=== PATIENT | female | born 1955 | race Caucasian/White ===

== ENCOUNTER 2018-04-20 10:48 | Inpatient (IN) | payer OTHER ==
--- OUTSIDE RECORDS SUMMARY | 2018-04-20 10:51 | XMS REPORT | Clinical Summary ---
:1955 Author Organization [facility] Address [address] [address] Phone Care Team Providers Name Role Phone Unavailable Primary Care Provider Unavailable Allergies Active Allergy Reactions Severity Noted Date Comments Amoxicillin-Pot Clavulanate Other (See Comments) 11/28/2017 Cant remember Codeine Other (See Comments) 11/28/2017 hallucination Levofloxacin Nausea And Vomiting 11/28/2017 Morphine Other (See Comments) 11/28/2017 Other 11/28/2017 Adhesive tape Penicillins 11/29/2017 Current Medications Prescription Sig. Disp. Refills Start End Date Status Date DULoxetine Take 30 mg by Active (CYMBALTA) 30 MG mouth daily. capsule lactulose Take 20 g by mouth Active (CHRONULAC) 20 daily as needed . gram/30 mL solution pantoprazole Take 40 mg by Active (PROTONIX) 40 MG mouth daily. tablet traMADol Take 100 mg by Active (ULTRAM-ER) 100 MG mouth daily. 24 hr tablet baclofen (LIORESAL) Take 20 mg by Active 20 MG tablet mouth 3 (three) times daily. atorvastatin Take 10 mg by Active (LIPITOR) 10 MG mouth daily. tablet ferrous sulfate 325 Take 325 mg by Active (65 FE) MG tablet mouth daily with breakfast. zinc sulfate Take 220 mg by Active (ZINCATE) 220 (50) mouth daily. mg capsule vitamin E 600 UNIT Take 800 Units by Active capsule mouth every 12 (twelve) hours . aspirin 81 MG Take 81 mg by Active chewable tablet mouth daily. ascorbic acid, Take 500 mg by Active vitamin C, (VITAMIN mouth daily. C) 500 MG tablet levothyroxine Take 125 mcg by Active (SYNTHROID, mouth Every LEVOTHROID) 125 MCG morning on an tablet empty stomach. zolpidem (AMBIEN) Take 10 mg by Active 10 mg tablet mouth every night as needed for Insomnia. acetaminophen Take 500 mg by Active (TYLENOL) 500 MG mouth every 6 tablet (six) hours as needed for Pain. albuterol Take 2.5 mg by Active (PROVENTIL) 2.5 nebulization every mg/0.5 mL Nebu 6 (six) hours. nebulizer solution carBAMazepine Take 600 mg by Active (CARBATROL) 300 MG mouth every 12 12 hr capsule (twelve) hours. lidocaine 4 % Apply topically as Active dressing needed (spray). Lactobacillus Take 1 tablet by Active acidoph-LFriedabulgar mouth daily. (FLORANEX) 1 million cell Tab per tablet Missing or Take 290 mcg by Active Non-Formulary mouth daily Medication linactotide . gabapentin Take 300 mg by 12/09/19 Discontinued (NEURONTIN) 300 MG mouth every 12 18 capsule (twelve) hours . ipratropium Take 500 mcg by 12/09/19 Discontinued (ATROVENT) 0.02 % nebulization 4 18 nebulizer solution (four) times daily. vancomycin Inject 1,250 mg 12/09/19 Discontinued (VANCOCIN) 125 MG intravenously 18 capsule daily . bisacodyl (FLEET) Place 10 mg 12/09/19 Discontinued 10 mg/30 mL Enem rectally once. 18 enema enoxaparin Inject 40 mg 12/09/19 Discontinued (LOVENOX) 40 mg/0.4 subcutaneously 18 mL Syrg daily. insulin aspart Inject 12/09/19 Discontinued (NOVOLOG) 100 subcutaneously 3 18 unit/mL InPn (three) times daily with meals. hydrOXYzine Take 50 mg by 12/09/19 Discontinued (ATARAX) 50 MG mouth every 6 18 tablet (six) hours . ondansetron Inject 4 mg 12/09/19 Discontinued (ZOFRAN-ODT) 4 MG intravenously 18 disintegrating every 6 (six) tablet hours as needed for Nausea . acetylcysteine 20% Take 4 mLs by 12/09/19 Discontinued (MUCOMYST) 200 nebulization every 18 mg/mL (20 %) 6 (six) hours. nebulizer solution Missing or Inject 1 g 12/09/19 Discontinued Non-Formulary intravenously 18 Medication every 8 (eight) hours meropenon . meropenem (MERREM) Inject 1 g 0 12/18/19 1 g in sodium intravenously 8 18 chloride 0.9% (NS) every 8 (eight) 100 mL ADD EASE hours for 9 days. IVPB potassium chloride Take 1 tablet (20 14 tablet 0 12/23/19 SA (K-DUR,KLOR-CON) mEq total) by 8 18 20 MEQ tablet mouth daily for 14 days. furosemide (LASIX) Take 1 tablet (20 28 tablet 0 12/23/19 20 MG tablet mg total) by mouth 8 18 2 (two) times daily for 14 days. linezolid (ZYVOX) Take 1 tablet (600 18 tablet 0 12/18/19 600 mg tablet mg total) by mouth 8 18 2 (two) times daily for 9 days. Active Problems Problem Noted Date Acute pulmonary edema (HCC) 11/29/2017 Encounters Date Type Specialty Care Team Description 11/28/2017 - Hospital Encounter General Internal Hector, Will, Acute pulmonary edema 12/08/2017 Medicine DO ([facility]) (Primary Tanika Richardson Dx);Bilateral pleural MD Aleyda effusion;H/O multiple Jafar, Hemant sclerosis;COPD with MD Debi acute exacerbation ([facility]);Hypoxia;Suprapu bic catheter dysfunction, initial encounter ([facility]);Neurogenic bladder after 04/19/2017 Social History Tobacco Use Types Packs/Day Years Used Date Never Smoker Smokeless Tobacco: Never Used Tobacco Cessation: Counseling Given: No Alcohol Use Drinks/Week oz/Week Comments No Sex Assigned at Date Recorded Not on file Last Filed Vital Signs Vital Sign Reading Time Taken Blood Pressure 135/72 12/08/2017 7:43 PM CLIENT SUPPORT MANAGER Pulse 89 12/08/2017 7:43 PM CLIENT SUPPORT MANAGER Temperature 36 C (96.8 F) 12/08/2017 7:43 PM CLIENT SUPPORT MANAGER Respiratory Rate 18 12/08/2017 7:43 PM CLIENT SUPPORT MANAGER Oxygen Saturation 99% 12/08/2017 7:43 PM CLIENT SUPPORT MANAGER Inhaled Oxygen Concentration - - Weight 71.5 kg (157 lb 10.1 oz) 12/08/2017 5:56 AM CLIENT SUPPORT MANAGER Height 175.3 cm (5' 9") 11/29/2017 9:00 PM CLIENT SUPPORT MANAGER Body Mass Index 23.28 12/08/2017 5:56 AM CLIENT SUPPORT MANAGER Plan of Treatment Not on file Results RHYTHM STRIP - SCAN (12/09/2017 1:01 PM)Only the most recent of2 resultswithin the time period is included.EKG-SCANNED (12/09/2017 1:01 PM)POC-Glucose meter ( 12/08/2017 8:32 PM)Only the most recent of40 resultswithin the time period is included. Component Value Ref Range POC-Glucose Meter 190 (H)Comment: TESTED AT [facility] [address] 70 - 110 mg/dL [facility] [id number] Specimen Performing Laboratory Blood [facility] [address] [address] XR chest 1 view portable / bedside (12/08/2017 12:05 PM)Only the most recent of9 resultswithin the time period is included. Specimen Performing Laboratory [facility] Narrative FINAL REPORT Chest, 1 view. Comparison: 12/05/2017. Discussion: Left-sided subclavian chest port and right-sided PICC line in stable position. The trachea is midline. The lungs are symmetrically expanded without evidence of focal consolidation, pneumothorax, or significant pleural effusion. The cardiomediastinal silhouette is stable in appearance. No acute osseous abnormalities are identified. IMPRESSION: No acute cardiopulmonary process or significant detrimental interval change identified from the prior examination from 12/05/2017. Signed: Tariq Dunne MD Report Verified Date/Time:12/08/2017 14:54:31 Reading Location: [facility] Radiology Reading Room Procedure Note Interface, External Ris In - 12/08/2017 2:56 PM CLIENT SUPPORT MANAGER FINAL REPORT Chest, 1 view. Comparison: 12/05/2017. Discussion: Left-sided subclavian chest port and right-sided PICC line in stable position. The trachea is midline. The lungs are symmetrically expanded without evidence of focal consolidation, pneumothorax, or significant pleural effusion. The cardiomediastinal silhouette is stable in appearance. No acute osseous abnormalities are identified. IMPRESSION: No acute cardiopulmonary process or significant detrimental interval change identified from the prior examination from 12/05/2017. Signed: Tariq Dunne MD Report Verified Date/Time: 12/08/2017 14:54:31 Reading Location: [facility] Radiology Reading Room B-type Natriuretic Factor (BNP) (12/08/2017 6:45 AM)Only the most recent of4 resultswithin the time period is included. Component Value Ref Range BNP 234 (H) 0 - 100 pg/mL Specimen Performing Laboratory Blood [facility] [address] [place] [address] Manual Differential (12/08/2017 5:54 AM)Only the most recent of8 resultswithin the time period is included. Component Value Ref Range % Neutros (manual) 50 % % Lymphs (manual) 19 % % Monos (manual) 18 % % Eos (manual) 5 % % Bands (manual) 2 0 - 10 % % Atypical Lymphs 6 (H) 0 - 0 % # Neutros (manual) 4.85 1.80 - 8.00 K/L # Lymphs (manual) 1.84 1.48 - 4.50 K/L # Monos (manual) 1.75 (H) 0.00 - 1.30 K/L # Eos (manual) 0.49 0.00 - 0.50 K/L # Bands (manual) 0.2 0.0 - 0.8 K/L # Atypical Lymphs 0.58 (H) 0.00 - 0.00 K/L Total Counted 100 Bands plus Segmented Neutrophils 5.04 WBC Morphology Normal Large Platelet Present Giant Platelet Present Schistocytes 1+ few Anisocytosis 2+ moderate Hypochromia 1+ few Microcytes 1+ few Ovalocytes 1+ few Poikilocytes 1+ few Target Cells 1+ few Specimen Performing Laboratory Blood [facility] [address] [place] [address] CBC with platelet count + automated diff (12/08/2017 5:54 AM)Only the most recent of9 resultswithin the time period is included. Component Value Ref Range WBC 9.7 4.0 - 10.0 K/L RBC 4.38 4.00 - 5.00 M/L Hemoglobin 10.6 (L) 12.0 - 15.0 GM/DL Hematocrit 33.5 (L) 36.0 - 45.0 % MCV 76.6 (L) 82.0 - 99.0 fL MCH 24.1 (L) 27.0 - 33.0 pg MCHC 31.5 (L) 32.0 - 36.0 GM/DL RDW 34.0 (H) 10.3 - 14.2 % Platelets 224 150 - 430 K/CU MM MPV 12.0 (H) 6.5 - 10.5 fL Specimen Performing Laboratory Blood [facility] [address] [place] [address] CBC with platelet count + automated diff (12/08/2017 5:54 AM)Only the most recent of9 resultswithin the time period is included. Specimen Performing Laboratory Blood Narrative The following orders were created for panel order CBC with platelet count + automated diff. Procedure Abnormality Status --------- ------ CBC with platelet count ...[[id number]]AbnormalFinal result Manual Differential[[id number]]Abnormal Final result Please view results for these tests on the individual orders. Basic Metabolic Panel (12/08/2017 5:53 AM)Only the most recent of8 resultswithin the time period is included. Component Value Ref Range Sodium 139 135 - 148 meq/L Potassium 4.0 3.6 - 5.5 meq/L Chloride 99 98 - 106 meq/L CO2 31 (H) 20 - 29 meq/L BUN 30 (H) 10 - 26 mg/dL Creatinine 0.60 0.50 - 1.20 mg/dL Glucose 138 (H) 70 - 110 mg/dL Calcium 8.8 8.5 - 10.5 mg/dL EGFR 102Comment: ESTIMATED GFR IS NOT ACCURATE mL/min/1.73 sq m CREATININE CLEARANCE IN PREDICTING GLOMERULAR FILTRATION RATE. ESTIMATED GFR IS NOT APPLICABLE FOR DIALYSIS PATIENTS. Specimen Performing Laboratory Blood [facility] [address] [place] [address] Vancomycin level, trough (12/07/2017 9:02 AM)Only the most recent of3 resultswithin the time period is included. Component Value Ref Range Vancomycin Tr 17.3 10.0 - 20.0 ug/mL Specimen Performing Laboratory Blood [facility] [address] [place] [address] Peripheral Blood Smear - Path Review (12/06/2017 6:35 AM) Component Value Ref Range RBC Morphology Microcytosis Target Cells Hypochromasia Anisocytosis WBC Morphology Left Shift Atypical Lymphs Hypersegmented Neutrophils Platelet Morphology Large Platelets Pathologist Review Microcytic hypochromic anemia with anisocytosis and target cells. Few hypersegmented neutrophils. Findings are suggestive of iron deficiency anemia. Recommend correlation with iron levels. Pathologist Janet Cespedes M.D. (electronic signature) Specimen Performing Laboratory Blood [facility] [address] [place] [address] Vancomycin level, random (12/06/2017 6:35 AM)Only the most recent of2 resultswithin the time period is included. Component Value Ref Range Vancomycin Rm 18.1 ug/mL Specimen Performing Laboratory Blood [facility] [address] [place] [address] Narrative Reference Range: No Normals MR lumbar spine without & with IV contrast (12/04/2017 6:30 PM) Specimen Performing Laboratory [employer] Narrative FINAL REPORT EXAM: MRI lumbar spine with and without contrast. CLINICAL HISTORY: lumbago TECHNIQUE: Multiplanar multi sequential MRI of the lumbar spine was performed with and without intravenous contrast. COMPARISON: No prior study for comparison. FINDINGS: There is exaggeration of the lower lumbar lordosis. The bone marrow signal is normal. There is no significant abnormality to suggest an acute fracture. There is minimal grade 1 anterolisthesis at L2/L3, L3/L4 and L4/L5. There is a mild compression fracture deformity of the T12 and L4 vertebral body involving the superior endplate.There is mild loss of height of the L5 vertebral body. There is multilevel disc desiccation. There is mild disc space narrowing at L3/L4. There is multilevel facet arthropathy. The visualized spinal cord is normal in size, contour and signal. The conus medullaris terminates at L1. There is no abnormal enhancement within the spinal canal. At T12-L1, there is no significant spinal canal or neuroforaminal stenosis. At L1-L2, there is no significant spinal canal or neuroforaminal stenosis. At L2-L3, there is mild spinal canal stenosis due to ligamentous hypertrophy. There is no significant neuroforaminal stenosis. At L3-L4, there is mild spinal canal stenosis due to disc osteophyte complex and ligamentous hypertrophy. There is no significant neural foraminal stenosis. At L4-L5, there is mild spinal canal stenosis due to diffuse disc osteophyte complex and ligamentous hypertrophy. There is mild to moderate bilateral neuroforaminal stenosis. At L5-S1, there is no significant spinal canal stenosis. There is mild bilateral neural foraminal stenosis. There is a small T2 hyperintensity in the right kidney which may represent a cyst. There is soft tissue edema in the posterior subcutaneous tissues, with enhancement for which superimposed cellulitis cannot be excluded. There is no fluid collection. There is atrophy of the paraspinal musculature. IMPRESSION: Mild compression fracture deformity of T12 and L4. No acute fracture. Degenerative changes as described. No cord compression. Signed: Hans Rosa MD Report Verified Date/Time:12/04/2017 23:32:02 Reading Location: [facility] [id number] Transitional Reading Room Procedure Note Interface, External Ris In - 12/04/2017 11:34 PM CLIENT SUPPORT MANAGER FINAL REPORT EXAM: MRI lumbar spine with and without contrast. CLINICAL HISTORY: lumbago TECHNIQUE: Multiplanar multi sequential MRI of the lumbar spine was performed with and without intravenous contrast. COMPARISON: No prior study for comparison. FINDINGS: There is exaggeration of the lower lumbar lordosis. The bone marrow signal is normal. There is no significant abnormality to suggest an acute fracture. There is minimal grade 1 anterolisthesis at L2/L3, L3/L4 and L4/L5. There is a mild compression fracture deformity of the T12 and L4 vertebral body involving the superior endplate. There is mild loss of height of the L5 vertebral body. There is multilevel disc desiccation. There is mild disc space narrowing at L3/L4. There is multilevel facet arthropathy. The visualized spinal cord is normal in size, contour and signal. The conus medullaris terminates at L1. There is no abnormal enhancement within the spinal canal. At T12-L1, there is no significant spinal canal or neuroforaminal stenosis. At L1-L2, there is no significant spinal canal or neuroforaminal stenosis. At L2-L3, there is mild spinal canal stenosis due to ligamentous hypertrophy. There is no significant neuroforaminal stenosis. At L3-L4, there is mild spinal canal stenosis due to disc osteophyte complex and ligamentous hypertrophy. There is no significant neural foraminal stenosis. At L4-L5, there is mild spinal canal stenosis due to diffuse disc osteophyte complex and ligamentous hypertrophy. There is mild to moderate bilateral neuroforaminal stenosis. At L5-S1, there is no significant spinal canal stenosis. There is mild bilateral neural foraminal stenosis. There is a small T2 hyperintensity in the right kidney which may represent a cyst. There is soft tissue edema in the posterior subcutaneous tissues, with enhancement for which superimposed cellulitis cannot be excluded. There is no fluid collection. There is atrophy of the paraspinal musculature. IMPRESSION: Mild compression fracture deformity of T12 and L4. No acute fracture. Degenerative changes as described. No cord compression. Signed: Hans Rosa MD Report Verified Date/Time: 12/04/2017 23:32:02 Reading Location: [address] Transitional Reading Room thoracic spine without & with IV contrast (12/04/2017 6:30 PM) Specimen Performing Laboratory [facility] Narrative FINAL REPORT MRI of the thoracic spine pre and postcontrast Comparison:None Reason for exam: Bone destruction Discussion: Sagittal and axial multisequence MR imaging of the thoracic spine was provided pre and postcontrast There is no central canal or cord compromise at any thoracic level. The cord has normal size and signal intensity. No abnormal intrathecal enhancement. There is no focal or dominant marrow replacing lesion. Mild compression deformities are present T1, T7, and T10 all with chronic appearances. There is right greater than left pleural effusion. Paraspinal structures are otherwise unremarkable. Impressions: Chronic spine changes as discussed. No specific evidence of acute spine abnormality. No specific evidence of marrow replacing neoplasm. Signed: Gopi Noble MD Report Verified Date/Time:12/04/2017 18:04:28 Reading Location: [facility] [id number] Neuro Reading Room Procedure Note Interface, External Ris In - 12/04/2017 6:48 PM CLIENT SUPPORT MANAGER FINAL REPORT MRI of the thoracic spine pre and postcontrast Comparison: None Reason for exam: Bone destruction Discussion: Sagittal and axial multisequence MR imaging of the thoracic spine was provided pre and postcontrast There is no central canal or cord compromise at any thoracic level. The cord has normal size and signal intensity. No abnormal intrathecal enhancement. There is no focal or dominant marrow replacing lesion. Mild compression deformities are present T1, T7, and T10 all with chronic appearances. There is right greater than left pleural effusion. Paraspinal structures are otherwise unremarkable. Impressions: Chronic spine changes as discussed. No specific evidence of acute spine abnormality. No specific evidence of marrow replacing neoplasm. Signed: Gopi Noble MD Report Verified Date/Time: 12/04/2017 18:04:28 Reading Location: [facility] [id number] Neuro Reading Room cervical spine without & with IV contrast (12/04/2017 6:30 PM) Specimen Performing Laboratory [employer] Narrative FINAL REPORT EXAM: MRI cervical spine with and without contrast . CLINICAL HISTORY: Abnormal xray, cervical spine, DJD TECHNIQUE: Multiplanar multi sequential MRI of the cervical spine was performed with and without contrast.. COMPARISON: None available. FINDINGS: Cervical vertebral body heights and alignment are maintained.There is a mild compression fracture deformity of T1 which appears chronic. The bone marrow signal is normal. The craniocervical junction and visualized intracranial compartment are unremarkable. There is no abnormal enhancement. There is no abnormal spinal cord signal. There is no cord compression. There is multilevel disc desiccation. The intervertebral disc space heights are maintained. The individual disc levels demonstrate the following: C2-C3: No significant spinal canal or neuroforaminal stenosis. C3-C4: No significant spinal canal stenosis. Mild left neuroforaminal stenosis. C4-C5: Small broad-based disc ridge partially effacing the ventral subarachnoid space. No significant neuroforaminal stenosis. C5-C6: Small broad-based disc ridge partially effacing the ventral subarachnoid space. Mild bilateral neuroforaminal stenosis. C6-C7: No significant spinal canal or neuroforaminal stenosis. C7-T1: No significant spinal canal or neuroforaminal stenosis. The prevertebral and paraspinal soft tissues are within normal limits. IMPRESSION: Mild degenerative changes as described. No cord signal abnormality or compression. No abnormal enhancement. Mild compression fracture deformity of T1, which appears chronic. Signed: Hans Rosa MD Report Verified Date/Time:12/04/2017 23:48:58 Reading Location: [address] Transitional Reading Room Procedure Note Interface, External Ris In - 12/04/2017 11:51 PM CLIENT SUPPORT MANAGER FINAL REPORT EXAM: MRI cervical spine with and without contrast . CLINICAL HISTORY: Abnormal xray, cervical spine, DJD TECHNIQUE: Multiplanar multi sequential MRI of the cervical spine was performed with and without contrast.. COMPARISON: None available. FINDINGS: Cervical vertebral body heights and alignment are maintained. There is a mild compression fracture deformity of T1 which appears chronic. The bone marrow signal is normal. The craniocervical junction and visualized intracranial compartment are unremarkable. There is no abnormal enhancement. There is no abnormal spinal cord signal. There is no cord compression. There is multilevel disc desiccation. The intervertebral disc space heights are maintained. The individual disc levels demonstrate the following: C2-C3: No significant spinal canal or neuroforaminal stenosis. C3-C4: No significant spinal canal stenosis. Mild left neuroforaminal stenosis. C4-C5: Small broad-based disc ridge partially effacing the ventral subarachnoid space. No significant neuroforaminal stenosis. C5-C6: Small broad-based disc ridge partially effacing the ventral subarachnoid space. Mild bilateral neuroforaminal stenosis. C6-C7: No significant spinal canal or neuroforaminal stenosis. C7-T1: No significant spinal canal or neuroforaminal stenosis. The prevertebral and paraspinal soft tissues are within normal limits. IMPRESSION: Mild degenerative changes as described. No cord signal abnormality or compression. No abnormal enhancement. Mild compression fracture deformity of T1, which appears chronic. Signed: Hans Rosa MD Report Verified Date/Time: 12/04/2017 23:48:58 Reading Location: [address] Reading Room brain without & with IV contrast (12/04/2017 6:30 PM) Specimen Performing Laboratory [facility] Narrative FINAL REPORT Exam: MRI brain with and without contrast Comparison:No prior study for direct comparison. Reason for exam: Encephalopathy Technique: Multiplanar multisequence MRI of the brain was performed before and after the administration of gadolinium contrast. Findings: There are multiple ovoid T2 hyperintense lesions in the bilateral periventricular white matter without mass effect. Many of these are located along the callososeptal interface. Some lesions are T1 hypointense. Juxtacortical lesions are present. There is no abnormal enhancement. There is no intracranial mass, mass effect, extra-axial collection, hydrocephalus or herniation.There is no restricted diffusion to suggest an acute infarct. There is no abnormality on susceptibility sequences to suggest hemorrhage or hemosiderin deposition. The skull base flow-voids are seen in keeping with their patency. There is a right temporal mastoid effusion. The left thoracic cavity is clear. There is mild paranasal sinus mucosal thickening. The orbits are normal. The sella and parasellar regions are unremarkable. The craniocervical junction is normal. Impressions: Multiple white matter lesions favored to represent demyelinating lesions. No abnormal enhancement to suggest active demyelination. No acute infarct, hemorrhage or mass effect. Right temporal mastoid effusion. Signed: Hans Rosa MD Report Verified Date/Time:12/04/2017 22:01:42 Reading Location: [address] Reading Room Procedure Note Interface, External Ris In - 12/04/2017 10:03 PM CLIENT SUPPORT MANAGER FINAL REPORT Exam: MRI brain with and without contrast Comparison: No prior study for direct comparison. Reason for exam: Encephalopathy Technique: Multiplanar multisequence MRI of the brain was performed before and after the administration of gadolinium contrast. Findings: There are multiple ovoid T2 hyperintense lesions in the bilateral periventricular white matter without mass effect. Many of these are located along the callososeptal interface. Some lesions are T1 hypointense. Juxtacortical lesions are present. There is no abnormal enhancement. There is no intracranial mass, mass effect, extra-axial collection, hydrocephalus or herniation. There is no restricted diffusion to suggest an acute infarct. There is no abnormality on susceptibility sequences to suggest hemorrhage or hemosiderin deposition. The skull base flow-voids are seen in keeping with their patency. There is a right temporal mastoid effusion. The left thoracic cavity is clear. There is mild paranasal sinus mucosal thickening. The orbits are normal. The sella and parasellar regions are unremarkable. The craniocervical junction is normal. Impressions: Multiple white matter lesions favored to represent demyelinating lesions. No abnormal enhancement to suggest active demyelination. No acute infarct, hemorrhage or mass effect. Right temporal mastoid effusion. Signed: Hans Rosa MD Report Verified Date/Time: 12/04/2017 22:01:42 Reading Location: [facility] B1 C013T Transitional Reading Room Magnesium (12/04/2017 5:12 AM)Only the most recent of4 resultswithin the time period is included. Component Value Ref Range Magnesium 2.1 1.5 - 3.0 mg/dL Specimen Performing Laboratory Blood - Central Venous Line [facility] [address] [place] [address] Blood gas, arterial (12/03/2017 9:57 AM)Only the most recent of5 resultswithin the time period is included. Component Value Ref Range pH, Arterial 7.43 7.35 - 7.45 pCO2, Arterial 49 (H) 35 - 45 mmHg pO2, Arterial 112 (H) 80 - 90 mmHg O2 Sat, Arterial 98.1 (H) 96.0 - 97.0 % HCO3, Arterial 32 (H) 21 - 29 mmol/L Base Excess, Arterial 6.3 (H) -2.0 - 3.0 mmol/L Patient Temperature 37.0 C FIO2 32.0 % Specimen Performing Laboratory Blood, Arterial - Arm, Right [facility] [address] [place] [address] Respiratory Panel [facility] (12/01/2017 9:35 PM) Component Value Ref Range Human Metapneumovirus Not detected Not detected, Inconclusive Rhinovirus Not detected Not detected, Inconclusive Influenza A Not detected Not detected, Inconclusive Influenza A subtype H1 Not detected Not detected, Inconclusive Influenza A Subtype H3 Not detected Not detected, Inconclusive Influenza A Subtype H1-2009 Not detected Not detected, Inconclusive Influenza B Not detected Not detected, Inconclusive Respiratory Syncytial Virus Not detected Not detected, Inconclusive Parainfluenza Virus 1 Not detected Not detected, Inconclusive Parainfluenza Virus 2 Not detected Not detected, Inconclusive Parainfluenza virus 3 Not detected Not detected, Inconclusive Parainfluenza Virus 4 Not detected Not detected, Inconclusive Adenovirus Not detected Not detected, Inconclusive Coronavirus 229E Not detected Not detected, Inconclusive Coronavirus HKU1 Not detected Not detected, Inconclusive Coronavirus NL63 Not detected Not detected, Inconclusive Coronavirus OC43 Not detected Not detected, Inconclusive Bordetella Pertussis Not detected Not detected, Inconclusive Chlamydophila Pneumoniae Not detected Not detected, Inconclusive Mycoplasma Pneumoniae Not detected Not detected, Inconclusive Specimen Performing Laboratory Nasal - Nasal Mucosa [address] [address] Rapid Influenza A&B Screen (12/01/2017 9:35 PM) Component Value Ref Range Rapid Influenza A Antigen Negative Negative, Inconclusive Rapid influenza B Antigen Negative Negative, Inconclusive Specimen Performing Laboratory Nasal - Nasal Mucosa [facility] [address] [place] [address] Comprehensive metabolic panel (12/01/2017 12:00 PM) Component Value Ref Range Protein, Total 6.1 6.0 - 8.5 gm/dL Albumin 2.7 (L) 3.5 - 5.0 g/dL Alkaline Phosphatase 118 (H) 30 - 115 U/L Total Bilirubin 0.3 0.1 - 1.2 mg/dL Sodium 139 135 - 148 meq/L Potassium 3.5 (L) 3.6 - 5.5 meq/L Chloride 105 98 - 106 meq/L CO2 25 20 - 29 meq/L BUN 21 10 - 26 mg/dL Creatinine 0.70 0.50 - 1.20 mg/dL Glucose 387 (H) 70 - 110 mg/dL Calcium 8.2 (L) 8.5 - 10.5 mg/dL AST 16 5 - 40 U/L ALT 8 5 - 50 U/L EGFR 85Comment: ESTIMATED GFR IS NOT ACCURATE mL/min/1.73 sq m CREATININE CLEARANCE IN PREDICTING GLOMERULAR FILTRATION RATE. ESTIMATED GFR IS NOT APPLICABLE FOR DIALYSIS PATIENTS. Specimen Performing Laboratory Blood [facility] [address] [place] [address] pH, body fluid (11/30/2017 3:46 PM)Only the most recent of2 resultswithin the time period is included. Component Value Ref Range pH, Body Fluid 8.00 Specimen Performing Laboratory Body Fluid - Pleural, [address] [address] Glucose, body fluid (11/30/2017 3:46 PM)Only the most recent of2 resultswithin the time period is included. Component Value Ref Range Glucose, Body Fluid 256 (H) 70 - 110 mg/dL Specimen Performing Laboratory Body Fluid - Pleural, [address] [address] Narrative Absence of reference range indicates that normals have not been defined. Assay performance has not been validated for this type of specimen. Body fluid culture + gram stain (11/30/2017 3:46 PM)Only the most recent of2 resultswithin the time period is included. Component Value Ref Range Result No growth Gram Stain Result 1+ WBCs Gram Stain Result No organisms seen Specimen Performing Laboratory Body Fluid - Pleural, Right [facility] [address] [place] [address] Protein, body fluid (11/30/2017 3:46 PM)Only the most recent of2 resultswithin the time period is included. Component Value Ref Range Protein, Fluid 1.7 Light's criteria identifies effusions if one or more are present: Pleural to serum protein ratio of more than 0.5; Pleural to Serum LDH of more than 0.6; Pleural LDH of more than two third of upper serum reference limit g/dL Specimen Performing Laboratory Body Fluid - Pleural, [address] [address] Narrative Absence of reference range indicates that normals have not been defined. Assay performance has not been validated for this type of specimen. Lactate dehydrogenase (LDH), body fluid (11/30/2017 3:46 PM)Only the most recent of2 resultswithin the time period is included. Component Value Ref Range LDH, Fluid 123 Light's criteria identifies effusions if one or more are present: Pleural to serum protein ratio of more than 0.5; Pleural to serum LDH ratio of more than 0.6; Pleural LDH more than two third of upper serum reference limit U/L Specimen Performing Laboratory Body Fluid - Pleural, [address] [address] Narrative Absence of reference range indicates that normals have not been defined. Assay performance has not been validated for this type of specimen. Albumin, body fluid (11/30/2017 3:46 PM)Only the most recent of2 resultswithin the time period is included. Component Value Ref Range Albumin, Fluid 0.9 gm/dL Specimen Performing Laboratory Body Fluid - Pleural, [address] [address] Narrative Reference Range:No Normals Assay performance has not been validated for this type of specimen. Cytology (11/30/2017 3:15 PM) Component Value Ref Range Case Report Medical Cytology Report Case: [id number] Authorizing Provider:Sari Church MD Collected: 11/30/2017 1515 Ordering Location: [address] Med/SurgReceived: 12/01/2017 0758 Pathologist: Janet Cespedes MD Specimen:Pleural, Left DIAGNOSIS LEFT PLEURAL FLUID (CYTOSPINS): - REACTIVE MESOTHELIAL CELLS IN A BACKGROUND OF PREDOMINANTLY CHRONIC INFLAMMATION - NO MALIGNANT CELLS IDENTIFIED CPT Code(s) 40982 CLINICAL DATA Left pleural effusion, shortness of breath; history of multiple sclerosis SPECIMEN SOURCE LEFT PLEURAL FLUID GROSS DESCRIPTION Prepared 4 cytospins from 250 ml light brown fluid Collected: [id number] Received: [id number] MICROSCOPIC DESCRIPTION Performed. STATEMENT OF ADEQUACY Satisfactory Technical component was performed at [facility], Department of Pathology, [address] [place] [id number], Professional component was performed [facility], at Department of Pathology, [address] [place] [address], Specimen Performing Laboratory Body Fluid - Pleural, Left [facility] [address] [place] [address] US thoracentesis (11/30/2017 3:00 PM)Only the most recent of2 resultswithin the time period is included. Specimen Performing Laboratory [facility] Narrative FINAL REPORT Ultrasound Guided left Thoracentesis: Modality: Ultrasound Approach: Left Posterior Lateral Intercostal Sedation: None Findings: Informed consent was obtained. After an appropriate site for drainage was found, the skin was prepped and draped, and local anesthesia was given. A 16 G catheterwas inserted into the left pleural space under ultrasound guidance, and approximately 250 cc of pleural fluid was aspirated. The catheter was removed. No immediate complications were noted. A postprocedure chest radiograph revealed no evidence of pneumothorax. Impression: 1.Uncomplicated ultrasound-guided left thoracentesis. Signed: Gael Avilez MD Report Verified Date/Time:11/30/2017 16:47:10 Reading Location: [facility] Radiology Reading Room Procedure Note Interface, External Ris In - 11/30/2017 4:49 PM CLIENT SUPPORT MANAGER FINAL REPORT Ultrasound Guided left Thoracentesis: Modality: Ultrasound Approach: Left Posterior Lateral Intercostal Sedation: None Findings: Informed consent was obtained. After an appropriate site for drainage was found, the skin was prepped and draped, and local anesthesia was given. A 16 G catheter was inserted into the left pleural space under ultrasound guidance, and approximately 250 cc of pleural fluid was aspirated. The catheter was removed. No immediate complications were noted. A postprocedure chest radiograph revealed no evidence of pneumothorax. Impression: 1. Uncomplicated ultrasound-guided left thoracentesis. Signed: Gael Avilez MD Report Verified Date/Time: 11/30/2017 16:47:10 Reading Location: [facility] Radiology Reading Room CARDIOGRAM REPORT - SCAN (11/30/2017 1:54 PM)2D Echo W/Doppler(CW/PW/Color ) (11/30/2017 9:56 AM) Component Value Ref Range Ejection Fraction Specimen Performing Laboratory [facility] ECHO [facility] Narrative Transthoracic Echocardiography Report (TTE) Demographics Patient Name Bonnie CHAMBERLAIN of Study 11/30/2017 FREYA [id number] GenderFemale Visit Number [id number] [facility] [id number] Number 425 Number Date of Birth1955 Referring Physician Age62 year(s) Emergency Department Director Karen Easley [facility] Isabel Valdes Physician . Procedure Type of Study TTE procedure:2DECHO W DOPPLER(CW/PW/COLOR) (Routine) Indications:Dyspnea/SOB. Clinical History DM MSRa plural effusion Height: 69 inches Weight: 74.39 kg (164 lbs) BSA: 1.9 m^2 BMI: 24.22 kg/m^2 HR: 114 bpm BP: 151/80 mmHg Summary Normal left ventricular chamber size. Normal wall thickness. Normal overall left ventricular systolic function. No apparent segmental wall motion abnormalities. Estimated LVEF is 55-60%. No evidence of pericardial effusion. Signature Findings LeftNormal left ventricular chamber size. Normal wall thickness. Ventricle Normal overall left ventricular systolic function. No apparent segmental wall motion abnormalities. Estimated LVEF is 55-60%. Left Atrium Normal size left atrium. Right Normal right ventricle structure and function. Ventricle Right AtriumNormal right atrium. Aortic ValveNormal aortic valve structure and function. Mitral ValveNormal mitral valve structure and function. Trace MR noted Tricuspid Normal tricuspid valve structure and function. Trace TR Valve noted PulmonicNormal pulmonic valve structure and function. Valve Pericardium No evidence of pericardial effusion. Procedure Note Interface, External Ris In - 11/30/2017 1:18 PM CLIENT SUPPORT MANAGER Transthoracic Echocardiography Report (TTE) Demographics Patient Name CHRISTOPHER CHAMBERLAIN Date of Study 11/30/2017 FREYA Gender Female Visit Number [id number] Race Unknown Room Number 425 Number Date of 1955 Referring Physician Age 62 year(s) Emergency Department Director Karen Easley [facility] Interpreting Lindsay Valdes, Physician . Procedure Type of Study TTE procedure:2DECHO W DOPPLER(CW/PW/COLOR) (Routine) Indications:Dyspnea/SOB. Clinical History DM MSRa plural effusion Height: 69 inches Weight: 74.39 kg (164 lbs) BSA: 1.9 m^2 BMI: 24.22 kg/m^2 HR: 114 bpm BP: 151/80 mmHg Summary Normal left ventricular chamber size. Normal wall thickness. Normal overall left ventricular systolic function. No apparent segmental wall motion abnormalities. Estimated LVEF is 55-60%. No evidence of pericardial effusion. Signature Findings Left Normal left ventricular chamber size. Normal wall thickness. Ventricle Normal overall left ventricular systolic function. No apparent segmental wall motion abnormalities. Estimated LVEF is 55-60%. Left Atrium Normal size left atrium. Right Normal right ventricle structure and function. Ventricle Right Atrium Normal right atrium. Aortic Valve Normal aortic valve structure and function. Mitral Valve Normal mitral valve structure and function. Trace MR noted Tricuspid Normal tricuspid valve structure and function. Trace TR Valve noted Pulmonic Normal pulmonic valve structure and function. Valve Pericardium No evidence of pericardial effusion. TSH/Free T4 If Indicated (11/30/2017 5:34 AM) Component Value Ref Range TSH 2.23 0.35 - 5.50 uIU/mL Specimen Performing Laboratory Blood [facility] [address] [place] [address] Hemoglobin A1c (11/30/2017 5:34 AM) Component Value Ref Range Hemoglobin A1C 5.1 4.3 - 6.1 % Specimen Performing Laboratory [facility] [address] [place] [address] Lipid panel (11/30/2017 5:34 AM) Component Value Ref Range Triglycerides 85 mg/dL Cholesterol 158 mg/dL HDL 63 mg/dL LDL Calculated 78 mg/dL Specimen Performing Laboratory [facility] [address] [place] [address] Narrative Triglyceride Reference Range: Low Risk <150 [id number] High Risk 200-499 Very High Risk>=500 Cholesterol Reference Range: Low Risk <200 [id number] High Risk>240 HDL Cholesterol Reference Range: Low Risk >=60 High Risk <40 LDL Cholesterol Reference Range: Optimal<100 Near [id number] Very High >=190 Troponin I (11/29/2017 4:48 PM)Only the most recent of3 resultswithin the time period is included. Component Value Ref Range Troponin I <0.03 0.00 - 0.15 ng/mL Specimen Performing Laboratory [facility] [address] [place] [address] Narrative Troponin I (TnI) levels must be interpreted in the context of the presenting symptoms and the clinical findings. Elevated TnI levels indicate myocardial damage, but are not specific for ischemic heart disease. Elevated TnI levels are seen in patients with other cardiac conditions (including myocarditis and congestive heart failure), and slight TnI elevations occur in patients with other conditions, including sepsis, renal failure, acidosis, acute neurological disease, and persistent tachyarrhythmia. Creatine Kinase (CK), Total and MB (11/29/2017 4:48 PM)Only the most recent of3 resultswithin the time period is included. Component Value Ref Range Total CK 27 25 - 235 U/L CK-MB 1.5 0.0 - 4.9 ng/mL MB Relative Index 5.6 % Specimen Performing Laboratory [facility] [address] [place] [address] Narrative CK-MB Reference Range: <5 Normal 5-10 Borderline >10Abnormal PT/aPTT (11/29/2017 10:34 AM) Component Value Ref Range Protime 11.0 9.3 - 12.0 seconds INR 1.0 <=5.9 PTT 27.2 23.0 - 35.0 seconds Specimen Performing Laboratory [facility] [address] [place] [address] Narrative RECOMMENDED COUMADIN/WARFARIN INR THERAPY RANGES STANDARD DOSE: 2.0 - 3.0 Includes: PROPHYLAXIS for venous thrombosis, systemic embolization; TREATMENT for venous thrombosis and/or pulmonary embolus. HIGH RISK: Target INR is 2.5-3.5 for patients with mechanical heart valves. ED ECG Interpretation (11/29/2017 7:56 AM) Narrative Miguel Young DO 11/29/20177:56 AM ECG/EKG Interpretation Date/Time: 11/28/2017 10:02 PM Performed by: MIGUEL YOUNG Authorized by: MIGUEL YOUNG The ECG was not interpreted by ED physician. This ECG was not compared with previous ECG(s).The ECG is interpreted as sinus rhythm. Rate is normal rate. Heart rate is 99 BPM. Abnormal conduction noted: left bundle branch block. ST segments normal. T waves normal. Clinical Impression: non-specific ECGECG reviewed and does not meet STEMI criteria. CT chest PE test design (11/29/2017 12:27 AM) Specimen Performing Laboratory [employer] Narrative FINAL REPORT CLINICAL HISTORY: Chest pain, shortness of breath FINDINGS: Multiple axial images of the chest were performed after the uncomplicated administration of IV contrast, utilizing a pulmonary embolism protocol. Post-processing coronal reformats were created and interpreted. This exam was performed according to our departmental dose-optimization program, which includes automated exposure control, adjustment of the mA and/or kV according to patient size and/or use of the iterative reconstruction technique. Study quality:Adequate. Comparison:None. Pulmonary arteries: No pulmonary embolism. Lung parenchyma: Scattered bilateral nondependent groundglass opacities. Bilateral compressive atelectasis. Mild, diffuse interstitial thickening. Pleural effusion: Moderate to large right and moderate left pleural effusion. Focal convexities in the left pleural collection suggest partial loculation. This likely resulted in the lucency seen in the left hemithorax on chest x-ray. Pneumothorax: None. Tracheobronchial tree: No significant findings. Pulmonary vasculature: No significant findings. Cardiac contours and great vessels: Calcification of the mitral valve annulus Mediastinum: No significant findings. Lymph Nodes: Enlarged mediastinal lymph nodes. An example is a prevascular node with a short axis diameter measuring 1.4 cm. Skeleton: Diffuse osteopenia with a subtle heterogeneous appearance of the vertebral medullary bone. Other: Right PICC line and left subclavian chest port. Limited images of upper abdomen: No significant findings. IMPRESSION: No pulmonary embolism. Bilateral pulmonary opacities are nonspecific and may reflect some combination of atelectasis and edema. Pneumonitis is within the differential diagnosis and should be excluded clinically. Moderate to large right and moderate left pleural effusions. The left pleural effusion appears partially loculated. Prominent mediastinal lymph nodes could be reactive or reflect primary versus metastatic malignancy. Please correlate. Diffuse osteopenia. There is a subtle heterogeneous appearance of the medullary bone of the vertebral bodies, nonspecific. An infiltrative or metastatic process can be excluded with MRI or bone scan, if indicated. Signed: Prince Ruby MD Report Verified Date/Time:11/29/2017 00:49:46 Reading Location: [address] Reading Room Procedure Note Interface, External Ris In - 11/29/2017 12:52 AM CLIENT SUPPORT MANAGER FINAL REPORT CLINICAL HISTORY: Chest pain, shortness of breath FINDINGS: Multiple axial images of the chest were performed after the uncomplicated administration of IV contrast, utilizing a pulmonary embolism protocol. Post-processing coronal reformats were created and interpreted. This exam was performed according to our departmental dose-optimization program, which includes automated exposure control, adjustment of the mA and/or kV according to patient size and/or use of the iterative reconstruction technique. Study quality:Adequate. Comparison:None. Pulmonary arteries: No pulmonary embolism. Lung parenchyma: Scattered bilateral nondependent groundglass opacities. Bilateral compressive atelectasis. Mild, diffuse interstitial thickening. Pleural effusion: Moderate to large right and moderate left pleural effusion. Focal convexities in the left pleural collection suggest partial loculation. This likely resulted in the lucency seen in the left hemithorax on chest x-ray. Pneumothorax: None. Tracheobronchial tree: No significant findings. Pulmonary vasculature: No significant findings. Cardiac contours and great vessels: Calcification of the mitral valve annulus Mediastinum: No significant findings. Lymph Nodes: Enlarged mediastinal lymph nodes. An example is a prevascular node with a short axis diameter measuring 1.4 cm. Skeleton: Diffuse osteopenia with a subtle heterogeneous appearance of the vertebral medullary bone. Other: Right PICC line and left subclavian chest port. Limited images of upper abdomen: No significant findings. IMPRESSION: No pulmonary embolism. Bilateral pulmonary opacities are nonspecific and may reflect some combination of atelectasis and edema. Pneumonitis is within the differential diagnosis and should be excluded clinically. Moderate to large right and moderate left pleural effusions. The left pleural effusion appears partially loculated. Prominent mediastinal lymph nodes could be reactive or reflect primary versus metastatic malignancy. Please correlate. Diffuse osteopenia. There is a subtle heterogeneous appearance of the medullary bone of the vertebral bodies, nonspecific. An infiltrative or metastatic process can be excluded with MRI or bone scan, if indicated. Signed: Prince Ruby MD Report Verified Date/Time: 11/29/2017 00:49:46 Reading Location: [address] Reading Room Blood culture (11/28/2017 9:47 PM)Only the most recent of2 resultswithin the time period is included. Component Value Ref Range Result No growth in 5 days Specimen Performing Laboratory Blood - Line, Venous [facility] [address] [place] [address] pH, venous (11/28/2017 9:46 PM) Component Value Ref Range pH, Parth 7.36 7.32 - 7.42 Specimen Performing Laboratory Blood - Central Venous Line [facility] [address] [place] [address] Ketones, blood (11/28/2017 9:46 PM) Component Value Ref Range Ketones, Blood 0.3 <0.4 mmol/L Specimen Performing Laboratory Blood - Central Venous Line [facility] [address] [place] [address] after 04/19/2017 Advance Directives Patient has advance directives. For more information, please contact:[address] [phone]
--- OUTSIDE RECORDS SUMMARY | 2018-04-20 10:52 | XMS REPORT ---
:1955 [facility] [address] [place] [address] Care Team Providers Name Role Phone CAPRICE, WILL Unavailable Unavailable Problems This patient has no known problems. Allergies, Adverse Reactions, Alerts This patient has no known allergies or adverse reactions. Medications This patient has no known medications. Results Test Description Test Time Test Comments Text Results Atomic Results Result Comments POCT-GLUCOSE METER 2017-12-08 20:33:00 Test Item Value Reference Range Comments POC-GLUCOSE METER (BEAKER) (test 190 mg/dL 70-110 TESTED AT [address] ijrc=2366) [facility] [address] POCT-GLUCOSE [id number] 16:35:00 Test Item Value Reference Range Comments POC-GLUCOSE METER (BEAKER) 114 mg/dL 70-110 TESTED AT [address] (test rebh=4379) [facility] [address] RAD, CHEST, 1 VIEW, NON [id number] 14:54:00Reason for exam:->follow upFINAL REPORT Chest, 1 view. Comparison: 12/05/2017. Discussion: [...] prior examination from 12/05/2017. Signed: Tariq Dunne Verified Date/Time: 12/08/2017 14:54:31 Reading Location: [facility] Radiology Reading Room Electronically signedby: TARIQ DUNNE MD on 12/08/2017 02:54 PMPOCT-GLUCOSE [id number] 12:33:00 Test Item Value Reference Range Comments POC-GLUCOSE METER (BEAKER) 212 mg/dL 70-110 TESTED AT [facility] [address] (test qwzm=5681) [address] [facility] [address] CBC W/PLT COUNT & AUTO [id number] 08:28:00 Test Item Value Reference Range Comments WHITE BLOOD CELL COUNT (BEAKER) (test unzq=763) 9.7 K/ L 4.0-10.0 RED BLOOD CELL COUNT (BEAKER) (test brtd=673) 4.38 M/ L 4.00-5.00 HEMOGLOBIN (BEAKER) (test zbbe=381) 10.6 GM/DL 12.0-15.0 HEMATOCRIT (BEAKER) (test fclj=670) 33.5 % 36.0-45.0 MEAN CORPUSCULAR VOLUME (BEAKER) (test mrjd=228) 76.6 fL 82.0-99.0 MEAN CORPUSCULAR HEMOGLOBIN (BEAKER) (test 24.1 pg 27.0-33.0 tmjn=595) MEAN CORPUSCULAR HEMOGLOBIN CONC (BEAKER) (test 31.5 GM/DL 32.0-36.0 oxhk=378) RED CELL DISTRIBUTION WIDTH (BEAKER) (test 34.0 % 10.3-14.2 pzxp=861) PLATELET COUNT (BEAKER) (test ghac=631) 224 K/CU MM 150-430 MEAN PLATELET VOLUME (BEAKER) (test mztp=061) 12.0 fL 6.5-10.5 (MANUAL DIFFERENTIAL)2017-12-08 08:28:00 Test Item Value Reference Range Comments NEUTROPHILS - REL (DIFF) (BEAKER) (test 50 % pgqr=5774) LYMPHOCYTES - REL (DIFF) (BEAKER) (test 19 % resl=9852) MONOCYTES - REL (DIFF) (BEAKER) (test hlbm=9447) 18 % EOSINOPHILS - REL (DIFF) (BEAKER) (test 5 % trjt=4522) BANDS - REL (DIFF) (BEAKER) (test gslf=7355) 2 % 0-10 ATYPICAL LYMPHOCYTE - REL (DIFF) (BEAKER) (test 6 % 0-0 ngpf=716) NEUTROPHILS - ABS (DIFF) (BEAKER) (test 4.85 K/ L 1.80-8.00 mcgm=3402) LYMPHOCYTES - ABS (DIFF) (BEAKER) (test 1.84 K/ L 1.48-4.50 jwyx=4905) MONOCYTES - ABS (DIFF) (BEAKER) (test bgzl=5901) 1.75 K/ L 0.00-1.30 EOSINOPHILS - ABS (DIFF) (BEAKER) (test 0.49 K/ L 0.00-0.50 fdjx=0483) BANDS-ABS (DIFF) (BEAKER) (test mgot=0851) 0.2 K/ L 0.0-0.8 ATYPICAL LYMPHOCYTES - ABS (DIFF) (BEAKER) (test 0.58 K/ L 0.00-0.00 reko=330) TOTAL COUNTED (BEAKER) (test luyf=2064) 100 BANDS + SEGMENTED NEUTROPHILS (BEAKER) (test 5.04 olsp=9096) WBC MORPHOLOGY (BEAKER) (test pscl=756) Normal LARGE PLT(BEAKER) (test cufy=1478) Present GIANT PLATELETS (BEAKER) (test czjr=456) Present SCHISTOCYTES (BEAKER) (test ygfd=887) 1+ few ANISOCYTOSIS (BEAKER) (test bgjo=805) 2+ moderate HYPOCHROMIA (BEAKER) (test anpk=365) 1+ few MICROCYTES (BEAKER) (test voub=905) 1+ few OVALOCYTES (BEAKER) (test cnzw=130) 1+ few POIKILOCYTES (BEAKER) (test qnyk=813) 1+ few TARGET CELLS (BEAKER) (test lrej=036) 1+ few B-TYPE NATRIURETIC FACTOR (BNP)2017-12-08 07:14:00 Test Item Value Reference Range Comments B-TYPE NATRIURETIC PEPTIDE (BEAKER) (test 234 pg/mL 0-100 jruo=768) BASIC METABOLIC [id number] 07:09:00 Test Item Value Reference Range Comments SODIUM (BEAKER) (test 139 meq/L 135-148 tyhh=328) POTASSIUM (BEAKER) (test 4.0 meq/L 3.6-5.5 lmjj=973) CHLORIDE (BEAKER) (test 99 meq/L 98-106 nlhj=463) CO2 (BEAKER) (test 31 meq/L 20-29 qcdn=939) BLOOD UREA NITROGEN 30 mg/dL 10-26 (BEAKER) (test nyga=096) CREATININE (BEAKER) (test 0.60 mg/dL 0.50-1.20 vyex=728) GLUCOSE RANDOM (BEAKER) 138 mg/dL 70-110 (test tbjf=973) CALCIUM (BEAKER) (test 8.8 mg/dL 8.5-10.5 dfpe=670) EGFR (AKER) (test 102 mL/min/1.73 sq m ESTIMATED GFR IS NOT ytqs=4391) ACCURATE CREATININE CLEARANCE IN PREDICTING GLOMERULAR FILTRATION RATE. ESTIMATED GFR IS NOT APPLICABLE FOR DIALYSIS PATIENTS. POCT-GLUCOSE [id number] 21:24:00 Test Item Value Reference Range Comments POC-GLUCOSE METER ([facility]) 261 mg/dL 70-110 TESTED AT [address] (test amgn=1231) [facility] [address] POCT-GLUCOSE [id number] 17:41:00 Test Item Value Reference Range Comments POC-GLUCOSE METER ([facility]) 166 mg/dL 70-110 TESTED AT [address] (test yssw=8572) [facility] [address] POCT-GLUCOSE [id number] 12:01:00 Test Item Value Reference Range Comments POC-GLUCOSE METER ([facility]) 211 mg/dL 70-110 TESTED AT [address] (test pomq=0295) [facility] [address] VANCOMYCIN LEVEL, [id number] 09:35:00 Test Item Value Reference Range Comments VANCOMYCIN TROUGH ([facility]) (test xdfw=094) 17.3 ug/mL 10.0-20.0 CBC W/PLT COUNT & AUTO [id number] 06:57:00 Test Item Value Reference Range Comments WHITE BLOOD CELL COUNT (BEAKER) (test ngqh=906) 8.1 K/ L 4.0-10.0 RED BLOOD CELL COUNT (BEAKER) (test qooy=382) 4.04 M/ L 4.00-5.00 HEMOGLOBIN (BEAKER) (test fkph=202) 9.7 GM/DL 12.0-15.0 HEMATOCRIT (BEAKER) (test camt=965) 30.7 % 36.0-45.0 MEAN CORPUSCULAR VOLUME (BEAKER) (test rzvl=217) 76.0 fL 82.0-99.0 MEAN CORPUSCULAR HEMOGLOBIN (BEAKER) (test 24.1 pg 27.0-33.0 pjsi=664) MEAN CORPUSCULAR HEMOGLOBIN CONC (BEAKER) (test 31.7 GM/DL 32.0-36.0 kbop=147) RED CELL DISTRIBUTION WIDTH (BEAKER) (test 33.7 % 10.3-14.2 yola=549) PLATELET COUNT (BEAKER) (test ubyl=646) 229 K/CU MM 150-430 MEAN PLATELET VOLUME (BEAKER) (test orcx=107) 11.6 fL 6.5-10.5 (MANUAL DIFFERENTIAL)2017-12-07 06:57:00 Test Item Value Reference Range Comments NEUTROPHILS - REL (DIFF) (BEAKER) (test 71 % eaov=0346) LYMPHOCYTES - REL (DIFF) (BEAKER) (test 14 % qojc=9630) MONOCYTES - REL (DIFF) (BEAKER) (test vcio=3750) 10 % EOSINOPHILS - REL (DIFF) (BEAKER) (test 1 % aqdd=6632) BASOPHILS - REL (DIFF) (BEAKER) (test pdne=9049) 2 % ATYPICAL LYMPHOCYTE - REL (DIFF) (BEAKER) (test 2 % 0-0 aucv=722) NEUTROPHILS - ABS (DIFF) (BEAKER) (test 5.75 K/ L 1.80-8.00 wnpy=0651) LYMPHOCYTES - ABS (DIFF) (BEAKER) (test 1.13 K/ L 1.48-4.50 tgra=0551) MONOCYTES - ABS (DIFF) (BEAKER) (test ajtb=7824) 0.81 K/ L 0.00-1.30 EOSINOPHILS - ABS (DIFF) (BEAKER) (test 0.08 K/ L 0.00-0.50 gmpw=8144) BASOPHILS - ABS (DIFF) (BEAKER) (test mcab=0879) 0.16 K/ L 0.00-0.20 ATYPICAL LYMPHOCYTES - ABS (DIFF) (BEAKER) (test 0.16 K/ L 0.00-0.00 oqtf=696) TOTAL COUNTED (BEAKER) (test wknv=0423) 100 WBC MORPHOLOGY (BEAKER) (test jovg=131) Normal LARGE PLT(BEAKER) (test wfhs=6021) Present ANISOCYTOSIS (BEAKER) (test vzvw=168) 2+ moderate HYPOCHROMIA (BEAKER) (test atkj=109) 1+ few MICROCYTES (BEAKER) (test ppwu=954) 1+ few POIKILOCYTES (BEAKER) (test tvjm=316) 1+ few POLYCHROMATOPHILLIC RBCS(BEAKER) (test ppic=437) 1+ few TARGET CELLS (BEAKER) (test jvct=851) 1+ few B-TYPE NATRIURETIC FACTOR (BNP)2017-12-07 06:30:00 Test Item Value Reference Range Comments B-TYPE NATRIURETIC PEPTIDE (BEAKER) (test 614 pg/mL 0-100 qvvd=580) BASIC METABOLIC [id number] 06:29:00 Test Item Value Reference Range Comments SODIUM (BEAKER) (test 141 meq/L 135-148 puoz=173) POTASSIUM (BEAKER) (test 3.6 meq/L 3.6-5.5 bacc=851) CHLORIDE (BEAKER) (test 95 meq/L 98-106 romv=851) CO2 (BEAKER) (test 37 meq/L 20-29 isnq=543) BLOOD UREA NITROGEN 31 mg/dL 10-26 (BEAKER) (test vsdq=135) CREATININE (BEAKER) (test 0.60 mg/dL 0.50-1.20 uyxj=666) GLUCOSE RANDOM (BEAKER) 144 mg/dL 70-110 (test ucpz=234) CALCIUM (BEAKER) (test 8.6 mg/dL 8.5-10.5 hyga=344) EGFR (BEAKER) (test 102 mL/min/1.73 sq m ESTIMATED GFR IS NOT tnvh=9052) ACCURATE CREATININE CLEARANCE IN PREDICTING GLOMERULAR FILTRATION RATE. ESTIMATED GFR IS NOT APPLICABLE FOR DIALYSIS PATIENTS. POCT-GLUCOSE [id number] 06:23:00 Test Item Value Reference Range Comments POC-GLUCOSE METER (BEAKER) 156 mg/dL 70-110 TESTED AT [facility] [address] [place] [address] (test sqkp=0585) [address] [facility] [address] POCT-GLUCOSE [id number] 21:36:00 Test Item Value Reference Range Comments POC-GLUCOSE METER (BEAKER) 220 mg/dL 70-110 TESTED AT [address] (test wwzx=1278) [facility] [address] POCT-GLUCOSE [id number] 17:12:00 Test Item Value Reference Range Comments POC-GLUCOSE METER (BEAKER) 177 mg/dL 70-110 TESTED AT [address] (test ymhx=0717) [facility] [address] POCT-GLUCOSE [id number] 17:12:00 Test Item Value Reference Range Comments POC-GLUCOSE METER (BEAKER) 203 mg/dL 70-110 TESTED AT [address] (test psjg=3339) [facility] [address] POCT-GLUCOSE [id number] 12:29:00 Test Item Value Reference Range Comments POC-GLUCOSE METER (BEAKER) 151 mg/dL 70-110 TESTED AT [address] (test fwfa=3707) [facility] [address] CBC W/PLT COUNT & AUTO [id number] 08:57:00 Test Item Value Reference Range Comments WHITE BLOOD CELL COUNT (BEAKER) (test nyhc=280) 9.2 K/ L 4.0-10.0 RED BLOOD CELL COUNT (BEAKER) (test kkcj=978) 4.16 M/ L 4.00-5.00 HEMOGLOBIN (BEAKER) (test crai=706) 9.9 GM/DL 12.0-15.0 HEMATOCRIT (BEAKER) (test syth=318) 31.9 % 36.0-45.0 MEAN CORPUSCULAR VOLUME (BEAKER) (test sbts=584) 76.7 fL 82.0-99.0 MEAN CORPUSCULAR HEMOGLOBIN (BEAKER) (test 23.8 pg 27.0-33.0 uhyv=180) MEAN CORPUSCULAR HEMOGLOBIN CONC (BEAKER) (test 31.1 GM/DL 32.0-36.0 qcfi=915) RED CELL DISTRIBUTION WIDTH (BEAKER) (test 34.5 % 10.3-14.2 hscy=768) PLATELET COUNT (BEAKER) (test iyke=788) 256 K/CU MM 150-430 MEAN PLATELET VOLUME (BEAKER) (test rdqe=568) 10.5 fL 6.5-10.5 (MANUAL DIFFERENTIAL)2017-12-06 08:57:00 Test Item Value Reference Range Comments NEUTROPHILS - REL (DIFF) (BEAKER) (test 78 % dlyh=5226) LYMPHOCYTES - REL (DIFF) (BEAKER) (test 10 % ight=6133) MONOCYTES - REL (DIFF) (BEAKER) (test hyqx=4991) 5 % BANDS - REL (DIFF) (BEAKER) (test wyuh=1403) 2 % 0-10 ATYPICAL LYMPHOCYTE - REL (DIFF) (BEAKER) (test 5 % 0-0 asqf=512) NEUTROPHILS - ABS (DIFF) (BEAKER) (test 7.18 K/ L 1.80-8.00 xjru=4983) LYMPHOCYTES - ABS (DIFF) (BEAKER) (test 0.92 K/ L 1.48-4.50 bnir=7409) MONOCYTES - ABS (DIFF) (BEAKER) (test eqxh=8380) 0.46 K/ L 0.00-1.30 BANDS-ABS (DIFF) (BEAKER) (test fdzj=1449) 0.2 K/ L 0.0-0.8 ATYPICAL LYMPHOCYTES - ABS (DIFF) (BEAKER) (test 0.46 K/ L 0.00-0.00 llxz=025) TOTAL COUNTED (BEAKER) (test desz=1757) 100 BANDS + SEGMENTED NEUTROPHILS (BEAKER) (test 7.36 dgwn=7965) ATYPICAL LYMPHS(BEAKER) (test rfhi=6149) Present LARGE PLT(BEAKER) (test ejmy=9435) Present GIANT PLATELETS (BEAKER) (test jsfo=451) Present SCHISTOCYTES (BEAKER) (test tswv=102) 1+ few ANISOCYTOSIS (BEAKER) (test nbjf=068) 2+ moderate HYPOCHROMIA (BEAKER) (test tjeb=461) 1+ few OVALOCYTES (BEAKER) (test hwjq=146) 1+ few POIKILOCYTES (BEAKER) (test cutn=751) 1+ few POLYCHROMATOPHILLIC RBCS(BEAKER) (test rkyn=754) 1+ few TARGET CELLS (BEAKER) (test lfqi=111) 1+ few PERIPHERAL BLOOD SMEAR - PATH REVIEW LAB [id number] 08:39:00 Test Item Value Reference Range Comments RBC MORPHOLOGY (BEAKER) Microcytosis (test cfho=0534) RBC MORPHOLOGY (BEAKER) Target Cells (test ipbe=58473) RBC MORPHOLOGY (BEAKER) Hypochromasia (test dqbq=55161) RBC MORPHOLOGY (BEAKER) Anisocytosis (test hkgq=84996) WBC MORPHOLOGY (BEAKER) Left Shift (test wwym=9175) WBC MORPHOLOGY (BEAKER) Atypical Lymphs (test viqw=987016) WBC MORPHOLOGY (BEAKER) Hypersegmented Neutrophils (test nwia=131597) PLT MORPHOLOGY (BEAKER) Large Platelets (test hthg=7994) PERIPHERAL SMR REVIEW Microcytic hypochromic anemia (BEAKER) (test rgpj=4933) with anisocytosis and target cells. Few hypersegmented neutrophils. Findings are suggestive of iron deficiency anemia. Recommend correlation with iron levels. [id number] Janet Cespedes M.D. (electronic (BEAKER) (test vyai=5772) signature) VANCOMYCIN LEVEL, [id number] 07:05:00 Test Item Value Reference Range Comments VANCOMYCIN RANDOM (BEAKER) (test nijm=089) 18.1 ug/mL Reference Range: No NormalsBASIC METABOLIC [id number] 07:05:00 Test Item Value Reference Range Comments SODIUM (BEAKER) (test 139 meq/L 135-148 zirg=911) POTASSIUM (BEAKER) (test 4.2 meq/L 3.6-5.5 qhqc=007) CHLORIDE (BEAKER) (test 96 meq/L 98-106 pysp=991) CO2 (BEAKER) (test 34 meq/L 20-29 wonp=987) BLOOD UREA NITROGEN 37 mg/dL 10-26 (BEAKER) (test hfni=837) CREATININE (BEAKER) (test 0.70 mg/dL 0.50-1.20 rtka=021) GLUCOSE RANDOM (BEAKER) 177 mg/dL 70-110 (test ucrb=478) CALCIUM (BEAKER) (test 8.8 mg/dL 8.5-10.5 zsjn=423) EGFR (BEAKER) (test 85 mL/min/1.73 sq m ESTIMATED GFR IS NOT jzsr=7106) ACCURATE CREATININE CLEARANCE IN PREDICTING GLOMERULAR FILTRATION RATE. ESTIMATED GFR IS NOT APPLICABLE FOR DIALYSIS PATIENTS. POCT-GLUCOSE [id number] 06:40:00 Test Item Value Reference Range Comments POC-GLUCOSE METER (BEAKER) 196 mg/dL 70-110 TESTED AT [address] (test zqfu=7578) [facility] [address] POCT-GLUCOSE [id number] 00:57:00 Test Item Value Reference Range Comments POC-GLUCOSE METER (BEAKER) 252 mg/dL 70-110 TESTED AT [address] (test glbb=4528) [facility] [address] VANCOMYCIN LEVEL, [id number] 21:36:00 Test Item Value Reference Range Comments VANCOMYCIN TROUGH (BEAKER) (test mokh=360) 24.7 ug/mL 10.0-20.0 POCT-GLUCOSE [id number] 21:21:00 Test Item Value Reference Range Comments POC-GLUCOSE METER (BEAKER) 345 mg/dL 70-110 Notified RN MD/TESTED AT [facility] (test bnbw=5571) [address] [place] [address] POCT-GLUCOSE [id number] 16:29:00 Test Item Value Reference Range Comments POC-GLUCOSE METER (BEAKER) 416 mg/dL 70-110 Notified RN MD/TESTED AT [facility] (test ydek=3815) [address] [place] [address] POCT-GLUCOSE [id number] 11:19:00 Test Item Value Reference Range Comments POC-GLUCOSE METER (BEAKER) 430 mg/dL 70-110 Notified RN MD/TESTED AT [facility] (test vgyp=0980) [address] [place] [address] RAD, CHEST, 1 VIEW, NON [id number] 10:38:00Reason for exam:->History of Pleural effusionShould this be performed at the bedside?->YesFINAL REPORT Chest one view compared to December Discussion: Bilateral hazy airspace opacities are similar with small right-sided effusion. No pneumothorax. Lines in place unchanged. Signed: Gopi Noble Verified Date/Time: 12/05/2017 10:38:49 Reading Location: [address] Reading Room 10 :38 AMPOCT-GLUCOSE [id number] 08:06:00 Test Item Value Reference Range Comments POC-GLUCOSE METER (BEAKER) 396 mg/dL 70-110 TESTED AT [facility] [address] (test uuqv=6346) [address] [facility] [address] CBC W/PLT COUNT & AUTO [id number] 06:31:00 Test Item Value Reference Range Comments WHITE BLOOD CELL COUNT (BEAKER) (test fjys=727) 5.5 K/ L 4.0-10.0 RED BLOOD CELL COUNT (BEAKER) (test pbwn=598) 4.29 M/ L 4.00-5.00 HEMOGLOBIN (BEAKER) (test rcoi=589) 10.3 GM/DL 12.0-15.0 HEMATOCRIT (BEAKER) (test ngty=039) 32.4 % 36.0-45.0 MEAN CORPUSCULAR VOLUME (BEAKER) (test znjg=699) 75.4 fL 82.0-99.0 MEAN CORPUSCULAR HEMOGLOBIN (BEAKER) (test 23.9 pg 27.0-33.0 yftk=572) MEAN CORPUSCULAR HEMOGLOBIN CONC (BEAKER) (test 31.7 GM/DL 32.0-36.0 jmgq=184) RED CELL DISTRIBUTION WIDTH (BEAKER) (test 34.8 % 10.3-14.2 gapw=417) PLATELET COUNT (BEAKER) (test baqb=927) 317 K/CU MM 150-430 MEAN PLATELET VOLUME (BEAKER) (test kowc=429) 10.5 fL 6.5-10.5 NUCLEATED RED BLOOD CELLS (BEAKER) (test 2 /100 WBC 0-0 hegk=941) (MANUAL DIFFERENTIAL)2017-12-05 06:31:00 Test Item Value Reference Range Comments NEUTROPHILS - REL (DIFF) (BEAKER) (test urbg=6527) 65 % LYMPHOCYTES - REL (DIFF) (BEAKER) (test rtjj=9462) 25 % MONOCYTES - REL (DIFF) (BEAKER) (test rcfu=7737) 10 % NEUTROPHILS - ABS (DIFF) (BEAKER) (test qast=7144) 3.58 K/ L 1.80-8.00 LYMPHOCYTES - ABS (DIFF) (BEAKER) (test kclh=5689) 1.38 K/ L 1.48-4.50 MONOCYTES - ABS (DIFF) (BEAKER) (test mvra=0097) 0.55 K/ L 0.00-1.30 TOTAL COUNTED (BEAKER) (test zdln=7220) 100 WBC MORPHOLOGY (BEAKER) (test sohx=102) Normal RBC MORPHOLOGY (BEAKER) (test zokc=256) Normal LARGE PLT(BEAKER) (test izvx=5106) Present BASIC METABOLIC [id number] 05:33:00 Test Item Value Reference Range Comments SODIUM (BEAKER) (test 139 meq/L 135-148 akbo=546) POTASSIUM (BEAKER) (test 4.5 meq/L 3.6-5.5 nmea=705) CHLORIDE (BEAKER) (test 94 meq/L 98-106 mmoy=076) CO2 (BEAKER) (test 34 meq/L 20-29 tzgg=932) BLOOD UREA NITROGEN 31 mg/dL 10-26 (BEAKER) (test efsj=688) CREATININE (BEAKER) (test 0.70 mg/dL 0.50-1.20 uncy=651) GLUCOSE RANDOM (BEAKER) 301 mg/dL 70-110 (test ocvm=677) CALCIUM (BEAKER) (test 9.2 mg/dL 8.5-10.5 svtc=011) EGFR (BEAKER) (test 85 mL/min/1.73 sq m ESTIMATED GFR IS NOT wslc=0507) ACCURATE CREATININE CLEARANCE IN PREDICTING GLOMERULAR FILTRATION RATE. ESTIMATED GFR IS NOT APPLICABLE FOR DIALYSIS PATIENTS. POCT-GLUCOSE [id number] 00:04:00 Test Item Value Reference Range Comments POC-GLUCOSE METER (BEAKER) 274 mg/dL 70-110 TESTED AT [address] (test qnfq=8615) [address] [facility] [address] MR, SPINE, CERVICAL, [id number] 23:48:00FINAL REPORT EXAM: MRI cervical spine with and without contrast . CLINICAL HISTORY: Abnormal xray, cervical spine, DJD TECHNIQUE: Multiplanar multi sequential MRI of the cervicalspine was performed with and without contrast.. COMPARISON: None available. FINDINGS: Cervical vertebral body heights and alignment are maintained. There is a mild compression fracture deformity of S8hkxtc appears chronic. The bone marrow signal is normal. The craniocervical junction and visualized intracranial compartment are unremarkable. There is no abnormal enhancement. There is no abnormal spinal cord signal. There is no cord compression. There is multilevel disc desiccation. The intervertebral disc space heights are maintained. The individual disc levels demonstrate the following: C2-C3: No significant spinal canal or neuroforaminal stenosis. C3-C4 : No significant spinal canal stenosis. Mild left neuroforaminal stenosis. C4-C5 : Small broad-based disc ridge partially effacing the ventralsubarachnoid space. No significant neuroforaminal stenosis. C5-C6: Small broad-based disc ridge partially effacing the ventral subarachnoid space. Mild bilateral neuroforaminal stenosis. C6-C7: No significant spinal canal or neuroforaminal stenosis. C7-T1: No significant spinal canal or neuroforaminal stenosis. The prevertebral and paraspinal soft tissues are within normal limits. IMPRESSION: Mild degenerative changes as described. No cord signal abnormality or compression. No abnormal enhancement.Mild compression fracture deformity of T1, which appears chronic. Signed: Jolanta Rosa MDReport Verified Date/Time: 12/04/2017 23:48:58 Reading Location: [address] Transitional Reading Room MR, SPINE, LUMBAR, [id number] 23:32:00FINAL REPORT EXAM: MRI lumbar spine with and without contrast. CLINICAL HISTORY: lumbago TECHNIQUE : Multiplanar multi sequential MRI of the lumbar [...] The conus medullaris terminates at L1. There isno abnormal enhancement within the spinal canal. At T12-L1, there is no significant spinal canal or neuroforaminal stenosis. At L1- L2, there is no significant spinal canal or neuroforaminal stenosis. At L2-L3, there is mild spinal canal stenosis due to ligamentous hypertrophy. There is no significant neuroforaminal stenosis. At L3-L4, there is mild spinal canal stenosis due to disc osteophyte complexand ligamentous hypertrophy. There is no significant neural [...] deformity of T12 and L4. No acute fracture.Degenerative changes as described. No cord compression. Signed: Jolanta Rosa MDReport Verified Date/Time: 12/04/2017 23:32:02 Reading Location : [address] Transitional Reading Room MR, BRAIN, [id number] 22:01:00FINAL REPORT Exam: MRI brain with and without contrast Comparison: No prior study for direct comparison. Reason for exam: Encephalopathy Technique: Multiplanar multisequence MRIof the brain was performed before and after [...] normal. The sella and parasellar regions are unremarkable.The craniocervical junction is normal. Impressions: Multiple white matter lesions favored to represent demyelinating lesions. No abnormal enhancement to suggest active demyelination.No acute infarct, hemorrhage or mass effect.Right temporal mastoid effusion. Signed: Jolanta Rosa Verified Date/Time: 2017 22:01:42 Reading Location: [address] Transitional Reading Room POCT- GLUCOSE [id number] 20:51:00 Test Item Value Reference Range Comments POC-GLUCOSE METER (BEAKER) 221 mg/dL 70-110 TESTED AT [address] (test cqmp=5448) [place] [id number] MR, SPINE, THORACIC, [id number] 18:04:00FINAL REPORT MRI of the thoracic spine pre and postcontrast Comparison:None Reason for exam : Bone destruction Discussion: Sagittal and axial multisequence MR imaging of the thoracic spine was provided pre and postcontrast There is no central canal or cord compromise at any thoracic level. The cord has normal size and signal intensity. No abnormal intrathecal enhancement.There is no focal or dominant marrow replacing lesion. Mild compression deformities are present T1, T7, and T10 all with chronic appearances. There is right greater than left pleural effusion. Paraspinal structures are otherwise unremarkable. Impressions: Chronic spine changes as discussed. No specific evidence of acute spine abnormality. No specific evidence of marrow replacing neoplasm. Signed: Gopi Noble Verified Date/Time: 12/04/2017 18:04:28 Reading Location: [place] [id number] Neuro Reading Room POCT-GLUCOSE [id number] 12:00:00 Test Item Value Reference Range Comments POC-GLUCOSE METER (BEAKER) 196 mg/dL 70-110 TESTED AT [address] (test dtct=9158) [facility] [address] CBC W/PLT COUNT & AUTO [id number] 06:17:00 Test Item Value Reference Range Comments WHITE BLOOD CELL COUNT (BEAKER) (test 5.4 K/ L 4.0-10.0 zsyn=705) RED BLOOD CELL COUNT (BEAKER) (test 4.43 M/ L 4.00-5.00 ybum=156) HEMOGLOBIN (BEAKER) (test sjpu=065) 10.4 GM/DL 12.0-15.0 HEMATOCRIT (BEAKER) (test aphl=677) 33.4 % 36.0-45.0 MEAN CORPUSCULAR VOLUME (BEAKER) (test 75.5 fL 82.0-99.0 fvjr=696) MEAN CORPUSCULAR HEMOGLOBIN (BEAKER) 23.5 pg 27.0-33.0 (test jrat=387) MEAN CORPUSCULAR HEMOGLOBIN CONC 31.2 GM/DL 32.0-36.0 (BEAKER) (test htlp=268) RED CELL DISTRIBUTION WIDTH (BEAKER) 34.5 % 10.3-14.2 (test xsso=631) PLATELET COUNT (BEAKER) (test 411 K/CU MM 150-430 yuoh=101) MEAN PLATELET VOLUME (BEAKER) (test 9.8 fL 6.5-10.5 opvk=008) NEUTROPHILS RELATIVE PERCENT (BEAKER) % Manual diff needed (test wndd=932) LYMPHOCYTES RELATIVE PERCENT (BEAKER) % Manual diff needed (test ivov=747) MONOCYTES RELATIVE PERCENT (BEAKER) % Manual diff needed (test sbru=616) EOSINOPHILS RELATIVE PERCENT (BEAKER) % Manual diff needed (test hfuz=373) BASOPHILS RELATIVE PERCENT (BEAKER) % Manual diff needed (test bzzb=813) NEUTROPHILS ABSOLUTE COUNT (BEAKER) K/ L 1.80-8.00 (test irfn=115) LYMPHOCYTES ABSOLUTE COUNT (BEAKER) K/ L 1.48-4.50 (test fysj=104) MONOCYTES ABSOLUTE COUNT (BEAKER) K/ L 0.00-1.30 (test twze=208) EOSINOPHILS ABSOLUTE COUNT (BEAKER) K/ L 0.00-0.50 (test gmqe=798) BASOPHILS ABSOLUTE COUNT (BEAKER) K/ L 0.00-0.20 (test janl=483) (MANUAL DIFFERENTIAL)2017-12-04 06:17:00 Test Item Value Reference Range Comments NEUTROPHILS - REL (DIFF) (BEAKER) (test ckeu=7683) 81 % LYMPHOCYTES - REL (DIFF) (BEAKER) (test mjta=0112) 10 % MONOCYTES - REL (DIFF) (BEAKER) (test wsed=1478) 9 % NEUTROPHILS - ABS (DIFF) (BEAKER) (test hwno=6534) 4.37 K/ L 1.80-8.00 LYMPHOCYTES - ABS (DIFF) (BEAKER) (test rhyf=6871) 0.54 K/ L 1.48-4.50 MONOCYTES - ABS (DIFF) (BEAKER) (test bcfr=1972) 0.49 K/ L 0.00-1.30 TOTAL COUNTED (BEAKER) (test nfzq=2616) 100 WBC MORPHOLOGY (BEAKER) (test tajv=280) Normal LARGE PLT(BEAKER) (test sabi=8706) Present GIANT PLATELETS (BEAKER) (test eulz=390) Present ANISOCYTOSIS (BEAKER) (test inhf=257) 3+ many HYPOCHROMIA (BEAKER) (test wxpl=392) 3+ many MICROCYTES (BEAKER) (test pbxe=578) 1+ few VANCOMYCIN LEVEL, [id number] 05:45:00 Test Item Value Reference Range Comments VANCOMYCIN RANDOM (BEAKER) (test eshh=536) 16.0 ug/mL Reference Range: No NormalsBASIC METABOLIC [id number] 05:42:00 Test Item Value Reference Range Comments SODIUM (BEAKER) (test 139 meq/L 135-148 rjdu=505) POTASSIUM (BEAKER) (test 4.8 meq/L 3.6-5.5 euec=895) CHLORIDE (BEAKER) (test 96 meq/L 98-106 mkrl=954) CO2 (BEAKER) (test 32 meq/L 20-29 dngz=208) BLOOD UREA NITROGEN 27 mg/dL 10-26 (BEAKER) (test almf=394) CREATININE (BEAKER) (test 0.70 mg/dL 0.50-1.20 wjcx=184) GLUCOSE RANDOM (BEAKER) 237 mg/dL 70-110 (test mdeb=392) CALCIUM (BEAKER) (test 9.4 mg/dL 8.5-10.5 pswt=349) EGFR (BEAKER) (test 85 mL/min/1.73 sq m ESTIMATED GFR IS NOT fjhv=3236) ACCURATE CREATININE CLEARANCE IN PREDICTING GLOMERULAR FILTRATION RATE. ESTIMATED GFR IS NOT APPLICABLE FOR DIALYSIS PATIENTS. [id number] 05:36:00 Test Item Value Reference Range Comments MAGNESIUM (BEAKER) (test milr=376) 2.1 mg/dL 1.5-3.0 BLOOD [id number] 01:00:00 Test Item Value Reference Range Comments CULTURE (BEAKER) (test vqsx=4922) No growth in 5 days BLOOD [id number] 01:00:00 Test Item Value Reference Range Comments CULTURE (BEAKER) (test jkzk=7992) No growth in 5 days POCT-GLUCOSE [id number] 00:22:00 Test Item Value Reference Range Comments POC-GLUCOSE METER (BEAKER) 286 mg/dL 70-110 TESTED AT [address] (test jgyy=6899) [facility] [address] POCT-GLUCOSE [id number] 16:44:00 Test Item Value Reference Range Comments POC-GLUCOSE METER (BEAKER) 229 mg/dL 70-110 TESTED AT [address] (test vnki=8027) [facility] [address] POCT-GLUCOSE [id number] 12:00:00 Test Item Value Reference Range Comments POC-GLUCOSE METER (BEAKER) 322 mg/dL 70-110 TESTED AT [address] (test ofoh=1708) [facility] [address] BODY FLUID CULTURE + GRAM [id number] 10:33:00 Test Item Value Reference Range Comments CULTURE (BEAKER) (test dzav=3646) No growth GRAM STAIN RESULT (BEAKER) (test 1+ WBCs ljcv=8726) GRAM STAIN RESULT (BEAKER) (test No organisms seen ulii=60902) RAD, CHEST, 1 VIEW, NON [id number] 10:23:00Reason for exam:->f/u pulmonary edemaFINAL REPORT Follow up Chest radiograph Clinical History: Follow-up pulmonaryedemaComparison: December 02, 2017Views: 1 Chest x-ray:The cardiac and mediastinal silhouettes are unchanged. There is no evidence of a pneumothorax. There is no evidence of a pleural effusion. There is no evidence of overt cardiac failure. There is evidence of a patchy focal parenchymal left upper lobe and right perihilar opacity. The left subclavian port and right PICC line are satisfactorilypositioned and unchanged. Impression:Overall decreased interstitial findings as compared to theprior study. This may be secondary to decreased interstitial pulmonary edema. Signed: Sabina Michel Verified Date/Time: 12/03/2017 10:23:59 Reading Location: [facility] Radiology Reading Room CBC W/PLT COUNT & AUTO [id number] 10:15:00 Test Item Value Reference Range Comments WHITE BLOOD CELL COUNT (BEAKER) (test nhnr=651) 4.4 K/ L 4.0-10.0 RED BLOOD CELL COUNT (BEAKER) (test snap=137) 4.27 M/ L 4.00-5.00 HEMOGLOBIN (BEAKER) (test sdfv=654) 10.1 GM/DL 12.0-15.0 HEMATOCRIT (BEAKER) (test iikf=014) 32.1 % 36.0-45.0 MEAN CORPUSCULAR VOLUME (BEAKER) (test udrs=040) 75.3 fL 82.0-99.0 MEAN CORPUSCULAR HEMOGLOBIN (BEAKER) (test 23.6 pg 27.0-33.0 qyol=302) MEAN CORPUSCULAR HEMOGLOBIN CONC (BEAKER) (test 31.3 GM/DL 32.0-36.0 rnqb=306) RED CELL DISTRIBUTION WIDTH (BEAKER) (test 35.0 % 10.3-14.2 hqix=583) PLATELET COUNT (BEAKER) (test aqez=795) 404 K/CU MM 150-430 MEAN PLATELET VOLUME (BEAKER) (test lyba=565) 10.4 fL 6.5-10.5 (MANUAL DIFFERENTIAL)2017-12-03 10:15:00 Test Item Value Reference Range Comments NEUTROPHILS - REL (DIFF) (BEAKER) (test 78 % kacb=8930) LYMPHOCYTES - REL (DIFF) (BEAKER) (test 21 % czau=4472) MONOCYTES - REL (DIFF) (BEAKER) (test hqib=0186) 1 % NEUTROPHILS - ABS (DIFF) (BEAKER) (test 3.43 K/ L 1.80-8.00 bkwg=9447) LYMPHOCYTES - ABS (DIFF) (BEAKER) (test 0.92 K/ L 1.48-4.50 zzqg=9472) MONOCYTES - ABS (DIFF) (BEAKER) (test kbjf=1842) 0.04 K/ L 0.00-1.30 TOTAL COUNTED (BEAKER) (test svaf=8824) 100 WBC MORPHOLOGY (BEAKER) (test naco=822) Normal GIANT PLATELETS (BEAKER) (test jrpo=306) Present ANISOCYTOSIS (BEAKER) (test asqt=029) 2+ moderate HYPOCHROMIA (BEAKER) (test btjd=658) 2+ moderate BLOOD GAS, [id number] 10:03:00 Test Item Value Reference Range Comments PH ARTERIAL (BEAKER) (test gecq=071) 7.43 7.35-7.45 PCO2 ARTERIAL (BEAKER) (test gqgh=429) 49 mmHg 35-45 PO2 ARTERIAL (BEAKER) (test ywmt=845) 112 mmHg 80-90 O2 SATURATION ARTERIAL (BEAKER) (test ewhp=515) 98.1 % 96.0-97.0 HCO3 ARTERIAL (BEAKER) (test nwer=165) 32 mmol/L 21-29 BASE EXCESS ARTERIAL (BEAKER) (test jxqb=000) 6.3 mmol/L -2.0-3.0 PATIENT TEMPERATURE (BEAKER) (test qoda=2522) 37.0 C FIO2 (BEAKER) (test toeo=1022) 32.0 % VANCOMYCIN LEVEL, [id number] 08:51:00 Test Item Value Reference Range Comments VANCOMYCIN TROUGH (BEAKER) (test nhft=337) 37.1 ug/mL 10.0-20.0 Vancomycin trough on 12/03/17 at 08:30BASIC METABOLIC [id number] 08:35:00 Test Item Value Reference Range Comments SODIUM (BEAKER) (test 137 meq/L 135-148 ylny=271) POTASSIUM (BEAKER) (test 4.7 meq/L 3.6-5.5 nvbs=645) CHLORIDE (BEAKER) (test 98 meq/L 98-106 froy=377) CO2 (BEAKER) (test 30 meq/L 20-29 vfqb=768) BLOOD UREA NITROGEN 24 mg/dL 10-26 (BEAKER) (test ocmf=237) CREATININE (BEAKER) (test 0.70 mg/dL 0.50-1.20 ejeh=065) GLUCOSE RANDOM (BEAKER) 273 mg/dL 70-110 (test qvdd=871) CALCIUM (BEAKER) (test 8.8 mg/dL 8.5-10.5 npfr=087) EGFR (BEAKER) (test 85 mL/min/1.73 sq m ESTIMATED GFR IS NOT dasd=6324) ACCURATE CREATININE CLEARANCE IN PREDICTING GLOMERULAR FILTRATION RATE. ESTIMATED GFR IS NOT APPLICABLE FOR DIALYSIS PATIENTS. [id number] 08:29:00 Test Item Value Reference Range Comments MAGNESIUM (BEAKER) (test zwsv=561) 2.0 mg/dL 1.5-3.0 POCT-GLUCOSE [id number] 08:16:00 Test Item Value Reference Range Comments POC-GLUCOSE METER (BEAKER) 283 mg/dL 70-110 TESTED AT [address] (test nyqc=8995) [facility] [address] POCT-GLUCOSE [id number] 00:34:00 Test Item Value Reference Range Comments POC-GLUCOSE METER (BEAKER) 333 mg/dL 70-110 TESTED AT [facility] [address] [facility] (test xddo=3374) [facility] [address] POCT-GLUCOSE [id number] 21:32:00 Test Item Value Reference Range Comments POC-GLUCOSE METER (BEAKER) 316 mg/dL 70-110 Notified OMAIRA BELLA/TESTED AT [facility] (test knym=9769) [facility] [address] POCT-GLUCOSE [id number] 16:50:00 Test Item Value Reference Range Comments POC-GLUCOSE METER (BEAKER) 230 mg/dL 70-110 TESTED AT [facility] [address] [facility] (test qjmz=5337) [facility] [address] RESPIRATORY PANEL [id number] 15:22:00 Test Item Value Reference Range Comments HUMAN METAPNEUMOVIRUS (BEAKER) (test Not detected Not detected, Inconclusive nkdf=0831) RHINOVIRUS (BEAKER) (test rncb=4955) Not detected Not detected, Inconclusive INFLUENZA A (BEAKER) (test Not detected Not detected, Inconclusive mxwp=6617) INFLUENZA A SUBTYPE H1 (BEAKER) Not detected Not detected, Inconclusive (test yxjj=0131) INFLUENZA A SUBTYPE H3 (BEAKER) Not detected Not detected, Inconclusive (test emfp=7548) INFLUENZA A SUBTYPE H1-2009 (BEAKER) Not detected Not detected, Inconclusive (test qhoy=6369) INFLUENZA B (BEAKER) (test Not detected Not detected, Inconclusive mxjo=7429) RESPIRATORY SYNCYTIAL VIRUS (BEAKER) Not detected Not detected, Inconclusive (test fzwq=4395) PARAINFLUENZA VIRUS 1 (BEAKER) (test Not detected Not detected, Inconclusive gryf=2188) PARAINFLUENZA VIRUS 2 (BEAKER) (test Not detected Not detected, Inconclusive hiai=7593) PARAINFLUENZA VIRUS 3 (BEAKER) (test Not detected Not detected, Inconclusive vwws=9390) PARAINFLUENZA VIRUS 4 (BEAKER) (test Not detected Not detected, Inconclusive vlpj=7098) ADENOVIRUS (BEAKER) (test ouvb=3269) Not detected Not detected, Inconclusive CORONAVIRUS 229E (BEAKER) (test Not detected Not detected, Inconclusive dgri=1603) CORONAVIRUS HKU1 (BEAKER) (test Not detected Not detected, Inconclusive higl=0883) CORONAVIRUS NL63 (BEAKER) (test Not detected Not detected, Inconclusive erlj=5027) CORONAVIRUS OC43 (BEAKER) (test Not detected Not detected, Inconclusive dbqb=2292) BORDETELLA PERTUSSIS (BEAKER) (test Not detected Not detected, Inconclusive lpqc=6606) CHLAMYDOPHILA PNEUMONIAE (BEAKER) Not detected Not detected, Inconclusive (test xwtj=3391) MYCOPLASMA PNEUMONIAE (BEAKER) (test Not detected Not detected, Inconclusive ofjk=3275) POCT-GLUCOSE [id number] 12:04:00 Test Item Value Reference Range Comments POC-GLUCOSE METER (BEAKER) 247 mg/dL 70-110 TESTED AT [facility] [address] [place] [address] (test qewq=3888) [facility] [address] [id number] 10:56:00Medical Cytology Report Case: [id number] Authorizing Provider: Sari Church MD Collected: 11/30/2017 1515 Ordering Location: [address] Med/Surg Received: 12/01/2017 0752 Pathologist: Janet Cespedes MD Specimen: Pleural, Left LEFT PLEURAL FLUID (CYTOSPINS): - REACTIVE MESOTHELIAL CELLS IN A BACKGROUND OF PREDOMINANTLY CHRONIC INFLAMMATION- NO MALIGNANT CELLS IDENTIFIED 39880Lwgg pleural effusion, shortness of breath; history of multiple sclerosis LEFT PLEURAL FLUIDPrepared 4 cytospins from 250 ml light brown fluidCollected: [id number]: [id number]. [facility], Department of Pathology, [address] [place] [id number] , [facility], [address] [place] [address], [facility] FLUID CULTURE + GRAM [id number] 09:58:00 Test Item Value Reference Range Comments CULTURE (BEAKER) (test cbgp=6452) No growth GRAM STAIN RESULT (BEAKER) (test 1+ WBCs khok=4595) GRAM STAIN RESULT (BEAKER) (test No organisms seen agrk=93571) POCT-GLUCOSE [id number] 07:30:00 Test Item Value Reference Range Comments POC-GLUCOSE METER (BEAKER) 202 mg/dL 70-110 TESTED AT [facility] [address] [facility] (test mlwd=0466) [facility] [address] CBC W/PLT COUNT & AUTO [id number] 06:49:00 Test Item Value Reference Range Comments WHITE BLOOD CELL COUNT (BEAKER) (test 4.4 K/ L 4.0-10.0 vvws=920) RED BLOOD CELL COUNT (BEAKER) (test 4.11 M/ L 4.00-5.00 ucji=914) HEMOGLOBIN (BEAKER) (test suli=920) 9.6 GM/DL 12.0-15.0 HEMATOCRIT (BEAKER) (test ofmu=043) 30.8 % 36.0-45.0 MEAN CORPUSCULAR VOLUME (BEAKER) (test 74.9 fL 82.0-99.0 kwvg=459) MEAN CORPUSCULAR HEMOGLOBIN (BEAKER) 23.4 pg 27.0-33.0 (test vqhn=713) MEAN CORPUSCULAR HEMOGLOBIN CONC (BEAKER) 31.2 GM/DL 32.0-36.0 (test wems=053) RED CELL DISTRIBUTION WIDTH (BEAKER) 34.4 % 10.3-14.2 (test oxch=438) PLATELET COUNT (BEAKER) (test pgpo=614) 323 K/CU MM 150-430 MEAN PLATELET VOLUME (BEAKER) (test 9.5 fL 6.5-10.5 mexh=730) NEUTROPHILS RELATIVE PERCENT (BEAKER) % See manual diff (test mzvj=724) LYMPHOCYTES RELATIVE PERCENT (BEAKER) % See manual diff (test hifm=865) MONOCYTES RELATIVE PERCENT (BEAKER) (test % See manual diff sfyw=911) EOSINOPHILS RELATIVE PERCENT (BEAKER) % See manual diff (test dgol=580) BASOPHILS RELATIVE PERCENT (BEAKER) (test % See manual diff rrvv=093) NEUTROPHILS ABSOLUTE COUNT (BEAKER) (test K/ L 1.80-8.00 pdof=204) LYMPHOCYTES ABSOLUTE COUNT (BEAKER) (test K/ L 1.48-4.50 bjop=784) MONOCYTES ABSOLUTE COUNT (BEAKER) (test K/ L 0.00-1.30 ecbs=866) EOSINOPHILS ABSOLUTE COUNT (BEAKER) (test K/ L 0.00-0.50 zang=217) BASOPHILS ABSOLUTE COUNT (BEAKER) (test K/ L 0.00-0.20 gxtt=198) B-TYPE NATRIURETIC FACTOR (BNP)2017-12-02 06:02:00 Test Item Value Reference Range Comments B-TYPE NATRIURETIC PEPTIDE (BEAKER) (test 840 pg/mL 0-100 tgpu=777) BASIC METABOLIC [id number] 05:58:00 Test Item Value Reference Range Comments SODIUM (BEAKER) (test 140 meq/L 135-148 iyqt=550) POTASSIUM (BEAKER) (test 4.2 meq/L 3.6-5.5 iwxq=555) CHLORIDE (BEAKER) (test 102 meq/L 98-106 tqkb=353) CO2 (BEAKER) (test 28 meq/L 20-29 wewr=179) BLOOD UREA NITROGEN 21 mg/dL 10-26 (BEAKER) (test qqva=926) CREATININE (BEAKER) (test 0.60 mg/dL 0.50-1.20 nhiy=367) GLUCOSE RANDOM (BEAKER) 209 mg/dL 70-110 (test cxpj=492) CALCIUM (BEAKER) (test 8.4 mg/dL 8.5-10.5 xttk=756) EGFR (BEAKER) (test 102 mL/min/1.73 sq m ESTIMATED GFR IS NOT zbsq=7293) ACCURATE CREATININE CLEARANCE IN PREDICTING GLOMERULAR FILTRATION RATE. ESTIMATED GFR IS NOT APPLICABLE FOR DIALYSIS PATIENTS. [id number] 05:52:00 Test Item Value Reference Range Comments MAGNESIUM (BEAKER) (test lcml=346) 2.0 mg/dL 1.5-3.0 RAD, CHEST, 1 VIEW, NON [id number] 05:48:00Reason for exam:->respiratory failure, bipapFINAL REPORT Chest one view. Clinical history: respiratory failure, bipap Comparison: Chest radiograph 12/01/2017, 8: 28 AM Technique: A single frontal view of the chest was obtained. Findings/ Impression: Cardiomediastinal contours are unchanged. There is a right PICC line with tip in the distal SVC. There is a left subclavian Port-A-Cath with tip in the SVC. There are persistent bilateral alveolar airspace opacities asymmetric to the right, with small bilateral pleural effusions. There is no pneumothorax. Signed: Jolanta Rosaeport Verified Date/Time: 2017 05:48:39 Reading Location: [address] Transitional Reading Room BLOOD GAS, [id number] 04:24:00 Test Item Value Reference Range Comments PH ARTERIAL (BEAKER) (test kakw=743) 7.43 7.35-7.45 PCO2 ARTERIAL (BEAKER) (test cyug=983) 48 mmHg 35-45 PO2 ARTERIAL (BEAKER) (test lrct=990) 165 mmHg 80-90 O2 SATURATION ARTERIAL (BEAKER) (test lecx=235) 99.1 % 96.0-97.0 HCO3 ARTERIAL (BEAKER) (test exju=330) 31 mmol/L 21-29 BASE EXCESS ARTERIAL (BEAKER) (test howi=238) 5.6 mmol/L -2.0-3.0 PATIENT TEMPERATURE (BEAKER) (test uzso=0896) 37.0 C FIO2 (BEAKER) (test mtiu=4332) 40.0 % RAPID INFLUENZA A&B [id number] 22:10:00 Test Item Value Reference Range Comments RAPID INFLUENZA A AG (BEAKER) (test Negative Negative, Inconclusive sseu=6823) RAPID INFLUENZA B AG (BEAKER) (test Negative Negative, Inconclusive irai=5356) POCT-GLUCOSE [id number] 21:18:00 Test Item Value Reference Range Comments POC-GLUCOSE METER (BEAKER) 185 mg/dL 70-110 TESTED AT [address] (test dhdu=3872) [place] [id number] POCT-GLUCOSE [id number] 16:52:00 Test Item Value Reference Range Comments POC-GLUCOSE METER (BEAKER) 262 mg/dL 70-110 TESTED AT [address] (test cpxz=4842) [facility] [address] ALBUMIN, BODY [id number] 15:03:00 Test Item Value Reference Range Comments ALBUMIN FLUID (BEAKER) (test gvld=302) 0.9 gm/dL Reference Range: No Normals Assay performance has not been validated for this type of specimen.LACTATE DEHYDROGENASE (LDH), BODY [id number] 14:46:00 Test Item Value Reference Range Comments LACTATE DEHYDROGENASE FLUID (BEAKER) 123 U/L Light's criteria identifies (test fokd=763) effusions if one or more are pre Absence of reference range indicates that normals have not been defined.Assay performance has not been validated for this type of specimen.PROTEIN, BODY [id number] 14:46:00 Test Item Value Reference Range Comments PROTEIN FLUID (BEAKER) (test 1.7 g/dL Light's criteria identifies duuq=336) effusions if one or more are pre Absence of reference range indicates that normals have not been defined.Assay performance has not been validated for this type of specimen.GLUCOSE, BODY [id number] 14:46:00 Test Item Value Reference Range Comments GLUCOSE, BODY FLUID (BEAKER) (test whqu=2572) 256 mg/dL 70-110 Absence of reference range indicates that normals have not been defined.Assay performance has not been validated for this type of specimen.POCT-GLUCOSE [id number] 13:22:00 Test Item Value Reference Range Comments POC-GLUCOSE METER (BEAKER) 359 mg/dL 70-110 TESTED AT [facility] [address] [facility] (test hizu=5355) [address] [facility] [address] RAD, CHEST, 1 VIEW, NON [id number] 12:54:00Reason for exam:->SOBShould this be performed at the bedside?->YesFINAL REPORT Comparison: 11/30/2017 TECHNIQUE: Single view of the chest FINDINGS: There are bilateral interstitial and airspace opacities. Overall these have decreased from before. No large effusion at this time. No gross pneumothorax. Support lines and tubes are stable. Signed: Suma Avilez MDReport Verified Date/Time: 12:54:49 Reading Location: [facility] Radiology Reading Room CBC W/PLT COUNT & AUTO [id number] 12:39:00 Test Item Value Reference Range Comments WHITE BLOOD CELL COUNT (BEAKER) (test tqpo=384) 4.8 K/ L 4.0-10.0 RED BLOOD CELL COUNT (BEAKER) (test nypn=462) 4.16 M/ L 4.00-5.00 HEMOGLOBIN (BEAKER) (test yhqo=478) 9.7 GM/DL 12.0-15.0 HEMATOCRIT (BEAKER) (test mnfi=326) 30.7 % 36.0-45.0 MEAN CORPUSCULAR VOLUME (BEAKER) (test wltj=214) 73.9 fL 82.0-99.0 MEAN CORPUSCULAR HEMOGLOBIN (BEAKER) (test 23.3 pg 27.0-33.0 plyd=765) MEAN CORPUSCULAR HEMOGLOBIN CONC (BEAKER) (test 31.5 GM/DL 32.0-36.0 jppz=168) RED CELL DISTRIBUTION WIDTH (BEAKER) (test 34.4 % 10.3-14.2 hxlm=588) PLATELET COUNT (BEAKER) (test nlet=499) 380 K/CU MM 150-430 MEAN PLATELET VOLUME (BEAKER) (test omgv=451) 9.3 fL 6.5-10.5 (MANUAL DIFFERENTIAL)2017-12-01 12:39:00 Test Item Value Reference Range Comments NEUTROPHILS - REL (DIFF) (BEAKER) (test 84 % btoi=6470) LYMPHOCYTES - REL (DIFF) (BEAKER) (test 4 % bkee=8201) MONOCYTES - REL (DIFF) (BEAKER) (test tdqh=6800) 11 % BANDS - REL (DIFF) (BEAKER) (test ubyp=7922) 1 % 0-10 NEUTROPHILS - ABS (DIFF) (BEAKER) (test 4.03 K/ L 1.80-8.00 pxth=3272) LYMPHOCYTES - ABS (DIFF) (BEAKER) (test 0.19 K/ L 1.48-4.50 gdhp=0431) MONOCYTES - ABS (DIFF) (BEAKER) (test grzk=6636) 0.53 K/ L 0.00-1.30 BANDS-ABS (DIFF) (BEAKER) (test gpqc=6012) 0.0 K/ L 0.0-0.8 TOTAL COUNTED (BEAKER) (test krnv=4362) 100 BANDS + SEGMENTED NEUTROPHILS (BEAKER) (test 4.08 ixta=2690) WBC MORPHOLOGY (BEAKER) (test pfwi=128) Normal GIANT PLATELETS (BEAKER) (test iopw=269) Present ANISOCYTOSIS (BEAKER) (test dcxp=771) 3+ many HYPOCHROMIA (BEAKER) (test kjaz=903) 3+ many MICROCYTES (BEAKER) (test ckbw=345) 2+ moderate TARGET CELLS (BEAKER) (test oayg=094) 1+ few COMPREHENSIVE METABOLIC [id number] 12:26:00 Test Item Value Reference Range Comments TOTAL PROTEIN (BEAKER) 6.1 gm/dL 6.0-8.5 (test eaxr=345) ALBUMIN (BEAKER) (test 2.7 g/dL 3.5-5.0 hcuj=2353) ALKALINE PHOSPHATASE 118 U/L 30-115 (BEAKER) (test boyu=964) BILIRUBIN TOTAL (BEAKER) 0.3 mg/dL 0.1-1.2 (test wjfk=050) SODIUM (BEAKER) (test 139 meq/L 135-148 xznq=687) POTASSIUM (BEAKER) (test 3.5 meq/L 3.6-5.5 koov=368) CHLORIDE (BEAKER) (test 105 meq/L 98-106 odaq=164) CO2 (BEAKER) (test 25 meq/L 20-29 ofjj=173) BLOOD UREA NITROGEN 21 mg/dL 10-26 (BEAKER) (test ecjt=945) CREATININE (BEAKER) (test 0.70 mg/dL 0.50-1.20 hudn=733) GLUCOSE RANDOM (BEAKER) 387 mg/dL 70-110 (test ricp=056) CALCIUM (BEAKER) (test 8.2 mg/dL 8.5-10.5 efzv=594) AST (SGOT) (BEAKER) (test 16 U/L 5-40 ubls=837) ALT (SGPT) (BEAKER) (test 8 U/L 5-50 kpwd=968) EGFR (BEAKER) (test 85 mL/min/1.73 sq m ESTIMATED GFR IS NOT xwfz=4810) ACCURATE CREATININE CLEARANCE IN PREDICTING GLOMERULAR FILTRATION RATE. ESTIMATED GFR IS NOT APPLICABLE FOR DIALYSIS PATIENTS. [id number] 12:17:00 Test Item Value Reference Range Comments MAGNESIUM (BEAKER) (test idky=591) 1.8 mg/dL 1.5-3.0 BLOOD GAS, [id number] 10:40:00 Test Item Value Reference Range Comments PH ARTERIAL (BEAKER) (test qtme=193) 7.37 7.35-7.45 PCO2 ARTERIAL (BEAKER) (test ggsw=065) 44 mmHg 35-45 PO2 ARTERIAL (BEAKER) (test iwre=960) 223 mmHg 80-90 O2 SATURATION ARTERIAL (BEAKER) (test zkjq=711) 99.4 % 96.0-97.0 HCO3 ARTERIAL (BEAKER) (test xkye=195) 25 mmol/L 21-29 BASE EXCESS ARTERIAL (BEAKER) (test uhgk=814) -0.8 mmol/L -2.0-3.0 PATIENT TEMPERATURE (BEAKER) (test iezo=8056) 37.0 C FIO2 (BEAKER) (test mqcf=0256) 100.0 % POCT-GLUCOSE [id number] 06:33:00 Test Item Value Reference Range Comments POC-GLUCOSE METER (BEAKER) 287 mg/dL 70-110 TESTED AT [facility] [address] [place] [address] (test motq=1932) [facility] [address] POCT-GLUCOSE [id number] 21:41:00 Test Item Value Reference Range Comments POC-GLUCOSE METER (BEAKER) 349 mg/dL 70-110 Notified OMAIRA BELLA/TESTED AT [facility] (test xazj=8340) [address] [place] [address] POCT-GLUCOSE [id number] 18:39:00 Test Item Value Reference Range Comments POC-GLUCOSE METER (BEAKER) 234 mg/dL 70-110 TESTED AT [facility] [address] [place] [address] (test ecjp=2080) [facility] [address] PH, BODY [id number] 17:51:00 Test Item Value Reference Range Comments PH, BODY FLUID (BEAKER) (test wabd=9844) 8.00 POCT-GLUCOSE [id number] 17:31:00 Test Item Value Reference Range Comments POC-GLUCOSE METER (BEAKER) 266 mg/dL 70-110 TESTED AT [address] (test daev=9418) [facility] [address] POCT-GLUCOSE [id number] 17:31:00 Test Item Value Reference Range Comments POC-GLUCOSE METER (BEAKER) 194 mg/dL 70-110 TESTED AT [address] (test ncrq=4624) [facility] [address] U/S, [id number] 16:47:00Laterality?->LeftReason for exam:-> sobFINAL REPORT Ultrasound Guided left Thoracentesis: Modality: Ultrasound Approach: Left Posterior Lateral Intercostal Sedation: None Findings: Informed consent was obtained. After an appropriate site for drainage was found, the skin was prepped and draped, and local anesthesia was given. A 16 G catheter was inserted into the left pleural space under ultrasound guidance, andapproximately 250 cc of pleural fluid was aspirated. The catheter was removed. No immediate complications were noted. A postprocedure chest radiograph revealed no evidence of pneumothorax. Impression: 1. Uncomplicated ultrasound-guided left thoracentesis. Signed: Suma Avilez Verified Date/Time: 11/30/2017 16:47:10 Reading Location: [facility] Radiology Reading Room Electronically signed by: SUMA AVILEZ M.D. on 04:47 PMRAD, CHEST, 1 VIEW, NON [id number] 15:51:00Reason for exam:- >post thoracentesisShould this be performed at the bedside?->YesFINAL REPORT Comparison: 11/29/2017 TECHNIQUE: Single view of the chest FINDINGS: Status post recent left thoracentesis. Left pleural effusion has decreased. No pneumothorax postprocedure. No other significant change. Signed: Suma Avilez Verified Date/Time: 11/30/2017 15:51:09 Reading Location: [facility] Radiology Reading Room TSH/FREE T4 IF [id number] 06: 41:00 Test Item Value Reference Range Comments THYROID STIMULATING HORMONE (BEAKER) (test 2.23 uIU/mL 0.35-5.50 ojhp=234) HEMOGLOBIN [id number] 06:28:00 Test Item Value Reference Range Comments HEMOGLOBIN A1C (BEAKER) (test szty=723) 5.1 % 4.3-6.1 LIPID [id number] 06:22:00 Test Item Value Reference Range Comments TRIGLYCERIDES (BEAKER) (test nxim=605) 85 mg/dL CHOLESTEROL (BEAKER) (test qppr=104) 158 mg/dL HDL CHOLESTEROL (BEAKER) (test vkjq=789) 63 mg/dL LDL CHOLESTEROL CALCULATED (AKER) (test 78 mg/dL hkwa=863) Triglyceride Reference Range: Low Risk <150 Borderline 150- 199 High Risk 200-499 Very High Risk >=500Cholesterol Reference Range: Low Risk <200 Borderline 200-239 High Risk > 240HDL Cholesterol Reference Range: Low Risk >=60 High Risk <40LDL Cholesterol Reference Range: Optimal <100 Near Optimal 100-129 Borderline 130-159 High 160-189 Very High >=190POCT-GLUCOSE [id number] 22:11:00 Test Item Value Reference Range Comments POC-GLUCOSE METER (BEAKER) 182 mg/dL 70-110 TESTED AT [address] (test dodk=8903) [facility] [address] POCT-GLUCOSE [id number] 18:10:00 Test Item Value Reference Range Comments POC-GLUCOSE METER (BEAKER) 157 mg/dL 70-110 TESTED AT [facility] [address] [facility] (test ymbg=1490) [facility] [address] POCT-GLUCOSE [id number] 17:58:00 Test Item Value Reference Range Comments POC-GLUCOSE METER (BEAKER) 173 mg/dL 70-110 TESTED AT [facility] [address] [facility] (test xapc=7532) [facility] [address] TROPONIN [id number] 17:19:00 Test Item Value Reference Range Comments TROPONIN I (BEAKER) (test wcwk=625) < ng/mL 0.00-0.15 Troponin I (TnI) levels must be interpreted [...] failure, acidosis, acute neurological disease, and persistent tachyarrhythmia.CREATINE KINASE (CK), TOTAL AND [id number] 17:15:00 Test Item Value Reference Range Comments CREATINE KINASE TOTAL (BEAKER) (test fjru=792) 27 U/L 25-235 CREATINE KINASE-MB (BEAKER) (test wzvf=195) 1.5 ng/mL 0.0-4.9 CREATINE KINASE-MB INDEX (BEAKER) (test xxfc=115) 5.6 % CK-MB Reference Range:<5 Normal5-10 Borderline>10 AbnormalALBUMIN, BODY [id number] 16:41:00 Test Item Value Reference Range Comments ALBUMIN FLUID (BEAKER) (test kpyr=137) 0.8 gm/dL Reference Range: No Normals Assay performance has not been validated for this type of specimen.LACTATE DEHYDROGENASE (LDH), BODY [id number] 16:37:00 Test Item Value Reference Range Comments LACTATE DEHYDROGENASE FLUID (BEAKER) 93 U/L Light's criteria identifies (test ggsz=841) effusions if one or more are pre Absence of reference range indicates that normals have not been defined.Assay performance has not been validated for this type of specimen.PROTEIN, BODY [id number] 16:37:00 Test Item Value Reference Range Comments PROTEIN FLUID (BEAKER) (test 1.4 g/dL Light's criteria identifies weli=939) effusions if one or more are pre Absence of reference range indicates that normals have not been defined.Assay performance has not been validated for this type of specimen.GLUCOSE, BODY [id number] 16:37:00 Test Item Value Reference Range Comments GLUCOSE, BODY FLUID (BEAKER) (test unxd=6944) 203 mg/dL 70-110 Absence of reference range indicates that normals have not been defined.Assay performance has not been validated for this type of specimen.PH, BODY [id number] 14:49:00 Test Item Value Reference Range Comments PH, BODY FLUID (BEAKER) (test vfgj=8740) 7.72 U/S, [id number] 14:41:00Laterality?->RightReason for exam:-> Resp failureFINAL REPORT Thoracentesis: Performing M.D. : Sabina Michel M.D. Hydropulper Operator: nonePreprocedure diagnosis: pleural effusionPostprocedure Diagnosis: sameSpecimen removed: 500 cc of serous fluidEstimated Blood Loss: less than 10 ccComplications: No complicationsModality: sonographyConscious Sedation: noneAnesthesia: Two percent Lidocaine injected subcutaneously at the insertion site.Graft or Implants: noneApproach: Right posterior intercostal space Technique: After informed written consent was obtained, the patient was prepped and draped in the usual sterile manner. Access was obtained using sonographic guidance. The fluid pocket was identified and images were sent to PACS. The right posterior intercostal space was selectively catheterized. A small bore catheter was advanced into the pleural space. The patient tolerated the procedure well. A chest radiograph is pending to exclude a pneumothorax. Impression:Successful, uncomplicated ultrasound guided thoracentesis of aright pleural effusion. 500 cc of serous fluid was removed. A chest x-ray is pending. Signed: Sabina Michel MDReport Verified Date/Time: 11/29/2017 14:41:36 Reading Location: [facility] Radiology Reading Room Electronically signed by: SABINA MICHEL M.D. on 02:41 PMRAD, CHEST, 1 VIEW, NON [id number] 13:52:00Reason for exam:- >s/p thoraShould this be performed at the bedside?->YesFINAL REPORT Chest one view compared to November 29 Discussion: Pulmonary infiltrates are improved. Left-sided small residual effusion is noted with no pneumothorax after thoracentesis. Signed: Gopi Noble Verified Date/Time: 11/29/2017 13:52:23 Reading Location: [facility] C013W Consult Reading Room 01 :52 [id number]/[id number] 11:20:00 Test Item Value Reference Range Comments PROTIME (BEAKER) (test yvxx=833) 11.0 seconds 9.3-12.0 INR (BEAKER) (test zprc=502) 1.0 <=5.9 PARTIAL THROMBOPLASTIN TIME (BEAKER) (test 27.2 seconds 23.0-35.0 fprk=966) RECOMMENDED COUMADIN/WARFARIN INR THERAPY RANGESSTANDARD DOSE: 2.0 - 3.0 Includes: PROPHYLAXIS forvenous thrombosis, systemic embolization; TREATMENT for venous thrombosis and/or pulmonary embolus.HIGH RISK: Target INR is 2.5-3.5 for patients with mechanical heart valves.RAD, CHEST, 1 VIEW, NON [id number] 09:36:00Reason for exam:->SOBShould this be performed at the bedside?-> YesFINAL REPORT Chest one view compared to November 28 Discussion: Bilateral semiconfluent airspace opacities are worse since the previous study. Effusions seen well on recent CT are not well seen on plain film. No pneumothorax. Bilateral lines in place unchanged. Signed: Gopi Noble Verified Date/Time: 11/29/2017 09:36:30 [facility] [place] Rad[facility] Reading Room BLOOD GAS, [id number] 09:00:00 Test Item Value Reference Range Comments PH ARTERIAL (BEAKER) (test zdin=688) 7.40 7.35-7.45 PCO2 ARTERIAL (BEAKER) (test oguk=233) 42 mmHg 35-45 PO2 ARTERIAL (BEAKER) (test dlvp=122) 164 mmHg 80-90 O2 SATURATION ARTERIAL (BEAKER) (test gtdi=960) 99.1 % 96.0-97.0 HCO3 ARTERIAL (BEAKER) (test zlya=654) 25 mmol/L 21-29 BASE EXCESS ARTERIAL (BEAKER) (test dzkk=512) 0.1 mmol/L -2.0-3.0 PATIENT TEMPERATURE (BEAKER) (test gilo=5566) 36.0 C FIO2 (BEAKER) (test axjn=4323) 80.0 % TROPONIN [id number] 07:11:00 Test Item Value Reference Range Comments TROPONIN I (BEAKER) (test asdr=365) 0.03 ng/mL 0.00-0.15 Troponin I (TnI) levels must be interpreted [...] failure, acidosis, acute neurological disease, and persistent tachyarrhythmia.CREATINE KINASE (CK), TOTAL AND [id number] 07:09:00 Test Item Value Reference Range Comments CREATINE KINASE TOTAL (BEAKER) (test ggqh=666) 24 U/L 25-235 CREATINE KINASE-MB (BEAKER) (test ybzq=027) 1.7 ng/mL 0.0-4.9 CREATINE KINASE-MB INDEX (BEAKER) (test wtke=561) 7.1 % CK-MB Reference Range:<5 Normal5-10 Borderline>10 AbnormalCT, CHEST WITH IV CONTRAST- PE TEST [id number] 00:49:00Reason for exam:->sob and hypoxiaWhat is the patient's sedation requirement?->No SedationFINAL REPORT CLINICAL HISTORY: Chest pain, shortness of breath FINDINGS: Multiple axial images of the chest were performed after the uncomplicated administration of IV contrast,utilizing a pulmonary embolism protocol. Post-processing coronal reformats were created and interpreted. This exam was performed according to our departmental dose-optimization program , which includes automated exposure control, adjustment of [...] seen in the left hemithorax on chest x-ray.Pneumothorax: None. Tracheobronchial tree: No significant findings. Pulmonary [...] diagnosis and should be excluded clinically. Moderate tolarge right and moderate left pleural effusions. The left pleural effusion appears partially loculated. Prominent mediastinal lymph nodes could be reactive or reflect primary versus metastatic malignancy. Please correlate. Diffuse osteopenia. There is a subtle heterogeneous appearance of the medullarybone of the vertebral bodies, nonspecific. An infiltrative or metastatic process can be excluded with MRI or bone scan, if indicated. Signed: Prince Ruby MDReport Verified Date/Time: 00:49:46 Reading Location: [address] Reading Room TROPONIN [id number] 00:22:00 Test Item Value Reference Range Comments TROPONIN I (BEAKER) (test njvm=869) < ng/mL 0.00-0.15 Troponin I (TnI) levels must be interpreted [...] failure, acidosis, acute neurological disease, and persistent tachyarrhythmia.CREATINE KINASE (CK), TOTAL AND [id number] 23:35:00 Test Item Value Reference Range Comments CREATINE KINASE TOTAL (BEAKER) (test anyp=589) 25 U/L 25-235 CREATINE KINASE-MB (BEAKER) (test meul=192) 1.8 ng/mL 0.0-4.9 CREATINE KINASE-MB INDEX (BEAKER) (test gmhn=915) 7.2 % CK-MB Reference Range:<5 Normal5-10 Borderline>10 AbnormalBASIC METABOLIC [id number] 23:28:00 Test Item Value Reference Range Comments SODIUM (BEAKER) (test 139 meq/L 135-148 hplo=233) POTASSIUM (BEAKER) (test 3.9 meq/L 3.6-5.5 yanv=526) CHLORIDE (BEAKER) (test 105 meq/L 98-106 szid=796) CO2 (BEAKER) (test 24 meq/L 20-29 avrr=838) BLOOD UREA NITROGEN 9 mg/dL 10-26 (BEAKER) (test bgtn=444) CREATININE (BEAKER) (test 0.50 mg/dL 0.50-1.20 upmn=115) GLUCOSE RANDOM (BEAKER) 144 mg/dL 70-110 (test pgoa=991) CALCIUM (BEAKER) (test 8.0 mg/dL 8.5-10.5 xviw=038) EGFR (BEAKER) (test 125 mL/min/1.73 sq m ESTIMATED GFR IS NOT emoc=0264) ACCURATE CREATININE CLEARANCE IN PREDICTING GLOMERULAR FILTRATION RATE. ESTIMATED GFR IS NOT APPLICABLE FOR DIALYSIS PATIENTS. B-TYPE NATRIURETIC FACTOR (BNP)2017-11-28 23:17:00 Test Item Value Reference Range Comments B-TYPE NATRIURETIC PEPTIDE (BEAKER) (test 929 pg/mL 0-100 nfmk=346) BLOOD GAS, [id number] 23:16:00 Test Item Value Reference Range Comments PH ARTERIAL (BEAKER) (test gzjv=366) 7.40 7.35-7.45 PCO2 ARTERIAL (BEAKER) (test tyby=256) 46 mmHg 35-45 PO2 ARTERIAL (BEAKER) (test eekj=981) 80 mmHg 80-90 O2 SATURATION ARTERIAL (BEAKER) (test pprj=447) 95.7 % 96.0-97.0 HCO3 ARTERIAL (BEAKER) (test wgwx=890) 28 mmol/L 21-29 BASE EXCESS ARTERIAL (BEAKER) (test vaxm=551) 2.4 mmol/L -2.0-3.0 PATIENT TEMPERATURE (BEAKER) (test mrhb=5712) 37.0 C FIO2 (BEAKER) (test uymr=3838) 21.0 % CBC W/PLT COUNT & AUTO [id number] 22:59:00 Test Item Value Reference Range Comments WHITE BLOOD CELL COUNT (BEAKER) (test jtsi=781) 8.9 K/ L 4.0-10.0 RED BLOOD CELL COUNT (BEAKER) (test culc=087) 4.36 M/ L 4.00-5.00 HEMOGLOBIN (BEAKER) (test tgtp=791) 9.5 GM/DL 12.0-15.0 HEMATOCRIT (BEAKER) (test fkzp=603) 31.9 % 36.0-45.0 MEAN CORPUSCULAR VOLUME (BEAKER) (test mewa=237) 73.2 fL 82.0-99.0 MEAN CORPUSCULAR HEMOGLOBIN (BEAKER) (test 21.8 pg 27.0-33.0 chsm=226) MEAN CORPUSCULAR HEMOGLOBIN CONC (BEAKER) (test 29.8 GM/DL 32.0-36.0 bzoo=369) RED CELL DISTRIBUTION WIDTH (BEAKER) (test 30.3 % 10.3-14.2 rqpm=487) PLATELET COUNT (BEAKER) (test ooll=531) 188 K/CU MM 150-430 MEAN PLATELET VOLUME (BEAKER) (test gjdd=250) 10.4 fL 6.5-10.5 NEUTROPHILS RELATIVE PERCENT (BEAKER) (test 69 % znnj=593) LYMPHOCYTES RELATIVE PERCENT (BEAKER) (test 9 % djdv=660) MONOCYTES RELATIVE PERCENT (BEAKER) (test 18 % lavh=793) EOSINOPHILS RELATIVE PERCENT (BEAKER) (test 3 % grzr=090) BASOPHILS RELATIVE PERCENT (BEAKER) (test 1 % ghuq=447) NEUTROPHILS ABSOLUTE COUNT (BEAKER) (test 6.20 K/ L 1.80-8.00 cwvk=873) LYMPHOCYTES ABSOLUTE COUNT (BEAKER) (test 0.80 K/ L 1.48-4.50 snyw=728) MONOCYTES ABSOLUTE COUNT (BEAKER) (test 1.60 K/ L 0.00-1.30 nzfn=013) EOSINOPHILS ABSOLUTE COUNT (BEAKER) (test 0.20 K/ L 0.00-0.50 sewh=694) BASOPHILS ABSOLUTE COUNT (BEAKER) (test 0.10 K/ L 0.00-0.20 ijlf=676) (MANUAL DIFFERENTIAL)2017-11-28 22:59:00 Test Item Value Reference Range Comments NEUTROPHILS - REL (DIFF) (BEAKER) (test 76 % zjyp=0721) LYMPHOCYTES - REL (DIFF) (BEAKER) (test 11 % rwum=6237) MONOCYTES - REL (DIFF) (BEAKER) (test uwyg=2917) 11 % EOSINOPHILS - REL (DIFF) (BEAKER) (test 2 % dhht=7266) NEUTROPHILS - ABS (DIFF) (BEAKER) (test 6.76 K/ L 1.80-8.00 umvz=2190) LYMPHOCYTES - ABS (DIFF) (BEAKER) (test 0.98 K/ L 1.48-4.50 bawb=5678) MONOCYTES - ABS (DIFF) (BEAKER) (test grbg=2359) 0.98 K/ L 0.00-1.30 EOSINOPHILS - ABS (DIFF) (BEAKER) (test 0.18 K/ L 0.00-0.50 qixz=5692) TOTAL COUNTED (BEAKER) (test spry=9724) 100 WBC MORPHOLOGY (BEAKER) (test mkru=727) Normal LARGE PLT(BEAKER) (test npxw=5973) Present GIANT PLATELETS (BEAKER) (test lphq=609) Present ANISOCYTOSIS (BEAKER) (test tgpv=922) 3+ many HYPOCHROMIA (BEAKER) (test pwuj=499) 2+ moderate MICROCYTES (BEAKER) (test bsqp=186) 1+ few POLYCHROMATOPHILLIC RBCS(BEAKER) (test puvl=424) 1+ few KETONE, [id number] 22:22:00 Test Item Value Reference Range Comments KETONES, BLOOD (BEAKER) (test uvce=6720) 0.3 mmol/L <0.4 PH, [id number] 22:22:00 Test Item Value Reference Range Comments PH VENOUS (BEAKER) (test pisp=227) 7.36 7.32-7.42 RAD, CHEST, 1 VIEW, NON [id number] 22:20:00Reason for exam:->sobShould this be performed at the bedside?->YesFINAL REPORT History: Shortness of breath. Comparison: None. Findings: A single view of the chest is submitted. The examination is limited by rotation to the right. The cardiac silhouette is within normal limits for size. There are bilateral pleural effusions, small on the right and moderate on the left. Central pulmonary vascular congestion and perihilar interstitial and airspace opacities suggest pulmonary edema but superimposed pneumonitis should be excluded clinically. There is well-circumscribed oval-shaped lucency overlying the medial left mid lung, possibly artifactual. Better with 2 views of the upright chest is recommended. A right PICC line and left subclavian chest port are in place. There is no acute bony abnormality. Signed: Prince Ruby MDReport Verified Date/Time: 11/28/2017 22:20:20 Reading Location: [address] Reading Room Electronically signed by: PRINCE URBY M.D. on 10:20 PM
[2018-04-20] MEDS ORDERED: FENTANYL CITR 100 MCG/2 ML ONE (11:33)
[2018-04-20] MEDS ORDERED: ONDANSETRON 4 MG/2 ML VIAL ONE (11:34)
[2018-04-20] MEDS ORDERED: NA CHLORIDE 0.9% 1,000 ML ONE (11:34)
[2018-04-20 11:46] LABS: Protime INR 1.37
[2018-04-20 11:47] LABS: Absolute Lymphocytes (CBC) 1.3 K/uL (0.7-4.9); Absolute Monocytes 13.5 K/uL (0.1-1.3); Absolute Neutrophil 46.7 K/uL (1.8-8.0); Basophils % 0.2 % (0-1.3); Hematocrit 32.2 % (36.0-45.0); Lymphocytes % 2.1 % (15.3-44.8); MCH 21.3 pg (27.0-35.0); MCV 66.8 fL (80-100); MPV 9.4 fL (7.6-11.3); Monocytes % 21.9 % (3.3-12.3); RBC Red Blood Cell Count 4.82 M/uL (3.86-4.86)
--- NOTE | 2018-04-20 11:52 | RAD REPORT ---
EXAM DESCRIPTION: Arm[place] Single View04/20/2018 11:42 am CLINICAL HISTORY: Chest pain COMPARISON: November 2017 FINDINGS: The right hemidiaphragm remains elevated. The lungs appear clear of acute infiltrate. The heart is normal size A central venous catheter has its tip in the superior vena cava IMPRESSION: No acute abnormalities displayed
[2018-04-20 11:55] LABS: Albumin 2.4 g/dL (3.4-5.0); Bilirubin Direct 0.4 mg/dL (0-0.2); Bilirubin Total 0.6 mg/dL (0.2-1.0); Potassium 3.5 mmol/L (3.5-5.1); Protein, Total 7.5 g/dL (6.4-8.2)
[2018-04-20 12:01] LABS: Albumin 2.4 g/dL (3.4-5.0); Bilirubin Direct 0.4 mg/dL (0-0.2); Bilirubin Total 0.6 mg/dL (0.2-1.0); Protein, Total 7.6 g/dL (6.4-8.2)
[2018-04-20 12:45] LABS: Anisocytosis 2+; Blood Morphology Comment NOTED (NOT SEEN); Hypochromasia 1+; Platelet Estimate ADEQ; Poikilocytosis 2+
--- NOTE | 2018-04-20 12:47 | EKG ---
Test Date: 2018-04-20 Test Time: 12:12:18 Meter Installer: [place] MEASUREMENT RESULTS: Intervals: Rate: 107 DE: 178 QRSD: 138 QT: 370 QTc: 493 [place]: P: 68 DE: 178 QRS: 76 T: 44 INTERPRETIVE STATEMENTS: Sinus tachycardia Nonspecific intraventricular block Nonspecific T wave abnormality Abnormal ECG Compared to ECG 11/08/2017 12:26:50 T-wave abnormality now present Left bundle-branch block no longer present Electronically Signed On 04-20-18 12:47:15 CDT by Thiago David
[2018-04-20] MEDS ORDERED: Levofloxacin500mg IV 500 MG/100 ML BAG IV ONE (13:06)
[2018-04-20] MEDS ORDERED: VANCOMYCIN 1 GM/250 ML BAG ONE (13:06)
[2018-04-20] MEDS ORDERED: hydrOXYzine HCl 25 MG TAB ONE (13:29)
[2018-04-20] MEDS ORDERED: ACETAMINOPHEN 500 MG TAB ONE (13:45)
--- NOTE | 2018-04-20 14:28 | ER ---
Nurse's Notes [facility] Name: Christopher Chamberlain Age: 63 yrs Sex: Female : 1955 Arrival Date: 04/20/2018 Time: 10:51 Bed 2 Private MD: Ricki Segundo T Diagnosis: Acute vomiting;Leukocytosis;UTI;Decubitus ulcer with cellulitis Presentation: 04/20 10:52 Presenting complaint: EMS states: pt vomiting x2 days, green/yellow bile. Transition of sg care: patient was not received from another setting of care. Onset of symptoms was April 20, 2018. Risk Assessment: Do you want to hurt yourself or someone else? Patient reports no desire to harm self or others. Initial Sepsis Screen: Does the patient meet any 2 criteria? HR > 90 bpm. Does the patient have a suspected source of infection? Yes: Skin breakdown/wound. Care prior to arrival: None. 10:52 Method Of Arrival: EMS: [facility] sg 10:52 Acuity: FERNANDO 3 sg Triage Assessment: 11:00 General: Appears in no apparent distress. uncomfortable, malnourished, Behavior is sv calm, cooperative, appropriate for age. Pain: Denies pain. EENT: No signs and/or symptoms were reported regarding the EENT system. Neuro: Level of Consciousness is awake, alert, obeys commands, Oriented to person, place, time, situation, Weakness in bilateral leg(s). Cardiovascular: Patient's skin is warm and dry. Pulses are 2+ in right radial artery and left radial artery. Respiratory: Respiratory effort is even, unlabored, Respiratory pattern is regular, symmetrical. GI: Reports nausea, vomiting. : suprapubic catheter in place to gravity drainage Urine is cloudy, with sediment. Derm: Skin is thin, with poor turgor. Musculoskeletal: No signs and/or symptoms reported regarding the musculoskeletal system. 11:00 General: Pt has a large BM in her diaper.. sv Historical: - Allergies: 10:56 Adhesives; sv 10:56 Augmentin; sv 10:56 Codeine; sv 10:56 Morphine; sv 10:56 PENICILLINS; sv - Home Meds: 10:56 Acidophilus Oral [Active]; Ambien Oral [Active]; carmapazine 300 mg 2 tabs BID sv [Active]; Diflucan Oral [Active]; fluconazole 200 mg Oral tab 1 tab once daily [Active]; hydroxyzine HCl 50 mg Oral tab 4 tabs twice a day [Active]; levothyroxine 125 mcg tab 1 tab once daily [Active]; metformin 500 mg Oral tab 1 tab 2 times per day [Active]; Potassium Chloride Oral [Active]; pravastatin 40 mg Oral tab 1 tab once daily [Active]; Vitamin C Oral daily [Active]; vitamin E Oral once daily [Active]; Zinc Sulfate Oral [Active]; 14:33 baclofen 20 mg Oral tab 1 tab twice a day [Active]; ferrous gluconate 325 mg (37 mg sv iron) Oral tab daily [Active]; - PMHx: 10:56 Diabetes - NIDDM; Multiple Sclerosis; sv - Immunization history:: Adult Immunizations up to date. - Social history:: Smoking status: Patient/guardian denies using tobacco. - Family history:: not pertinent. - Ebola Screening: : No symptoms or risks identified at this time. - Hospitalizations: : No recent hospitalization is reported. Screenin:53 Abuse screen: Denies threats or abuse. Denies injuries from another. Nutritional sv screening: No deficits noted. Tuberculosis screening: No symptoms or risk factors identified. Fall Risk None identified. Assessment: 11:20 Derm: Decubitus located on sacrum and BLE is stage III is draining small amount sv malodorous, green serosanguinous. 11:30 Reassessment: xray at bedside at this time. sg 11:30 Reassessment: Patient appears in no apparent distress at this time. No changes from sv previously documented assessment. Patient and/or family updated on plan of care and expected duration. Pain level reassessed. Patient is alert, oriented x 3, equal unlabored respirations, skin warm/dry/pink. 13:30 Reassessment: Patient appears in no apparent distress at this time. No changes from sv previously documented assessment. Patient and/or family updated on plan of care and expected duration. Pain level reassessed. Patient is alert, oriented x 3, equal unlabored respirations, skin warm/dry/pink. 14:30 Reassessment: Patient appears in no apparent distress at this time. No changes from sv previously documented assessment. Patient and/or family updated on plan of care and expected duration. Pain level reassessed. Patient is alert, oriented x 3, equal unlabored respirations, skin warm/dry/pink. 15:30 Reassessment: Patient appears in no apparent distress at this time. No changes from sv previously documented assessment. Patient and/or family updated on plan of care and expected duration. Pain level reassessed. Patient is alert, oriented x 3, equal unlabored respirations, skin warm/dry/pink. Dr Gallo at the bedside and shown all her decubitus. 16:24 Reassessment: Patient appears in no apparent distress at this time. No changes from sv previously documented assessment. Patient and/or family updated on plan of care and expected duration. Pain level reassessed. Patient is alert, oriented x 3, equal unlabored respirations, skin warm/dry/pink. Vital Signs: 10:52 BP 113 / 85; Pulse 118; Resp 23; Temp 98.8(O); Pulse Ox 97% ; sv 12:06 BP 101 / 59; Pulse 108; Resp 22; Pulse Ox 99% on R/A; sv 12:45 BP 112 / 61; Pulse 107; Resp 15; Pulse Ox 98% on R/A; dh3 13:30 BP 100 / 52; Pulse 105; Resp 16; Pulse Ox 98% on R/A; dh3 14:30 BP 92 / 57; Pulse 104; Resp 15; Pulse Ox 98% on R/A; dh3 15:30 BP 92 / 65; Pulse 100; Resp 19; Pulse Ox 100% on R/A; dh3 16:24 BP 106 / 66; Pulse 95; Resp 16; Pulse Ox 100% ; sv ED Course: 10:51 Patient arrived in ED. sg 10:52 Teresa Gonzalez, OMAIRA is Primary Nurse. sv 10:52 Ricki Segundo MD is Private Physician. sg 10:53 Arm band placed on right wrist. sv 10:53 Patient has correct armband on for positive identification. Bed in low position. Side sv rails up X2. telemetry monitor on. Pulse ox on. NIBP on. 10:54 Triage completed. sg 11:05 Keron Miranda MD is Attending Physician. wa 11:20 Initial lab(s) drawn, by nv, sent to lab. First set of blood cultures drawn by nv. sv Inserted saline lock: 22 gauge in right forearm, using aseptic technique. Blood collected. Flushed right forearm with 5 ml normal saline. 11:30 Wound care: to decubitus located on buttocks was cleaned with with NS, dressed with wet sv to dry dressing.. 11:35 Second set of blood cultures drawn by me. sv 11:39 X-ray completed. Patient tolerated procedure poorly. sw 11:41 XRAY Chest (1 view) In Process Unspecified. EDMS 12:40 EKG done, by signal technician. reviewed by Keron iMranda MD. at1 14:26 Tremayne Gallo MD is Hospitalizing Provider. wa 14:37 CT completed. Patient tolerated procedure well. Patient moved to CT via stretcher. mw3 Patient moved back from CT. 14:40 CT Abd/Pelvis - Without Cont In Process Unspecified. EDMS 17:06 No provider procedures requiring assistance completed. Patient admitted, IV remains in sv place. intact. Administered Medications: 11:30 Drug: Zofran 4 mg Route: IVP; Site: right forearm; sv 11:45 Follow up: Response: No adverse reaction sv 11:30 Drug: NS 0.9% 1000 ml Route: IV; Rate: 1000 ml; Site: right forearm; sv 12:30 Follow up: Response: No adverse reaction; IV Status: Completed infusion; IV Intake: sv 1000ml 11:32 Drug: fentaNYL (PF) 50 mcg Route: IVP; Site: right forearm; sv 11:50 Follow up: Response: No adverse reaction; Pain is decreased sv 13:19 Drug: vancoMYCIN 1 grams Route: IVPB; Infused Over: 2 hrs; Site: left wrist; dm5 15:20 Follow up: Response: No adverse reaction; IV Status: Completed infusion; IV Intake: sv 250ml 13:31 Drug: Atarax 50 mg Route: PO; dm5 14:00 Follow up: Response: No adverse reaction sv 14:00 Drug: Tylenol 1000 mg Route: PO; sv 14:30 Follow up: Response: No adverse reaction sv 14:01 Drug: LevaQUIN 500 mg Volume: 100 ml; Route: IVPB; Infused Over: 60 mins; Site: right sv forearm; 15:00 Follow up: Response: No adverse reaction; IV Status: Completed infusion; IV Intake: sv 100ml 14:29 Drug: fentaNYL (PF) 50 mcg Route: IVP; Site: right forearm; sv 14:45 Follow up: Response: No adverse reaction sv Point of Care Testing: Blood Glucose: 11:29 Blood Glucose: 259 mg/dL; sv Ranges: Intake: 12:30 IV: 1000ml; Total: 1000ml. sv 15:00 IV: 100ml; Total: 1100ml. sv 15:20 IV: 250ml; Total: 1350ml. sv Output: 15:00 Urine: 100ml (Crane); Total: 100ml. sv Outcome: 14:27 Decision to Hospitalize by Provider. or 16:55 Admitted to Tele accompanied by tech, family with patient, via stretcher, room 427, sv with chart, Report called to Darshana CASTANO 16:55 Condition: stable 16:55 Instructed on the need for admit. 17:06 Patient left the ED. sv Signatures: Dispatcher [employer] Jessy Stephenson, RN RN dmTeresa Zhang RN Hugh Feldman RN RN Leidy arauz, loan assistant EKG Tat1 Codie Adan Deanna 3 Keron Miranda MD MD wa Willis, Michelle mw3 Corrections: (The following items were deleted from the chart) 14:33 10:56 Home Meds: baclofen 20 mg Oral tab 1 tab twice a day; sv sv 14:33 10:56 Home Meds: Lasix Oral 1 tab once daily; sv sv
--- NOTE | 2018-04-20 14:28 | EDPHYS ---
Physician Documentation [facility] Name: Christopher Chamberlain Age: 63 yrs Sex: Female : 1955 Arrival Date: 04/20/2018 Time: 10:51 Bed 2 Private MD: Ricki Segundo T ED Physician RuthKeron HPI: 04/20 14:06 This 63 yrs old Female presents to ER via EMS with complaints of wa Nausea/Vomiting. 14:06 The patient presents to the emergency department with nausea, vomiting. Onset: The wa symptoms/episode began/occurred 2 day(s) ago. Possible causes: unknown. The symptoms are aggravated by nothing. The symptoms are alleviated by nothing. Associated signs and symptoms: Pertinent positives: nausea, vomiting, Pertinent negatives: abdominal pain, diarrhea, fever. Severity of symptoms: At their worst the symptoms were moderate in the emergency department the symptoms are unchanged. The patient has experienced similar episodes in the past, a few times. The patient has not recently seen a physician, the patient's primary care provider is Dr. Dr. Segundo. Historical: - Allergies: 10:56 Adhesives; sv 10:56 Augmentin; sv 10:56 Codeine; sv 10:56 Morphine; sv 10:56 PENICILLINS; sv - Home Meds: 10:56 Acidophilus Oral [Active]; Ambien Oral [Active]; carmapazine 300 mg 2 tabs BID sv [Active]; Diflucan Oral [Active]; fluconazole 200 mg Oral tab 1 tab once daily [Active]; hydroxyzine HCl 50 mg Oral tab 4 tabs twice a day [Active]; levothyroxine 125 mcg tab 1 tab once daily [Active]; metformin 500 mg Oral tab 1 tab 2 times per day [Active]; Potassium Chloride Oral [Active]; pravastatin 40 mg Oral tab 1 tab once daily [Active]; Vitamin C Oral daily [Active]; vitamin E Oral once daily [Active]; Zinc Sulfate Oral [Active]; 14:33 baclofen 20 mg Oral tab 1 tab twice a day [Active]; ferrous gluconate 325 mg (37 mg sv iron) Oral tab daily [Active]; - PMHx: 10:56 Diabetes - NIDDM; Multiple Sclerosis; sv - Immunization history:: Adult Immunizations up to date. - Social history:: Smoking status: Patient/guardian denies using tobacco. - Family history:: not pertinent. - Ebola Screening: : No symptoms or risks identified at this time. - Hospitalizations: : No recent hospitalization is reported. ROS: 14:08 Constitutional: Negative for fever, chills, and weight loss, Eyes: Negative for injury, wa pain, redness, and discharge, ENT: Negative for injury, pain, and discharge, Neck: Negative for injury, pain, and swelling, Cardiovascular: Negative for chest pain, palpitations, and edema, Respiratory: Negative for shortness of breath, cough, wheezing, and pleuritic chest pain, Neuro: Negative for headache, weakness, numbness, tingling, and seizure. 14:08 Abdomen/GI: Positive for nausea, vomiting, Negative for abdominal pain. 14:08 Back: Positive for decubitus ulcers. 14:08 : Positive for suprapubic catheter. 14:08 Skin: Positive for sacral decubitus ulcers. 14:08 All other systems are negative. Exam: 14:10 Constitutional: This is a well developed, well nourished patient who is awake, alert, wa and in no acute distress. Head/Face: Normocephalic, atraumatic. Eyes: Pupils equal round and reactive to light, extra-ocular motions intact. Lids and lashes normal. Conjunctiva and sclera are non-icteric and not injected. Cornea within normal limits. Periorbital areas with no swelling, redness, or edema. ENT: Nares patent. No nasal discharge, no septal abnormalities noted. Tympanic membranes are normal and external auditory canals are clear. Oropharynx with no redness, swelling, or masses, exudates, or evidence of obstruction, uvula midline. Mucous membranes moist. Neck: Trachea midline, no thyromegaly or masses palpated, and no cervical lymphadenopathy. Supple, full range of motion without nuchal rigidity, or vertebral point tenderness. No Meningismus. Chest/axilla: Normal chest wall appearance and motion. Nontender with no deformity. No lesions are appreciated. Cardiovascular: Regular rate and rhythm with a normal S1 and S2. No gallops, murmurs, or rubs. Normal PMI, no JVD. No pulse deficits. Respiratory: Lungs have equal breath sounds bilaterally, clear to auscultation and percussion. No rales, rhonchi or wheezes noted. No increased work of breathing, no retractions or nasal flaring. Neuro: Awake and alert, GCS 15, oriented to person, place, time, and situation. Cranial nerves II-XII grossly intact. Motor strength 5/5 in all extremities. Sensory grossly intact. Cerebellar exam normal. Normal gait. Psych: Awake, alert, with orientation to person, place and time. Behavior, mood, and affect are within normal limits. 14:10 Abdomen/GI: Inspection: abdomen appears normal, Palpation: soft, in all quadrants, mild abdominal tenderness, in all quadrants. 14:10 Back: large, dry, stage 2 sacral decubitus ulcer noted. . 14:10 : Bladder: noted suprapubic catheter connected to hyde bag. Vital Signs: 10:52 BP 113 / 85; Pulse 118; Resp 23; Temp 98.8(O); Pulse Ox 97% ; sv 12:06 BP 101 / 59; Pulse 108; Resp 22; Pulse Ox 99% on R/A; sv 12:45 BP 112 / 61; Pulse 107; Resp 15; Pulse Ox 98% on R/A; dh3 13:30 BP 100 / 52; Pulse 105; Resp 16; Pulse Ox 98% on R/A; dh3 14:30 BP 92 / 57; Pulse 104; Resp 15; Pulse Ox 98% on R/A; dh3 15:30 BP 92 / 65; Pulse 100; Resp 19; Pulse Ox 100% on R/A; dh3 16:24 BP 106 / 66; Pulse 95; Resp 16; Pulse Ox 100% ; sv MDM: 11:05 Patient medically screened. va 14:12 Differential diagnosis: pt bedridden x 20 yrs. decub ulcers, indwelling bladder wa catheter. r/o sepsis. r/o obstruction. 14:17 Data reviewed: vital signs, nurses notes. Test interpretation: by ED physician or va midlevel provider: EKG: HR 107. non-specific interventricular delay. non-specific ST-T changes. 14:18 Test interpretation: by ED physician or midlevel provider: labs noted for va hyperglycemia. elevated CRP. elevated wbc at 61.6. anemia. elevated BNP. CXR: no acute process. Response to treatment: the patient's symptoms have markedly improved after treatment. Physician consultation: Tremayne Gallo MD was called at 14:20. Admission orders: after a detailed discussion of the patient's condition and case, the admit orders are written by me. ED course: noted elevated wbc at 61.6. will admit. will cover with abx. will check CT abd/pelvis. 15:46 Test interpretation: by ED physician or midlevel provider: CT ab/pelvis: diffuse edema wa in subcutaneous tissue. otherwise no obstruction. 04/20 11:19 Order name: Basic Metabolic Panel; Complete Time: 12:46 04/20 11:19 Order name: CBC with Diff 04/20 11:19 Order name: Hepatic Function; Complete Time: 12:46 04/20 11:19 Order name: Lipase; Complete Time: 12:46 04/20 11:19 Order name: Urine Microscopic Only 04/20 11:21 Order name: Magnesium; Complete Time: 12:46 04/20 11:21 Order name: NT PRO-BNP; Complete Time: 12:46 04/20 11:21 Order name: PT-INR; Complete Time: 12:46 04/20 11:21 Order name: Troponin (emerg Dept Use Only); Complete Time: 12:46 04/20 11:22 Order name: Blood Culture Adult (2) 04/20 11:22 Order name: C-Reactive Protein; Complete Time: 12:46 04/20 11:22 Order name: Lactate; Complete Time: 12:46 04/20 11:22 Order name: LFT's; Complete Time: 12:46 04/20 11:22 Order name: Glucose, Ancillary Testing; Complete Time: 12:46 [facility] 04/20 11:19 Order name: IV Saline Lock; Complete Time: 15:58 va 04/20 11:21 Order name: XRAY Chest (1 view); Complete Time: 12:46 04/20 11:21 Order name: EKG; Complete Time: 11:21 va 04/20 11:54 Order name: Manual Differential [facility] 04/20 14:15 Order name: CT Abd/Pelvis - Without Cont; Complete Time: 15:44 va 04/20 14:21 Order name: Urine Culture va 04/20 16:06 Order name: Urine Dipstick--Ancillary (enter results) 04/20 16:14 Order name: Urine Dipstick-Ancillary [facility] 04/20 11:19 Order name: Labs collected and sent; Complete Time: 15:58 04/20 11:19 Order name: Urine Dipstick-Ancillary (obtain specimen); Complete Time: 15:58 04/20 11:21 Order name: Cardiac monitoring; Complete Time: 12:04 04/20 11:21 Order name: EKG - Nurse/Tech; Complete Time: 15:58 04/20 11:21 Order name: IV Saline Lock; Complete Time: 12:04 04/20 11:21 Order name: Labs collected and sent; Complete Time: 12:04 04/20 11:21 Order name: O2 Per Protocol; Complete Time: 12:04 04/20 11:21 Order name: O2 Sat Monitoring; Complete Time: 12:04 04/20 11:22 Order name: Cardiac monitoring; Complete Time: 12:04 04/20 11:22 Order name: EKG - Nurse/Tech; Complete Time: 14:01 04/20 11:22 Order name: IV Saline Lock - Large Bore; Complete Time: 12:03 04/20 11:22 Order name: Labs collected and sent; Complete Time: 12:03 04/20 11:22 Order name: O2 Per Protocol; Complete Time: 12:03 04/20 11:22 Order name: O2 Sat Monitoring; Complete Time: 12:03 va Administered Medications: 11:30 Drug: Zofran 4 mg Route: IVP; Site: right forearm; sv 11:45 Follow up: Response: No adverse reaction sv 11:30 Drug: NS 0.9% 1000 ml Route: IV; Rate: 1000 ml; Site: right forearm; sv 12:30 Follow up: Response: No adverse reaction; IV Status: Completed infusion; IV Intake: sv 1000ml 11:32 Drug: fentaNYL (PF) 50 mcg Route: IVP; Site: right forearm; sv 11:50 Follow up: Response: No adverse reaction; Pain is decreased sv 13:19 Drug: vancoMYCIN 1 grams Route: IVPB; Infused Over: 2 hrs; Site: left wrist; dm5 15:20 Follow up: Response: No adverse reaction; IV Status: Completed infusion; IV Intake: sv 250ml 13:31 Drug: Atarax 50 mg Route: PO; dm5 14:00 Follow up: Response: No adverse reaction sv 14:00 Drug: Tylenol 1000 mg Route: PO; sv 14:30 Follow up: Response: No adverse reaction sv 14:01 Drug: LevaQUIN 500 mg Volume: 100 ml; Route: IVPB; Infused Over: 60 mins; Site: right sv forearm; 15:00 Follow up: Response: No adverse reaction; IV Status: Completed infusion; IV Intake: sv 100ml 14:29 Drug: fentaNYL (PF) 50 mcg Route: IVP; Site: right forearm; sv 14:45 Follow up: Response: No adverse reaction sv Point of Care Testing: Blood Glucose: 11:29 Blood Glucose: 259 mg/dL; sv Ranges: Critical Glucose Levels:Adult <50 mg/dl or >400 mg/dl <40 mg/dl or >180 mg/dl Disposition: 04/20/18 14:27 Hospitalization ordered by Tremayne Gallo for Inpatient Admission. Preliminary diagnosis are Acute vomiting, Leukocytosis, UTI, Decubitus ulcer with cellulitis. - Bed requested for Telemetry/MedSurg (Inpatient). - Status is Inpatient Admission. sv - Condition is Stable. - Problem is new. - Symptoms have improved. UTI on Admission? Yes Signatures: Dispatcher [employer] EDMS Jessy Lilly RN RN [facility] Teresa Gonzalez RN RN Darshana Kwok RN RN dw Appiah, William, MD MD wa Corrections: (The following items were deleted from the chart) 14:33 10:56 Home Meds: baclofen 20 mg Oral tab 1 tab twice a day; sv sv 14:33 10:56 Home Meds: Lasix Oral 1 tab once daily; sv 16:36 14:27 Hospitalization Ordered by Tremayne Gallo MD for Inpatient Admission. Preliminary diagnosis is Acute vomiting; Leukocytosis; UTI; Decubitus ulcer with cellulitis. Bed requested for Telemetry/MedSurg (Inpatient). Status is Inpatient Admission. Condition is Stable. Problem is new. Symptoms have improved. UTI on Admission? Yes. herber 17:06 16:36 04/20/2018 14:27 Hospitalization Ordered by Tremayne Gallo MD for Inpatient sv Admission. Preliminary diagnosis is Acute vomiting; Leukocytosis; UTI; Decubitus ulcer with cellulitis. Bed requested for Telemetry/MedSurg (Inpatient). Status is Inpatient Admission. Condition is Stable. Problem is new. Symptoms have improved. UTI on Admission? Yes. kathrine
[2018-04-20] MEDS ORDERED: ACETAMINOPHEN 500 MG TAB PO PRN (14:45)
[2018-04-20] MEDS ORDERED: NA CHLORIDE 0.9% 1,000 ML IV ONE ×2 (14:50→18:34)
--- NOTE | 2018-04-20 14:59 | RAD REPORT ---
EXAM DESCRIPTION: CT - Abdomen Pelvis Wo Contrast - 04/20/2018 2:40 pm CLINICAL HISTORY: Abdominal pain /vomiting for 2 days COMPARISON: 2012 TECHNIQUE: Computed axial tomography of the abdomen and pelvis was obtained. IV and oral contrast we re not requested. All CT scans are performed using dose optimization technique as appropriate and may include automated exposure control or mA/KV adjustment according to patient size. FINDINGS: The evaluation of solid organs, vessels and bowel is limited secondary to the lack of con trast administration. Diffuse edema is present throughout the subcutaneous tissues The liver, spleen, pancreas, and kidneys appear grossly normal. Hyperplasia of the adrenal glands is suspected. The appendix is normal. There is no evidence of diverticulitis. The rectum is mildly distended with s tool. A suprapubic catheter is in place. The uterus lies within right pelvis. Small fibroids are suspected. A gallstone is present without gallbladder wall thickening IMPRESSION: Cholelithiasis without evidence of cholecystitis Diffuse edema within the subcutaneous tissues The rectum is mildly distended with stool. A moderate amount of stool is present throughout the colon . Hyperplasia of the adrenal glands is suspected.
[2018-04-20 16:13] LABS: Urine Blood 1+ (NEG); Urine Glucose NEGATIVE (NEG); Urine Protein 2+ (NEG); Urine Specific Gravity >1.030 (1.005-1.030); Urine pH 5.5 (5.0-7.0)
[2018-04-20 16:15] LABS: Urine Bacteria LOADED /HPF (<20); Urine Culture Reflex Order NOT NEEDED
[2018-04-20] MEDS: INSULIN -REGULAR HUMAN 50 UNIT/0.5 ML ML SQ SCH ×2 (16:30→20:40)
[2018-04-20] MEDS ORDERED: LIDOCAINE VISCOUS 2% SOLN 15 ML UDC ONE (17:50)
[2018-04-20 18:52] VITALS: BMI 27.2
[2018-04-20] MEDS: NA CHLORIDE 0.9% 1,000 ML IV SCH ×3 (19:13→20:53)
[2018-04-20] MEDS: ENOXAPARIN 40 MG/0.4 ML SQ SCH (19:13)
[2018-04-20] MEDS: FENTANYL CITR 100 MCG/2 ML IV PRN (20:41)
[2018-04-20] MEDS ORDERED: VANCOMYCIN 1GM/D5W 200 ML IV SCH (21:00)
--- NOTE | 2018-04-21 01:16 | HP ---
Date of Admission: 04/20/2018 Chief complaint: Nausea & vomiting History Of Present Illness: The patient is a 63-year-old female with past medical history of multiple sclerosis who has been bed-bound for several years, comes in with nausea and vomiting of past 2 days along with some decreased p.o. intake. No significant abdominal pain, diarrhea, blood in the stool. No fevers or chills. No unusual foods. The patient's symptoms are constant, moderate, progressively worsening. Upon arrival to the ER, her vital signs showed blood pressure 113/85. She was tachycardic at 118, respirations 23. [place] [address] with left [place]. [place] [address]. The patient does have an indwelling suprapubic catheter. CT scan of the abdomen and pelvis was done which showed some cholelithiasis, diffuse edema in the subcutaneous tissues, rectum mildly distended, hyperplasia of adrenal glands. Chest x-ray did not show any acute changes. The patient was then referred for admission. When seen in the ER, the patient was awake, alert, oriented x3. The patient does have multiple sacral ulcers and wounds on her legs. She has been seeing Wound Care, saw Dr. Alfonso, in Wound Care about 2 weeks ago. The patient does have nurses and aides that come onto the house to dress her sacrum daily and to dress her legs every other day. Past Medical History: Multiple sclerosis, diabetes, hypothyroidism, hypercholesterolemia, major depressive disorder, anxiety disorder, chronic pain. Past Surgical History: Suprapubic catheter placement and surgery on her right foot with screws and pins. Allergies: TO AMOXICILLIN, MORPHINE, POTASSIUM CLAVULANATE FROM AUGMENTIN, LEVAQUIN, PENICILLIN, CODEINE, TAPE. Medications: List reviewed. Family History: MS runs in the family. Social History: The patient denies any tobacco use, alcohol use, or illicit drug use. Review of Systems: An 11-point system reviewed, negative except as per HPI. Physical Examination: Vital Signs: Blood pressure 113/85, respirations 23, heart rate 118, temperature 98.8, O2 97% on room air. General: Awake, alert, oriented x3. Some moderate distress due to pain. Ill- appearing female. HEENT: Normocephalic, atraumatic. PERRLA. EOMI. Dry mucous membranes. Oropharynx is clear. Poor dentition. Conjunctivae anicteric. Neck: Supple. Trachea midline. No JVD. CV: S1, S2. Sinus tachycardia. Peripheral pulses present. No murmurs. Respiratory: Clear to auscultation bilaterally. No wheezing. No stridor. No use of accessory muscles. Gastrointestinal: Abdomen is soft, nontender, and nondistended. Positive bowel sounds. Suprapubic catheter in place. Extremities: No clubbing or cyanosis. The patient does have some pedal edema. No calf tenderness. Neuro: Cranial nerves 2 through 12 intact grossly. The patient has gross weakness, essentially unable to move her lower extremities. Speech is normal. No facial asymmetry. Skin: The patient has multiple wounds including on her sacrum which is extensive, unstageable. The patient also has multiple small wounds on bilateral lower extremities. No heel wounds. Lext axilla wound Psych: Mood is depressed. Affect is flat. Insight and judgment are good. Laboratory Data: Sodium 134, potassium 3.5, chloride 99, CO2 of 21, BUN 22, creatinine 0.7, glucose 280, lactic acid 1.5, calcium 9.3, magnesium 2, total bilirubin 0.6, AST 19, ALT 18, alkaline phosphatase 249. Troponin less than 0.02. BNP 20707, CRP is 379, albumin 2.4, lipase 111. INR 1.37. WBC 61.6, H and H are 10.3 and 32.2, platelets 357, neutrophils 75%. CT scan of the abdomen shows cholelithiasis without evidence of cholecystitis. Diffuse edema within the subcutaneous tissue. Rectum is mildly distended with stool. Moderate amount of stool is present throughout the colon. Hyperplasia of the adrenal glands is suspected. Chest x-ray shows no acute abnormalities to explain. Assessment And Plan: A 63-year-old female with; 1. Sepsis. [place] [address] with left shift, tachycardia , and tachypnea. Source of infection is likely for skin wounds and sacral wounds and possibly urinary tract infection. The patient has a chronic indwelling suprapubic catheter. We will continue on broad-spectrum IV antibiotics. We will obtain blood cultures and urine cultures. We will bolus with IV fluids and continue with IV fluid resuscitation. 2. Intractable nausea and vomiting, symptomatic treatment, IV antiemetics and IV fluids. 3. Sacral ulcer, unstageable, large wound. We will obtain surgical consultation for possible debridement and continue with wound care, offloading. We will order air mattress. 4. Diabetes mellitus type 2, non-insulin requiring. The patient states that she is no longer diabetic. 5. Multiple sclerosis. The patient has been bedridden for several years. The patient does see Dr. Hurd with Neurology as an outpatient. 6. Gastrointestinal and deep venous thrombosis prophylaxis with PPI and Lovenox. 7. Severe protein-calorie malnutrition. Albumin is 2.4. We will have dietitian consultation and protein supplementation. Plan: Admit the patient to Med-Surg, place as inpatient. Code status: Full Overall prognosis is poor. /MIKE Voice ID: [id number] MTDD
[2018-04-21] MEDS: ZOLPIDEM TARTRATE 10 MG TABLET PO PRN (01:59)
[2018-04-21] MEDS: LEVOTHYROXINE SOD 0.125 MG TAB PO SCH (05:04)
[2018-04-21 06:12] LABS: Potassium 3.7 mmol/L (3.5-5.1)
[2018-04-21 06:51] LABS: Absolute Lymphocytes (CBC) 0.9 K/uL (0.7-4.9); Absolute Monocytes 9.2 K/uL (0.1-1.3); Absolute Neutrophil 21.7 K/uL (1.8-8.0); Basophils % 0.1 % (0-1.3); Eosinophils % 0.1 % (0-4.4); Hematocrit 31.4 % (36.0-45.0); Lymphocytes % 2.9 % (15.3-44.8); MCH 21.4 pg (27.0-35.0); MCV 67.4 fL (80-100); MPV 9.6 fL (7.6-11.3); Monocytes % 28.7 % (3.3-12.3); RBC Red Blood Cell Count 4.65 M/uL (3.86-4.86)
[2018-04-21] MEDS: INSULIN -REGULAR HUMAN 50 UNIT/0.5 ML ML SQ SCH ×4 (07:30→21:00)
[2018-04-21] MEDS: FERROUS SULFATE 325 MG TAB PO SCH (08:52)
[2018-04-21] MEDS: BACLOFEN 10 MG TAB PO SCH ×2 (08:52→22:38)
[2018-04-21] MEDS: VANCOMYCIN 1.25 GM in NA CHLORIDE 0.9% 250 ML IVPB SCH (08:53)
[2018-04-21] MEDS ORDERED: CARBAMAZEPINE 600 MG PO SCH (09:00)
[2018-04-21] MEDS ORDERED: HOME MED 1 EA UNK (Hydroxyzine Hcl [Atarax] 50 MG) PO SCH (09:00)
[2018-04-21] MEDS: LACTOBACILLUS/ACIDOPHILUS TAB PO SCH (10:22)
[2018-04-21] MEDS: HYDROXYZINE PAMOATE 50 MG PO SCH ×3 (11:55→22:39)
[2018-04-21] MEDS: FENTANYL CITR 100 MCG/2 ML IV PRN (14:27)
[2018-04-21] MEDS: Levofloxacin500mg IV 500 MG/100 ML BAG IV SCH (16:15)
[2018-04-21] MEDS: ENOXAPARIN 40 MG/0.4 ML SQ SCH (16:15)
[2018-04-21] MEDS: NA CHLORIDE 0.9% 1,000 ML IV SCH ×2 (16:19→22:38)
--- NOTE | 2018-04-21 18:24 | PN ---
Date of Progress Note: 04/21/2018 Subjective: The patient was seen and examined, chart reviewed and case discussed with RN. The patie nt has multiple wounds being seen by surgery and does report some pain asking for some pain medicatio ns. Spoke about LTAC placement, patient declined citing that she had bad experiences previously. Review of Systems: Negative except as above. Medications: List reviewed. Physical Examination: Vital Signs: Temperature 99, heart rate 112, blood pressure 115/53, respirations 19, O2 96% on room a ir. General: Awake, alert, oriented x3, in some mild distress. Elderly female, ill-appearing. CV: S1, S2. Sinus tachycardia. No murmurs. Respiratory: Clear to auscultation bilaterally. No wheezing. No stridor. No use of accessory musc les. Gastrointestinal: Abdomen is soft, nontender, nondistended. Positive bowel sounds. Extremities: No clubbing, cyanosis, or edema. Neuro: Generalized weakness. Skin: The patient has suprapubic catheter. Multiple wounds including the sacrum, bilateral lower ex tremities, and left axilla. Laboratory Data: Sodium 135, potassium 3.7, chloride 102, CO2 23, BUN 22, creatinine 0.7, glucose 12 6, calcium 8.2. WBC 31.9, H and H 9.9 and 31.4, platelets 216, neutrophils 68%. UA shows positive n itrites, trace leukocytes, 5-10 RBC, greater than 50 WBC, loaded bacteria. Blood cultures no growth to date. Urine culture shows 4+ gram-negative rods. Wound cultures pending. Peripheral blood smear shows leukocytosis with absolute neutrophilia, absolute monocytosis and few bands, favor reactive, m icrocytic hyperchromic anemia with mild anisopoikilocytosis. Assessment And Plan: A 63-year-old female with; 1.Sepsis. White count is significantly improved to 31,000. We will continue with broad-spectrum IV antibiotics and IV fluids. 2.Intractable nausea and vomiting, improved. 3.Urinary tract infection, acute cystitis with hematuria, urine culture growing gram-negative rods. We will await cultures and sensitivity and identification. 4.Unstageable sacral wound with sacral wound present on admission. 5.Axillary wound on the left. 6.Multiple wounds on the lower extremities bilaterally. Continue and IV antibiotics. Cultures have been obtained. Surgical consultation for wound care and possible debridement. 7.Diabetes mellitus type 2 [id number] with hyperglycemia. We will check hemoglobin A1c. Continue sliding scale insulin. 8.Multiple sclerosis with profound weakness. The patient is bed-bound. Sees Dr. Hurd as an outp atient. 9.Severe protein-calorie malnutrition. Albumin 2.4. 10.Gastrointestinal and deep venous thrombosis prophylaxis with PPI and Lovenox. Plan: We will continue IV antibiotics. Follow up on cultures #4 1 for overall poor prognosis. Disc ussed with the patient regarding LTAC placement, however, patient is not interested. She states that she had bad experience with development of pneumonia and subsequent ICU stay in [place]. I expla ined to her that she needs around the clock wound care with diabetic control, however, she is not int erested. She understands that her wounds may deteriorate and not have a chance to heal leading to se psis and even . The patient is not interested and voices understanding. /MIKE Voice ID: [id number] Report ID: [id number]
--- NOTE | 2018-04-21 18:48 | CON ---
History Of Present Illness: A 63-year-old lady, who unfortunately has multiple sclerosis for past 28 years now. She came in with nausea and vomiting for the past 2 days. Decreased p.o. intake. She w as tachycardic when she arrived with septic like picture with white count in the 61,000 area. She wa s admitted, placed on IV antibiotics. Cultures were performed. She said suprapubic tube was due to be changed with a little bit of pus around the site. She said the nurses at her home changes suprapu bic tube for her every 30 days, so that was due now. She also history of decubitus ulcers. CT scan was done showing no stones and some edema in the subcutaneous tissue. The rectum was mildly distende d and hyperplasia of the adrenal glands. [facility] Past Medical History: Multiple sclerosis, diabetes, hypertension, hypercholesterolemia, major depres sive disorder, anxiety disorder, chronic pain. Past Surgical History: Suprapubic catheter placement and surgery on the right foot with screws and p ins. Allergies: AMOXICILLIN, MORPHINE, POTASSIUM CLAVULANATE FROM AUGMENTIN, LEVAQUIN, PENICILLIN, CODEIN E, AND TAPE. Home Medications: List reviewed. Family History: Multiple sclerosis runs in the family. Social History: Denies tobacco, smoking, alcohol, or illicit drug use. Review of Systems: Eleven point review of systems essentially negative and as per HPI above. Physical Examination: Vital signs: Show temperature 97.8, pulse 115, respirations 18, BP 124/63, and sats 91%. HEENT: Atraumatic, normocephalic. General: She is awake, alert. Her is present in the room. HEENT: Atraumatic, normocephalic. Cardiovascular: S1, S2. RESPIRATORY: Clear. Gastrointestinal: Soft. Suprapubic catheter in suprapubic area with some pus around the entrance. Laboratory Data: laboratory studies showed her white count is down from 61,000 to 32,000 today, H an d H is about 10 and 31. Coag studies are normal. Chemistry, sodium 135, potassium 3.7, chloride 102 , carbon dioxide 23, BUN 22, creatinine 0.7. GFR 85%. Glucose 126. Urine shows positive nitrites, positive esterase, and urine culture is growing gram-negative rods. Assessment: Very high white count per septic like picture. The Patient now on antibiotics, Levaquin , and vancomycin. She has a history of sacral ulcers, which needs to be checked for the sclerosis. DVT prophylaxis has been in place. Procedure: She was prepped and draped. Her suprapubic was removed and replaced with a 16-Turkish Fol ey catheter and 20 cc placed in the balloon. She has a small bladder. It was irrigated to clear. D ry dressing will be placed around the catheter. The wound area was clean. All the pus was removed p rior to insertion, was hooked up to a bag. She will await for the final urine culture results to tit rate her antibiotics. In the meanwhile, she will have wound care also. ANTHONY/MIKE Voice ID: [id number] Report ID: [id number]
[2018-04-21] MEDS ORDERED: ZOLPIDEM TARTRATE PO SCH (21:00)
[2018-04-21] MEDS: ATORVASTATIN 10 MG TAB PO SCH (22:39)
[2018-04-21] MEDS: CARBAMAZEPINE 300 MG PO SCH (22:40)
[2018-04-21] MEDS: JUVEN PACKET PO SCH (22:41)
[2018-04-22] MEDS: VANCOMYCIN 1.25 GM in NA CHLORIDE 0.9% 250 ML IVPB SCH ×2 (03:16→21:24)
[2018-04-22 05:34] LABS: Absolute Lymphocytes (CBC) 1.1 K/uL (0.7-4.9); Absolute Monocytes 4.3 K/uL (0.1-1.3); Basophils % 0.1 % (0-1.3); Eosinophils % 0.5 % (0-4.4); Hematocrit 27.3 % (36.0-45.0); Lymphocytes % 6.6 % (15.3-44.8); MCH 21.6 pg (27.0-35.0); MCV 67.3 fL (80-100); MPV 9.8 fL (7.6-11.3); Monocytes % 26.1 % (3.3-12.3); RBC Red Blood Cell Count 4.07 M/uL (3.86-4.86)
[2018-04-22] MEDS: LEVOTHYROXINE SOD 0.125 MG TAB PO SCH (05:44)
[2018-04-22 06:31] LABS: BUN Blood Urea Nitrogen 22 mg/dL (7-18); Bicarbonate 20 mmol/L (21-32); Glucose Level 141 mg/dL (74-106); Potassium 3.4 mmol/L (3.5-5.1); Sodium Level 138 mmol/L (136-145)
[2018-04-22] MEDS: NA CHLORIDE 0.9% 1,000 ML IV SCH ×2 (07:00→16:40)
[2018-04-22] MEDS: INSULIN -REGULAR HUMAN 50 UNIT/0.5 ML ML SQ SCH ×4 (07:30→21:00)
[2018-04-22] MEDS: FENTANYL CITR 100 MCG/2 ML IV PRN ×2 (08:28→17:27)
[2018-04-22] MEDS: LACTOBACILLUS/ACIDOPHILUS TAB PO SCH (10:06)
[2018-04-22] MEDS: FERROUS SULFATE 325 MG TAB PO SCH (10:06)
[2018-04-22] MEDS: BACLOFEN 10 MG TAB PO SCH ×2 (10:06→21:25)
[2018-04-22] MEDS: JUVEN PACKET PO SCH ×2 (10:06→21:28)
[2018-04-22] MEDS: CARBAMAZEPINE 300 MG PO SCH ×2 (10:07→21:27)
[2018-04-22] MEDS: HYDROXYZINE PAMOATE 50 MG PO SCH ×4 (10:08→21:00)
--- NOTE | 2018-04-22 16:22 | PN ---
Subjective: The patient is doing relatively well today. Objective: Vital signs: Temperature 96.9, pulse 98, respiratory rate 18, BP 119/67, sats 96%. Her suprapubic was changed yesterday. Drained clear urine to the bag. She had a slight leakage arou nd the tube, but she has had less normal for her. Her bladder capacity is way less than 100 cc, mayb e 60 cc in the bladder that she had. She has 20 cc in the Crane balloon to hold it inside. Laboratory Data: Today, white count is down to 16,000 from high of 61,000 when she came in. She welsh s look much better. I recommend continue continue care. Her urine culture grew E coli and Enterococcus. In terms of sen sitivity, they both are sensitive to Bactrim. E coli is also sensitive to Levaquin, ciprofloxacin. The Enterococcus is also sensitive to penicillin, Levaquin, intermediate to ciprofloxacin. The antib iotic of choice that she is on right now is Levaquin and vancomycin. Continue therapy. ANTHONY/MIKE Voice ID: [id number] Report ID: [id number]
--- NOTE | 2018-04-22 16:23 | PN ---
Date of Progress Note: 04/22/2018 Subjective: The patient seen and examined, chart reviewed, and case discussed with RN. The patient denying LTAC placement. Had her suprapubic catheter replaced by Dr. Toth yesterday. Otherwise, not in any acute distress. Review of Systems: Negative except as above. Medications: List reviewed. Objective: Vital Signs: Temperature 96.9, heart rate 98, blood pressure 118/67, respirations 18, AN D O2 99% on room air. general: awake, alert, oriented x3 without any acute distress at this time, elderly female, ill-appe aring. CV: S1, S2. No murmurs. Regular rate and rhythm. Peripheral pulses present. Respiratory: Clear to auscultation bilaterally. No wheezing. Gastrointestinal: Abdomen is soft, nontender, nondistended. Positive bowel sounds. Extremities: No clubbing, cyanosis, or edema. Neurologic: Nonfocal. SKIN: The patient has multiple wounds including sacrum, left axilla, and bilateral lower extremities , currently packed. Laboratory Data: Sodium 138, potassium 3.4, chloride 107, CO2 20, BUN 22, creatinine 0.5, and glucos e 141. Hemoglobin A1c 6.8%. Calcium 8.1. WBC 16.5, H and H 8.8 and 27.3, platelets 223, and neutro phils 66%. Wound cultures pending. Urine culture growing E coli and Enterococcus faecalis. Sensiti vities noted. Wound cultures from the axilla is growing staph aureus and gram-negative rods. Wound culture from the sacrum also growing Staph and gram-negative rods. Assessment: A 63-year-old female with; 1.Sepsis, improving. White count is 16,000. We will continue broad-spectrum IV antibiotics. Jaja nue IV fluids. 2.Intractable nausea and vomiting, resolved. 3.Urinary tract infection, acute cystitis with hematuria, secondary to Escherichia coli, Enterococcu s faecalis. We will continue IV antibiotics. 4.Unstageable sacral wound infection, axillary wound on the left, and multiple wounds in lower extre mities infected. We will continue with IV antibiotics. Wound cultures are growing Staphylococcus an d gram-negative rods. Dr. Madden consulted for possible debridement. No plans for intervention at this time. We will continue with wound care. 5.Diabetes mellitus type 2, [id number] with hyperglycemia. Hemoglobin A1c 6.8%. We will continue with sliding scale insulin. 6.Multiple sclerosis with profound weakness. The patient is bed bound. [facility] 7.Severe protein-calorie malnutrition. Albumin 2.4. 8.Gastrointestinal and deep venous thrombosis prophylaxis with PPI and Lovenox. Plan: 1.Continue IV antibiotics and wound care. The patient refusing LTAC placement. Will likely go back home with home health care. 2.Suprapubic catheter replaced by Dr. Toth. Appreciate his input. ANDREA Voice ID: [id number] Report ID: [id number]
[2018-04-22] MEDS: Levofloxacin500mg IV 500 MG/100 ML BAG IV SCH (16:37)
[2018-04-22] MEDS: LIDOCAINE VISCOUS 2% SOLN 15 ML UDC TOP SCH (16:37)
[2018-04-22] MEDS: ENOXAPARIN 40 MG/0.4 ML SQ SCH (16:38)
[2018-04-22] MEDS: ATORVASTATIN 10 MG TAB PO SCH (21:25)
[2018-04-23] MEDS: NA CHLORIDE 0.9% 1,000 ML IV SCH ×2 (03:00→06:11)
[2018-04-23 05:56] LABS: BUN Blood Urea Nitrogen 17 mg/dL (7-18); Bicarbonate 21 mmol/L (21-32); Glucose Level 156 mg/dL (74-106); Potassium 3.1 mmol/L (3.5-5.1); Sodium Level 140 mmol/L (136-145)
[2018-04-23 06:02] LABS: Absolute Monocytes 3.1 K/uL (0.1-1.3); Absolute Neutrophil 9.2 K/uL (1.8-8.0); Basophils % 0.2 % (0-1.3); Eosinophils % 0.8 % (0-4.4); Hematocrit 24.2 % (36.0-45.0); Lymphocytes % 7.7 % (15.3-44.8); MCH 21.7 pg (27.0-35.0); MCV 66.8 fL (80-100); MPV 9.6 fL (7.6-11.3); RBC Red Blood Cell Count 3.62 M/uL (3.86-4.86)
[2018-04-23] MEDS: LEVOTHYROXINE SOD 0.125 MG TAB PO SCH (06:11)
[2018-04-23] MEDS: INSULIN -REGULAR HUMAN 50 UNIT/0.5 ML ML SQ SCH ×4 (07:30→21:00)
[2018-04-23] MEDS: HYDROXYZINE PAMOATE 50 MG PO SCH ×4 (09:30→21:19)
[2018-04-23] MEDS: FERROUS SULFATE 325 MG TAB PO SCH (09:44)
[2018-04-23] MEDS: LACTOBACILLUS/ACIDOPHILUS TAB PO SCH (09:44)
[2018-04-23] MEDS: BACLOFEN 10 MG TAB PO SCH ×2 (09:44→21:19)
[2018-04-23] MEDS: CARBAMAZEPINE 300 MG PO SCH ×2 (09:47→21:21)
[2018-04-23] MEDS: VANCOMYCIN 1.25 GM in NA CHLORIDE 0.9% 250 ML IVPB SCH ×2 (09:51→21:18)
--- NOTE | 2018-04-23 10:15 | P.PN ---
Subjective Date of Service: 04/23/18 Chief Complaint: Multiple wound infection Patient's condition stable no new changes Mr SA isolated Review of Systems Unremarkable General: Weakness Physical Examination - Vital Signs Temperature: 96.9 F Blood Pressure: 121/61 Pulse: 89 Respirations: 18 Pulse Ox (%): 97 - Physical Exam General: Alert, Oriented x3 Neck: Supple Respiratory: Clear to auscultation bilaterally Cardiovascular: No edema Assessment & Plan - Problems (Diagnosis) (1) Wound infection Current Visit: Yes Status: Acute Plan: Patient is 63 years of age with multiple sclerosis has multiple wound infection Mr SA any coli isolated Bactrim Dc levofloxacin continue with vancomycin white count has decreased significantly Dc IV fluids patient is eating and drinking not allergic to back mildly anemic refused L tach vital signs stable continue to monitor saturation satisfactory
[2018-04-23] MEDS: JUVEN PACKET PO SCH ×2 (10:59→21:21)
[2018-04-23] MEDS: SMZ./TMP. 800/160 MG TABLET PO SCH ×2 (11:05→21:19)
[2018-04-23] MEDS: LIDOCAINE VISCOUS 2% SOLN 15 ML UDC TOP SCH (14:00)
[2018-04-23] MEDS ORDERED: POTASSIUM 25 MEQ EFFERV TAB PO ONE (16:57)
[2018-04-23] MEDS: ENOXAPARIN 40 MG/0.4 ML SQ SCH (17:10)
[2018-04-23] MEDS: ATORVASTATIN 10 MG TAB PO SCH (21:19)
[2018-04-24] MEDS: LEVOTHYROXINE SOD 0.125 MG TAB PO SCH (05:09)
[2018-04-24 05:25] LABS: Hematocrit 24.9 % (36.0-45.0); MCH 21.7 pg (27.0-35.0); MCV 66.2 fL (80-100); MPV 9.9 fL (7.6-11.3); RBC Red Blood Cell Count 3.77 M/uL (3.86-4.86)
[2018-04-24 05:45] LABS: BUN Blood Urea Nitrogen 19 mg/dL (7-18); Bicarbonate 23 mmol/L (21-32); Glucose Level 164 mg/dL (74-106); Potassium 3.8 mmol/L (3.5-5.1); Sodium Level 140 mmol/L (136-145)
[2018-04-24] MEDS ORDERED: POTASSIUM CL SA 10 MEQ TAB PO ONE (06:07)
[2018-04-24] MEDS: INSULIN -REGULAR HUMAN 50 UNIT/0.5 ML ML SQ SCH ×4 (07:30→20:46)
[2018-04-24] MEDS: ONDANSETRON 4 MG/2 ML VIAL IV PRN ×3 (08:37→20:40)
[2018-04-24] MEDS: LACTOBACILLUS/ACIDOPHILUS TAB PO SCH (08:37)
[2018-04-24] MEDS: SMZ./TMP. 800/160 MG TABLET PO SCH ×2 (08:38→20:40)
[2018-04-24] MEDS: FERROUS SULFATE 325 MG TAB PO SCH (08:38)
[2018-04-24] MEDS: BACLOFEN 10 MG TAB PO SCH ×2 (08:38→20:41)
[2018-04-24] MEDS: VANCOMYCIN 1.25 GM in NA CHLORIDE 0.9% 250 ML IVPB SCH ×2 (08:38→09:00)
[2018-04-24] MEDS: HYDROXYZINE PAMOATE 50 MG PO SCH ×5 (08:39→20:43)
[2018-04-24] MEDS: CARBAMAZEPINE 300 MG PO SCH ×2 (08:39→20:42)
[2018-04-24] MEDS: LIDOCAINE VISCOUS 2% SOLN 15 ML UDC TOP SCH (09:00)
[2018-04-24] MEDS: JUVEN PACKET PO SCH ×2 (10:17→20:41)
--- NOTE | 2018-04-24 10:35 | P.PN ---
Subjective Date of Service: 04/24/18 Chief Complaint: Multiple wound infection Patient is doing much better today feeling a little nauseated Review of Systems Unremarkable Physical Examination - Vital Signs Temperature: 97.1 F Blood Pressure: 113/67 Pulse: 94 Respirations: 16 Pulse Ox (%): 99 - Physical Exam General: Alert, Oriented x3 Respiratory: Clear to auscultation bilaterally Cardiovascular: No edema, Normal pulses - Studies Microbiology Data (last 24 hrs): 04/20/18 11:35 Blood - Blood Anaerobic Blood Culture - Final Assessment & Plan - Problems (Diagnosis) (1) Wound infection Current Visit: Yes Status: Acute Plan: Patient has multiple wound infections clinically improving white count is significantly declined continue with Bactrim Dc vancomycin renal function is normal possible discharge tomorrow vital signs stable oxygenation satisfactory probably need about 2 weeks of Bactrim at home. All the organisms isolated sensitive to Bactrim
[2018-04-24] MEDS ORDERED: VANCOMYCIN 1.25 GM in NA CHLORIDE 0.9% 250 ML IVPB SCH (15:00)
[2018-04-24] MEDS: FENTANYL CITR 100 MCG/2 ML IV PRN (15:14)
[2018-04-24] MEDS: ENOXAPARIN 40 MG/0.4 ML SQ SCH (18:55)
[2018-04-24] MEDS: ZOLPIDEM TARTRATE 10 MG TABLET PO PRN (20:40)
[2018-04-24] MEDS: ATORVASTATIN 10 MG TAB PO SCH (20:41)
[2018-04-25] MEDS: LEVOTHYROXINE SOD 0.125 MG TAB PO SCH (05:29)
[2018-04-25 06:06] LABS: MCH 21.6 pg (27.0-35.0); MPV 9.6 fL (7.6-11.3); RBC Red Blood Cell Count 4.02 M/uL (3.86-4.86)
[2018-04-25 06:28] LABS: BUN Blood Urea Nitrogen 16 mg/dL (7-18); Bicarbonate 26 mmol/L (21-32); Glucose Level 132 mg/dL (74-106); Potassium 4.5 mmol/L (3.5-5.1); Sodium Level 141 mmol/L (136-145)
[2018-04-25] MEDS: CARBAMAZEPINE 300 MG PO SCH ×2 (09:37→21:45)
[2018-04-25] MEDS: HYDROXYZINE PAMOATE 50 MG PO SCH ×4 (09:38→21:45)
[2018-04-25] MEDS: BACLOFEN 10 MG TAB PO SCH ×2 (09:39→21:47)
[2018-04-25] MEDS: LIDOCAINE VISCOUS 2% SOLN 15 ML UDC TOP SCH (09:39)
[2018-04-25] MEDS: FERROUS SULFATE 325 MG TAB PO SCH (09:39)
[2018-04-25] MEDS: LACTOBACILLUS/ACIDOPHILUS TAB PO SCH (09:39)
[2018-04-25] MEDS: SMZ./TMP. 800/160 MG TABLET PO SCH ×2 (09:40→21:47)
[2018-04-25] MEDS: JUVEN PACKET PO SCH ×2 (10:28→21:47)
[2018-04-25] MEDS: INSULIN -REGULAR HUMAN 50 UNIT/0.5 ML ML SQ SCH ×4 (10:28→21:00)
[2018-04-25 10:39] LABS: Blood Morphology Comment NOTED (NOT SEEN); Hypochromasia 1+; Platelet Estimate ADEQ; Urine White Blood Cell Casts OK
--- NOTE | 2018-04-25 14:20 | PN ---
Date of Progress Note: 04/25/2018 Subjective: The patient seen and examined, chart reviewed, and case discussed with RN. The patient states her pain is significantly better. No acute events overnight. Review of Systems: Negative except as above. Medications: List reviewed. Objective: Vital Signs: Temperature 98.1, heart rate 94, blood pressure 108/63, respirations 20, O2 saturation 99% on room air. General: Awake, alert, oriented x3, not in any acute distress. CV: S1 and S2. No murmurs. Peripheral pulses present. Respiratory: Moving air well bilaterally. Gastrointestinal: Abdomen is soft, nontender, nondistende d. Positive bowel sounds. Extremities: No clubbing, cyanosis, edema. Neuro: The patient has severe weakness of lower extremities. Laboratory Data: Sodium 141, potassium 4.5, chloride 109, CO2 26, BUN 16, creatinine 0.4, glucose 13 2, calcium 8. WBC 15.3, H and H 8.7 and 27, platelets 237. Sacral wound growing MRSA and E coli. A xillary wound also growing MRSA and Acinetobacter baumannii. Urine culture growing E coli, Enterococ cus faecalis. Blood culture growing Pseudomonas aeruginosa. Assessment: 1.Wound infections, multiple sites. Blood cultures and wound cultures positive with multiple organi sms including methicillin resistant Staphylococcus aureus, Escherichia coli, Acinetobacter, Enterococ cus, and Pseudomonas. The patient refusing LTAC. Will need significant wound care at home. Home he alth to be set up. White count is still elevated. ID is on board. Antibiotics have been adjusted. 2.Sepsis, improving. 3.Intractable nausea and vomiting, resolved. 4.Urinary tract infection, acute cystitis with hematuria, secondary to Escherichia coli, Enterococcu s. 5.Bacteremia secondary to Pseudomonas. 6.Diabetes mellitus type 2, ylj-wvrltwp-zuhmwyflj with hyperglycemia. 7.Multiple sclerosis with weakness. 8.Severe protein-calorie malnutrition. Albumin 2.4. 9.Gastrointestinal and deep venous thrombosis prophylaxis, addressed. Plan: Discharge home with home health once WBC count improving. The patient's cultures sensitive to Bactrim. SA/MODL Voice ID: [id number] Report ID: [id number]
--- NOTE | 2018-04-25 15:12 | P.PN ---
Date of Service: 04/25/18 S: No specific complaints. Asking to be maintained on "strong antibiotics. O: Patients wounds are covered at the moment A: Patient has MS, it is very adamant on what she will and will not do regarding wound care. She absolutely refuses debridement. She is refusing an LTAC at this time. P: I had a very rosalee discussion with her in regards to her medical and surgical complications from her condition. She has a low serum protein. She has wounds that need to be surgically debrided. Her sacrum most likely needs a flap closure. She has not taken care for self adequately at this time at home despite having home health. She would be much better and a LTAC for wound care and possible plastic console regarding AE flap placement. We discussed these and numerous other issues. In the end she is going to go home soon, will research the concepts and ID is that we outlined and make a decision. However at the current time she has no further need for surgical services. Thank you for this console. I have explained to the patient that she is more than welcome to follow up with me as an outpatient to continue discussion of any the topics that we went over today. She has asked for my business card. All
[2018-04-25] MEDS: FENTANYL CITR 100 MCG/2 ML IV PRN (16:30)
[2018-04-25] MEDS: ENOXAPARIN 40 MG/0.4 ML SQ SCH (17:00)
[2018-04-25] MEDS: ATORVASTATIN 10 MG TAB PO SCH (21:47)
[2018-04-25] MEDS: ZOLPIDEM TARTRATE 10 MG TABLET PO PRN (22:03)
[2018-04-25] MEDS: ONDANSETRON 4 MG/2 ML VIAL IV PRN (23:19)
[2018-04-26] MEDS: LEVOTHYROXINE SOD 0.125 MG TAB PO SCH (06:35)
[2018-04-26] MEDS: INSULIN -REGULAR HUMAN 50 UNIT/0.5 ML ML SQ SCH ×4 (07:30→21:41)
[2018-04-26] MEDS: LIDOCAINE VISCOUS 2% SOLN 15 ML UDC TOP SCH (09:00)
[2018-04-26] MEDS: HYDROXYZINE PAMOATE 50 MG PO SCH ×4 (09:55→21:39)
[2018-04-26] MEDS: CARBAMAZEPINE 300 MG PO SCH ×2 (09:56→21:39)
[2018-04-26] MEDS: SMZ./TMP. 800/160 MG TABLET PO SCH ×2 (09:57→21:38)
[2018-04-26] MEDS: BACLOFEN 10 MG TAB PO SCH ×2 (09:57→21:38)
[2018-04-26] MEDS: FERROUS SULFATE 325 MG TAB PO SCH (09:57)
[2018-04-26] MEDS: LACTOBACILLUS/ACIDOPHILUS TAB PO SCH (09:58)
[2018-04-26] MEDS: JUVEN PACKET PO SCH ×2 (10:04→21:00)
[2018-04-26 10:51] LABS: Absolute Lymphocytes (CBC) 1.7 K/uL (0.7-4.9); Absolute Monocytes 3.3 K/uL (0.1-1.3); Absolute Neutrophil 6.8 K/uL (1.8-8.0); Basophils % 0.2 % (0-1.3); Eosinophils % 2.3 % (0-4.4); Hematocrit 27.5 % (36.0-45.0); Lymphocytes % 14.3 % (15.3-44.8); MCH 21.6 pg (27.0-35.0); MPV 9.3 fL (7.6-11.3); Monocytes % 27.5 % (3.3-12.3); RBC Red Blood Cell Count 4.11 M/uL (3.86-4.86)
[2018-04-26 11:05] LABS: Potassium 4.3 mmol/L (3.5-5.1)
[2018-04-26] MEDS: LIDOCAINE VISCOUS 2% SOLN 15 ML UDC TOP PRN (12:21)
--- NOTE | 2018-04-26 14:09 | PN ---
Date of Progress Note: 04/26/2018 Subjective: The patient is seen and examined. Chart reviewed and case discussed with RN and Infecti ous Disease. The patient is still not willing to go to LTAC. The patient understands that she may s uccumb to her wounds and may have sepsis, which may result in . Still not convinced. The patie nt claimed that she did not receive any dinner last night. However, after further investigation by umu cormier nurse, the patient was provided food including sandwiches, which she refused. She wanted Tuna and not turkey, therefore making her statement incorrect that she was offered food, however, she refu sed and not that she was not given any food at all. Review of Systems: Negative except as above. Medications: List reviewed. Physical Examination: Vital Signs: Temperature 96.9, heart rate 93, blood pressure 115/62, respirations 18, O2 saturation 96% on room air. General: Awake, alert, oriented x3, not in any acute distress. Elderly female. CV: S1, S2. No murmurs. Respiratory: Moving air well bilaterally. Gastrointestinal: Abdomen is soft, nontender, nondistended. Positive bowel sounds. Extremities: No clubbing, cyanosis, or edema. NEUROLOGIC: Bilateral lower extremity weakness. Skin: The patient has multiple wounds including left axilla, bilateral lower extremities, and sacral ulcer. Laboratory Data: WBC 12.2, H and H 8.9 and 27.5, platelets 338, neutrophils 55%. Sodium 139, potass ium 4.3, chloride 103, CO2 of 29. BUN 19, creatinine 0.7, glucose 239, calcium 8.5. Assessment And Plan: A 63-year-old female with; 1.Wound infections at multiple sites including axilla, sacrum, bilateral lower extremities. Multipl e organisms positive in wound cultures. The patient was switched over to p.o. antibiotics. The darius ent refusing LTAC. She will need significant wound care at home. Home health has been set up. Ayan linares recommendations from ID for antibiotic regimen. 2.Sepsis, improving. White count down to 12,000. 3.Urinary tract infection, acute cystitis with hematuria secondary to Escherichia coli, enterococcus . 4.Bacteremia secondary to Pseudomonas. 5.Diabetes mellitus type 2, non-insulin requiring, with hyperglycemia. 6.Multiple sclerosis with severe weakness. 7.Severe protein-calorie malnutrition. 8.Gastrointestinal and deep venous thrombosis prophylaxis addressed. Plan: The patient has again refused LTAC placement. We will likely discharge home with wound care r ecommendations per ID considering possible IV antibiotics versus p.o. antibiotics. ANDREA Voice ID: [id number] Report ID: [id number]
[2018-04-26] MEDS: ENOXAPARIN 40 MG/0.4 ML SQ SCH (16:46)
--- NOTE | 2018-04-26 18:27 | CON ---
History Of Present Illness: The patient is being seen for bacteremia, sacral wound, and urinary trac t infection. The patient was found to have bacteremia secondary to Pseudomonas aeruginosa sensitive to all antipseudomonal antibiotic. The patient also was found to have E coli and Enterococcus faecal is in the urine more than 100,000 colonies, sensitive to most antibiotics. Also was found to have MR SA infection and E. coli in her sacral wound, and MRSA and Acinetobacter in her axillary wound. The patient is feeling better at this point. Her antibiotic consist of Bactrim DS. Allergies: SHE HAS ALLERGIES TO MULTIPLE MEDICATIONS INCLUDING PENICILLIN, MORPHINE, AUGMENTIN, POTA SSIUM CLAVULANATE, GABAPENTIN, LEVAQUIN, ADHESIVE TAPES, AND CODEINE. Social History: Nonsmoker, nondrinker. Family History: Noncontributory. Medication: See MARS. Review of Systems: A 10-point review was performed. Physical Examination: General: This is a 63-year-old female, lying in bed, not in any acute cardiopulmonary distress. Vital Signs: Temperature 97, pulse 93, respiration 18, blood pressure 115/62. HEENT: Unremarkable. Neck: Supple. Lungs: Basal crackles heard. Heart: S1 and S2 regular. Abdomen: Soft, nontender. Bowel sounds positive. Extremity: Muscle wasting noted. Laboratory Data: Shows WBC 12,200, hemoglobin 8.9, platelets 338. Chemistry shows sodium 139, potas sium 4.3, chloride 103, bicarb 29, BUN 19, creatinine 0.7, glucose is 239. Microdata as per HPI. Ab dominal and pelvis CT shows diffuse edema is present throughout the subcutaneous tissue. Liver, sple en, pancreas, and kidneys are grossly normal, suprapubic catheter in place, cholelithiasis without ev idence of cholecystitis, diffuse edema with subcutaneous tissue. The rectum is mildly distended with stool, hyperplasia, adrenal gland does suspected. Assessment And Plan: A 63-year-old female with multiple medical problems including multiple sclerosi s with loss of function in her lower extremity and muscle wasting, long history of sacral and multipl e wounds to the back and axillary area and suprapubic catheter. The patient coming in with nausea an d vomiting, feeling better now. Has urinary tract infection with Escherichia coli and Enterococcus f aecalis bacteremia secondary to Pseudomonas aeruginosa, Methicillin-resistant Staphylococcus aureus a nd Extended-Spectrum Beta-Lactamase Escherichia coli in the sacral wound, possible colonization as pritesh frey has these longstanding wounds. Currently, the wounds being treated with local wound care. The patient is feeling better. Currently being treated with Bactrim for her UTI. We will also recommen d cefepime or aztreonam for her Pseudomonas as patient has allergies to penicillin. We will follow t he patient closely. Thank you Dr. Gallo for consult. MINAL/MIKE Voice ID: [id number] Report ID: [id number]
[2018-04-26] MEDS: ATORVASTATIN 10 MG TAB PO SCH (21:40)
[2018-04-27] MEDS: LEVOTHYROXINE SOD 0.125 MG TAB PO SCH (06:24)
[2018-04-27 06:57] LABS: Absolute Lymphocytes (CBC) 2.5 K/uL (0.7-4.9); Absolute Monocytes 2.9 K/uL (0.1-1.3); Absolute Neutrophil 6.7 K/uL (1.8-8.0); Basophils % 0.6 % (0-1.3); Hematocrit 29.1 % (36.0-45.0); Lymphocytes % 20.4 % (15.3-44.8); MCH 21.4 pg (27.0-35.0); MCV 66.5 fL (80-100); MPV 9.5 fL (7.6-11.3); Monocytes % 23.4 % (3.3-12.3); RBC Red Blood Cell Count 4.37 M/uL (3.86-4.86)
[2018-04-27 07:05] LABS: ALT/SGPT 15 U/L (12-78); AST/SGOT 14 U/L (15-37); Albumin 2.1 g/dL (3.4-5.0); Alkaline Phosphatase 225 U/L (45-117); BUN Blood Urea Nitrogen 22 mg/dL (7-18); Bicarbonate 29 mmol/L (21-32); Bilirubin Total 0.2 mg/dL (0.2-1.0); Glucose Level 131 mg/dL (74-106); Potassium 4.6 mmol/L (3.5-5.1); Protein, Total 6.4 g/dL (6.4-8.2); Sodium Level 138 mmol/L (136-145)
[2018-04-27] MEDS: INSULIN -REGULAR HUMAN 50 UNIT/0.5 ML ML SQ SCH ×4 (07:30→20:52)
[2018-04-27] MEDS: JUVEN PACKET PO SCH ×2 (09:00→20:51)
[2018-04-27 09:34] LABS: Blood Morphology Comment NOTED (NOT SEEN); Hypochromasia 2+; Platelet Estimate ADEQ; Poikilocytosis 1+
[2018-04-27] MEDS: BACLOFEN 10 MG TAB PO SCH ×2 (10:11→20:51)
[2018-04-27] MEDS: FERROUS SULFATE 325 MG TAB PO SCH (10:11)
[2018-04-27] MEDS: LIDOCAINE VISCOUS 2% SOLN 15 ML UDC TOP PRN (10:11)
[2018-04-27] MEDS: LACTOBACILLUS/ACIDOPHILUS TAB PO SCH (10:11)
[2018-04-27] MEDS: SMZ./TMP. 800/160 MG TABLET PO SCH ×2 (10:11→20:51)
[2018-04-27] MEDS: LIDOCAINE VISCOUS 2% SOLN 15 ML UDC TOP SCH (10:12)
[2018-04-27] MEDS: HYDROXYZINE PAMOATE 50 MG PO SCH ×4 (10:13→20:49)
[2018-04-27] MEDS: CARBAMAZEPINE 300 MG PO SCH ×2 (10:13→20:48)
[2018-04-27] MEDS ORDERED: FENTANYL CITR 100 MCG/2 ML IV PRN (11:52)
[2018-04-27] MEDS: CEFEPIME 2 GM in NA CHLORIDE 0.9% 100 ML IV SCH ×2 (12:15→21:05)
--- NOTE | 2018-04-27 12:37 | P.PN ---
Subjective Date of Service: 04/27/18 Chief Complaint: Multiple wound infection doing fair, no new complaints Physical Examination - Vital Signs Temperature: 97.1 F Blood Pressure: 101/56 Pulse: 86 Respirations: 18 Pulse Ox (%): 98 - Physical Exam General: Alert, In no apparent distress HEENT: Atraumatic, PERRLA, EOMI Neck: Supple, JVD not distended Respiratory: Clear to auscultation bilaterally, Normal air movement Cardiovascular: Regular rate/rhythm, Normal S1 S2 Gastrointestinal: Normal bowel sounds, No tenderness Musculoskeletal: No tenderness Integumentary: Other (healing wound) Neurological: Normal speech, Abnormal tone, Abnormal sensation Lymphatics: No axilla or inguinal lymphadenopathy - Studies Medications List Reviewed: Yes Assessment And Plan - Current Problems (Diagnosis) (1) UTI (urinary tract infection) Onset Date: 04/21/18 Current Visit: Yes Status: Acute Qualifiers: Urinary tract infection type: acute cystitis Hematuria presence: without hematuria Qualified Code(s): N30.00 - Acute cystitis without hematuria (2) Decubitus ulcer Onset Date: 04/21/18 Current Visit: Yes Status: Acute Qualifiers: Pressure injury location: contiguous region involving buttock and hip Pressure injury stage: stage 3 Laterality: unspecified laterality Qualified Code(s): L89.43 - Pressure ulcer of contiguous site of back, buttock and hip, stage 3 (3) Wound infection Current Visit: Yes Status: Chronic (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
--- NOTE | 2018-04-27 15:12 | PN ---
Subjective: The patient lying in bed. No new acute events. Chart reviewed. Feeling better. Objective: Vital Signs: Temperature 98, pulse 80, respiration 18, blood pressure 101/56. Lungs: Clear to auscultation. Heart: S1, S2. Regular. Abdomen: Soft, nontender. Bowel sounds positive. Extremities: Muscle wasting. No new wounds noted. Laboratory Data: Shows WBC 12,000, hemoglobin 9.3, platelets 385. Chemistry shows sodium 138, potas sium 4.6, chloride 103, bicarb 29, BUN 22, creatinine 0.6, glucose 131 Urinary tract infection and sepsis secondary to Escherichia coli and Enterococcus faecalis. Currentl y being treated with cefepime and Bactrim. Colonization of sacral and axillary wound with methicilli n-resistant staphylococcus aureus and Escherichia coli and Citrobacter. Blood culture positive for P seudomonas. Assessment And Plan: Bacteremia, urinary tract infection, sacral, and axillary wound. Continue cefe pime total of 2 weeks. Continue Bactrim for 7 days. We will follow the patient closely. Thank you Dr. Zelaya for consult. NF/MODL Voice ID: [id number] Report ID: [id number]
[2018-04-27] MEDS: ENOXAPARIN 40 MG/0.4 ML SQ SCH (18:16)
[2018-04-27] MEDS: ATORVASTATIN 10 MG TAB PO SCH (20:51)
[2018-04-28] MEDS: LEVOTHYROXINE SOD 0.125 MG TAB PO SCH (06:07)
[2018-04-28] MEDS: INSULIN -REGULAR HUMAN 50 UNIT/0.5 ML ML SQ SCH ×4 (08:16→21:39)
[2018-04-28] MEDS: FERROUS SULFATE 325 MG TAB PO SCH (08:17)
[2018-04-28] MEDS: BACLOFEN 10 MG TAB PO SCH ×2 (08:17→21:38)
[2018-04-28] MEDS: LACTOBACILLUS/ACIDOPHILUS TAB PO SCH (08:17)
[2018-04-28] MEDS: SMZ./TMP. 800/160 MG TABLET PO SCH ×2 (08:17→21:38)
[2018-04-28] MEDS: HYDROXYZINE PAMOATE 50 MG PO SCH ×4 (08:18→21:00)
[2018-04-28] MEDS: CARBAMAZEPINE 300 MG PO SCH ×2 (08:18→21:00)
[2018-04-28] MEDS: LIDOCAINE VISCOUS 2% SOLN 15 ML UDC TOP SCH (08:19)
[2018-04-28] MEDS: CEFEPIME 2 GM in NA CHLORIDE 0.9% 100 ML IV SCH ×2 (08:20→21:37)
[2018-04-28] MEDS: JUVEN PACKET PO SCH ×2 (08:22→21:00)
--- NOTE | 2018-04-28 08:54 | RAD REPORT ---
EXAM DESCRIPTION: RAD - Chest Single View - 04/28/2018 12:04 am CLINICAL HISTORY: PICC Placement COMPARISON: Chest Single View dated 04/20/2018; Chest Single View dated 11/08/2017; Chest Single View d ated 01/29/2016; CHEST SINGLE VIEW dated 02/16/2015 FINDINGS: Portable chest was obtained following placement of a right upper extremity PICC line. The catheter tip projects over the SVC..
--- NOTE | 2018-04-28 15:12 | P.DS ---
Admission Date: 04/20/18 Discharge Date: 04/28/18 Disposition: ROUTINE DISCHARGE Discharge Condition: GOOD Reason for Admission: Multiple wound infection Consultations: ID General Surgery Urology Pulmonology - Problems (1) UTI (urinary tract infection) Onset Date: 04/21/18 Current Visit: Yes Status: Acute Qualifiers: Urinary tract infection type: acute cystitis Hematuria presence: without hematuria Qualified Code(s): N30.00 - Acute cystitis without hematuria (2) Diabetes mellitus Onset Date: 02/18/15 Current Visit: Yes Status: Chronic (3) Multiple sclerosis Onset Date: 02/18/15 Current Visit: Yes Status: Chronic (4) 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 Onset Date: 11/09/17 Current Visit: Yes Status: Chronic (5) Wound infection Current Visit: Yes Status: Chronic (6) Stage III pressure ulcer of left buttock Onset Date: 11/09/17 Current Visit: No Status: Acute (7) Stage III pressure ulcer of right buttock Onset Date: 11/09/17 Current Visit: No Status: Acute (8) Stage III pressure ulcer of sacral region Current Visit: No Status: Acute (9) Depression Current Visit: No Status: Chronic Qualifiers: Depression Type: unspecified Qualified Code(s): F32.9 - Major depressive disorder, single episode, unspecified (10) GERD (gastroesophageal reflux disease) Current Visit: No Status: Chronic Qualifiers: Esophagitis presence: esophagitis presence not specified Qualified Code(s) : K21.9 - Gastro-esophageal reflux disease without esophagitis (11) Hyperlipidemia Current Visit: No Status: Chronic Qualifiers: Hyperlipidemia type: unspecified Qualified Code(s): E78.5 - Hyperlipidemia , unspecified (12) Hypothyroidism Current Visit: No Status: Chronic Qualifiers: Hypothyroidism type: unspecified Qualified Code(s): E03.9 - Hypothyroidism , unspecified (13) Urostomy management and care Onset Date: 11/09/17 Current Visit: No Status: Chronic Brief History of Present Illness: The patient is a 63-year-old female with past medical history of multiple sclerosis who has been bed-bound for several years, comes in with nausea and vomiting of past 2 days along with some decreased p.o. intake. No significant abdominal pain, diarrhea, blood in the stool. No fevers or chills. No unusual foods. The patient's symptoms are constant, moderate, progressively worsening. Upon arrival to the ER, her vital signs showed blood pressure 113/85. She was tachycardic at 118, respirations 23. [place] [address] with [place] [address]. The patient does have an indwelling suprapubic catheter. CT scan of the abdomen and pelvis was done which showed some cholelithiasis, diffuse edema in the subcutaneous tissues, rectum mildly distended, hyperplasia of adrenal glands. Chest x-ray did not show any acute changes. The patient was then referred for admission. When seen in the ER, the patient was awake, alert, oriented x3. The patient does have multiple sacral ulcers and wounds on her legs. She has been seeing Wound Care, saw Dr. Alfonso, in Wound Care about 2 weeks ago. The patient does have nurses and aides that come onto the house to dress her sacrum daily and to dress her legs every other day. Hospital Course: Were all during the hospital stay patient remained stable Patient initially was admitted to the hospital for sepsis most likely secondary to urinary tract infection and multiple wound infections at multiple sites which included a plus a cream bilateral lower extremity. Patient was found to have urinary tract infection with E. coli and enterococcus. Patient's wound infection was also culture which she she was found to have multiple organism positive and her wound cultures. Initially patient was started on IV vancomycin and Zosyn when she came in to the hospital. Infectious disease was consulted who recommended the patient be switched to cefepime 1 g q.12 hr for 14 days and Bactrim DS b.i.d. for 7 days. While here in the hospital patient was also found to have blood cultures positive for Pseudomonas. Moved all of the bacteria mentioned above were sensitive to Bactrim and cefepime. Patient had a PICC line placement here in the hospital. Patient had home health arranged for her IV antibiotics to go home with. Patient was then discharged home under stable condition once her acute symptoms resolved. Patient was offered to go to a long-term acute care facility that she will be requiring 2 antibiotics along with wound care however patient declined stated that she would like to go home and will be taking care of her wounds at home with her home health agency. Patient is 7 urinary tract infection due to super pre the catheter along with multiple wound infections which airs most likely secondary to her stage III ulcers due to being bed-bound. Patient's family was educated extensively on the disease process and hygiene was discussed. Patient demonstrated understanding at this time/ All other chronic conditions remained stable while here in the hospital. No further complications were noted. Vital Signs/Physical Exam: Temp Pulse Resp BP Pulse Ox 97.2 F 91 H 18 100/53 L 99 04/28/18 11:57 04/28/18 11:57 04/28/18 11:57 04/28/18 11:57 04/28/18 11:57 General: Alert, In no apparent distress, Oriented x3 HEENT: Atraumatic, PERRLA, EOMI Neck: Supple, JVD not distended Respiratory: Clear to auscultation bilaterally, Normal air movement Cardiovascular: Regular rate/rhythm, Normal S1 S2 Gastrointestinal: Normal bowel sounds, No tenderness Musculoskeletal: No tenderness Integumentary: No rashes Neurological: Normal speech, Normal tone, Normal affect Lymphatics: No axilla or inguinal lymphadenopathy Laboratory Data at Discharge: WBC 12.4 K/uL (4.3-10.9) H 04/27/18 06:35 Hgb 9.3 g/dL (12.0-15.0) L 04/27/18 06:35 Hct 29.1 % (36.0-45.0) L 04/27/18 06:35 Plt Count 385 K/uL (152-406) 04/27/18 06:35 PT 16.2 SECONDS (9.5-12.5) H 04/20/18 11:20 INR 1.37 04/20/18 11:20 Sodium 138 mmol/L (136-145) 04/27/18 06:35 Potassium 4.6 mmol/L (3.5-5.1) 04/27/18 06:35 BUN 22 mg/dL (7-18) H 04/27/18 06:35 Creatinine 0.60 mg/dL (0.55-1.3) 04/27/18 06:35 Glucose 131 mg/dL (74-106) H 04/27/18 06:35 Magnesium 2.0 mg/dL (1.8-2.4) 04/20/18 11:20 Total Bilirubin 0.2 mg/dL (0.2-1.0) 04/27/18 06:35 AST 14 U/L (15-37) L 04/27/18 06:35 ALT 15 U/L (12-78) 04/27/18 06:35 Alkaline Phosphatase 225 U/L (45-117) H 04/27/18 06:35 Lipase 111 U/L (73-393) 04/20/18 11:20 Home Medications: Levothyroxine [Synthroid*] 125 mcg PO [id number] 02/15/13 Metformin HCl 500 mg PO BID 02/15/13 Pravastatin [Pravachol*] 40 mg PO BEDTIME 02/15/13 Ascorbic Acid [Vitamin C*] 1,000 mg PO BID 01/28/16 Zinc Amino Acid Chelate [Zinc] 50 mg PO DAILY 01/28/16 Baclofen 20 mg PO BID 03/04/17 Carbamazepine [Carbamazepine ER] 600 mg PO BID 03/04/17 Cranberry Fruit Extract/Vit C [Azo Cranberry Softgel] 4,200 mg PO BID 03/04/17 Zolpidem Tartrate [Zolpidem Tartrate ER] 1 tab PO BEDTIME 03/04/17 hydrOXYzine HCl [Atarax] 100 mg PO QID 03/04/17 L.acidoph,Saliva/B.bif/S.therm [Acidophilus 175 mg Capsule] 175 mg PO DAILY 02/18 Vitamin E 1,000 units PO BID 11/08/17 Doxepin HCl [Sinequan*] 10 mg PO BEDTIME 04/20/18 Ferrous Sulfate [Ferrous Sulfate*] 325 mg PO DAILY 04/20/18 Ranitidine [Zantac*] 150 mg PO DAILY 04/20/18 Cefepime [Maxipime 1 gm/100 ml Ivpb] 1 gm IV Q12HR #25 bag 04/28/18 Smz./Tmp. [Bactrim Ds 800 MG/160 MG*] 1 tab PO BID #3 tab 04/28/18 New Medications: Cefepime [Maxipime 1 gm/100 ml Ivpb] 1 gm IV Q12HR #25 bag Smz./Tmp. [Bactrim Ds 800 MG/160 MG*] 1 tab PO BID #3 tab Patient Discharge Instructions: Please f.u with PCP and ID in 1 week post discharge. New medication. Cefepime 1g q12h for total of 13 days now. Bactrim 1tab BID for total of 2 days now Diet: Regular Activity: Ad christiana Followup: Riaz Roper MD [ACTIVE - CAN ADMIT] - 1 Week
[2018-04-28] MEDS: ENOXAPARIN 40 MG/0.4 ML SQ SCH (16:46)
[2018-04-28 20:29] VITALS: O2SAT 98
[2018-04-28] MEDS: ATORVASTATIN 10 MG TAB PO SCH (21:38)
[2018-04-28] MEDS ORDERED: TRAZODONE 50 MG TABLET PO ONE (22:16)
[2018-04-29] MEDS: INSULIN -REGULAR HUMAN 50 UNIT/0.5 ML ML SQ SCH (07:30)
[2018-04-29] MEDS: CARBAMAZEPINE 300 MG PO SCH (09:00)
[2018-04-29] MEDS: JUVEN PACKET PO SCH (09:00)
[2018-04-29 09:34] VITALS: BP 94/45; TEMP 97.9
[2018-04-29] MEDS: CEFEPIME 2 GM in NA CHLORIDE 0.9% 100 ML IV SCH (10:09)
[2018-04-29] MEDS: LACTOBACILLUS/ACIDOPHILUS TAB PO SCH (10:12)
[2018-04-29] MEDS: SMZ./TMP. 800/160 MG TABLET PO SCH (10:12)
[2018-04-29] MEDS: FERROUS SULFATE 325 MG TAB PO SCH (10:12)
[2018-04-29] MEDS: BACLOFEN 10 MG TAB PO SCH (10:13)
--- NOTE | 2018-04-29 12:05 | P.PN ---
Subjective Date of Service: 04/29/18 Chief Complaint: Multiple wound infection Subjective: No new changes, No C/O voiced After patient signed her discharge paperwork yesterday home health agency denied coverage for the patient this patient was held here in the hospital. This morning patient was accepted by [facility] who will be doing her wound care Wednesday 1 days patient has prior with wound care nurse coming to the house. And then patient was discharged home under stable condition and agreeable with the plan. Patient will be continuing to take cefepime 1 g at home. Bactrim only 1 more dose needed this evening. Review of Systems General: As per HPI Physical Examination - Vital Signs Temperature: 97.9 F Blood Pressure: 94/45 Pulse: 87 Respirations: 18 Pulse Ox (%): 99 - Physical Exam General: Alert, In no apparent distress, Oriented x3 HEENT: Atraumatic Neck: Supple Respiratory: Clear to auscultation bilaterally, Normal air movement Cardiovascular: Regular rate/rhythm, Normal S1 S2 Gastrointestinal: Normal bowel sounds, No tenderness Musculoskeletal: Other (Paraplegia) Integumentary: Skin breakdown, Skin lesion, Other (Multiple pressure ulcers and wound noted throughout the back and the buttock area.) Neurological: Normal speech, Normal tone, Normal affect Lymphatics: No axilla or inguinal lymphadenopathy - Studies Medications List Reviewed: Yes Assessment & Plan - Problems (Diagnosis) (1) UTI (urinary tract infection) Onset Date: 04/21/18 Status: Acute Qualifiers: Urinary tract infection type: acute cystitis Hematuria presence: without hematuria Qualified Code(s): N30.00 - Acute cystitis without hematuria (2) Diabetes mellitus Onset Date: 02/18/15 Status: Chronic (3) Multiple sclerosis Onset Date: 02/18/15 Status: Chronic (4) 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 Onset Date: 11/09/17 Status: Chronic (5) Wound infection Status: Chronic (6) Stage III pressure ulcer of left buttock Onset Date: 11/09/17 Status: Acute (7) Stage III pressure ulcer of right buttock Onset Date: 11/09/17 Status: Acute (8) Stage III pressure ulcer of sacral region Status: Acute (9) Depression Status: Chronic Qualifiers: Depression Type: unspecified Qualified Code(s): F32.9 - Major depressive disorder, single episode, unspecified (10) GERD (gastroesophageal reflux disease) Status: Chronic Qualifiers: Esophagitis presence: esophagitis presence not specified Qualified Code(s) : K21.9 - Gastro-esophageal reflux disease without esophagitis (11) Hyperlipidemia Status: Chronic Qualifiers: Hyperlipidemia type: unspecified Qualified Code(s): E78.5 - Hyperlipidemia , unspecified (12) Hypothyroidism Status: Chronic Qualifiers: Hypothyroidism type: unspecified Qualified Code(s): E03.9 - Hypothyroidism , unspecified (13) Urostomy management and care Onset Date: 11/09/17 Status: Chronic Discharge Plan: Home Plan to discharge in: 24 Hours - Code Status/Comfort Care Code Status Assessed: Yes Critical Care: No
[2018-04-29] MEDS ORDERED: hydrOXYzine HCl 25 MG TAB PO SCH (13:00)
== END 2018-04-29 11:30 | disposition home health service (06) | DRG 698 ==
LOC: ER 10:48 → ERHOLD 14:29 → 4TH 16:58
PROVIDERS: ADMIT Family Medicine; ATTEND Family Medicine
PROC: 0T2BX0Z Change Drainage Device in Bladder, External Approach (ICD-10-PCS; 2018-04-21)
PROC: 02HV33Z Insertion of Infusion Device into Superior Vena Cava, Percutaneous Approach (ICD-10-PCS; principal; 2018-04-27)
DX: T83.510A Infection and inflammatory reaction due to cystostomy catheter, initial encounter (principal); L89.154 Pressure ulcer of sacral region, stage 4; L89.323 Pressure ulcer of left buttock, stage 3; L89.313 Pressure ulcer of right buttock, stage 3; A41.9 Sepsis, unspecified organism; E43 Unspecified severe protein-calorie malnutrition; R78.81 Bacteremia; N30.01 Acute cystitis with hematuria; F32.9 Major depressive disorder, single episode, unspecified; K21.9 Gastro-esophageal reflux disease without esophagitis; E78.5 Hyperlipidemia, unspecified; E03.9 Hypothyroidism, unspecified; G35 Multiple sclerosis; B96.20 Unspecified Escherichia coli [E. coli] as the cause of diseases classified elsewhere; B95.2 Enterococcus as the cause of diseases classified elsewhere; E11.65 Type 2 diabetes mellitus with hyperglycemia; B96.5 Pseudomonas (aeruginosa) (mallei) (pseudomallei) as the cause of diseases classified elsewhere; Z74.01 Bed confinement status; Z22.322 Carrier or suspected carrier of Methicillin resistant Staphylococcus aureus; Z22.39 Carrier of other specified bacterial diseases; Z88.0 Allergy status to penicillin; Z88.1 Allergy status to other antibiotic agents; Z88.5 Allergy status to narcotic agent; Z91.048 Other nonmedicinal substance allergy status; Z79.84 Long term (current) use of oral hypoglycemic drugs
CPT/HCPCS: 36415; 71045; 74176; 80048; 80053; 80076; 80202; 81003; 81015; 82962; 83036; 83605; 83690; 83735; 83880; 84132; 84484; 85025; 85027; 85610; 86140; 87040; 87070; 87075; 87077; 87086; 87088; 87185; 87186; 87205; 93005; 94760; 97163; 99285; J0692; J1650; J2405; J3010; J3370; J7030

== ENCOUNTER 2018-05-25 12:20 | Inpatient (IN) | payer OTHER ==
--- OUTSIDE RECORDS SUMMARY | 2018-05-25 12:24 | XMS REPORT | Clinical Summary ---
:1955 Author Organization [facility] Address [address] [place] [address] Phone Care Team Providers Name Role Phone [...] Will, Acute pulmonary edema 12/08/2017 Medicine DO ([facility]) (Primary Tanika Richardson Dx);Bilateral pleural MD Aleyda effusion;H/O multiple Jafar, Hemant sclerosis;COPD with MD Debi acute exacerbation ([facility]);Hypoxia;Suprapu bic catheter dysfunction, initial encounter ([facility]);Neurogenic bladder after 05/24/2017 Social History Tobacco Use Types Packs/Day Years Used Date Never Smoker Smokeless Tobacco: Never Used Tobacco Cessation: Counseling Given: No Alcohol Use Drinks/Week oz/Week Comments No Sex Assigned at Date Recorded Not on file Last Filed Vital Signs Vital Sign Reading Time Taken Blood Pressure 135/72 12/08/2017 7:43 PM CERTIFIED DRUG COUNSELOR Pulse 89 12/08/2017 7:43 PM CERTIFIED DRUG COUNSELOR Temperature 36 C (96.8 F) 12/08/2017 7:43 PM CERTIFIED DRUG COUNSELOR Respiratory Rate 18 12/08/2017 7:43 PM CERTIFIED DRUG COUNSELOR Oxygen Saturation 99% 12/08/2017 7:43 PM CERTIFIED DRUG COUNSELOR Inhaled Oxygen Concentration - - Weight 71.5 kg (157 lb 10.1 oz) 12/08/2017 5:56 AM CERTIFIED DRUG COUNSELOR Height 175.3 cm (5' 9") 11/29/2017 9:00 PM CERTIFIED DRUG COUNSELOR Body Mass Index 23.28 12/08/2017 5:56 AM CERTIFIED DRUG COUNSELOR Plan of Treatment Not on file Results RHYTHM STRIP - SCAN (12/09/2017 1:01 PM)Only the most recent of2 resultswithin the time period is included.EKG-SCANNED (12/09/2017 1:01 PM)POC-Glucose meter ( 12/08/2017 8:32 PM)Only the most recent of40 resultswithin the time period is included. Component Value Ref Range POC-Glucose Meter 190 (H)Comment: TESTED AT [facility] [address] 70 - 110 mg/dL [facility] [address] Specimen Performing Laboratory Blood [facility] [address] [address] XR chest 1 view portable / bedside [...] MD Report Verified Date/Time:12/08/2017 14:54:31 Reading Location: [facility] Radiology Reading Room Procedure Note Interface, External Ris In - 12/08/2017 2:56 PM CERTIFIED DRUG COUNSELOR FINAL REPORT Chest, 1 view. Comparison: 12/05/2017. [...] Report Verified Date/Time: 12/08/2017 14:54:31 Reading Location: [facility] Radiology Reading Room B-type Natriuretic Factor (BNP) (12/08/2017 6:45 AM)Only the most recent of4 resultswithin the time period is included. Component Value Ref Range BNP 234 (H) 0 - 100 pg/mL Specimen Performing Laboratory Blood [facility] [address] [place] [address] Manual Differential (12/08/2017 5:54 AM)Only the most [...] Cells 1+ few Specimen Performing Laboratory Blood [facility] [address] [place] [address] CBC with platelet count + automated diff [...] - 10.5 fL Specimen Performing Laboratory Blood [facility] [address] [place] [address] CBC with platelet count + automated diff (12/08/2017 5:54 AM)Only the most recent of9 resultswithin the time period is included. Specimen Performing Laboratory Blood Narrative The following orders were created for panel order CBC with platelet count + automated diff. Procedure Abnormality Status --------- ------ CBC with platelet count ...[[id number]]AbnormalFinal result Manual Differential[[id number]]Abnormal Final result Please view results for these [...] FOR DIALYSIS PATIENTS. Specimen Performing Laboratory Blood [facility] [address] [place] [address] Vancomycin level, trough (12/07/2017 9:02 AM)Only the most recent of3 resultswithin the time period is included. Component Value Ref Range Vancomycin Tr 17.3 10.0 - 20.0 ug/mL Specimen Performing Laboratory Blood [facility] [address] [place] [address] Peripheral Blood Smear - Path Review (12/06/2017 [...] M.D. (electronic signature) Specimen Performing Laboratory Blood [facility] [address] [place] [address] Vancomycin level, random (12/06/2017 6:35 AM)Only the most recent of2 resultswithin the time period is included. Component Value Ref Range Vancomycin Rm 18.1 ug/mL Specimen Performing Laboratory Blood [facility] [address] [place] [address] Narrative Reference Range: No Normals MR lumbar spine without & with IV contrast (12/04/2017 6:30 PM) Specimen Performing Laboratory [email or web address] Narrative FINAL REPORT EXAM: MRI lumbar spine [...] MD Report Verified Date/Time:12/04/2017 23:32:02 Reading Location: [facility] C013T Transitional Reading Room Procedure Note Interface, External Ris In - 12/04/2017 11:34 PM CERTIFIED DRUG COUNSELOR FINAL REPORT EXAM: MRI lumbar spine with [...] Report Verified Date/Time: 12/04/2017 23:32:02 Reading Location: [address] Transitional Reading Room thoracic spine without [...] MD Report Verified Date/Time:12/04/2017 18:04:28 Reading Location: [facility] C013V Neuro Reading Room Procedure Note Interface, External Ris In - 12/04/2017 6:48 PM CERTIFIED DRUG COUNSELOR FINAL REPORT MRI of the thoracic spine [...] Report Verified Date/Time: 12/04/2017 18:04:28 Reading Location: [facility] C013V Neuro Reading Room cervical spine without & with IV contrast (12/04/2017 6:30 PM) Specimen Performing Laboratory [email or web address] Narrative FINAL REPORT EXAM: MRI cervical spine [...] MD Report Verified Date/Time:12/04/2017 23:48:58 Reading Location: [address] Transitional Reading Room Procedure Note Interface, External Ris In - 12/04/2017 11:51 PM CERTIFIED DRUG COUNSELOR FINAL REPORT EXAM: MRI cervical spine with [...] Report Verified Date/Time: 12/04/2017 23:48:58 Reading Location: [address] Reading Room brain without & with IV contrast (12/04/2017 6:30 PM) Specimen Performing Laboratory [facility] Narrative FINAL REPORT Exam: MRI brain with [...] MD Report Verified Date/Time:12/04/2017 22:01:42 Reading Location: [address] Reading Room Procedure Note Interface, External Ris In - 12/04/2017 10:03 PM CERTIFIED DRUG COUNSELOR FINAL REPORT Exam: MRI brain with and [...] Report Verified Date/Time: 12/04/2017 22:01:42 Reading Location: [facility] B1 C013T Transitional Reading Room Magnesium (12/04/2017 5:12 AM)Only the most recent of4 resultswithin the time period is included. Component Value Ref Range Magnesium 2.1 1.5 - 3.0 mg/dL Specimen Performing Laboratory Blood - Central Venous Line [facility] [address] [place] [address] Blood gas, arterial (12/03/2017 9:57 AM)Only the [...] Performing Laboratory Blood, Arterial - Arm, Right [facility] [address] [place] [address] Respiratory Panel [facility] (12/01/2017 9:35 [...] Specimen Performing Laboratory Nasal - Nasal Mucosa [address] [address] Rapid Influenza A&B Screen (12/01/2017 9:35 PM) Component Value Ref Range Rapid Influenza A Antigen Negative Negative, Inconclusive Rapid influenza B Antigen Negative Negative, Inconclusive Specimen Performing Laboratory Nasal - Nasal Mucosa [facility] [address] [place] [address] Comprehensive metabolic panel (12/01/2017 12:00 PM) Component [...] FOR DIALYSIS PATIENTS. Specimen Performing Laboratory Blood [facility] [address] [place] [address] pH, body fluid (11/30/2017 3:46 PM)Only the most recent of2 resultswithin the time period is included. Component Value Ref Range pH, Body Fluid 8.00 Specimen Performing Laboratory Body Fluid - Pleural, [address] [address] Glucose, body fluid (11/30/2017 3:46 PM)Only the most recent of2 resultswithin the time period is included. Component Value Ref Range Glucose, Body Fluid 256 (H) 70 - 110 mg/dL Specimen Performing Laboratory Body Fluid - Pleural, [address] [address] Narrative Absence of reference range indicates that [...] Performing Laboratory Body Fluid - Pleural, Right [facility] [address] [place] [address] Protein, body fluid (11/30/2017 3:46 PM)Only the [...] Specimen Performing Laboratory Body Fluid - Pleural, [address] [address] Narrative Absence of reference range indicates that [...] Specimen Performing Laboratory Body Fluid - Pleural, [address] [address] Narrative Absence of reference range indicates that normals have not been defined. Assay performance has not been validated for this type of specimen. Albumin, body fluid (11/30/2017 3:46 PM)Only the most recent of2 resultswithin the time period is included. Component Value Ref Range Albumin, Fluid 0.9 gm/dL Specimen Performing Laboratory Body Fluid - Pleural, [address] [address] Narrative Reference Range:No Normals Assay performance has not been validated for this type of specimen. Cytology (11/30/2017 3:15 PM) Component Value Ref Range Case Report Medical Cytology Report Case: [id number] Authorizing Provider:Sari Church MD Collected: 11/30/2017 1515 Ordering Location: [address] Med/SurgReceived: 12/01/2017 0758 Pathologist: Janet Cespedes MD Specimen:Pleural, Left DIAGNOSIS LEFT PLEURAL FLUID (CYTOSPINS): - REACTIVE MESOTHELIAL CELLS IN A BACKGROUND OF PREDOMINANTLY CHRONIC INFLAMMATION - NO MALIGNANT CELLS IDENTIFIED CPT Code(s) 64635 CLINICAL DATA Left pleural effusion, shortness of breath; history of multiple sclerosis SPECIMEN SOURCE LEFT PLEURAL FLUID GROSS DESCRIPTION Prepared 4 cytospins from 250 ml light brown fluid Collected: [id number] Received: [id number] MICROSCOPIC DESCRIPTION Performed. STATEMENT OF ADEQUACY Satisfactory Technical component was performed at [facility], Department of Pathology, [address] [place] [address], Professional component was performed [facility], at Department of Pathology, [address] [place] [address], Specimen Performing Laboratory Body Fluid - Pleural, Left [facility] [address] [place] [address] US thoracentesis (11/30/2017 3:00 PM)Only the most [...] MD Report Verified Date/Time:11/30/2017 16:47:10 Reading Location: [facility] Radiology Reading Room Procedure Note Interface, External Ris In - 11/30/2017 4:49 PM CERTIFIED DRUG COUNSELOR FINAL REPORT Ultrasound Guided left Thoracentesis: Modality: [...] Report Verified Date/Time: 11/30/2017 16:47:10 Reading Location: [facility] Radiology Reading Room CARDIOGRAM REPORT - SCAN (11/30/2017 1:54 PM)2D Echo W/Doppler(CW/PW/Color ) (11/30/2017 9:56 AM) Component Value Ref Range Ejection Fraction Specimen Performing Laboratory [facility] ECHO [facility] Narrative Transthoracic Echocardiography Report (TTE) Demographics Patient Name Bonnie CHAMBERLAIN of Study 11/30/2017 FREYA [id number] GenderFemale Visit Number [id number] [facility] [id number] Number 425 Number Date of Birth1955 Referring Physician Age62 year(s) Hospice Team Lead Karen Easley [facility] Isabel Valdes Physician . Procedure Type [...] External Ris In - 11/30/2017 1:18 PM CERTIFIED DRUG COUNSELOR Transthoracic Echocardiography Report (TTE) Demographics Patient Name CHRISTOPHER CHAMBERLAIN Date of Study 11/30/2017 FREYA Gender Female Visit Number [id number] Race Unknown Room Number 425 Number Date of 1955 Referring Physician Age 62 year(s) Hospice Team Lead Karen Easley [facility] Interpreting Lindsay Valdes, Physician . Procedure [...] - 5.50 uIU/mL Specimen Performing Laboratory Blood [facility] [address] [place] [address] Hemoglobin A1c (11/30/2017 5:34 AM) Component Value Ref Range Hemoglobin A1C 5.1 4.3 - 6.1 % Specimen Performing Laboratory [facility] [address] [place] [address] Lipid panel (11/30/2017 5:34 AM) Component Value Ref Range Triglycerides 85 mg/dL Cholesterol 158 mg/dL HDL 63 mg/dL LDL Calculated 78 mg/dL Specimen Performing Laboratory [facility] [address] [place] [address] Narrative Triglyceride Reference Range: Low Risk <150 [id number] High Risk 200-499 Very High Risk>=500 Cholesterol Reference Range: Low Risk <200 Pskouqbdon170-480 High Risk>240 HDL Cholesterol Reference Range: Low Risk >=60 High Risk <40 LDL Cholesterol Reference Range: Optimal<100 Near Lwwbgba201-849 Ctybezfzmd139-109 Vpdr419-566 Very High >=190 Troponin I (11/29/2017 4:48 PM)Only the most recent of3 resultswithin the time period is included. Component Value Ref Range Troponin I <0.03 0.00 - 0.15 ng/mL Specimen Performing Laboratory [facility] [address] [place] [address] Narrative Troponin I (TnI) levels must be [...] Relative Index 5.6 % Specimen Performing Laboratory [facility] [address] [place] [address] Narrative CK-MB Reference Range: <5 Normal 5-10 Borderline >10Abnormal PT/aPTT (11/29/2017 10:34 AM) Component Value Ref Range Protime 11.0 9.3 - 12.0 seconds INR 1.0 <=5.9 PTT 27.2 23.0 - 35.0 seconds Specimen Performing Laboratory [facility] [address] [place] [address] Narrative RECOMMENDED COUMADIN/WARFARIN INR THERAPY RANGES STANDARD [...] design (11/29/2017 12:27 AM) Specimen Performing Laboratory [email or web address] Narrative FINAL REPORT CLINICAL HISTORY: Chest pain, [...] MD Report Verified Date/Time:11/29/2017 00:49:46 Reading Location: [address] Reading Room Procedure Note Interface, External Ris In - 11/29/2017 12:52 AM CERTIFIED DRUG COUNSELOR FINAL REPORT CLINICAL HISTORY: Chest pain, shortness [...] Report Verified Date/Time: 11/29/2017 00:49:46 Reading Location: [address] Reading Room Blood culture (11/28/2017 9:47 PM)Only the most recent of2 resultswithin the time period is included. Component Value Ref Range Result No growth in 5 days Specimen Performing Laboratory Blood - Line, Venous [facility] [address] [place] [address] pH, venous (11/28/2017 9:46 PM) Component Value Ref Range pH, Parth 7.36 7.32 - 7.42 Specimen Performing Laboratory Blood - Central Venous Line [facility] [address] [place] [address] Ketones, blood (11/28/2017 9:46 PM) Component Value Ref Range Ketones, Blood 0.3 <0.4 mmol/L Specimen Performing Laboratory Blood - Central Venous Line [facility] [address] [place] [address] after 05/24/2017 Advance Directives Patient has advance directives. For more information, please contact:[address] [phone]
--- OUTSIDE RECORDS SUMMARY | 2018-05-25 12:25 | XMS REPORT ---
:1955 Author Organization [facility] Address [address] [place] [address] Care Team Providers Name Role Phone CAPRICE, [...] (BEAKER) (test 190 mg/dL 70-110 TESTED AT [address] rsxm=8989) [facility] [address] POCT-GLUCOSE [id number] 16:35:00 Test Item Value Reference Range Comments POC-GLUCOSE METER (BEAKER) 114 mg/dL 70-110 TESTED AT [address] (test mysa=0667) [facility] [address] RAD, CHEST, 1 VIEW, NON [id number] 14:54:00Reason for exam:->follow upFINAL REPORT Chest, 1 [...] Dunne Verified Date/Time: 12/08/2017 14:54:31 Reading Location: [facility] Radiology Reading Room Electronically signedby: TARIQ DUNNE MD on 12/08/2017 02:54 PMPOCT-GLUCOSE [id number] 12:33:00 Test Item Value Reference Range Comments POC-GLUCOSE METER (BEAKER) 212 mg/dL 70-110 TESTED AT [facility] [address] (test rpuk=3901) [address] [address] CBC W/PLT COUNT & AUTO [id number] 08:28:00 Test Item Value Reference Range Comments WHITE BLOOD CELL COUNT (BEAKER) (test cxbb=817) 9.7 K/ L 4.0-10.0 RED BLOOD CELL COUNT (BEAKER) (test pdmq=359) 4.38 M/ L 4.00-5.00 HEMOGLOBIN (BEAKER) (test gagn=415) 10.6 GM/DL 12.0-15.0 HEMATOCRIT (BEAKER) (test jruo=633) 33.5 % 36.0-45.0 MEAN CORPUSCULAR VOLUME (BEAKER) (test jolw=120) 76.6 fL 82.0-99.0 MEAN CORPUSCULAR HEMOGLOBIN (BEAKER) (test 24.1 pg 27.0-33.0 aean=530) MEAN CORPUSCULAR HEMOGLOBIN CONC (BEAKER) (test 31.5 GM/DL 32.0-36.0 lidv=971) RED CELL DISTRIBUTION WIDTH (BEAKER) (test 34.0 % 10.3-14.2 ytxc=474) PLATELET COUNT (BEAKER) (test sorc=189) 224 K/CU MM 150-430 MEAN PLATELET VOLUME (BEAKER) (test ooyp=634) 12.0 fL 6.5-10.5 (MANUAL DIFFERENTIAL)2017-12-08 08:28:00 Test Item Value Reference Range Comments NEUTROPHILS - REL (DIFF) (BEAKER) (test 50 % fprp=3172) LYMPHOCYTES - REL (DIFF) (BEAKER) (test 19 % vcin=4785) MONOCYTES - REL (DIFF) (BEAKER) (test nunb=3700) 18 % EOSINOPHILS - REL (DIFF) (BEAKER) (test 5 % qqxf=0637) BANDS - REL (DIFF) (BEAKER) (test uebc=0466) 2 % 0-10 ATYPICAL LYMPHOCYTE - REL (DIFF) (BEAKER) (test 6 % 0-0 mbmr=112) NEUTROPHILS - ABS (DIFF) (BEAKER) (test 4.85 K/ L 1.80-8.00 qgka=2061) LYMPHOCYTES - ABS (DIFF) (BEAKER) (test 1.84 K/ L 1.48-4.50 khlx=8962) MONOCYTES - ABS (DIFF) (BEAKER) (test kkdb=0110) 1.75 K/ L 0.00-1.30 EOSINOPHILS - ABS (DIFF) (BEAKER) (test 0.49 K/ L 0.00-0.50 ivqo=5333) BANDS-ABS (DIFF) (BEAKER) (test siwu=0378) 0.2 K/ L 0.0-0.8 ATYPICAL LYMPHOCYTES - ABS (DIFF) (BEAKER) (test 0.58 K/ L 0.00-0.00 jybb=613) TOTAL COUNTED (BEAKER) (test mpde=6276) 100 BANDS + SEGMENTED NEUTROPHILS (BEAKER) (test 5.04 kuch=1610) WBC MORPHOLOGY (BEAKER) (test mzpz=193) Normal LARGE PLT(BEAKER) (test itei=9700) Present GIANT PLATELETS (BEAKER) (test nobt=789) Present SCHISTOCYTES (BEAKER) (test oizl=954) 1+ few ANISOCYTOSIS (BEAKER) (test fbuv=260) 2+ moderate HYPOCHROMIA (BEAKER) (test ulem=227) 1+ few MICROCYTES (BEAKER) (test avbi=847) 1+ few OVALOCYTES (BEAKER) (test magv=345) 1+ few POIKILOCYTES (BEAKER) (test umhj=434) 1+ few TARGET CELLS (BEAKER) (test sqph=219) 1+ few B-TYPE NATRIURETIC FACTOR (BNP)2017-12-08 07:14:00 Test Item Value Reference Range Comments B-TYPE NATRIURETIC PEPTIDE (BEAKER) (test 234 pg/mL 0-100 jukm=532) BASIC METABOLIC [id number] 07:09:00 Test Item Value Reference Range Comments SODIUM (BEAKER) (test 139 meq/L 135-148 umjk=446) POTASSIUM (BEAKER) (test 4.0 meq/L 3.6-5.5 uzxk=114) CHLORIDE (BEAKER) (test 99 meq/L 98-106 vhjr=428) CO2 (BEAKER) (test 31 meq/L 20-29 ecid=004) BLOOD UREA NITROGEN 30 mg/dL 10-26 (BEAKER) (test pebu=022) CREATININE (BEAKER) (test 0.60 mg/dL 0.50-1.20 lqxc=055) GLUCOSE RANDOM (BEAKER) 138 mg/dL 70-110 (test aycn=026) CALCIUM (BEAKER) (test 8.8 mg/dL 8.5-10.5 mkbg=032) EGFR (AKER) (test 102 mL/min/1.73 sq m ESTIMATED GFR IS NOT uhal=4558) ACCURATE CREATININE CLEARANCE IN PREDICTING GLOMERULAR FILTRATION RATE. ESTIMATED GFR IS NOT APPLICABLE FOR DIALYSIS PATIENTS. POCT-GLUCOSE [id number] 21:24:00 Test Item Value Reference Range Comments POC-GLUCOSE METER ([facility]) 261 mg/dL 70-110 TESTED AT [address] (test pfxm=1054) [facility] [address] POCT-GLUCOSE [id number] 17:41:00 Test Item Value Reference Range Comments POC-GLUCOSE METER ([facility]) 166 mg/dL 70-110 TESTED AT [address] (test vwlv=1873) [facility] [address] POCT-GLUCOSE [id number] 12:01:00 Test Item Value Reference Range Comments POC-GLUCOSE METER ([facility]) 211 mg/dL 70-110 TESTED AT [address] (test uvwl=2372) [facility] [address] VANCOMYCIN LEVEL, [id number] 09:35:00 Test Item Value Reference Range Comments VANCOMYCIN TROUGH ([facility]) (test zjka=515) 17.3 ug/mL 10.0-20.0 CBC W/PLT COUNT & AUTO [id number] 06:57:00 Test Item Value Reference Range Comments WHITE BLOOD CELL COUNT (BEAKER) (test dczp=454) 8.1 K/ L 4.0-10.0 RED BLOOD CELL COUNT (BEAKER) (test pwrw=713) 4.04 M/ L 4.00-5.00 HEMOGLOBIN (BEAKER) (test yoic=257) 9.7 GM/DL 12.0-15.0 HEMATOCRIT (BEAKER) (test xuwa=601) 30.7 % 36.0-45.0 MEAN CORPUSCULAR VOLUME (BEAKER) (test vhcl=718) 76.0 fL 82.0-99.0 MEAN CORPUSCULAR HEMOGLOBIN (BEAKER) (test 24.1 pg 27.0-33.0 nwsm=981) MEAN CORPUSCULAR HEMOGLOBIN CONC (BEAKER) (test 31.7 GM/DL 32.0-36.0 uhbj=523) RED CELL DISTRIBUTION WIDTH (BEAKER) (test 33.7 % 10.3-14.2 npao=797) PLATELET COUNT (BEAKER) (test wuiq=041) 229 K/CU MM 150-430 MEAN PLATELET VOLUME (BEAKER) (test vilz=735) 11.6 fL 6.5-10.5 (MANUAL DIFFERENTIAL)2017-12-07 06:57:00 Test Item Value Reference Range Comments NEUTROPHILS - REL (DIFF) (BEAKER) (test 71 % bpnj=0596) LYMPHOCYTES - REL (DIFF) (BEAKER) (test 14 % ymlh=4046) MONOCYTES - REL (DIFF) (BEAKER) (test dmrn=5688) 10 % EOSINOPHILS - REL (DIFF) (BEAKER) (test 1 % uerg=8941) BASOPHILS - REL (DIFF) (BEAKER) (test meui=9924) 2 % ATYPICAL LYMPHOCYTE - REL (DIFF) (BEAKER) (test 2 % 0-0 afka=043) NEUTROPHILS - ABS (DIFF) (BEAKER) (test 5.75 K/ L 1.80-8.00 ynna=6288) LYMPHOCYTES - ABS (DIFF) (BEAKER) (test 1.13 K/ L 1.48-4.50 jjvd=8489) MONOCYTES - ABS (DIFF) (BEAKER) (test lfbm=1616) 0.81 K/ L 0.00-1.30 EOSINOPHILS - ABS (DIFF) (BEAKER) (test 0.08 K/ L 0.00-0.50 pxqp=7295) BASOPHILS - ABS (DIFF) (BEAKER) (test osho=0157) 0.16 K/ L 0.00-0.20 ATYPICAL LYMPHOCYTES - ABS (DIFF) (BEAKER) (test 0.16 K/ L 0.00-0.00 wmxd=389) TOTAL COUNTED (BEAKER) (test gypz=8517) 100 WBC MORPHOLOGY (BEAKER) (test xidq=229) Normal LARGE PLT(BEAKER) (test zzfr=4461) Present ANISOCYTOSIS (BEAKER) (test eowv=587) 2+ moderate HYPOCHROMIA (BEAKER) (test oajh=499) 1+ few MICROCYTES (BEAKER) (test lwof=119) 1+ few POIKILOCYTES (BEAKER) (test lwom=231) 1+ few POLYCHROMATOPHILLIC RBCS(BEAKER) (test dpsb=721) 1+ few TARGET CELLS (BEAKER) (test slyb=150) 1+ few B-TYPE NATRIURETIC FACTOR (BNP)2017-12-07 06:30:00 Test Item Value Reference Range Comments B-TYPE NATRIURETIC PEPTIDE (BEAKER) (test 614 pg/mL 0-100 ywsj=013) BASIC METABOLIC [id number] 06:29:00 Test Item Value Reference Range Comments SODIUM (BEAKER) (test 141 meq/L 135-148 woly=740) POTASSIUM (BEAKER) (test 3.6 meq/L 3.6-5.5 povy=891) CHLORIDE (BEAKER) (test 95 meq/L 98-106 jyod=209) CO2 (BEAKER) (test 37 meq/L 20-29 lcdi=510) BLOOD UREA NITROGEN 31 mg/dL 10-26 (BEAKER) (test yfra=330) CREATININE (BEAKER) (test 0.60 mg/dL 0.50-1.20 mytd=725) GLUCOSE RANDOM (BEAKER) 144 mg/dL 70-110 (test wjla=567) CALCIUM (BEAKER) (test 8.6 mg/dL 8.5-10.5 ujjg=076) EGFR (BEAKER) (test 102 mL/min/1.73 sq m ESTIMATED GFR IS NOT fodk=4256) ACCURATE CREATININE CLEARANCE IN PREDICTING GLOMERULAR FILTRATION RATE. ESTIMATED GFR IS NOT APPLICABLE FOR DIALYSIS PATIENTS. POCT-GLUCOSE [id number] 06:23:00 Test Item Value Reference Range Comments POC-GLUCOSE METER (BEAKER) 156 mg/dL 70-110 TESTED AT [facility] [address] [place] [address] (test gplb=6575) [facility] [address] POCT-GLUCOSE [id number] 21:36:00 Test Item Value Reference Range Comments POC-GLUCOSE METER (BEAKER) 220 mg/dL 70-110 TESTED AT [address] (test mjrw=8426) [facility] [address] POCT-GLUCOSE [id number] 17:12:00 Test Item Value Reference Range Comments POC-GLUCOSE METER (BEAKER) 177 mg/dL 70-110 TESTED AT [address] (test wifp=0879) [facility] [address] POCT-GLUCOSE [id number] 17:12:00 Test Item Value Reference Range Comments POC-GLUCOSE METER (BEAKER) 203 mg/dL 70-110 TESTED AT [address] (test vsao=3193) [facility] [address] POCT-GLUCOSE [id number] 12:29:00 Test Item Value Reference Range Comments POC-GLUCOSE METER (BEAKER) 151 mg/dL 70-110 TESTED AT [address] (test kewf=9244) [facility] [address] CBC W/PLT COUNT & AUTO [id number] 08:57:00 Test Item Value Reference Range Comments WHITE BLOOD CELL COUNT (BEAKER) (test euqk=207) 9.2 K/ L 4.0-10.0 RED BLOOD CELL COUNT (BEAKER) (test dgop=878) 4.16 M/ L 4.00-5.00 HEMOGLOBIN (BEAKER) (test xqsj=562) 9.9 GM/DL 12.0-15.0 HEMATOCRIT (BEAKER) (test eaic=731) 31.9 % 36.0-45.0 MEAN CORPUSCULAR VOLUME (BEAKER) (test fztt=074) 76.7 fL 82.0-99.0 MEAN CORPUSCULAR HEMOGLOBIN (BEAKER) (test 23.8 pg 27.0-33.0 czso=100) MEAN CORPUSCULAR HEMOGLOBIN CONC (BEAKER) (test 31.1 GM/DL 32.0-36.0 wstf=420) RED CELL DISTRIBUTION WIDTH (BEAKER) (test 34.5 % 10.3-14.2 owcm=038) PLATELET COUNT (BEAKER) (test fnpv=985) 256 K/CU MM 150-430 MEAN PLATELET VOLUME (BEAKER) (test ckdm=384) 10.5 fL 6.5-10.5 (MANUAL DIFFERENTIAL)2017-12-06 08:57:00 Test Item Value Reference Range Comments NEUTROPHILS - REL (DIFF) (BEAKER) (test 78 % wqin=5960) LYMPHOCYTES - REL (DIFF) (BEAKER) (test 10 % mvaj=5693) MONOCYTES - REL (DIFF) (BEAKER) (test bkyc=8282) 5 % BANDS - REL (DIFF) (BEAKER) (test pcxy=1995) 2 % 0-10 ATYPICAL LYMPHOCYTE - REL (DIFF) (BEAKER) (test 5 % 0-0 waam=662) NEUTROPHILS - ABS (DIFF) (BEAKER) (test 7.18 K/ L 1.80-8.00 etyg=5696) LYMPHOCYTES - ABS (DIFF) (BEAKER) (test 0.92 K/ L 1.48-4.50 abqv=4160) MONOCYTES - ABS (DIFF) (BEAKER) (test exdi=7242) 0.46 K/ L 0.00-1.30 BANDS-ABS (DIFF) (BEAKER) (test ugah=9564) 0.2 K/ L 0.0-0.8 ATYPICAL LYMPHOCYTES - ABS (DIFF) (BEAKER) (test 0.46 K/ L 0.00-0.00 qqrq=481) TOTAL COUNTED (BEAKER) (test nvmt=4775) 100 BANDS + SEGMENTED NEUTROPHILS (BEAKER) (test 7.36 etyy=6295) ATYPICAL LYMPHS(BEAKER) (test skhr=8478) Present LARGE PLT(BEAKER) (test ejks=5634) Present GIANT PLATELETS (BEAKER) (test qbqn=812) Present SCHISTOCYTES (BEAKER) (test qhay=287) 1+ few ANISOCYTOSIS (BEAKER) (test staz=720) 2+ moderate HYPOCHROMIA (BEAKER) (test dxbd=974) 1+ few OVALOCYTES (BEAKER) (test dixk=223) 1+ few POIKILOCYTES (BEAKER) (test dryc=861) 1+ few POLYCHROMATOPHILLIC RBCS(BEAKER) (test tluq=074) 1+ few TARGET CELLS (BEAKER) (test nxkc=176) 1+ few PERIPHERAL BLOOD SMEAR - PATH REVIEW LAB [id number] 08:39:00 Test Item Value Reference Range Comments RBC MORPHOLOGY (BEAKER) Microcytosis (test uazy=3066) RBC MORPHOLOGY (BEAKER) Target Cells (test xscl=08178) RBC MORPHOLOGY (BEAKER) Hypochromasia (test dtui=13945) RBC MORPHOLOGY (BEAKER) Anisocytosis (test qark=13792) WBC MORPHOLOGY (BEAKER) Left Shift (test dxmz=0998) WBC MORPHOLOGY (BEAKER) Atypical Lymphs (test dcrv=147348) WBC MORPHOLOGY (BEAKER) Hypersegmented Neutrophils (test yuwq=557022) PLT MORPHOLOGY (BEAKER) Large Platelets (test ikls=8284) PERIPHERAL SMR REVIEW Microcytic hypochromic anemia (BEAKER) (test cqtz=7925) with anisocytosis and target cells. Few hypersegmented neutrophils. Findings are suggestive of iron deficiency anemia. Recommend correlation with iron levels. [id number] Janet Cespedes M.D. (electronic (BEAKER) (test yekn=5926) signature) VANCOMYCIN LEVEL, [id number] 07:05:00 Test Item Value Reference Range Comments VANCOMYCIN RANDOM (BEAKER) (test vmwm=171) 18.1 ug/mL Reference Range: No NormalsBASIC METABOLIC [id number] 07:05:00 Test Item Value Reference Range Comments SODIUM (BEAKER) (test 139 meq/L 135-148 mija=819) POTASSIUM (BEAKER) (test 4.2 meq/L 3.6-5.5 ilae=848) CHLORIDE (BEAKER) (test 96 meq/L 98-106 ulkc=897) CO2 (BEAKER) (test 34 meq/L 20-29 yike=589) BLOOD UREA NITROGEN 37 mg/dL 10-26 (BEAKER) (test dlde=479) CREATININE (BEAKER) (test 0.70 mg/dL 0.50-1.20 ejwb=693) GLUCOSE RANDOM (BEAKER) 177 mg/dL 70-110 (test cwxa=836) CALCIUM (BEAKER) (test 8.8 mg/dL 8.5-10.5 gawv=592) EGFR (BEAKER) (test 85 mL/min/1.73 sq m ESTIMATED GFR IS NOT pvgz=2254) ACCURATE CREATININE CLEARANCE IN PREDICTING GLOMERULAR FILTRATION RATE. ESTIMATED GFR IS NOT APPLICABLE FOR DIALYSIS PATIENTS. POCT-GLUCOSE [id number] 06:40:00 Test Item Value Reference Range Comments POC-GLUCOSE METER (BEAKER) 196 mg/dL 70-110 TESTED AT [address] (test xhqc=6171) [facility] [address] POCT-GLUCOSE [id number] 00:57:00 Test Item Value Reference Range Comments POC-GLUCOSE METER (BEAKER) 252 mg/dL 70-110 TESTED AT [address] (test gbsa=9691) [facility] [address] VANCOMYCIN LEVEL, [id number] 21:36:00 Test Item Value Reference Range Comments VANCOMYCIN TROUGH (BEAKER) (test josw=955) 24.7 ug/mL 10.0-20.0 POCT-GLUCOSE [id number] 21:21:00 Test Item Value Reference Range Comments POC-GLUCOSE METER (BEAKER) 345 mg/dL 70-110 Notified RN MD/TESTED AT [facility] (test znqr=3044) [address] [place] [address] POCT-GLUCOSE [id number] 16:29:00 Test Item Value Reference Range Comments POC-GLUCOSE METER (BEAKER) 416 mg/dL 70-110 Notified RN MD/TESTED AT [facility] (test ptzq=3228) [address] [place] [address] POCT-GLUCOSE [id number] 11:19:00 Test Item Value Reference Range Comments POC-GLUCOSE METER (BEAKER) 430 mg/dL 70-110 Notified RN MD/TESTED AT [facility] (test ilxd=6185) [address] [place] [address] RAD, CHEST, 1 VIEW, NON [id number] 10:38:00Reason for exam:->History of Pleural effusionShould this be performed at the bedside?->YesFINAL REPORT Chest one view compared to December Discussion: Bilateral hazy airspace opacities are similar with small right-sided effusion. No pneumothorax. Lines in place unchanged. Signed: Gopi Noble Verified Date/Time: 12/05/2017 10:38:49 Reading Location: [address] Reading Room 10 :38 AMPOCT-GLUCOSE [id number] 08:06:00 Test Item Value Reference Range Comments POC-GLUCOSE METER (BEAKER) 396 mg/dL 70-110 TESTED AT [facility] [address] (test tdoe=2443) [facility] [address] CBC W/PLT COUNT & AUTO [id number] 06:31:00 Test Item Value Reference Range Comments WHITE BLOOD CELL COUNT (BEAKER) (test htge=830) 5.5 K/ L 4.0-10.0 RED BLOOD CELL COUNT (BEAKER) (test guwa=819) 4.29 M/ L 4.00-5.00 HEMOGLOBIN (BEAKER) (test ejqz=426) 10.3 GM/DL 12.0-15.0 HEMATOCRIT (BEAKER) (test elxy=511) 32.4 % 36.0-45.0 MEAN CORPUSCULAR VOLUME (BEAKER) (test hpqo=090) 75.4 fL 82.0-99.0 MEAN CORPUSCULAR HEMOGLOBIN (BEAKER) (test 23.9 pg 27.0-33.0 jjvl=796) MEAN CORPUSCULAR HEMOGLOBIN CONC (BEAKER) (test 31.7 GM/DL 32.0-36.0 jtik=875) RED CELL DISTRIBUTION WIDTH (BEAKER) (test 34.8 % 10.3-14.2 qwbq=243) PLATELET COUNT (BEAKER) (test uwvq=090) 317 K/CU MM 150-430 MEAN PLATELET VOLUME (BEAKER) (test mtph=143) 10.5 fL 6.5-10.5 NUCLEATED RED BLOOD CELLS (BEAKER) (test 2 /100 WBC 0-0 cljd=766) (MANUAL DIFFERENTIAL)2017-12-05 06:31:00 Test Item Value Reference Range Comments NEUTROPHILS - REL (DIFF) (BEAKER) (test xuid=5162) 65 % LYMPHOCYTES - REL (DIFF) (BEAKER) (test hgfs=9161) 25 % MONOCYTES - REL (DIFF) (BEAKER) (test yhpi=5053) 10 % NEUTROPHILS - ABS (DIFF) (BEAKER) (test svji=6690) 3.58 K/ L 1.80-8.00 LYMPHOCYTES - ABS (DIFF) (BEAKER) (test ccle=7531) 1.38 K/ L 1.48-4.50 MONOCYTES - ABS (DIFF) (BEAKER) (test uehg=7639) 0.55 K/ L 0.00-1.30 TOTAL COUNTED (BEAKER) (test thda=1436) 100 WBC MORPHOLOGY (BEAKER) (test cdra=592) Normal RBC MORPHOLOGY (BEAKER) (test ozwe=830) Normal LARGE PLT(BEAKER) (test yxdx=0492) Present BASIC METABOLIC [id number] 05:33:00 Test Item Value Reference Range Comments SODIUM (BEAKER) (test 139 meq/L 135-148 ugor=526) POTASSIUM (BEAKER) (test 4.5 meq/L 3.6-5.5 gppo=640) CHLORIDE (BEAKER) (test 94 meq/L 98-106 smhr=082) CO2 (BEAKER) (test 34 meq/L 20-29 djzr=136) BLOOD UREA NITROGEN 31 mg/dL 10-26 (BEAKER) (test boms=627) CREATININE (BEAKER) (test 0.70 mg/dL 0.50-1.20 mtqm=212) GLUCOSE RANDOM (BEAKER) 301 mg/dL 70-110 (test xmhv=982) CALCIUM (BEAKER) (test 9.2 mg/dL 8.5-10.5 nvih=483) EGFR (BEAKER) (test 85 mL/min/1.73 sq m ESTIMATED GFR IS NOT uwga=2574) ACCURATE CREATININE CLEARANCE IN PREDICTING GLOMERULAR FILTRATION RATE. ESTIMATED GFR IS NOT APPLICABLE FOR DIALYSIS PATIENTS. POCT-GLUCOSE [id number] 00:04:00 Test Item Value Reference Range Comments POC-GLUCOSE METER (BEAKER) 274 mg/dL 70-110 TESTED AT [address] (test gjjf=2171) [facility] [address] MR, SPINE, CERVICAL, [id number] 23:48:00FINAL REPORT EXAM: MRI cervical spine with and without contrast . CLINICAL HISTORY: Abnormal xray, cervical spine, DJD TECHNIQUE: Multiplanar multi sequential MRI of the cervicalspine was performed with and without contrast.. COMPARISON: None available. FINDINGS: Cervical vertebral body heights and alignment are maintained. There is a mild compression fracture deformity of W1serad appears chronic. The bone marrow signal is [...] MDReport Verified Date/Time: 12/04/2017 23:48:58 Reading Location: [address] Transitional Reading Room MR, SPINE, LUMBAR, [id number] 23:32:00FINAL REPORT EXAM: MRI lumbar spine with [...] Verified Date/Time: 12/04/2017 23:32:02 Reading Location : [address] Transitional Reading Room MR, BRAIN, [id number] 22:01:00FINAL REPORT Exam: MRI brain with and [...] Rosa Verified Date/Time: 2017 22:01:42 Reading Location: [address] Transitional Reading Room POCT- GLUCOSE [id number] 20:51:00 Test Item Value Reference Range Comments POC-GLUCOSE METER (BEAKER) 221 mg/dL 70-110 TESTED AT [address] (test roav=0819) [place] [id number] MR, SPINE, THORACIC, [id number] 18:04:00FINAL REPORT MRI of the thoracic spine [...] Noble Verified Date/Time: 12/04/2017 18:04:28 Reading Location: [place] [id number] Neuro Reading Room POCT-GLUCOSE [id number] 12:00:00 Test Item Value Reference Range Comments POC-GLUCOSE METER (BEAKER) 196 mg/dL 70-110 TESTED AT [address] (test qywx=9809) [facility] [address] CBC W/PLT COUNT & AUTO [id number] 06:17:00 Test Item Value Reference Range Comments WHITE BLOOD CELL COUNT (BEAKER) (test 5.4 K/ L 4.0-10.0 hogr=323) RED BLOOD CELL COUNT (BEAKER) (test 4.43 M/ L 4.00-5.00 efpw=250) HEMOGLOBIN (BEAKER) (test eumd=365) 10.4 GM/DL 12.0-15.0 HEMATOCRIT (BEAKER) (test kfpy=947) 33.4 % 36.0-45.0 MEAN CORPUSCULAR VOLUME (BEAKER) (test 75.5 fL 82.0-99.0 jkyc=538) MEAN CORPUSCULAR HEMOGLOBIN (BEAKER) 23.5 pg 27.0-33.0 (test wroa=203) MEAN CORPUSCULAR HEMOGLOBIN CONC 31.2 GM/DL 32.0-36.0 (BEAKER) (test dsvt=802) RED CELL DISTRIBUTION WIDTH (BEAKER) 34.5 % 10.3-14.2 (test dynk=360) PLATELET COUNT (BEAKER) (test 411 K/CU MM 150-430 aiga=517) MEAN PLATELET VOLUME (BEAKER) (test 9.8 fL 6.5-10.5 wkgu=769) NEUTROPHILS RELATIVE PERCENT (BEAKER) % Manual diff needed (test iigi=832) LYMPHOCYTES RELATIVE PERCENT (BEAKER) % Manual diff needed (test died=235) MONOCYTES RELATIVE PERCENT (BEAKER) % Manual diff needed (test hoqq=766) EOSINOPHILS RELATIVE PERCENT (BEAKER) % Manual diff needed (test fatz=631) BASOPHILS RELATIVE PERCENT (BEAKER) % Manual diff needed (test yhst=105) NEUTROPHILS ABSOLUTE COUNT (BEAKER) K/ L 1.80-8.00 (test kdcg=175) LYMPHOCYTES ABSOLUTE COUNT (BEAKER) K/ L 1.48-4.50 (test agbc=560) MONOCYTES ABSOLUTE COUNT (BEAKER) K/ L 0.00-1.30 (test kopq=272) EOSINOPHILS ABSOLUTE COUNT (BEAKER) K/ L 0.00-0.50 (test mlpy=341) BASOPHILS ABSOLUTE COUNT (BEAKER) K/ L 0.00-0.20 (test egri=154) (MANUAL DIFFERENTIAL)2017-12-04 06:17:00 Test Item Value Reference Range Comments NEUTROPHILS - REL (DIFF) (BEAKER) (test zobb=5061) 81 % LYMPHOCYTES - REL (DIFF) (BEAKER) (test wvyq=7602) 10 % MONOCYTES - REL (DIFF) (BEAKER) (test nolz=4528) 9 % NEUTROPHILS - ABS (DIFF) (BEAKER) (test qcmu=7334) 4.37 K/ L 1.80-8.00 LYMPHOCYTES - ABS (DIFF) (BEAKER) (test nsuo=5512) 0.54 K/ L 1.48-4.50 MONOCYTES - ABS (DIFF) (BEAKER) (test nuws=6066) 0.49 K/ L 0.00-1.30 TOTAL COUNTED (BEAKER) (test pnpq=5914) 100 WBC MORPHOLOGY (BEAKER) (test wics=328) Normal LARGE PLT(BEAKER) (test qnaq=1432) Present GIANT PLATELETS (BEAKER) (test xzkc=988) Present ANISOCYTOSIS (BEAKER) (test qbpt=543) 3+ many HYPOCHROMIA (BEAKER) (test nzmb=073) 3+ many MICROCYTES (BEAKER) (test qidf=123) 1+ few VANCOMYCIN LEVEL, [id number] 05:45:00 Test Item Value Reference Range Comments VANCOMYCIN RANDOM (BEAKER) (test aily=755) 16.0 ug/mL Reference Range: No NormalsBASIC METABOLIC [id number] 05:42:00 Test Item Value Reference Range Comments SODIUM (BEAKER) (test 139 meq/L 135-148 rpcf=737) POTASSIUM (BEAKER) (test 4.8 meq/L 3.6-5.5 ggfh=526) CHLORIDE (BEAKER) (test 96 meq/L 98-106 koop=837) CO2 (BEAKER) (test 32 meq/L 20-29 rthm=416) BLOOD UREA NITROGEN 27 mg/dL 10-26 (BEAKER) (test ttwt=826) CREATININE (BEAKER) (test 0.70 mg/dL 0.50-1.20 mrtg=387) GLUCOSE RANDOM (BEAKER) 237 mg/dL 70-110 (test zxtu=349) CALCIUM (BEAKER) (test 9.4 mg/dL 8.5-10.5 pcva=063) EGFR (BEAKER) (test 85 mL/min/1.73 sq m ESTIMATED GFR IS NOT fakl=3401) ACCURATE CREATININE CLEARANCE IN PREDICTING GLOMERULAR FILTRATION RATE. ESTIMATED GFR IS NOT APPLICABLE FOR DIALYSIS PATIENTS. [id number] 05:36:00 Test Item Value Reference Range Comments MAGNESIUM (BEAKER) (test dymq=327) 2.1 mg/dL 1.5-3.0 BLOOD [id number] 01:00:00 Test Item Value Reference Range Comments CULTURE (BEAKER) (test ewkv=8365) No growth in 5 days BLOOD [id number] 01:00:00 Test Item Value Reference Range Comments CULTURE (BEAKER) (test xgam=8915) No growth in 5 days POCT-GLUCOSE [id number] 00:22:00 Test Item Value Reference Range Comments POC-GLUCOSE METER (BEAKER) 286 mg/dL 70-110 TESTED AT [address] (test wkuj=5065) [facility] [address] POCT-GLUCOSE [id number] 16:44:00 Test Item Value Reference Range Comments POC-GLUCOSE METER (BEAKER) 229 mg/dL 70-110 TESTED AT [address] (test oywn=2430) [facility] [address] POCT-GLUCOSE [id number] 12:00:00 Test Item Value Reference Range Comments POC-GLUCOSE METER (BEAKER) 322 mg/dL 70-110 TESTED AT [address] (test nozm=3855) [facility] [address] BODY FLUID CULTURE + GRAM [id number] 10:33:00 Test Item Value Reference Range Comments CULTURE (BEAKER) (test wxqx=5035) No growth GRAM STAIN RESULT (BEAKER) (test 1+ WBCs kuvm=9719) GRAM STAIN RESULT (BEAKER) (test No organisms seen ysjh=68209) RAD, CHEST, 1 VIEW, NON [id number] 10:23:00Reason for exam:->f/u pulmonary edemaFINAL REPORT Follow [...] Michel Verified Date/Time: 12/03/2017 10:23:59 Reading Location: [facility] Radiology Reading Room CBC W/PLT COUNT & AUTO [id number] 10:15:00 Test Item Value Reference Range Comments WHITE BLOOD CELL COUNT (BEAKER) (test bidf=592) 4.4 K/ L 4.0-10.0 RED BLOOD CELL COUNT (BEAKER) (test ispy=162) 4.27 M/ L 4.00-5.00 HEMOGLOBIN (BEAKER) (test vgzb=193) 10.1 GM/DL 12.0-15.0 HEMATOCRIT (BEAKER) (test ecom=442) 32.1 % 36.0-45.0 MEAN CORPUSCULAR VOLUME (BEAKER) (test dkyr=688) 75.3 fL 82.0-99.0 MEAN CORPUSCULAR HEMOGLOBIN (BEAKER) (test 23.6 pg 27.0-33.0 fwos=920) MEAN CORPUSCULAR HEMOGLOBIN CONC (BEAKER) (test 31.3 GM/DL 32.0-36.0 jdeq=140) RED CELL DISTRIBUTION WIDTH (BEAKER) (test 35.0 % 10.3-14.2 hkbp=430) PLATELET COUNT (BEAKER) (test ynim=547) 404 K/CU MM 150-430 MEAN PLATELET VOLUME (BEAKER) (test tdqr=178) 10.4 fL 6.5-10.5 (MANUAL DIFFERENTIAL)2017-12-03 10:15:00 Test Item Value Reference Range Comments NEUTROPHILS - REL (DIFF) (BEAKER) (test 78 % bfyq=8481) LYMPHOCYTES - REL (DIFF) (BEAKER) (test 21 % hjyo=5370) MONOCYTES - REL (DIFF) (BEAKER) (test yojh=2802) 1 % NEUTROPHILS - ABS (DIFF) (BEAKER) (test 3.43 K/ L 1.80-8.00 dlbq=3765) LYMPHOCYTES - ABS (DIFF) (BEAKER) (test 0.92 K/ L 1.48-4.50 bogc=9828) MONOCYTES - ABS (DIFF) (BEAKER) (test bdge=4149) 0.04 K/ L 0.00-1.30 TOTAL COUNTED (BEAKER) (test shqr=9190) 100 WBC MORPHOLOGY (BEAKER) (test ghxm=996) Normal GIANT PLATELETS (BEAKER) (test fkxl=318) Present ANISOCYTOSIS (BEAKER) (test oxqm=622) 2+ moderate HYPOCHROMIA (BEAKER) (test phkv=030) 2+ moderate BLOOD GAS, [id number] 10:03:00 Test Item Value Reference Range Comments PH ARTERIAL (BEAKER) (test vzle=350) 7.43 7.35-7.45 PCO2 ARTERIAL (BEAKER) (test lwua=596) 49 mmHg 35-45 PO2 ARTERIAL (BEAKER) (test ngok=008) 112 mmHg 80-90 O2 SATURATION ARTERIAL (BEAKER) (test malr=971) 98.1 % 96.0-97.0 HCO3 ARTERIAL (BEAKER) (test hpiv=865) 32 mmol/L 21-29 BASE EXCESS ARTERIAL (BEAKER) (test myon=080) 6.3 mmol/L -2.0-3.0 PATIENT TEMPERATURE (BEAKER) (test clai=4039) 37.0 C FIO2 (BEAKER) (test mdcn=9612) 32.0 % VANCOMYCIN LEVEL, [id number] 08:51:00 Test Item Value Reference Range Comments VANCOMYCIN TROUGH (BEAKER) (test pxja=885) 37.1 ug/mL 10.0-20.0 Vancomycin trough on 12/03/17 at 08:30BASIC METABOLIC [id number] 08:35:00 Test Item Value Reference Range Comments SODIUM (BEAKER) (test 137 meq/L 135-148 dihj=321) POTASSIUM (BEAKER) (test 4.7 meq/L 3.6-5.5 kzko=586) CHLORIDE (BEAKER) (test 98 meq/L 98-106 kzlh=689) CO2 (BEAKER) (test 30 meq/L 20-29 dymb=485) BLOOD UREA NITROGEN 24 mg/dL 10-26 (BEAKER) (test ovdp=367) CREATININE (BEAKER) (test 0.70 mg/dL 0.50-1.20 vjtv=228) GLUCOSE RANDOM (BEAKER) 273 mg/dL 70-110 (test vvdl=392) CALCIUM (BEAKER) (test 8.8 mg/dL 8.5-10.5 wdhq=094) EGFR (BEAKER) (test 85 mL/min/1.73 sq m ESTIMATED GFR IS NOT sphu=6052) ACCURATE CREATININE CLEARANCE IN PREDICTING GLOMERULAR FILTRATION RATE. ESTIMATED GFR IS NOT APPLICABLE FOR DIALYSIS PATIENTS. [id number] 08:29:00 Test Item Value Reference Range Comments MAGNESIUM (BEAKER) (test poim=423) 2.0 mg/dL 1.5-3.0 POCT-GLUCOSE [id number] 08:16:00 Test Item Value Reference Range Comments POC-GLUCOSE METER (BEAKER) 283 mg/dL 70-110 TESTED AT [address] (test lavw=9143) [facility] [address] POCT-GLUCOSE [id number] 00:34:00 Test Item Value Reference Range Comments POC-GLUCOSE METER (BEAKER) 333 mg/dL 70-110 TESTED AT [facility] [address] [facility] (test tyiq=2396) [facility] [address] POCT-GLUCOSE [id number] 21:32:00 Test Item Value Reference Range Comments POC-GLUCOSE METER (BEAKER) 316 mg/dL 70-110 Notified OMAIRA BELLA/TESTED AT [facility] (test upqd=7523) [facility] [address] POCT-GLUCOSE [id number] 16:50:00 Test Item Value Reference Range Comments POC-GLUCOSE METER (BEAKER) 230 mg/dL 70-110 TESTED AT [facility] [address] [facility] (test wtmb=2459) [facility] [address] RESPIRATORY PANEL [id number] 15:22:00 Test Item Value Reference Range Comments HUMAN METAPNEUMOVIRUS (BEAKER) (test Not detected Not detected, Inconclusive ynxq=2796) RHINOVIRUS (BEAKER) (test oaor=5738) Not detected Not detected, Inconclusive INFLUENZA A (BEAKER) (test Not detected Not detected, Inconclusive zajv=8130) INFLUENZA A SUBTYPE H1 (BEAKER) Not detected Not detected, Inconclusive (test zxol=0096) INFLUENZA A SUBTYPE H3 (BEAKER) Not detected Not detected, Inconclusive (test gswc=5399) INFLUENZA A SUBTYPE H1-2009 (BEAKER) Not detected Not detected, Inconclusive (test osgg=9782) INFLUENZA B (BEAKER) (test Not detected Not detected, Inconclusive hmas=4803) RESPIRATORY SYNCYTIAL VIRUS (BEAKER) Not detected Not detected, Inconclusive (test gszu=0870) PARAINFLUENZA VIRUS 1 (BEAKER) (test Not detected Not detected, Inconclusive djdy=7719) PARAINFLUENZA VIRUS 2 (BEAKER) (test Not detected Not detected, Inconclusive tudr=0386) PARAINFLUENZA VIRUS 3 (BEAKER) (test Not detected Not detected, Inconclusive yjez=6689) PARAINFLUENZA VIRUS 4 (BEAKER) (test Not detected Not detected, Inconclusive zbpy=1115) ADENOVIRUS (BEAKER) (test sbdt=4159) Not detected Not detected, Inconclusive CORONAVIRUS 229E (BEAKER) (test Not detected Not detected, Inconclusive odxu=5463) CORONAVIRUS HKU1 (BEAKER) (test Not detected Not detected, Inconclusive cykg=4799) CORONAVIRUS NL63 (BEAKER) (test Not detected Not detected, Inconclusive didf=2641) CORONAVIRUS OC43 (BEAKER) (test Not detected Not detected, Inconclusive viek=7425) BORDETELLA PERTUSSIS (BEAKER) (test Not detected Not detected, Inconclusive jxss=5863) CHLAMYDOPHILA PNEUMONIAE (BEAKER) Not detected Not detected, Inconclusive (test wpaq=9433) MYCOPLASMA PNEUMONIAE (BEAKER) (test Not detected Not detected, Inconclusive bqpc=4243) POCT-GLUCOSE [id number] 12:04:00 Test Item Value Reference Range Comments POC-GLUCOSE METER (BEAKER) 247 mg/dL 70-110 TESTED AT [facility] [address] [place] [address] (test yyek=6355) [facility] [address] [id number] 10:56:00Medical Cytology Report Case: [id number] Authorizing Provider: Sari Church MD Collected: 11/30/2017 1515 Ordering Location: [address] Med/Surg Received: 12/01/2017 0755 Pathologist: Janet Cespedes MD Specimen: Pleural, Left LEFT PLEURAL FLUID (CYTOSPINS): - REACTIVE MESOTHELIAL CELLS IN A BACKGROUND OF PREDOMINANTLY CHRONIC INFLAMMATION- NO MALIGNANT CELLS IDENTIFIED [id number] pleural effusion, shortness of breath; history of multiple sclerosis LEFT PLEURAL FLUIDPrepared 4 cytospins from 250 ml light brown fluidCollected: [id number]: [id number]. [facility], Department of Pathology, [address] [place] [address] , [facility], [address] [place] [address], WIDV FLUID CULTURE + GRAM [id number] 09:58:00 Test Item Value Reference Range Comments CULTURE (BEAKER) (test wigi=3451) No growth GRAM STAIN RESULT (BEAKER) (test 1+ WBCs kivp=9871) GRAM STAIN RESULT (BEAKER) (test No organisms seen kjdc=23367) POCT-GLUCOSE [id number] 07:30:00 Test Item Value Reference Range Comments POC-GLUCOSE METER (BEAKER) 202 mg/dL 70-110 TESTED AT [facility] [address] [facility] (test aurq=8560) [facility] [address] CBC W/PLT COUNT & AUTO [id number] 06:49:00 Test Item Value Reference Range Comments WHITE BLOOD CELL COUNT (BEAKER) (test 4.4 K/ L 4.0-10.0 szbv=288) RED BLOOD CELL COUNT (BEAKER) (test 4.11 M/ L 4.00-5.00 behp=656) HEMOGLOBIN (BEAKER) (test cxzq=590) 9.6 GM/DL 12.0-15.0 HEMATOCRIT (BEAKER) (test mdtt=110) 30.8 % 36.0-45.0 MEAN CORPUSCULAR VOLUME (BEAKER) (test 74.9 fL 82.0-99.0 sbup=899) MEAN CORPUSCULAR HEMOGLOBIN (BEAKER) 23.4 pg 27.0-33.0 (test ugje=848) MEAN CORPUSCULAR HEMOGLOBIN CONC (BEAKER) 31.2 GM/DL 32.0-36.0 (test ubqy=234) RED CELL DISTRIBUTION WIDTH (BEAKER) 34.4 % 10.3-14.2 (test kyaa=655) PLATELET COUNT (BEAKER) (test ygtx=760) 323 K/CU MM 150-430 MEAN PLATELET VOLUME (BEAKER) (test 9.5 fL 6.5-10.5 polg=185) NEUTROPHILS RELATIVE PERCENT (BEAKER) % See manual diff (test axvb=131) LYMPHOCYTES RELATIVE PERCENT (BEAKER) % See manual diff (test zfro=661) MONOCYTES RELATIVE PERCENT (BEAKER) (test % See manual diff nnir=295) EOSINOPHILS RELATIVE PERCENT (BEAKER) % See manual diff (test qsts=694) BASOPHILS RELATIVE PERCENT (BEAKER) (test % See manual diff jinj=527) NEUTROPHILS ABSOLUTE COUNT (BEAKER) (test K/ L 1.80-8.00 owpc=886) LYMPHOCYTES ABSOLUTE COUNT (BEAKER) (test K/ L 1.48-4.50 gvyn=798) MONOCYTES ABSOLUTE COUNT (BEAKER) (test K/ L 0.00-1.30 rlqu=179) EOSINOPHILS ABSOLUTE COUNT (BEAKER) (test K/ L 0.00-0.50 vzff=276) BASOPHILS ABSOLUTE COUNT (BEAKER) (test K/ L 0.00-0.20 wvhy=690) B-TYPE NATRIURETIC FACTOR (BNP)2017-12-02 06:02:00 Test Item Value Reference Range Comments B-TYPE NATRIURETIC PEPTIDE (BEAKER) (test 840 pg/mL 0-100 cwew=277) BASIC METABOLIC [id number] 05:58:00 Test Item Value Reference Range Comments SODIUM (BEAKER) (test 140 meq/L 135-148 izlv=847) POTASSIUM (BEAKER) (test 4.2 meq/L 3.6-5.5 bkaw=867) CHLORIDE (BEAKER) (test 102 meq/L 98-106 qvzy=226) CO2 (BEAKER) (test 28 meq/L 20-29 jxjd=870) BLOOD UREA NITROGEN 21 mg/dL 10-26 (BEAKER) (test mtjt=845) CREATININE (BEAKER) (test 0.60 mg/dL 0.50-1.20 nfzv=362) GLUCOSE RANDOM (BEAKER) 209 mg/dL 70-110 (test dekg=197) CALCIUM (BEAKER) (test 8.4 mg/dL 8.5-10.5 rvxf=155) EGFR (BEAKER) (test 102 mL/min/1.73 sq m ESTIMATED GFR IS NOT vqch=4550) ACCURATE CREATININE CLEARANCE IN PREDICTING GLOMERULAR FILTRATION RATE. ESTIMATED GFR IS NOT APPLICABLE FOR DIALYSIS PATIENTS. [id number] 05:52:00 Test Item Value Reference Range Comments MAGNESIUM (BEAKER) (test umnm=834) 2.0 mg/dL 1.5-3.0 RAD, CHEST, 1 VIEW, NON [id number] 05:48:00Reason for exam:->respiratory failure, bipapFINAL REPORT Chest [...] Rosaeport Verified Date/Time: 2017 05:48:39 Reading Location: [address] Transitional Reading Room BLOOD GAS, [id number] 04:24:00 Test Item Value Reference Range Comments PH ARTERIAL (BEAKER) (test jpqe=665) 7.43 7.35-7.45 PCO2 ARTERIAL (BEAKER) (test mgwm=491) 48 mmHg 35-45 PO2 ARTERIAL (BEAKER) (test phmn=697) 165 mmHg 80-90 O2 SATURATION ARTERIAL (BEAKER) (test lilq=163) 99.1 % 96.0-97.0 HCO3 ARTERIAL (BEAKER) (test hyxf=075) 31 mmol/L 21-29 BASE EXCESS ARTERIAL (BEAKER) (test iatk=200) 5.6 mmol/L -2.0-3.0 PATIENT TEMPERATURE (BEAKER) (test army=4001) 37.0 C FIO2 (BEAKER) (test qgvi=1432) 40.0 % RAPID INFLUENZA A&B [id number] 22:10:00 Test Item Value Reference Range Comments RAPID INFLUENZA A AG (BEAKER) (test Negative Negative, Inconclusive mrpr=1999) RAPID INFLUENZA B AG (BEAKER) (test Negative Negative, Inconclusive wrpq=3737) POCT-GLUCOSE [id number] 21:18:00 Test Item Value Reference Range Comments POC-GLUCOSE METER (BEAKER) 185 mg/dL 70-110 TESTED AT [address] (test nclu=3286) [place] [id number] POCT-GLUCOSE [id number] 16:52:00 Test Item Value Reference Range Comments POC-GLUCOSE METER (BEAKER) 262 mg/dL 70-110 TESTED AT [address] (test lbel=5646) [facility] [address] ALBUMIN, BODY [id number] 15:03:00 Test Item Value Reference Range Comments ALBUMIN FLUID (BEAKER) (test zvra=169) 0.9 gm/dL Reference Range: No Normals Assay performance has not been validated for this type of specimen.LACTATE DEHYDROGENASE (LDH), BODY [id number] 14:46:00 Test Item Value Reference Range Comments LACTATE DEHYDROGENASE FLUID (BEAKER) 123 U/L Light's criteria identifies (test zfzl=654) effusions if one or more are pre Absence of reference range indicates that normals have not been defined.Assay performance has not been validated for this type of specimen.PROTEIN, BODY [id number] 14:46:00 Test Item Value Reference Range Comments PROTEIN FLUID (BEAKER) (test 1.7 g/dL Light's criteria identifies mnbs=709) effusions if one or more are pre Absence of reference range indicates that normals have not been defined.Assay performance has not been validated for this type of specimen.GLUCOSE, BODY [id number] 14:46:00 Test Item Value Reference Range Comments GLUCOSE, BODY FLUID (BEAKER) (test xzmz=1430) 256 mg/dL 70-110 Absence of reference range indicates that normals have not been defined.Assay performance has not been validated for this type of specimen.POCT-GLUCOSE [id number] 13:22:00 Test Item Value Reference Range Comments POC-GLUCOSE METER (BEAKER) 359 mg/dL 70-110 TESTED AT [facility] [address] [facility] (test lrut=9078) [facility] [address] RAD, CHEST, 1 VIEW, NON [id number] 12:54:00Reason for exam:->SOBShould this be performed at the bedside?->YesFINAL REPORT Comparison: 11/30/2017 TECHNIQUE: Single view of the chest FINDINGS: There are bilateral interstitial and airspace opacities. Overall these have decreased from before. No large effusion at this time. No gross pneumothorax. Support lines and tubes are stable. Signed: Suma Avilez MDReport Verified Date/Time: 12:54:49 Reading Location: [facility] Radiology Reading Room CBC W/PLT COUNT & AUTO [id number] 12:39:00 Test Item Value Reference Range Comments WHITE BLOOD CELL COUNT (BEAKER) (test pyab=689) 4.8 K/ L 4.0-10.0 RED BLOOD CELL COUNT (BEAKER) (test htui=060) 4.16 M/ L 4.00-5.00 HEMOGLOBIN (BEAKER) (test gsin=176) 9.7 GM/DL 12.0-15.0 HEMATOCRIT (BEAKER) (test etpy=799) 30.7 % 36.0-45.0 MEAN CORPUSCULAR VOLUME (BEAKER) (test ejtx=747) 73.9 fL 82.0-99.0 MEAN CORPUSCULAR HEMOGLOBIN (BEAKER) (test 23.3 pg 27.0-33.0 zyhl=210) MEAN CORPUSCULAR HEMOGLOBIN CONC (BEAKER) (test 31.5 GM/DL 32.0-36.0 oihf=586) RED CELL DISTRIBUTION WIDTH (BEAKER) (test 34.4 % 10.3-14.2 zlyb=549) PLATELET COUNT (BEAKER) (test mynk=051) 380 K/CU MM 150-430 MEAN PLATELET VOLUME (BEAKER) (test wcvg=097) 9.3 fL 6.5-10.5 (MANUAL DIFFERENTIAL)2017-12-01 12:39:00 Test Item Value Reference Range Comments NEUTROPHILS - REL (DIFF) (BEAKER) (test 84 % klyu=2920) LYMPHOCYTES - REL (DIFF) (BEAKER) (test 4 % avnr=1390) MONOCYTES - REL (DIFF) (BEAKER) (test ruwc=0538) 11 % BANDS - REL (DIFF) (BEAKER) (test pukp=1644) 1 % 0-10 NEUTROPHILS - ABS (DIFF) (BEAKER) (test 4.03 K/ L 1.80-8.00 rvcm=1807) LYMPHOCYTES - ABS (DIFF) (BEAKER) (test 0.19 K/ L 1.48-4.50 eatu=2424) MONOCYTES - ABS (DIFF) (BEAKER) (test znde=9918) 0.53 K/ L 0.00-1.30 BANDS-ABS (DIFF) (BEAKER) (test khvm=2564) 0.0 K/ L 0.0-0.8 TOTAL COUNTED (BEAKER) (test rhsg=5553) 100 BANDS + SEGMENTED NEUTROPHILS (BEAKER) (test 4.08 sboc=9906) WBC MORPHOLOGY (BEAKER) (test repo=454) Normal GIANT PLATELETS (BEAKER) (test dzfo=003) Present ANISOCYTOSIS (BEAKER) (test gdtw=455) 3+ many HYPOCHROMIA (BEAKER) (test kwfe=580) 3+ many MICROCYTES (BEAKER) (test uarg=289) 2+ moderate TARGET CELLS (BEAKER) (test uryy=657) 1+ few COMPREHENSIVE METABOLIC [id number] 12:26:00 Test Item Value Reference Range Comments TOTAL PROTEIN (BEAKER) 6.1 gm/dL 6.0-8.5 (test uhwa=104) ALBUMIN (BEAKER) (test 2.7 g/dL 3.5-5.0 gyzr=8288) ALKALINE PHOSPHATASE 118 U/L 30-115 (BEAKER) (test uhcd=334) BILIRUBIN TOTAL (BEAKER) 0.3 mg/dL 0.1-1.2 (test xdro=217) SODIUM (BEAKER) (test 139 meq/L 135-148 fmir=267) POTASSIUM (BEAKER) (test 3.5 meq/L 3.6-5.5 ibsa=936) CHLORIDE (BEAKER) (test 105 meq/L 98-106 lhcm=948) CO2 (BEAKER) (test 25 meq/L 20-29 iuuy=841) BLOOD UREA NITROGEN 21 mg/dL 10-26 (BEAKER) (test bzrp=651) CREATININE (BEAKER) (test 0.70 mg/dL 0.50-1.20 ysbp=656) GLUCOSE RANDOM (BEAKER) 387 mg/dL 70-110 (test vwqs=487) CALCIUM (BEAKER) (test 8.2 mg/dL 8.5-10.5 nroq=304) AST (SGOT) (BEAKER) (test 16 U/L 5-40 qgdp=792) ALT (SGPT) (BEAKER) (test 8 U/L 5-50 xldd=965) EGFR (BEAKER) (test 85 mL/min/1.73 sq m ESTIMATED GFR IS NOT qlps=7472) ACCURATE CREATININE CLEARANCE IN PREDICTING GLOMERULAR FILTRATION RATE. ESTIMATED GFR IS NOT APPLICABLE FOR DIALYSIS PATIENTS. [id number] 12:17:00 Test Item Value Reference Range Comments MAGNESIUM (BEAKER) (test cwcb=733) 1.8 mg/dL 1.5-3.0 BLOOD GAS, [id number] 10:40:00 Test Item Value Reference Range Comments PH ARTERIAL (BEAKER) (test wbwz=725) 7.37 7.35-7.45 PCO2 ARTERIAL (BEAKER) (test ngww=665) 44 mmHg 35-45 PO2 ARTERIAL (BEAKER) (test vptc=982) 223 mmHg 80-90 O2 SATURATION ARTERIAL (BEAKER) (test gdqx=421) 99.4 % 96.0-97.0 HCO3 ARTERIAL (BEAKER) (test rdvn=524) 25 mmol/L 21-29 BASE EXCESS ARTERIAL (BEAKER) (test blgv=279) -0.8 mmol/L -2.0-3.0 PATIENT TEMPERATURE (BEAKER) (test cpnm=1315) 37.0 C FIO2 (BEAKER) (test iptu=7243) 100.0 % POCT-GLUCOSE [id number] 06:33:00 Test Item Value Reference Range Comments POC-GLUCOSE METER (BEAKER) 287 mg/dL 70-110 TESTED AT [facility] [address] [place] [address] (test pgqe=9748) [facility] [address] POCT-GLUCOSE [id number] 21:41:00 Test Item Value Reference Range Comments POC-GLUCOSE METER (BEAKER) 349 mg/dL 70-110 Notified OMAIRA BELLA/TESTED AT [facility] (test zytw=5597) [address] [place] [address] POCT-GLUCOSE [id number] 18:39:00 Test Item Value Reference Range Comments POC-GLUCOSE METER (BEAKER) 234 mg/dL 70-110 TESTED AT [facility] [address] [place] [address] (test xkvl=5644) [facility] [address] PH, BODY [id number] 17:51:00 Test Item Value Reference Range Comments PH, BODY FLUID (BEAKER) (test bnlz=6529) 8.00 POCT-GLUCOSE [id number] 17:31:00 Test Item Value Reference Range Comments POC-GLUCOSE METER (BEAKER) 266 mg/dL 70-110 TESTED AT [address] (test tise=2928) [facility] [address] POCT-GLUCOSE [id number] 17:31:00 Test Item Value Reference Range Comments POC-GLUCOSE METER (BEAKER) 194 mg/dL 70-110 TESTED AT [address] (test jflp=9976) [facility] [address] U/S, [id number] 16:47:00Laterality?->LeftReason for exam:-> sobFINAL REPORT Ultrasound Guided [...] Avilez Verified Date/Time: 11/30/2017 16:47:10 Reading Location: [facility] Radiology Reading Room Electronically signed by: SUMA AVILEZ M.D. on 04:47 PMRAD, CHEST, 1 VIEW, NON [id number] 15:51:00Reason for exam:- >post thoracentesisShould this be performed at the bedside?->YesFINAL REPORT Comparison: 11/29/2017 TECHNIQUE: Single view of the chest FINDINGS: Status post recent left thoracentesis. Left pleural effusion has decreased. No pneumothorax postprocedure. No other significant change. Signed: Suma Avilez Verified Date/Time: 11/30/2017 15:51:09 Reading Location: [facility] Radiology Reading Room TSH/FREE T4 IF [id number] 06: 41:00 Test Item Value Reference Range Comments THYROID STIMULATING HORMONE (BEAKER) (test 2.23 uIU/mL 0.35-5.50 qpdj=536) HEMOGLOBIN [id number] 06:28:00 Test Item Value Reference Range Comments HEMOGLOBIN A1C (BEAKER) (test gvmq=154) 5.1 % 4.3-6.1 LIPID [id number] 06:22:00 Test Item Value Reference Range Comments TRIGLYCERIDES (BEAKER) (test mkao=415) 85 mg/dL CHOLESTEROL (BEAKER) (test uaqn=158) 158 mg/dL HDL CHOLESTEROL (BEAKER) (test quyy=411) 63 mg/dL LDL CHOLESTEROL CALCULATED (AKER) (test 78 mg/dL uqvw=466) Triglyceride Reference Range: Low Risk <150 Borderline 150- 199 High Risk 200-499 Very High Risk >=500Cholesterol Reference Range: Low Risk <200 Borderline 200-239 High Risk > 240HDL Cholesterol Reference Range: Low Risk >=60 High Risk <40LDL Cholesterol Reference Range: Optimal <100 Near Optimal 100-129 Borderline 130-159 High 160-189 Very High >=190POCT-GLUCOSE [id number] 22:11:00 Test Item Value Reference Range Comments POC-GLUCOSE METER (BEAKER) 182 mg/dL 70-110 TESTED AT [address] (test jdyp=1370) [facility] [address] POCT-GLUCOSE [id number] 18:10:00 Test Item Value Reference Range Comments POC-GLUCOSE METER (BEAKER) 157 mg/dL 70-110 TESTED AT [facility] [address] [facility] (test jxlf=6264) [facility] [address] POCT-GLUCOSE [id number] 17:58:00 Test Item Value Reference Range Comments POC-GLUCOSE METER (BEAKER) 173 mg/dL 70-110 TESTED AT [facility] [address] [facility] (test akri=9931) [facility] [address] TROPONIN [id number] 17:19:00 Test Item Value Reference Range Comments TROPONIN I (BEAKER) (test vkli=890) < ng/mL 0.00-0.15 Troponin I (TnI) levels [...] and persistent tachyarrhythmia.CREATINE KINASE (CK), TOTAL AND [id number] 17:15:00 Test Item Value Reference Range Comments CREATINE KINASE TOTAL (BEAKER) (test cqnu=891) 27 U/L 25-235 CREATINE KINASE-MB (BEAKER) (test btfe=481) 1.5 ng/mL 0.0-4.9 CREATINE KINASE-MB INDEX (BEAKER) (test mltr=708) 5.6 % CK-MB Reference Range:<5 Normal5-10 Borderline>10 AbnormalALBUMIN, BODY [id number] 16:41:00 Test Item Value Reference Range Comments ALBUMIN FLUID (BEAKER) (test nivc=893) 0.8 gm/dL Reference Range: No Normals Assay performance has not been validated for this type of specimen.LACTATE DEHYDROGENASE (LDH), BODY [id number] 16:37:00 Test Item Value Reference Range Comments LACTATE DEHYDROGENASE FLUID (BEAKER) 93 U/L Light's criteria identifies (test ucva=084) effusions if one or more are pre Absence of reference range indicates that normals have not been defined.Assay performance has not been validated for this type of specimen.PROTEIN, BODY [id number] 16:37:00 Test Item Value Reference Range Comments PROTEIN FLUID (BEAKER) (test 1.4 g/dL Light's criteria identifies viou=486) effusions if one or more are pre Absence of reference range indicates that normals have not been defined.Assay performance has not been validated for this type of specimen.GLUCOSE, BODY [id number] 16:37:00 Test Item Value Reference Range Comments GLUCOSE, BODY FLUID (BEAKER) (test odtq=8471) 203 mg/dL 70-110 Absence of reference range indicates that normals have not been defined.Assay performance has not been validated for this type of specimen.PH, BODY [id number] 14:49:00 Test Item Value Reference Range Comments PH, BODY FLUID (BEAKER) (test edkp=2187) 7.72 U/S, [id number] 14:41:00Laterality?->RightReason for exam:-> Resp failureFINAL REPORT Thoracentesis: Performing M.D. : Sabina Michel M.D. Concession Stand Attendant: nonePreprocedure diagnosis: pleural effusionPostprocedure Diagnosis: sameSpecimen removed: [...] MDReport Verified Date/Time: 11/29/2017 14:41:36 Reading Location: [facility] Radiology Reading Room Electronically signed by: SABINA MICHEL M.D. on 02:41 PMRAD, CHEST, 1 VIEW, NON [id number] 13:52:00Reason for exam:- >s/p thoraShould this be performed at the bedside?->YesFINAL REPORT Chest one view compared to November 29 Discussion: Pulmonary infiltrates are improved. Left-sided small residual effusion is noted with no pneumothorax after thoracentesis. Signed: Gopi Noble Verified Date/Time: 11/29/2017 13:52:23 Reading Location: [facility] [id number] Consult Reading Room 01 :52 [id number] 11:20:00 Test Item Value Reference Range Comments PROTIME (BEAKER) (test bjye=706) 11.0 seconds 9.3-12.0 INR (BEAKER) (test lvwp=909) 1.0 <=5.9 PARTIAL THROMBOPLASTIN TIME (BEAKER) (test 27.2 seconds 23.0-35.0 oozh=129) RECOMMENDED COUMADIN/WARFARIN INR THERAPY RANGESSTANDARD DOSE: 2.0 - 3.0 Includes: PROPHYLAXIS forvenous thrombosis, systemic embolization; TREATMENT for venous thrombosis and/or pulmonary embolus.HIGH RISK: Target INR is 2.5-3.5 for patients with mechanical heart valves.RAD, CHEST, 1 VIEW, NON [id number] 09:36:00Reason for exam:->SOBShould this be performed at the bedside?-> YesFINAL REPORT Chest one view compared to November 28 Discussion: Bilateral semiconfluent airspace opacities are worse since the previous study. Effusions seen well on recent CT are not well seen on plain film. No pneumothorax. Bilateral lines in place unchanged. Signed: Gopi Noble Verified Date/Time: 11/29/2017 09:36:30 [facility] BLOOD GAS, [id number] 09:00:00 Test Item Value Reference Range Comments PH ARTERIAL (BEAKER) (test ltcg=631) 7.40 7.35-7.45 PCO2 ARTERIAL (BEAKER) (test vnee=730) 42 mmHg 35-45 PO2 ARTERIAL (BEAKER) (test tfiv=026) 164 mmHg 80-90 O2 SATURATION ARTERIAL (BEAKER) (test vmex=420) 99.1 % 96.0-97.0 HCO3 ARTERIAL (BEAKER) (test zuiu=800) 25 mmol/L 21-29 BASE EXCESS ARTERIAL (BEAKER) (test nbqc=747) 0.1 mmol/L -2.0-3.0 PATIENT TEMPERATURE (BEAKER) (test cwpk=9625) 36.0 C FIO2 (BEAKER) (test kekj=5185) 80.0 % TROPONIN [id number] 07:11:00 Test Item Value Reference Range Comments TROPONIN I (BEAKER) (test oeoy=376) 0.03 ng/mL 0.00-0.15 Troponin I (TnI) levels [...] and persistent tachyarrhythmia.CREATINE KINASE (CK), TOTAL AND [id number] 07:09:00 Test Item Value Reference Range Comments CREATINE KINASE TOTAL (BEAKER) (test wlvo=262) 24 U/L 25-235 CREATINE KINASE-MB (BEAKER) (test ocpn=948) 1.7 ng/mL 0.0-4.9 CREATINE KINASE-MB INDEX (BEAKER) (test ivcx=826) 7.1 % CK-MB Reference Range:<5 Normal5-10 Borderline>10 AbnormalCT, CHEST WITH IV CONTRAST- PE TEST [id number] 00:49:00Reason for exam:->sob and hypoxiaWhat is the [...] Ruby MDReport Verified Date/Time: 00:49:46 Reading Location: [address] Reading Room TROPONIN [id number] 00:22:00 Test Item Value Reference Range Comments TROPONIN I (BEAKER) (test eujr=173) < ng/mL 0.00-0.15 Troponin I (TnI) levels [...] and persistent tachyarrhythmia.CREATINE KINASE (CK), TOTAL AND [id number] 23:35:00 Test Item Value Reference Range Comments CREATINE KINASE TOTAL (BEAKER) (test vsgy=544) 25 U/L 25-235 CREATINE KINASE-MB (BEAKER) (test syau=196) 1.8 ng/mL 0.0-4.9 CREATINE KINASE-MB INDEX (BEAKER) (test vsjk=198) 7.2 % CK-MB Reference Range:<5 Normal5-10 Borderline>10 AbnormalBASIC METABOLIC [id number] 23:28:00 Test Item Value Reference Range Comments SODIUM (BEAKER) (test 139 meq/L 135-148 tktd=841) POTASSIUM (BEAKER) (test 3.9 meq/L 3.6-5.5 xzsi=909) CHLORIDE (BEAKER) (test 105 meq/L 98-106 shnj=195) CO2 (BEAKER) (test 24 meq/L 20-29 plpr=133) BLOOD UREA NITROGEN 9 mg/dL 10-26 (BEAKER) (test xcmr=685) CREATININE (BEAKER) (test 0.50 mg/dL 0.50-1.20 btqd=088) GLUCOSE RANDOM (BEAKER) 144 mg/dL 70-110 (test wvcm=415) CALCIUM (BEAKER) (test 8.0 mg/dL 8.5-10.5 anov=093) EGFR (BEAKER) (test 125 mL/min/1.73 sq m ESTIMATED GFR IS NOT dhmz=7427) ACCURATE CREATININE CLEARANCE IN PREDICTING GLOMERULAR FILTRATION RATE. ESTIMATED GFR IS NOT APPLICABLE FOR DIALYSIS PATIENTS. B-TYPE NATRIURETIC FACTOR (BNP)2017-11-28 23:17:00 Test Item Value Reference Range Comments B-TYPE NATRIURETIC PEPTIDE (BEAKER) (test 929 pg/mL 0-100 eqmz=205) BLOOD GAS, [id number] 23:16:00 Test Item Value Reference Range Comments PH ARTERIAL (BEAKER) (test trub=036) 7.40 7.35-7.45 PCO2 ARTERIAL (BEAKER) (test ofom=042) 46 mmHg 35-45 PO2 ARTERIAL (BEAKER) (test tcle=129) 80 mmHg 80-90 O2 SATURATION ARTERIAL (BEAKER) (test wppb=625) 95.7 % 96.0-97.0 HCO3 ARTERIAL (BEAKER) (test eiyo=349) 28 mmol/L 21-29 BASE EXCESS ARTERIAL (BEAKER) (test nwzw=796) 2.4 mmol/L -2.0-3.0 PATIENT TEMPERATURE (BEAKER) (test drep=5176) 37.0 C FIO2 (BEAKER) (test fsyr=2941) 21.0 % CBC W/PLT COUNT & AUTO [id number] 22:59:00 Test Item Value Reference Range Comments WHITE BLOOD CELL COUNT (BEAKER) (test wqit=729) 8.9 K/ L 4.0-10.0 RED BLOOD CELL COUNT (BEAKER) (test mums=147) 4.36 M/ L 4.00-5.00 HEMOGLOBIN (BEAKER) (test acpt=262) 9.5 GM/DL 12.0-15.0 HEMATOCRIT (BEAKER) (test wvzo=965) 31.9 % 36.0-45.0 MEAN CORPUSCULAR VOLUME (BEAKER) (test nudc=778) 73.2 fL 82.0-99.0 MEAN CORPUSCULAR HEMOGLOBIN (BEAKER) (test 21.8 pg 27.0-33.0 yijm=362) MEAN CORPUSCULAR HEMOGLOBIN CONC (BEAKER) (test 29.8 GM/DL 32.0-36.0 rhpi=117) RED CELL DISTRIBUTION WIDTH (BEAKER) (test 30.3 % 10.3-14.2 uhjk=616) PLATELET COUNT (BEAKER) (test rylv=801) 188 K/CU MM 150-430 MEAN PLATELET VOLUME (BEAKER) (test bmjx=397) 10.4 fL 6.5-10.5 NEUTROPHILS RELATIVE PERCENT (BEAKER) (test 69 % gsxe=821) LYMPHOCYTES RELATIVE PERCENT (BEAKER) (test 9 % hbmr=407) MONOCYTES RELATIVE PERCENT (BEAKER) (test 18 % aeih=604) EOSINOPHILS RELATIVE PERCENT (BEAKER) (test 3 % qbtl=535) BASOPHILS RELATIVE PERCENT (BEAKER) (test 1 % ycap=097) NEUTROPHILS ABSOLUTE COUNT (BEAKER) (test 6.20 K/ L 1.80-8.00 oldn=937) LYMPHOCYTES ABSOLUTE COUNT (BEAKER) (test 0.80 K/ L 1.48-4.50 stlk=880) MONOCYTES ABSOLUTE COUNT (BEAKER) (test 1.60 K/ L 0.00-1.30 ntin=636) EOSINOPHILS ABSOLUTE COUNT (BEAKER) (test 0.20 K/ L 0.00-0.50 oaar=017) BASOPHILS ABSOLUTE COUNT (BEAKER) (test 0.10 K/ L 0.00-0.20 ffcw=106) (MANUAL DIFFERENTIAL)2017-11-28 22:59:00 Test Item Value Reference Range Comments NEUTROPHILS - REL (DIFF) (BEAKER) (test 76 % lnkg=1310) LYMPHOCYTES - REL (DIFF) (BEAKER) (test 11 % bavx=1139) MONOCYTES - REL (DIFF) (BEAKER) (test icwv=9927) 11 % EOSINOPHILS - REL (DIFF) (BEAKER) (test 2 % qgpv=1400) NEUTROPHILS - ABS (DIFF) (BEAKER) (test 6.76 K/ L 1.80-8.00 nnpa=4454) LYMPHOCYTES - ABS (DIFF) (BEAKER) (test 0.98 K/ L 1.48-4.50 wzya=5859) MONOCYTES - ABS (DIFF) (BEAKER) (test umtx=5854) 0.98 K/ L 0.00-1.30 EOSINOPHILS - ABS (DIFF) (BEAKER) (test 0.18 K/ L 0.00-0.50 usqq=3857) TOTAL COUNTED (BEAKER) (test aaqy=6829) 100 WBC MORPHOLOGY (BEAKER) (test srms=020) Normal LARGE PLT(BEAKER) (test rdcg=4603) Present GIANT PLATELETS (BEAKER) (test omdv=554) Present ANISOCYTOSIS (BEAKER) (test cvcs=613) 3+ many HYPOCHROMIA (BEAKER) (test vopm=303) 2+ moderate MICROCYTES (BEAKER) (test vtpw=677) 1+ few POLYCHROMATOPHILLIC RBCS(BEAKER) (test iwnj=187) 1+ few KETONE, [id number] 22:22:00 Test Item Value Reference Range Comments KETONES, BLOOD (BEAKER) (test jhls=1201) 0.3 mmol/L <0.4 PH, [id number] 22:22:00 Test Item Value Reference Range Comments PH VENOUS (BEAKER) (test gmui=532) 7.36 7.32-7.42 RAD, CHEST, 1 VIEW, NON [id number] 22:20:00Reason for exam:->sobShould this be performed at [...] MDReport Verified Date/Time: 11/28/2017 22:20:20 Reading Location: [address] Reading Room Electronically signed by: PRINCE RUBY M.D. on 10:20 PM
--- OUTSIDE RECORDS SUMMARY | 2018-05-25 12:41 | XMS REPORT | Clinical Summary ---
:1955 Author Organization [facility] Address [address] [place] [address] Phone Care Team Providers Name Role Phone [...] Will, Acute pulmonary edema 12/08/2017 Medicine DO ([facility]) (Primary Tanika Richardson Dx);Bilateral pleural MD Aleyda effusion;H/O multiple Jafar, Hemant sclerosis;COPD with MD Debi acute exacerbation ([facility]);Hypoxia;Suprapu bic catheter dysfunction, initial encounter ([facility]);Neurogenic bladder after 05/24/2017 Social History Tobacco Use Types Packs/Day Years Used Date Never Smoker Smokeless Tobacco: Never Used Tobacco Cessation: Counseling Given: No Alcohol Use Drinks/Week oz/Week Comments No Sex Assigned at Date Recorded Not on file Last Filed Vital Signs Vital Sign Reading Time Taken Blood Pressure 135/72 12/08/2017 7:43 PM MATERIALS ANALYST Pulse 89 12/08/2017 7:43 PM MATERIALS ANALYST Temperature 36 C (96.8 F) 12/08/2017 7:43 PM MATERIALS ANALYST Respiratory Rate 18 12/08/2017 7:43 PM MATERIALS ANALYST Oxygen Saturation 99% 12/08/2017 7:43 PM MATERIALS ANALYST Inhaled Oxygen Concentration - - Weight 71.5 kg (157 lb 10.1 oz) 12/08/2017 5:56 AM MATERIALS ANALYST Height 175.3 cm (5' 9") 11/29/2017 9:00 PM MATERIALS ANALYST Body Mass Index 23.28 12/08/2017 5:56 AM MATERIALS ANALYST Plan of Treatment Not on file Results RHYTHM STRIP - SCAN (12/09/2017 1:01 PM)Only the most recent of2 resultswithin the time period is included.EKG-SCANNED (12/09/2017 1:01 PM)POC-Glucose meter ( 12/08/2017 8:32 PM)Only the most recent of40 resultswithin the time period is included. Component Value Ref Range POC-Glucose Meter 190 (H)Comment: TESTED AT [facility] [address] 70 - 110 mg/dL [facility] [address] Specimen Performing Laboratory Blood [facility] [address] [address] XR chest 1 view portable / bedside [...] MD Report Verified Date/Time:12/08/2017 14:54:31 Reading Location: [facility] Radiology Reading Room Procedure Note Interface, External Ris In - 12/08/2017 2:56 PM MATERIALS ANALYST FINAL REPORT Chest, 1 view. Comparison: 12/05/2017. [...] Report Verified Date/Time: 12/08/2017 14:54:31 Reading Location: [facility] Radiology Reading Room B-type Natriuretic Factor (BNP) (12/08/2017 6:45 AM)Only the most recent of4 resultswithin the time period is included. Component Value Ref Range BNP 234 (H) 0 - 100 pg/mL Specimen Performing Laboratory Blood [facility] [address] [place] [address] Manual Differential (12/08/2017 5:54 AM)Only the most [...] Cells 1+ few Specimen Performing Laboratory Blood [facility] [address] [place] [address] CBC with platelet count + automated diff [...] - 10.5 fL Specimen Performing Laboratory Blood [facility] [address] [place] [address] CBC with platelet count + automated diff (12/08/2017 5:54 AM)Only the most recent of9 resultswithin the time period is included. Specimen Performing Laboratory Blood Narrative The following orders were created for panel order CBC with platelet count + automated diff. Procedure Abnormality Status --------- ------ CBC with platelet count ...[[id number]]AbnormalFinal result Manual Differential[[id number]]Abnormal Final result Please view results for these [...] FOR DIALYSIS PATIENTS. Specimen Performing Laboratory Blood [facility] [address] [place] [address] Vancomycin level, trough (12/07/2017 9:02 AM)Only the most recent of3 resultswithin the time period is included. Component Value Ref Range Vancomycin Tr 17.3 10.0 - 20.0 ug/mL Specimen Performing Laboratory Blood [facility] [address] [place] [address] Peripheral Blood Smear - Path Review (12/06/2017 [...] M.D. (electronic signature) Specimen Performing Laboratory Blood [facility] [address] [place] [address] Vancomycin level, random (12/06/2017 6:35 AM)Only the most recent of2 resultswithin the time period is included. Component Value Ref Range Vancomycin Rm 18.1 ug/mL Specimen Performing Laboratory Blood [facility] [address] [place] [address] Narrative Reference Range: No Normals MR lumbar spine without & with IV contrast (12/04/2017 6:30 PM) Specimen Performing Laboratory [employer] Narrative FINAL REPORT EXAM: MRI lumbar spine [...] MD Report Verified Date/Time:12/04/2017 23:32:02 Reading Location: [facility] C013T Transitional Reading Room Procedure Note Interface, External Ris In - 12/04/2017 11:34 PM MATERIALS ANALYST FINAL REPORT EXAM: MRI lumbar spine with [...] Report Verified Date/Time: 12/04/2017 23:32:02 Reading Location: [address] Transitional Reading Room thoracic spine without [...] MD Report Verified Date/Time:12/04/2017 18:04:28 Reading Location: [facility] C013V Neuro Reading Room Procedure Note Interface, External Ris In - 12/04/2017 6:48 PM MATERIALS ANALYST FINAL REPORT MRI of the thoracic spine [...] Report Verified Date/Time: 12/04/2017 18:04:28 Reading Location: [facility] C013V Neuro Reading Room cervical spine without & with IV contrast (12/04/2017 6:30 PM) Specimen Performing Laboratory [employer] Narrative FINAL REPORT EXAM: MRI cervical spine [...] MD Report Verified Date/Time:12/04/2017 23:48:58 Reading Location: [address] Transitional Reading Room Procedure Note Interface, External Ris In - 12/04/2017 11:51 PM MATERIALS ANALYST FINAL REPORT EXAM: MRI cervical spine with [...] Report Verified Date/Time: 12/04/2017 23:48:58 Reading Location: [address] Reading Room brain without & with IV contrast (12/04/2017 6:30 PM) Specimen Performing Laboratory [facility] Narrative FINAL REPORT Exam: MRI brain [...] MD Report Verified Date/Time:12/04/2017 22:01:42 Reading Location: [address] Reading Room Procedure Note Interface, External Ris In - 12/04/2017 10:03 PM MATERIALS ANALYST FINAL REPORT Exam: MRI brain with and [...] Report Verified Date/Time: 12/04/2017 22:01:42 Reading Location: [facility] B1 C013T Transitional Reading Room Magnesium (12/04/2017 5:12 AM)Only the most recent of4 resultswithin the time period is included. Component Value Ref Range Magnesium 2.1 1.5 - 3.0 mg/dL Specimen Performing Laboratory Blood - Central Venous Line [facility] [address] [place] [address] Blood gas, arterial (12/03/2017 9:57 AM)Only the [...] Performing Laboratory Blood, Arterial - Arm, Right [facility] [address] [place] [address] Respiratory Panel [facility] (12/01/2017 9:35 PM) Component Value Ref Range [...] Specimen Performing Laboratory Nasal - Nasal Mucosa [address] [address] Rapid Influenza A&B Screen (12/01/2017 9:35 PM) Component Value Ref Range Rapid Influenza A Antigen Negative Negative, Inconclusive Rapid influenza B Antigen Negative Negative, Inconclusive Specimen Performing Laboratory Nasal - Nasal Mucosa [facility] [address] [place] [address] Comprehensive metabolic panel (12/01/2017 12:00 PM) Component [...] FOR DIALYSIS PATIENTS. Specimen Performing Laboratory Blood [facility] [address] [place] [address] pH, body fluid (11/30/2017 3:46 PM)Only the most recent of2 resultswithin the time period is included. Component Value Ref Range pH, Body Fluid 8.00 Specimen Performing Laboratory Body Fluid - Pleural, [address] [address] Glucose, body fluid (11/30/2017 3:46 PM)Only the most recent of2 resultswithin the time period is included. Component Value Ref Range Glucose, Body Fluid 256 (H) 70 - 110 mg/dL Specimen Performing Laboratory Body Fluid - Pleural, [address] [address] Narrative Absence of reference range indicates that [...] Performing Laboratory Body Fluid - Pleural, Right [facility] [address] [place] [address] Protein, body fluid (11/30/2017 3:46 PM)Only the [...] Specimen Performing Laboratory Body Fluid - Pleural, [address] [address] Narrative Absence of reference range indicates that [...] Specimen Performing Laboratory Body Fluid - Pleural, [address] [address] Narrative Absence of reference range indicates that normals have not been defined. Assay performance has not been validated for this type of specimen. Albumin, body fluid (11/30/2017 3:46 PM)Only the most recent of2 resultswithin the time period is included. Component Value Ref Range Albumin, Fluid 0.9 gm/dL Specimen Performing Laboratory Body Fluid - Pleural, [address] [address] Narrative Reference Range:No Normals Assay performance has not been validated for this type of specimen. Cytology (11/30/2017 3:15 PM) Component Value Ref Range Case Report Medical Cytology Report Case: [id number] Authorizing Provider:Sari Church MD Collected: 11/30/2017 1515 Ordering Location: [address] Med/SurgReceived: 12/01/2017 0758 Pathologist: Janet Cespedes MD Specimen:Pleural, Left DIAGNOSIS LEFT PLEURAL FLUID (CYTOSPINS): - REACTIVE MESOTHELIAL CELLS IN A BACKGROUND OF PREDOMINANTLY CHRONIC INFLAMMATION - NO MALIGNANT CELLS IDENTIFIED CPT Code(s) 58532 CLINICAL DATA Left pleural effusion, shortness of breath; history of multiple sclerosis SPECIMEN SOURCE LEFT PLEURAL FLUID GROSS DESCRIPTION Prepared 4 cytospins from 250 ml light brown fluid Collected: [id number] Received: [id number] MICROSCOPIC DESCRIPTION Performed. STATEMENT OF ADEQUACY Satisfactory Technical component was performed at [facility], Department of Pathology, [address] [place] [address], Professional component was performed [facility], at Department of Pathology, [address] [place] [address], Specimen Performing Laboratory Body Fluid - Pleural, Left [facility] [address] [place] [address] US thoracentesis (11/30/2017 3:00 PM)Only the most [...] MD Report Verified Date/Time:11/30/2017 16:47:10 Reading Location: [facility] Radiology Reading Room Procedure Note Interface, External Ris In - 11/30/2017 4:49 PM MATERIALS ANALYST FINAL REPORT Ultrasound Guided left Thoracentesis: Modality: [...] Report Verified Date/Time: 11/30/2017 16:47:10 Reading Location: [facility] Radiology Reading Room CARDIOGRAM REPORT - SCAN (11/30/2017 1:54 PM)2D Echo W/Doppler(CW/PW/Color ) (11/30/2017 9:56 AM) Component Value Ref Range Ejection Fraction Specimen Performing Laboratory [facility] Narrative Transthoracic Echocardiography Report (TTE) Demographics Patient Name Bonnie CHAMBERLAIN of Study 11/30/2017 FREYA [id number] GenderFemale Visit Number [id number] [facility] [id number] Number 425 Number Date of Birth1955 Referring Physician Age62 year(s) [employer]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 Procedure [...] - 5.50 uIU/mL Specimen Performing Laboratory Blood [facility] [address] [place] [address] Hemoglobin A1c (11/30/2017 5:34 AM) Component Value Ref Range Hemoglobin A1C 5.1 4.3 - 6.1 % Specimen Performing Laboratory [facility] [address] [place] [address] Lipid panel (11/30/2017 5:34 AM) Component Value Ref Range Triglycerides 85 mg/dL Cholesterol 158 mg/dL HDL 63 mg/dL LDL Calculated 78 mg/dL Specimen Performing Laboratory [facility] [address] [place] [address] Narrative Triglyceride Reference Range: Low Risk <150 Uefusbshzo460-175 High Risk 200-499 Very High Risk>=500 Cholesterol Reference Range: Low Risk <200 Nyojnyqtdz854-123 High Risk>240 HDL Cholesterol Reference Range: Low Risk >=60 High Risk <40 LDL Cholesterol Reference Range: Optimal<100 Near Eveemso711-486 Fidkzjlmkr297-453 Uotz094-196 Very High >=190 Troponin I (11/29/2017 4:48 PM)Only the most recent of3 resultswithin the time period is included. Component Value Ref Range Troponin I <0.03 0.00 - 0.15 ng/mL Specimen Performing Laboratory [facility] [address] [place] [address] Narrative Troponin I (TnI) levels must be [...] Relative Index 5.6 % Specimen Performing Laboratory [facility] [address] [place] [address] Narrative CK-MB Reference Range: <5 Normal 5-10 Borderline >10Abnormal PT/aPTT (11/29/2017 10:34 AM) Component Value Ref Range Protime 11.0 9.3 - 12.0 seconds INR 1.0 <=5.9 PTT 27.2 23.0 - 35.0 seconds Specimen Performing Laboratory [facility] [address] [place] [address] Narrative RECOMMENDED COUMADIN/WARFARIN INR THERAPY RANGES STANDARD [...] design (11/29/2017 12:27 AM) Specimen Performing Laboratory [employer] Narrative FINAL REPORT CLINICAL HISTORY: Chest pain, [...] MD Report Verified Date/Time:11/29/2017 00:49:46 Reading Location: [address] Reading Room Procedure Note Interface, External Ris In - 11/29/2017 12:52 AM MATERIALS ANALYST FINAL REPORT CLINICAL HISTORY: Chest pain, shortness [...] Report Verified Date/Time: 11/29/2017 00:49:46 Reading Location: [address] Reading Room Blood culture (11/28/2017 9:47 PM)Only the most recent of2 resultswithin the time period is included. Component Value Ref Range Result No growth in 5 days Specimen Performing Laboratory Blood - Line, Venous [facility] [address] [place] [address] pH, venous (11/28/2017 9:46 PM) Component Value Ref Range pH, Parth 7.36 7.32 - 7.42 Specimen Performing Laboratory Blood - Central Venous Line [facility] [address] [place] [address] Ketones, blood (11/28/2017 9:46 PM) Component Value Ref Range Ketones, Blood 0.3 <0.4 mmol/L Specimen Performing Laboratory Blood - Central Venous Line [facility] [address] [place] [address] after 05/24/2017 Advance Directives Patient has advance directives. For more information, please contact:[address] [phone]
--- OUTSIDE RECORDS SUMMARY | 2018-05-25 12:42 | XMS REPORT ---
:1955 [facility] Address [address] [place] [address] Dr. Gold [address] [place] [id number] Care Team Providers Name Role Phone CAPRICE, [...] (BEAKER) (test 190 mg/dL 70-110 TESTED AT [address] jmck=6474) [facility] [address] POCT-GLUCOSE [id number] 16:35:00 Test Item Value Reference Range Comments POC-GLUCOSE METER (BEAKER) 114 mg/dL 70-110 TESTED AT [address] (test myds=8349) [facility] [address] RAD, CHEST, 1 VIEW, NON [id number] 14:54:00Reason for exam:->follow upFINAL REPORT Chest, 1 [...] Dunne Verified Date/Time: 12/08/2017 14:54:31 Reading Location: [facility] Radiology Reading Room Electronically signedby: TARIQ DUNNE MD on 12/08/2017 02:54 PMPOCT-GLUCOSE [id number] 12:33:00 Test Item Value Reference Range Comments POC-GLUCOSE METER (BEAKER) 212 mg/dL 70-110 TESTED AT [facility] [address] (test szkg=9235) [address] [facility] [address] CBC W/PLT COUNT & AUTO [id number] 08:28:00 Test Item Value Reference Range Comments WHITE BLOOD CELL COUNT (BEAKER) (test tcph=175) 9.7 K/ L 4.0-10.0 RED BLOOD CELL COUNT (BEAKER) (test rzhw=171) 4.38 M/ L 4.00-5.00 HEMOGLOBIN (BEAKER) (test tbwj=782) 10.6 GM/DL 12.0-15.0 HEMATOCRIT (BEAKER) (test bkqj=900) 33.5 % 36.0-45.0 MEAN CORPUSCULAR VOLUME (BEAKER) (test bkay=536) 76.6 fL 82.0-99.0 MEAN CORPUSCULAR HEMOGLOBIN (BEAKER) (test 24.1 pg 27.0-33.0 brjx=519) MEAN CORPUSCULAR HEMOGLOBIN CONC (BEAKER) (test 31.5 GM/DL 32.0-36.0 tykg=137) RED CELL DISTRIBUTION WIDTH (BEAKER) (test 34.0 % 10.3-14.2 nfkp=411) PLATELET COUNT (BEAKER) (test awes=383) 224 K/CU MM 150-430 MEAN PLATELET VOLUME (BEAKER) (test ivuc=730) 12.0 fL 6.5-10.5 (MANUAL DIFFERENTIAL)2017-12-08 08:28:00 Test Item Value Reference Range Comments NEUTROPHILS - REL (DIFF) (BEAKER) (test 50 % crpy=1270) LYMPHOCYTES - REL (DIFF) (BEAKER) (test 19 % ughd=6879) MONOCYTES - REL (DIFF) (BEAKER) (test lvzw=2672) 18 % EOSINOPHILS - REL (DIFF) (BEAKER) (test 5 % ubob=2216) BANDS - REL (DIFF) (BEAKER) (test bjry=3068) 2 % 0-10 ATYPICAL LYMPHOCYTE - REL (DIFF) (BEAKER) (test 6 % 0-0 xpyy=659) NEUTROPHILS - ABS (DIFF) (BEAKER) (test 4.85 K/ L 1.80-8.00 iwba=8036) LYMPHOCYTES - ABS (DIFF) (BEAKER) (test 1.84 K/ L 1.48-4.50 vwpu=9449) MONOCYTES - ABS (DIFF) (BEAKER) (test opre=4789) 1.75 K/ L 0.00-1.30 EOSINOPHILS - ABS (DIFF) (BEAKER) (test 0.49 K/ L 0.00-0.50 qnbw=5396) BANDS-ABS (DIFF) (BEAKER) (test gzgt=2780) 0.2 K/ L 0.0-0.8 ATYPICAL LYMPHOCYTES - ABS (DIFF) (BEAKER) (test 0.58 K/ L 0.00-0.00 pdog=796) TOTAL COUNTED (BEAKER) (test yvxk=9465) 100 BANDS + SEGMENTED NEUTROPHILS (BEAKER) (test 5.04 mzqf=5529) WBC MORPHOLOGY (BEAKER) (test vinb=346) Normal LARGE PLT(BEAKER) (test qyks=1762) Present GIANT PLATELETS (BEAKER) (test jhdq=796) Present SCHISTOCYTES (BEAKER) (test tlrv=343) 1+ few ANISOCYTOSIS (BEAKER) (test djwu=089) 2+ moderate HYPOCHROMIA (BEAKER) (test fybr=305) 1+ few MICROCYTES (BEAKER) (test ovzn=107) 1+ few OVALOCYTES (BEAKER) (test swaf=696) 1+ few POIKILOCYTES (BEAKER) (test qbor=487) 1+ few TARGET CELLS (BEAKER) (test yqyd=269) 1+ few B-TYPE NATRIURETIC FACTOR (BNP)2017-12-08 07:14:00 Test Item Value Reference Range Comments B-TYPE NATRIURETIC PEPTIDE (BEAKER) (test 234 pg/mL 0-100 zwid=789) BASIC METABOLIC [id number] 07:09:00 Test Item Value Reference Range Comments SODIUM (BEAKER) (test 139 meq/L 135-148 dsxv=774) POTASSIUM (BEAKER) (test 4.0 meq/L 3.6-5.5 uzcl=833) CHLORIDE (BEAKER) (test 99 meq/L 98-106 yeje=380) CO2 (BEAKER) (test 31 meq/L 20-29 msim=067) BLOOD UREA NITROGEN 30 mg/dL 10-26 (BEAKER) (test wtpi=012) CREATININE (BEAKER) (test 0.60 mg/dL 0.50-1.20 gdiq=643) GLUCOSE RANDOM (BEAKER) 138 mg/dL 70-110 (test gcct=017) CALCIUM (BEAKER) (test 8.8 mg/dL 8.5-10.5 psli=674) EGFR (BEAKER) (test 102 mL/min/1.73 sq m ESTIMATED GFR IS NOT vpko=4250) ACCURATE CREATININE CLEARANCE IN PREDICTING GLOMERULAR FILTRATION RATE. ESTIMATED GFR IS NOT APPLICABLE FOR DIALYSIS PATIENTS. POCT-GLUCOSE [id number] 21:24:00 Test Item Value Reference Range Comments POC-GLUCOSE METER ([facility]) 261 mg/dL 70-110 TESTED AT [address] (test svyb=6779) [facility] [address] POCT-GLUCOSE [id number] 17:41:00 Test Item Value Reference Range Comments POC-GLUCOSE METER ([facility]) 166 mg/dL 70-110 TESTED AT [address] (test aruo=2231) [facility] [address] POCT-GLUCOSE [id number] 12:01:00 Test Item Value Reference Range Comments POC-GLUCOSE METER ([facility]) 211 mg/dL 70-110 TESTED AT [address] (test ewhk=3680) [facility] [address] VANCOMYCIN LEVEL, [id number] 09:35:00 Test Item Value Reference Range Comments VANCOMYCIN TROUGH (AKER) (test llkh=842) 17.3 ug/mL 10.0-20.0 CBC W/PLT COUNT & AUTO [id number] 06:57:00 Test Item Value Reference Range Comments WHITE BLOOD CELL COUNT (BEAKER) (test aglk=752) 8.1 K/ L 4.0-10.0 RED BLOOD CELL COUNT (BEAKER) (test yfuu=760) 4.04 M/ L 4.00-5.00 HEMOGLOBIN (BEAKER) (test mtsn=514) 9.7 GM/DL 12.0-15.0 HEMATOCRIT (BEAKER) (test ipzt=478) 30.7 % 36.0-45.0 MEAN CORPUSCULAR VOLUME (BEAKER) (test clef=817) 76.0 fL 82.0-99.0 MEAN CORPUSCULAR HEMOGLOBIN (BEAKER) (test 24.1 pg 27.0-33.0 njtt=876) MEAN CORPUSCULAR HEMOGLOBIN CONC (BEAKER) (test 31.7 GM/DL 32.0-36.0 denk=091) RED CELL DISTRIBUTION WIDTH (BEAKER) (test 33.7 % 10.3-14.2 hlgs=705) PLATELET COUNT (BEAKER) (test vfzp=488) 229 K/CU MM 150-430 MEAN PLATELET VOLUME (BEAKER) (test lunm=626) 11.6 fL 6.5-10.5 (MANUAL DIFFERENTIAL)2017-12-07 06:57:00 Test Item Value Reference Range Comments NEUTROPHILS - REL (DIFF) (BEAKER) (test 71 % kkxf=3800) LYMPHOCYTES - REL (DIFF) (BEAKER) (test 14 % avfq=2610) MONOCYTES - REL (DIFF) (BEAKER) (test nvhm=4948) 10 % EOSINOPHILS - REL (DIFF) (BEAKER) (test 1 % pjpg=3563) BASOPHILS - REL (DIFF) (BEAKER) (test lwbb=9064) 2 % ATYPICAL LYMPHOCYTE - REL (DIFF) (BEAKER) (test 2 % 0-0 bonl=946) NEUTROPHILS - ABS (DIFF) (BEAKER) (test 5.75 K/ L 1.80-8.00 npjs=9431) LYMPHOCYTES - ABS (DIFF) (BEAKER) (test 1.13 K/ L 1.48-4.50 udzh=7981) MONOCYTES - ABS (DIFF) (BEAKER) (test cmpp=6901) 0.81 K/ L 0.00-1.30 EOSINOPHILS - ABS (DIFF) (BEAKER) (test 0.08 K/ L 0.00-0.50 ewxy=1039) BASOPHILS - ABS (DIFF) (BEAKER) (test yzea=2151) 0.16 K/ L 0.00-0.20 ATYPICAL LYMPHOCYTES - ABS (DIFF) (BEAKER) (test 0.16 K/ L 0.00-0.00 cpxa=222) TOTAL COUNTED (BEAKER) (test pojy=2914) 100 WBC MORPHOLOGY (BEAKER) (test rggd=559) Normal LARGE PLT(BEAKER) (test fgxd=3774) Present ANISOCYTOSIS (BEAKER) (test lryk=319) 2+ moderate HYPOCHROMIA (BEAKER) (test umcu=653) 1+ few MICROCYTES (BEAKER) (test tusk=214) 1+ few POIKILOCYTES (BEAKER) (test eexh=819) 1+ few POLYCHROMATOPHILLIC RBCS(BEAKER) (test szpr=141) 1+ few TARGET CELLS (BEAKER) (test cadt=545) 1+ few B-TYPE NATRIURETIC FACTOR (BNP)2017-12-07 06:30:00 Test Item Value Reference Range Comments B-TYPE NATRIURETIC PEPTIDE (BEAKER) (test 614 pg/mL 0-100 yfal=244) BASIC METABOLIC [id number] 06:29:00 Test Item Value Reference Range Comments SODIUM (BEAKER) (test 141 meq/L 135-148 hevm=853) POTASSIUM (BEAKER) (test 3.6 meq/L 3.6-5.5 hqcc=921) CHLORIDE (BEAKER) (test 95 meq/L 98-106 miag=286) CO2 (BEAKER) (test 37 meq/L 20-29 trzx=200) BLOOD UREA NITROGEN 31 mg/dL 10-26 (BEAKER) (test ylqx=092) CREATININE (BEAKER) (test 0.60 mg/dL 0.50-1.20 qnqm=847) GLUCOSE RANDOM (BEAKER) 144 mg/dL 70-110 (test xiru=482) CALCIUM (BEAKER) (test 8.6 mg/dL 8.5-10.5 tfnj=893) EGFR (BEAKER) (test 102 mL/min/1.73 sq m ESTIMATED GFR IS NOT dtbv=3219) ACCURATE CREATININE CLEARANCE IN PREDICTING GLOMERULAR FILTRATION RATE. ESTIMATED GFR IS NOT APPLICABLE FOR DIALYSIS PATIENTS. POCT-GLUCOSE [id number] 06:23:00 Test Item Value Reference Range Comments POC-GLUCOSE METER (BEAKER) 156 mg/dL 70-110 TESTED AT [facility] [address] [place] [address] (test okyp=0750) [facility] [address] POCT-GLUCOSE [id number] 21:36:00 Test Item Value Reference Range Comments POC-GLUCOSE METER (BEAKER) 220 mg/dL 70-110 TESTED AT [facility] [address] [place] [address] (test bnho=5047) [facility] [address] POCT-GLUCOSE [id number] 17:12:00 Test Item Value Reference Range Comments POC-GLUCOSE METER (BEAKER) 177 mg/dL 70-110 TESTED AT [address] (test yrhg=6463) [facility] [address] POCT-GLUCOSE [id number] 17:12:00 Test Item Value Reference Range Comments POC-GLUCOSE METER (BEAKER) 203 mg/dL 70-110 TESTED AT [address] (test okfu=4260) [facility] [address] POCT-GLUCOSE [id number] 12:29:00 Test Item Value Reference Range Comments POC-GLUCOSE METER (BEAKER) 151 mg/dL 70-110 TESTED AT [address] (test cmwf=9057) [facility] [address] CBC W/PLT COUNT & AUTO [id number] 08:57:00 Test Item Value Reference Range Comments WHITE BLOOD CELL COUNT (BEAKER) (test awwv=439) 9.2 K/ L 4.0-10.0 RED BLOOD CELL COUNT (BEAKER) (test xqca=673) 4.16 M/ L 4.00-5.00 HEMOGLOBIN (BEAKER) (test oygy=501) 9.9 GM/DL 12.0-15.0 HEMATOCRIT (BEAKER) (test pkaz=777) 31.9 % 36.0-45.0 MEAN CORPUSCULAR VOLUME (BEAKER) (test gcga=978) 76.7 fL 82.0-99.0 MEAN CORPUSCULAR HEMOGLOBIN (BEAKER) (test 23.8 pg 27.0-33.0 ydly=242) MEAN CORPUSCULAR HEMOGLOBIN CONC (BEAKER) (test 31.1 GM/DL 32.0-36.0 qqyk=026) RED CELL DISTRIBUTION WIDTH (BEAKER) (test 34.5 % 10.3-14.2 yiow=167) PLATELET COUNT (BEAKER) (test txyk=573) 256 K/CU MM 150-430 MEAN PLATELET VOLUME (BEAKER) (test rfhs=949) 10.5 fL 6.5-10.5 (MANUAL DIFFERENTIAL)2017-12-06 08:57:00 Test Item Value Reference Range Comments NEUTROPHILS - REL (DIFF) (BEAKER) (test 78 % layf=1283) LYMPHOCYTES - REL (DIFF) (BEAKER) (test 10 % ajri=8619) MONOCYTES - REL (DIFF) (BEAKER) (test vlls=3163) 5 % BANDS - REL (DIFF) (BEAKER) (test rjqs=5407) 2 % 0-10 ATYPICAL LYMPHOCYTE - REL (DIFF) (BEAKER) (test 5 % 0-0 eqri=872) NEUTROPHILS - ABS (DIFF) (BEAKER) (test 7.18 K/ L 1.80-8.00 qjit=5653) LYMPHOCYTES - ABS (DIFF) (BEAKER) (test 0.92 K/ L 1.48-4.50 vdff=5063) MONOCYTES - ABS (DIFF) (BEAKER) (test ottr=8943) 0.46 K/ L 0.00-1.30 BANDS-ABS (DIFF) (BEAKER) (test nhbt=4039) 0.2 K/ L 0.0-0.8 ATYPICAL LYMPHOCYTES - ABS (DIFF) (BEAKER) (test 0.46 K/ L 0.00-0.00 vpya=006) TOTAL COUNTED (BEAKER) (test dypm=0226) 100 BANDS + SEGMENTED NEUTROPHILS (BEAKER) (test 7.36 uzps=2578) ATYPICAL LYMPHS(BEAKER) (test absi=8851) Present LARGE PLT(BEAKER) (test bwcx=2351) Present GIANT PLATELETS (BEAKER) (test lghr=659) Present SCHISTOCYTES (BEAKER) (test wmto=056) 1+ few ANISOCYTOSIS (BEAKER) (test tehp=141) 2+ moderate HYPOCHROMIA (BEAKER) (test lqpq=767) 1+ few OVALOCYTES (BEAKER) (test bxor=211) 1+ few POIKILOCYTES (BEAKER) (test gfov=418) 1+ few POLYCHROMATOPHILLIC RBCS(BEAKER) (test yhsv=639) 1+ few TARGET CELLS (BEAKER) (test dofw=497) 1+ few PERIPHERAL BLOOD SMEAR - PATH REVIEW LAB [id number] 08:39:00 Test Item Value Reference Range Comments RBC MORPHOLOGY (BEAKER) Microcytosis (test pfso=5035) RBC MORPHOLOGY (BEAKER) Target Cells (test wjhv=51760) RBC MORPHOLOGY (BEAKER) Hypochromasia (test uemt=17343) RBC MORPHOLOGY (BEAKER) Anisocytosis (test uccd=13933) WBC MORPHOLOGY (BEAKER) Left Shift (test sfyn=7366) WBC MORPHOLOGY (BEAKER) Atypical Lymphs (test jxdo=287543) WBC MORPHOLOGY (BEAKER) Hypersegmented Neutrophils (test were=918267) PLT MORPHOLOGY (BEAKER) Large Platelets (test zozq=5277) PERIPHERAL SMR REVIEW Microcytic hypochromic anemia (BEAKER) (test ubry=9894) with anisocytosis and target cells. Few hypersegmented neutrophils. Findings are suggestive of iron deficiency anemia. Recommend correlation with iron levels. [id number] Janet Cespedes M.D. (electronic (BEAKER) (test jqfv=3638) signature) VANCOMYCIN LEVEL, [id number] 07:05:00 Test Item Value Reference Range Comments VANCOMYCIN RANDOM (BEAKER) (test mdps=855) 18.1 ug/mL Reference Range: No NormalsBASIC METABOLIC [id number] 07:05:00 Test Item Value Reference Range Comments SODIUM (BEAKER) (test 139 meq/L 135-148 vabm=713) POTASSIUM (BEAKER) (test 4.2 meq/L 3.6-5.5 qbkl=344) CHLORIDE (BEAKER) (test 96 meq/L 98-106 jiga=002) CO2 (BEAKER) (test 34 meq/L 20-29 hjzg=462) BLOOD UREA NITROGEN 37 mg/dL 10-26 (BEAKER) (test dakh=563) CREATININE (BEAKER) (test 0.70 mg/dL 0.50-1.20 jtir=627) GLUCOSE RANDOM (BEAKER) 177 mg/dL 70-110 (test eagt=294) CALCIUM (BEAKER) (test 8.8 mg/dL 8.5-10.5 sxdz=331) EGFR (BEAKER) (test 85 mL/min/1.73 sq m ESTIMATED GFR IS NOT mfvx=1580) ACCURATE CREATININE CLEARANCE IN PREDICTING GLOMERULAR FILTRATION RATE. ESTIMATED GFR IS NOT APPLICABLE FOR DIALYSIS PATIENTS. POCT-GLUCOSE [id number] 06:40:00 Test Item Value Reference Range Comments POC-GLUCOSE METER (BEAKER) 196 mg/dL 70-110 TESTED AT [address] (test lkep=4187) [facility] [address] POCT-GLUCOSE [id number] 00:57:00 Test Item Value Reference Range Comments POC-GLUCOSE METER (BEAKER) 252 mg/dL 70-110 TESTED AT [address] (test aopl=6522) [facility] [address] VANCOMYCIN LEVEL, [id number] 21:36:00 Test Item Value Reference Range Comments VANCOMYCIN TROUGH (BEAKER) (test cxuy=758) 24.7 ug/mL 10.0-20.0 POCT-GLUCOSE [id number] 21:21:00 Test Item Value Reference Range Comments POC-GLUCOSE METER (BEAKER) 345 mg/dL 70-110 Notified RN MD/TESTED AT [facility] (test ztik=4515) [address] [place] [address] POCT-GLUCOSE [id number] 16:29:00 Test Item Value Reference Range Comments POC-GLUCOSE METER (BEAKER) 416 mg/dL 70-110 Notified RN MD/TESTED AT [facility] (test echw=4325) [address] [place] [address] POCT-GLUCOSE [id number] 11:19:00 Test Item Value Reference Range Comments POC-GLUCOSE METER (BEAKER) 430 mg/dL 70-110 Notified RN MD/TESTED AT [facility] (test maym=4310) [address] [place] [address] RAD, CHEST, 1 VIEW, NON [id number] 10:38:00Reason for exam:->History of Pleural effusionShould this be performed at the bedside?->YesFINAL REPORT Chest one view compared to December Discussion: Bilateral hazy airspace opacities are similar with small right-sided effusion. No pneumothorax. Lines in place unchanged. Signed: Gopi Noble Verified Date/Time: 12/05/2017 10:38:49 Reading Location: [address] Reading Room 10 :38 AMPOCT-GLUCOSE [id number] 08:06:00 Test Item Value Reference Range Comments POC-GLUCOSE METER (BEAKER) 396 mg/dL 70-110 TESTED AT [facility] [address] (test bnbw=0157) [address] [facility] [address] CBC W/PLT COUNT & AUTO [id number] 06:31:00 Test Item Value Reference Range Comments WHITE BLOOD CELL COUNT (BEAKER) (test zrql=696) 5.5 K/ L 4.0-10.0 RED BLOOD CELL COUNT (BEAKER) (test zcix=424) 4.29 M/ L 4.00-5.00 HEMOGLOBIN (BEAKER) (test ctsu=640) 10.3 GM/DL 12.0-15.0 HEMATOCRIT (BEAKER) (test prvd=725) 32.4 % 36.0-45.0 MEAN CORPUSCULAR VOLUME (BEAKER) (test nzrj=165) 75.4 fL 82.0-99.0 MEAN CORPUSCULAR HEMOGLOBIN (BEAKER) (test 23.9 pg 27.0-33.0 pfhk=556) MEAN CORPUSCULAR HEMOGLOBIN CONC (BEAKER) (test 31.7 GM/DL 32.0-36.0 prmo=424) RED CELL DISTRIBUTION WIDTH (BEAKER) (test 34.8 % 10.3-14.2 ghqs=020) PLATELET COUNT (BEAKER) (test grhi=601) 317 K/CU MM 150-430 MEAN PLATELET VOLUME (BEAKER) (test lhxg=205) 10.5 fL 6.5-10.5 NUCLEATED RED BLOOD CELLS (BEAKER) (test 2 /100 WBC 0-0 zxpg=018) (MANUAL DIFFERENTIAL)2017-12-05 06:31:00 Test Item Value Reference Range Comments NEUTROPHILS - REL (DIFF) (BEAKER) (test bhkg=8504) 65 % LYMPHOCYTES - REL (DIFF) (BEAKER) (test msbq=2287) 25 % MONOCYTES - REL (DIFF) (BEAKER) (test oaxv=5262) 10 % NEUTROPHILS - ABS (DIFF) (BEAKER) (test gpkk=5835) 3.58 K/ L 1.80-8.00 LYMPHOCYTES - ABS (DIFF) (BEAKER) (test yshn=5153) 1.38 K/ L 1.48-4.50 MONOCYTES - ABS (DIFF) (BEAKER) (test idho=7159) 0.55 K/ L 0.00-1.30 TOTAL COUNTED (BEAKER) (test qeyk=7512) 100 WBC MORPHOLOGY (BEAKER) (test icrc=716) Normal RBC MORPHOLOGY (BEAKER) (test dcon=571) Normal LARGE PLT(BEAKER) (test xesv=4709) Present BASIC METABOLIC [id number] 05:33:00 Test Item Value Reference Range Comments SODIUM (BEAKER) (test 139 meq/L 135-148 upjs=594) POTASSIUM (BEAKER) (test 4.5 meq/L 3.6-5.5 fmpl=492) CHLORIDE (BEAKER) (test 94 meq/L 98-106 zcva=928) CO2 (BEAKER) (test 34 meq/L 20-29 pcic=754) BLOOD UREA NITROGEN 31 mg/dL 10-26 (BEAKER) (test czem=375) CREATININE (BEAKER) (test 0.70 mg/dL 0.50-1.20 swyy=202) GLUCOSE RANDOM (BEAKER) 301 mg/dL 70-110 (test vrvp=491) CALCIUM (BEAKER) (test 9.2 mg/dL 8.5-10.5 icwm=710) EGFR (BEAKER) (test 85 mL/min/1.73 sq m ESTIMATED GFR IS NOT nclo=9205) ACCURATE CREATININE CLEARANCE IN PREDICTING GLOMERULAR FILTRATION RATE. ESTIMATED GFR IS NOT APPLICABLE FOR DIALYSIS PATIENTS. POCT-GLUCOSE [id number] 00:04:00 Test Item Value Reference Range Comments POC-GLUCOSE METER (BEAKER) 274 mg/dL 70-110 TESTED AT [address] (test vrba=2312) [address] [facility] [address] MR, SPINE, CERVICAL, [id number] 23:48:00FINAL REPORT EXAM: MRI cervical spine with and without contrast . CLINICAL HISTORY: Abnormal xray, cervical spine, DJD TECHNIQUE: Multiplanar multi sequential MRI of the cervicalspine was performed with and without contrast.. COMPARISON: None available. FINDINGS: Cervical vertebral body heights and alignment are maintained. There is a mild compression fracture deformity of X9mntex appears chronic. The bone marrow signal is [...] MDReport Verified Date/Time: 12/04/2017 23:48:58 Reading Location: [address] Reading Room MR, SPINE, LUMBAR, [id number] 23:32:00FINAL REPORT EXAM: MRI lumbar spine with [...] Verified Date/Time: 12/04/2017 23:32:02 Reading Location : [address] Reading Room MR, BRAIN, [id number] 22:01:00FINAL REPORT Exam: MRI brain with and [...] Rosa Verified Date/Time: 2017 22:01:42 Reading Location: [address] Transitional Reading Room POCT- GLUCOSE [id number] 20:51:00 Test Item Value Reference Range Comments POC-GLUCOSE METER (BEAKER) 221 mg/dL 70-110 TESTED AT [address] (test pckx=5005) [place] [id number] MR, SPINE, THORACIC, [id number] 18:04:00FINAL REPORT MRI of the thoracic spine [...] Noble Verified Date/Time: 12/04/2017 18:04:28 Reading Location: [place] [id number] Neuro Reading Room POCT-GLUCOSE [id number] 12:00:00 Test Item Value Reference Range Comments POC-GLUCOSE METER (BEAKER) 196 mg/dL 70-110 TESTED AT [address] (test vffr=0864) [facility] [address] CBC W/PLT COUNT & AUTO [id number] 06:17:00 Test Item Value Reference Range Comments WHITE BLOOD CELL COUNT (BEAKER) (test 5.4 K/ L 4.0-10.0 etwt=032) RED BLOOD CELL COUNT (BEAKER) (test 4.43 M/ L 4.00-5.00 hzty=827) HEMOGLOBIN (BEAKER) (test engf=478) 10.4 GM/DL 12.0-15.0 HEMATOCRIT (BEAKER) (test flmw=465) 33.4 % 36.0-45.0 MEAN CORPUSCULAR VOLUME (BEAKER) (test 75.5 fL 82.0-99.0 wphf=523) MEAN CORPUSCULAR HEMOGLOBIN (BEAKER) 23.5 pg 27.0-33.0 (test eill=092) MEAN CORPUSCULAR HEMOGLOBIN CONC 31.2 GM/DL 32.0-36.0 (BEAKER) (test akxu=069) RED CELL DISTRIBUTION WIDTH (BEAKER) 34.5 % 10.3-14.2 (test vepm=718) PLATELET COUNT (BEAKER) (test 411 K/CU MM 150-430 gkrp=035) MEAN PLATELET VOLUME (BEAKER) (test 9.8 fL 6.5-10.5 drac=315) NEUTROPHILS RELATIVE PERCENT (BEAKER) % Manual diff needed (test ybvl=729) LYMPHOCYTES RELATIVE PERCENT (BEAKER) % Manual diff needed (test sxlc=222) MONOCYTES RELATIVE PERCENT (BEAKER) % Manual diff needed (test ciok=973) EOSINOPHILS RELATIVE PERCENT (BEAKER) % Manual diff needed (test dbqx=462) BASOPHILS RELATIVE PERCENT (BEAKER) % Manual diff needed (test msik=228) NEUTROPHILS ABSOLUTE COUNT (BEAKER) K/ L 1.80-8.00 (test xnjv=601) LYMPHOCYTES ABSOLUTE COUNT (BEAKER) K/ L 1.48-4.50 (test lirb=940) MONOCYTES ABSOLUTE COUNT (BEAKER) K/ L 0.00-1.30 (test nquq=474) EOSINOPHILS ABSOLUTE COUNT (BEAKER) K/ L 0.00-0.50 (test uiyf=755) BASOPHILS ABSOLUTE COUNT (BEAKER) K/ L 0.00-0.20 (test myse=014) (MANUAL DIFFERENTIAL)2017-12-04 06:17:00 Test Item Value Reference Range Comments NEUTROPHILS - REL (DIFF) (BEAKER) (test zwkj=8018) 81 % LYMPHOCYTES - REL (DIFF) (BEAKER) (test gkpo=4406) 10 % MONOCYTES - REL (DIFF) (BEAKER) (test qvja=8933) 9 % NEUTROPHILS - ABS (DIFF) (BEAKER) (test sqqa=6961) 4.37 K/ L 1.80-8.00 LYMPHOCYTES - ABS (DIFF) (BEAKER) (test tnal=0646) 0.54 K/ L 1.48-4.50 MONOCYTES - ABS (DIFF) (BEAKER) (test trsz=6294) 0.49 K/ L 0.00-1.30 TOTAL COUNTED (BEAKER) (test hibb=9330) 100 WBC MORPHOLOGY (BEAKER) (test xgpp=458) Normal LARGE PLT(BEAKER) (test ynhs=4481) Present GIANT PLATELETS (BEAKER) (test gijt=874) Present ANISOCYTOSIS (BEAKER) (test kgsv=832) 3+ many HYPOCHROMIA (BEAKER) (test ycmg=469) 3+ many MICROCYTES (BEAKER) (test pnnb=328) 1+ few VANCOMYCIN LEVEL, [id number] 05:45:00 Test Item Value Reference Range Comments VANCOMYCIN RANDOM (BEAKER) (test koap=693) 16.0 ug/mL Reference Range: No NormalsBASIC METABOLIC [id number] 05:42:00 Test Item Value Reference Range Comments SODIUM (BEAKER) (test 139 meq/L 135-148 bhyz=387) POTASSIUM (BEAKER) (test 4.8 meq/L 3.6-5.5 hawe=786) CHLORIDE (BEAKER) (test 96 meq/L 98-106 dfik=137) CO2 (BEAKER) (test 32 meq/L 20-29 pzir=010) BLOOD UREA NITROGEN 27 mg/dL 10-26 (BEAKER) (test aciu=424) CREATININE (BEAKER) (test 0.70 mg/dL 0.50-1.20 lvqt=910) GLUCOSE RANDOM (BEAKER) 237 mg/dL 70-110 (test vxxj=102) CALCIUM (BEAKER) (test 9.4 mg/dL 8.5-10.5 vegg=221) EGFR (BEAKER) (test 85 mL/min/1.73 sq m ESTIMATED GFR IS NOT fsqp=1932) ACCURATE CREATININE CLEARANCE IN PREDICTING GLOMERULAR FILTRATION RATE. ESTIMATED GFR IS NOT APPLICABLE FOR DIALYSIS PATIENTS. [id number] 05:36:00 Test Item Value Reference Range Comments MAGNESIUM (BEAKER) (test lxqz=171) 2.1 mg/dL 1.5-3.0 BLOOD [id number] 01:00:00 Test Item Value Reference Range Comments CULTURE (BEAKER) (test etaz=7201) No growth in 5 days BLOOD [id number] 01:00:00 Test Item Value Reference Range Comments CULTURE (BEAKER) (test asxt=7857) No growth in 5 days POCT-GLUCOSE [id number] 00:22:00 Test Item Value Reference Range Comments POC-GLUCOSE METER (BEAKER) 286 mg/dL 70-110 TESTED AT [address] (test ithx=1998) [facility] [address] POCT-GLUCOSE [id number] 16:44:00 Test Item Value Reference Range Comments POC-GLUCOSE METER (BEAKER) 229 mg/dL 70-110 TESTED AT [address] (test ztga=4472) [facility] [address] POCT-GLUCOSE [id number] 12:00:00 Test Item Value Reference Range Comments POC-GLUCOSE METER (BEAKER) 322 mg/dL 70-110 TESTED AT [address] (test itqj=6722) [facility] [address] BODY FLUID CULTURE + GRAM [id number] 10:33:00 Test Item Value Reference Range Comments CULTURE (BEAKER) (test yyjv=2623) No growth GRAM STAIN RESULT (BEAKER) (test 1+ WBCs cbuo=5029) GRAM STAIN RESULT (BEAKER) (test No organisms seen fasv=42982) RAD, CHEST, 1 VIEW, NON [id number] 10:23:00Reason for exam:->f/u pulmonary edemaFINAL REPORT Follow [...] Michel Verified Date/Time: 12/03/2017 10:23:59 Reading Location: [facility] Radiology Reading Room CBC W/PLT COUNT & AUTO [id number] 10:15:00 Test Item Value Reference Range Comments WHITE BLOOD CELL COUNT (BEAKER) (test vrig=346) 4.4 K/ L 4.0-10.0 RED BLOOD CELL COUNT (BEAKER) (test ggkk=386) 4.27 M/ L 4.00-5.00 HEMOGLOBIN (BEAKER) (test kmxp=470) 10.1 GM/DL 12.0-15.0 HEMATOCRIT (BEAKER) (test xpxy=378) 32.1 % 36.0-45.0 MEAN CORPUSCULAR VOLUME (BEAKER) (test zbwl=149) 75.3 fL 82.0-99.0 MEAN CORPUSCULAR HEMOGLOBIN (BEAKER) (test 23.6 pg 27.0-33.0 jggd=291) MEAN CORPUSCULAR HEMOGLOBIN CONC (BEAKER) (test 31.3 GM/DL 32.0-36.0 wzap=127) RED CELL DISTRIBUTION WIDTH (BEAKER) (test 35.0 % 10.3-14.2 vxbq=659) PLATELET COUNT (BEAKER) (test nexu=374) 404 K/CU MM 150-430 MEAN PLATELET VOLUME (BEAKER) (test vact=119) 10.4 fL 6.5-10.5 (MANUAL DIFFERENTIAL)2017-12-03 10:15:00 Test Item Value Reference Range Comments NEUTROPHILS - REL (DIFF) (BEAKER) (test 78 % xkkd=3115) LYMPHOCYTES - REL (DIFF) (BEAKER) (test 21 % nmas=6441) MONOCYTES - REL (DIFF) (BEAKER) (test eivh=7755) 1 % NEUTROPHILS - ABS (DIFF) (BEAKER) (test 3.43 K/ L 1.80-8.00 zahe=5938) LYMPHOCYTES - ABS (DIFF) (BEAKER) (test 0.92 K/ L 1.48-4.50 ucsa=3163) MONOCYTES - ABS (DIFF) (BEAKER) (test plds=1914) 0.04 K/ L 0.00-1.30 TOTAL COUNTED (BEAKER) (test hddt=5487) 100 WBC MORPHOLOGY (BEAKER) (test ktgy=398) Normal GIANT PLATELETS (BEAKER) (test ldux=493) Present ANISOCYTOSIS (BEAKER) (test egzy=085) 2+ moderate HYPOCHROMIA (BEAKER) (test zcqc=071) 2+ moderate BLOOD GAS, [id number] 10:03:00 Test Item Value Reference Range Comments PH ARTERIAL (BEAKER) (test wxgf=296) 7.43 7.35-7.45 PCO2 ARTERIAL (BEAKER) (test sama=238) 49 mmHg 35-45 PO2 ARTERIAL (BEAKER) (test evxd=220) 112 mmHg 80-90 O2 SATURATION ARTERIAL (BEAKER) (test yjnz=860) 98.1 % 96.0-97.0 HCO3 ARTERIAL (BEAKER) (test ydok=188) 32 mmol/L 21-29 BASE EXCESS ARTERIAL (BEAKER) (test dnlb=829) 6.3 mmol/L -2.0-3.0 PATIENT TEMPERATURE (BEAKER) (test tjmj=8441) 37.0 C FIO2 (BEAKER) (test uzvk=6395) 32.0 % VANCOMYCIN LEVEL, [id number] 08:51:00 Test Item Value Reference Range Comments VANCOMYCIN TROUGH (BEAKER) (test nlkg=643) 37.1 ug/mL 10.0-20.0 Vancomycin trough on 12/03/17 at 08:30BASIC METABOLIC [id number] 08:35:00 Test Item Value Reference Range Comments SODIUM (BEAKER) (test 137 meq/L 135-148 cpay=312) POTASSIUM (BEAKER) (test 4.7 meq/L 3.6-5.5 eirs=410) CHLORIDE (BEAKER) (test 98 meq/L 98-106 wfdj=324) CO2 (BEAKER) (test 30 meq/L 20-29 ywvj=619) BLOOD UREA NITROGEN 24 mg/dL 10-26 (BEAKER) (test cxna=744) CREATININE (BEAKER) (test 0.70 mg/dL 0.50-1.20 orzj=723) GLUCOSE RANDOM (BEAKER) 273 mg/dL 70-110 (test spwk=993) CALCIUM (BEAKER) (test 8.8 mg/dL 8.5-10.5 llwo=142) EGFR (BEAKER) (test 85 mL/min/1.73 sq m ESTIMATED GFR IS NOT agjz=3920) ACCURATE CREATININE CLEARANCE IN PREDICTING GLOMERULAR FILTRATION RATE. ESTIMATED GFR IS NOT APPLICABLE FOR DIALYSIS PATIENTS. [id number] 08:29:00 Test Item Value Reference Range Comments MAGNESIUM (BEAKER) (test wpee=814) 2.0 mg/dL 1.5-3.0 POCT-GLUCOSE [id number] 08:16:00 Test Item Value Reference Range Comments POC-GLUCOSE METER (BEAKER) 283 mg/dL 70-110 TESTED AT [address] (test iysb=9544) [facility] [address] POCT-GLUCOSE [id number] 00:34:00 Test Item Value Reference Range Comments POC-GLUCOSE METER (BEAKER) 333 mg/dL 70-110 TESTED AT [address] (test wfbh=3635) [facility] [address] POCT-GLUCOSE [id number] 21:32:00 Test Item Value Reference Range Comments POC-GLUCOSE METER (BEAKER) 316 mg/dL 70-110 Notified OMAIRA BELLA/TESTED AT [facility] (test wrbb=1237) [address] [place] [address] POCT-GLUCOSE [id number] 16:50:00 Test Item Value Reference Range Comments POC-GLUCOSE METER (BEAKER) 230 mg/dL 70-110 TESTED AT [address] (test jtsz=0230) [facility] [address] RESPIRATORY PANEL [id number] 15:22:00 Test Item Value Reference Range Comments HUMAN METAPNEUMOVIRUS (BEAKER) (test Not detected Not detected, Inconclusive impj=5197) RHINOVIRUS (BEAKER) (test ljzp=1770) Not detected Not detected, Inconclusive INFLUENZA A (BEAKER) (test Not detected Not detected, Inconclusive iodd=0011) INFLUENZA A SUBTYPE H1 (BEAKER) Not detected Not detected, Inconclusive (test zfdm=2592) INFLUENZA A SUBTYPE H3 (BEAKER) Not detected Not detected, Inconclusive (test ilib=6966) INFLUENZA A SUBTYPE H1-2009 (BEAKER) Not detected Not detected, Inconclusive (test fqyp=1800) INFLUENZA B (BEAKER) (test Not detected Not detected, Inconclusive lhxa=3738) RESPIRATORY SYNCYTIAL VIRUS (BEAKER) Not detected Not detected, Inconclusive (test fdcq=0538) PARAINFLUENZA VIRUS 1 (BEAKER) (test Not detected Not detected, Inconclusive bzwo=6315) PARAINFLUENZA VIRUS 2 (BEAKER) (test Not detected Not detected, Inconclusive vvkq=1857) PARAINFLUENZA VIRUS 3 (BEAKER) (test Not detected Not detected, Inconclusive uywk=3862) PARAINFLUENZA VIRUS 4 (BEAKER) (test Not detected Not detected, Inconclusive exhu=6936) ADENOVIRUS (BEAKER) (test rwal=6402) Not detected Not detected, Inconclusive CORONAVIRUS 229E (BEAKER) (test Not detected Not detected, Inconclusive ngqh=7293) CORONAVIRUS HKU1 (BEAKER) (test Not detected Not detected, Inconclusive evvu=6125) CORONAVIRUS NL63 (BEAKER) (test Not detected Not detected, Inconclusive gwid=1029) CORONAVIRUS OC43 (BEAKER) (test Not detected Not detected, Inconclusive iatd=6123) BORDETELLA PERTUSSIS (BEAKER) (test Not detected Not detected, Inconclusive vtcn=2290) CHLAMYDOPHILA PNEUMONIAE (BEAKER) Not detected Not detected, Inconclusive (test ljvu=4406) MYCOPLASMA PNEUMONIAE (BEAKER) (test Not detected Not detected, Inconclusive gxay=5682) POCT-GLUCOSE [id number] 12:04:00 Test Item Value Reference Range Comments POC-GLUCOSE METER (BEAKER) 247 mg/dL 70-110 TESTED AT [facility] [address] [place] [address] (test aogq=6052) [facility] [address] [id number] 10:56:00Medical Cytology Report Case: [id number] Authorizing Provider: Sari Church MD Collected: 11/30/2017 1515 Ordering Location: [address] Med/Surg Received: 12/01/2017 7710 Pathologist: Janet Cespedes MD Specimen: Pleural, Left LEFT PLEURAL FLUID (CYTOSPINS): - REACTIVE MESOTHELIAL CELLS IN A BACKGROUND OF PREDOMINANTLY CHRONIC INFLAMMATION- NO MALIGNANT CELLS IDENTIFIED [id number] pleural effusion, shortness of breath; history of multiple sclerosis LEFT PLEURAL FLUIDPrepared 4 cytospins from 250 ml light brown fluidCollected: [id number]: [id number]. [facility], Department of Pathology, [address] [place] [address] , [facility], [facility], [address] [place] [address], UFKE FLUID CULTURE + GRAM [id number] 09:58:00 Test Item Value Reference Range Comments CULTURE (BEAKER) (test occl=8880) No growth GRAM STAIN RESULT (BEAKER) (test 1+ WBCs ltlo=4508) GRAM STAIN RESULT (BEAKER) (test No organisms seen uoyx=53987) POCT-GLUCOSE [id number] 07:30:00 Test Item Value Reference Range Comments POC-GLUCOSE METER (BEAKER) 202 mg/dL 70-110 TESTED AT [facility] [address] [facility] (test ttbk=2196) [facility] [address] CBC W/PLT COUNT & AUTO [id number] 06:49:00 Test Item Value Reference Range Comments WHITE BLOOD CELL COUNT (BEAKER) (test 4.4 K/ L 4.0-10.0 tpaa=633) RED BLOOD CELL COUNT (BEAKER) (test 4.11 M/ L 4.00-5.00 yjmj=749) HEMOGLOBIN (BEAKER) (test etny=275) 9.6 GM/DL 12.0-15.0 HEMATOCRIT (BEAKER) (test usxs=728) 30.8 % 36.0-45.0 MEAN CORPUSCULAR VOLUME (BEAKER) (test 74.9 fL 82.0-99.0 ktzm=349) MEAN CORPUSCULAR HEMOGLOBIN (BEAKER) 23.4 pg 27.0-33.0 (test zuwz=387) MEAN CORPUSCULAR HEMOGLOBIN CONC (BEAKER) 31.2 GM/DL 32.0-36.0 (test vgvf=728) RED CELL DISTRIBUTION WIDTH (BEAKER) 34.4 % 10.3-14.2 (test nufe=620) PLATELET COUNT (BEAKER) (test zfow=394) 323 K/CU MM 150-430 MEAN PLATELET VOLUME (BEAKER) (test 9.5 fL 6.5-10.5 whmi=252) NEUTROPHILS RELATIVE PERCENT (BEAKER) % See manual diff (test uptu=062) LYMPHOCYTES RELATIVE PERCENT (BEAKER) % See manual diff (test dvfa=734) MONOCYTES RELATIVE PERCENT (BEAKER) (test % See manual diff rqlk=585) EOSINOPHILS RELATIVE PERCENT (BEAKER) % See manual diff (test qttc=507) BASOPHILS RELATIVE PERCENT (BEAKER) (test % See manual diff rasj=141) NEUTROPHILS ABSOLUTE COUNT (BEAKER) (test K/ L 1.80-8.00 jwea=171) LYMPHOCYTES ABSOLUTE COUNT (BEAKER) (test K/ L 1.48-4.50 mpli=441) MONOCYTES ABSOLUTE COUNT (BEAKER) (test K/ L 0.00-1.30 jgfx=629) EOSINOPHILS ABSOLUTE COUNT (BEAKER) (test K/ L 0.00-0.50 pvjs=194) BASOPHILS ABSOLUTE COUNT (BEAKER) (test K/ L 0.00-0.20 hehe=463) B-TYPE NATRIURETIC FACTOR (BNP)2017-12-02 06:02:00 Test Item Value Reference Range Comments B-TYPE NATRIURETIC PEPTIDE (BEAKER) (test 840 pg/mL 0-100 oljn=265) BASIC METABOLIC [id number] 05:58:00 Test Item Value Reference Range Comments SODIUM (BEAKER) (test 140 meq/L 135-148 sqwe=446) POTASSIUM (BEAKER) (test 4.2 meq/L 3.6-5.5 aszl=722) CHLORIDE (BEAKER) (test 102 meq/L 98-106 mluk=872) CO2 (BEAKER) (test 28 meq/L 20-29 igma=326) BLOOD UREA NITROGEN 21 mg/dL 10-26 (BEAKER) (test vgos=402) CREATININE (BEAKER) (test 0.60 mg/dL 0.50-1.20 wgee=509) GLUCOSE RANDOM (BEAKER) 209 mg/dL 70-110 (test wwky=967) CALCIUM (BEAKER) (test 8.4 mg/dL 8.5-10.5 ygad=677) EGFR (BEAKER) (test 102 mL/min/1.73 sq m ESTIMATED GFR IS NOT qnfe=2712) ACCURATE CREATININE CLEARANCE IN PREDICTING GLOMERULAR FILTRATION RATE. ESTIMATED GFR IS NOT APPLICABLE FOR DIALYSIS PATIENTS. [id number] 05:52:00 Test Item Value Reference Range Comments MAGNESIUM (BEAKER) (test hjwe=576) 2.0 mg/dL 1.5-3.0 RAD, CHEST, 1 VIEW, NON [id number] 05:48:00Reason for exam:->respiratory failure, bipapFINAL REPORT Chest [...] [place] Verified Date/Time: 2017 05:48:39 Reading Location: [address] Transitional Reading Room BLOOD GAS, [id number] 04:24:00 Test Item Value Reference Range Comments PH ARTERIAL (BEAKER) (test nfel=308) 7.43 7.35-7.45 PCO2 ARTERIAL (BEAKER) (test iajh=305) 48 mmHg 35-45 PO2 ARTERIAL (BEAKER) (test vdqw=021) 165 mmHg 80-90 O2 SATURATION ARTERIAL (BEAKER) (test jaek=934) 99.1 % 96.0-97.0 HCO3 ARTERIAL (BEAKER) (test kryr=587) 31 mmol/L 21-29 BASE EXCESS ARTERIAL (BEAKER) (test odvc=884) 5.6 mmol/L -2.0-3.0 PATIENT TEMPERATURE (BEAKER) (test ruvj=3215) 37.0 C FIO2 (BEAKER) (test honi=2900) 40.0 % RAPID INFLUENZA A&B [id number] 22:10:00 Test Item Value Reference Range Comments RAPID INFLUENZA A AG (BEAKER) (test Negative Negative, Inconclusive wudl=7194) RAPID INFLUENZA B AG (BEAKER) (test Negative Negative, Inconclusive eapn=3611) POCT-GLUCOSE [id number] 21:18:00 Test Item Value Reference Range Comments POC-GLUCOSE METER (BEAKER) 185 mg/dL 70-110 TESTED AT [address] (test klgy=0767) [facility] [address] POCT-GLUCOSE [id number] 16:52:00 Test Item Value Reference Range Comments POC-GLUCOSE METER (BEAKER) 262 mg/dL 70-110 TESTED AT [address] (test bnmm=3282) [facility] [address] ALBUMIN, BODY [id number] 15:03:00 Test Item Value Reference Range Comments ALBUMIN FLUID (BEAKER) (test mcba=000) 0.9 gm/dL Reference Range: No Normals Assay performance has not been validated for this type of specimen.LACTATE DEHYDROGENASE (LDH), BODY [id number] 14:46:00 Test Item Value Reference Range Comments LACTATE DEHYDROGENASE FLUID (BEAKER) 123 U/L Light's criteria identifies (test ofhg=504) effusions if one or more are pre Absence of reference range indicates that normals have not been defined.Assay performance has not been validated for this type of specimen.PROTEIN, BODY [id number] 14:46:00 Test Item Value Reference Range Comments PROTEIN FLUID (BEAKER) (test 1.7 g/dL Light's criteria identifies sulr=824) effusions if one or more are pre Absence of reference range indicates that normals have not been defined.Assay performance has not been validated for this type of specimen.GLUCOSE, BODY [id number] 14:46:00 Test Item Value Reference Range Comments GLUCOSE, BODY FLUID (BEAKER) (test odhz=5627) 256 mg/dL 70-110 Absence of reference range indicates that normals have not been defined.Assay performance has not been validated for this type of specimen.POCT-GLUCOSE [id number] 13:22:00 Test Item Value Reference Range Comments POC-GLUCOSE METER (BEAKER) 359 mg/dL 70-110 TESTED AT [facility] [address] [place] [address] (test bhvd=5038) [address] [facility] [address] RAD, CHEST, 1 VIEW, NON [id number] 12:54:00Reason for exam:->SOBShould this be performed at the bedside?->YesFINAL REPORT Comparison: 11/30/2017 TECHNIQUE: Single view of the chest FINDINGS: There are bilateral interstitial and airspace opacities. Overall these have decreased from before. No large effusion at this time. No gross pneumothorax. Support lines and tubes are stable. Signed: Suma Avilez MDReport Verified Date/Time: 12:54:49 Reading Location: [facility] Radiology Reading Room CBC W/PLT COUNT & AUTO [id number] 12:39:00 Test Item Value Reference Range Comments WHITE BLOOD CELL COUNT (BEAKER) (test dxzh=527) 4.8 K/ L 4.0-10.0 RED BLOOD CELL COUNT (BEAKER) (test ohix=108) 4.16 M/ L 4.00-5.00 HEMOGLOBIN (BEAKER) (test hcqw=688) 9.7 GM/DL 12.0-15.0 HEMATOCRIT (BEAKER) (test qkii=805) 30.7 % 36.0-45.0 MEAN CORPUSCULAR VOLUME (BEAKER) (test kerq=568) 73.9 fL 82.0-99.0 MEAN CORPUSCULAR HEMOGLOBIN (BEAKER) (test 23.3 pg 27.0-33.0 uhab=584) MEAN CORPUSCULAR HEMOGLOBIN CONC (BEAKER) (test 31.5 GM/DL 32.0-36.0 coaw=191) RED CELL DISTRIBUTION WIDTH (BEAKER) (test 34.4 % 10.3-14.2 fvft=294) PLATELET COUNT (BEAKER) (test quti=857) 380 K/CU MM 150-430 MEAN PLATELET VOLUME (BEAKER) (test wvjf=267) 9.3 fL 6.5-10.5 (MANUAL DIFFERENTIAL)2017-12-01 12:39:00 Test Item Value Reference Range Comments NEUTROPHILS - REL (DIFF) (BEAKER) (test 84 % fthf=8095) LYMPHOCYTES - REL (DIFF) (BEAKER) (test 4 % eyfp=4858) MONOCYTES - REL (DIFF) (BEAKER) (test vkos=9698) 11 % BANDS - REL (DIFF) (BEAKER) (test cvub=2099) 1 % 0-10 NEUTROPHILS - ABS (DIFF) (BEAKER) (test 4.03 K/ L 1.80-8.00 mueb=8016) LYMPHOCYTES - ABS (DIFF) (BEAKER) (test 0.19 K/ L 1.48-4.50 nnmm=1587) MONOCYTES - ABS (DIFF) (BEAKER) (test ywxs=8226) 0.53 K/ L 0.00-1.30 BANDS-ABS (DIFF) (BEAKER) (test newn=0128) 0.0 K/ L 0.0-0.8 TOTAL COUNTED (BEAKER) (test tuwg=6519) 100 BANDS + SEGMENTED NEUTROPHILS (BEAKER) (test 4.08 vrtp=6181) WBC MORPHOLOGY (BEAKER) (test qyzh=284) Normal GIANT PLATELETS (BEAKER) (test uqiu=904) Present ANISOCYTOSIS (BEAKER) (test ubsw=231) 3+ many HYPOCHROMIA (BEAKER) (test sphm=551) 3+ many MICROCYTES (BEAKER) (test xcvc=444) 2+ moderate TARGET CELLS (BEAKER) (test kljg=829) 1+ few COMPREHENSIVE METABOLIC [id number] 12:26:00 Test Item Value Reference Range Comments TOTAL PROTEIN (BEAKER) 6.1 gm/dL 6.0-8.5 (test wtbm=291) ALBUMIN (BEAKER) (test 2.7 g/dL 3.5-5.0 bhoj=7512) ALKALINE PHOSPHATASE 118 U/L 30-115 (BEAKER) (test muae=037) BILIRUBIN TOTAL (BEAKER) 0.3 mg/dL 0.1-1.2 (test aeus=494) SODIUM (BEAKER) (test 139 meq/L 135-148 yiaz=466) POTASSIUM (BEAKER) (test 3.5 meq/L 3.6-5.5 fzzq=240) CHLORIDE (BEAKER) (test 105 meq/L 98-106 oork=267) CO2 (BEAKER) (test 25 meq/L 20-29 uaug=696) BLOOD UREA NITROGEN 21 mg/dL 10-26 (BEAKER) (test kmoe=479) CREATININE (BEAKER) (test 0.70 mg/dL 0.50-1.20 jskl=792) GLUCOSE RANDOM (BEAKER) 387 mg/dL 70-110 (test pyvz=145) CALCIUM (BEAKER) (test 8.2 mg/dL 8.5-10.5 wnng=202) AST (SGOT) (BEAKER) (test 16 U/L 5-40 xkyt=466) ALT (SGPT) (BEAKER) (test 8 U/L 5-50 dpnc=071) EGFR (BEAKER) (test 85 mL/min/1.73 sq m ESTIMATED GFR IS NOT eyrx=7356) ACCURATE CREATININE CLEARANCE IN PREDICTING GLOMERULAR FILTRATION RATE. ESTIMATED GFR IS NOT APPLICABLE FOR DIALYSIS PATIENTS. [id number] 12:17:00 Test Item Value Reference Range Comments MAGNESIUM (BEAKER) (test whnv=495) 1.8 mg/dL 1.5-3.0 BLOOD GAS, [id number] 10:40:00 Test Item Value Reference Range Comments PH ARTERIAL (BEAKER) (test ytyf=148) 7.37 7.35-7.45 PCO2 ARTERIAL (BEAKER) (test ayjz=653) 44 mmHg 35-45 PO2 ARTERIAL (BEAKER) (test osfs=300) 223 mmHg 80-90 O2 SATURATION ARTERIAL (BEAKER) (test rmus=903) 99.4 % 96.0-97.0 HCO3 ARTERIAL (BEAKER) (test yrir=373) 25 mmol/L 21-29 BASE EXCESS ARTERIAL (BEAKER) (test tmzx=332) -0.8 mmol/L -2.0-3.0 PATIENT TEMPERATURE (BEAKER) (test qyor=5978) 37.0 C FIO2 (BEAKER) (test ompg=2273) 100.0 % POCT-GLUCOSE [id number] 06:33:00 Test Item Value Reference Range Comments POC-GLUCOSE METER (BEAKER) 287 mg/dL 70-110 TESTED AT [facility] [address] [place] [address] (test uirt=2182) [facility] [address] POCT-GLUCOSE [id number] 21:41:00 Test Item Value Reference Range Comments POC-GLUCOSE METER (BEAKER) 349 mg/dL 70-110 Notified OMAIRA BELLA/TESTED AT [facility] (test ymwh=3837) [address] [place] [address] POCT-GLUCOSE [id number] 18:39:00 Test Item Value Reference Range Comments POC-GLUCOSE METER (BEAKER) 234 mg/dL 70-110 TESTED AT [facility] [address] [place] [address] (test aflm=0832) [facility] [address] PH, BODY [id number] 17:51:00 Test Item Value Reference Range Comments PH, BODY FLUID (BEAKER) (test zjez=1528) 8.00 POCT-GLUCOSE [id number] 17:31:00 Test Item Value Reference Range Comments POC-GLUCOSE METER (BEAKER) 266 mg/dL 70-110 TESTED AT [address] (test lrds=5689) [facility] [address] POCT-GLUCOSE [id number] 17:31:00 Test Item Value Reference Range Comments POC-GLUCOSE METER (BEAKER) 194 mg/dL 70-110 TESTED AT [address] (test riij=3579) [facility] [address] U/S, [id number] 16:47:00Laterality?->LeftReason for exam:-> sobFINAL REPORT Ultrasound Guided [...] Avilez Verified Date/Time: 11/30/2017 16:47:10 Reading Location: [facility] Radiology Reading Room Electronically signed by: SUMA AVILEZ M.D. on 04:47 PMRAD, CHEST, 1 VIEW, NON [id number] 15:51:00Reason for exam:- >post thoracentesisShould this be performed at the bedside?->YesFINAL REPORT Comparison: 11/29/2017 TECHNIQUE: Single view of the chest FINDINGS: Status post recent left thoracentesis. Left pleural effusion has decreased. No pneumothorax postprocedure. No other significant change. Signed: Suma Avilez MDReport Verified Date/Time: 11/30/2017 15:51:09 Reading Location: [facility] Radiology Reading Room TSH/FREE T4 IF [id number] 06: 41:00 Test Item Value Reference Range Comments THYROID STIMULATING HORMONE (BEAKER) (test 2.23 uIU/mL 0.35-5.50 dfek=000) HEMOGLOBIN [id number] 06:28:00 Test Item Value Reference Range Comments HEMOGLOBIN A1C (BEAKER) (test pztq=482) 5.1 % 4.3-6.1 LIPID [id number] 06:22:00 Test Item Value Reference Range Comments TRIGLYCERIDES (BEAKER) (test xjog=150) 85 mg/dL CHOLESTEROL (BEAKER) (test wsjc=832) 158 mg/dL HDL CHOLESTEROL (BEAKER) (test svzo=162) 63 mg/dL LDL CHOLESTEROL CALCULATED (BEAKER) (test 78 mg/dL nwbp=037) Triglyceride Reference Range: Low Risk <150 Borderline 150- 199 High Risk 200-499 Very High Risk >=500Cholesterol Reference Range: Low Risk <200 Borderline 200-239 High Risk > 240HDL Cholesterol Reference Range: Low Risk >=60 High Risk <40LDL Cholesterol Reference Range: Optimal <100 Near Optimal 100-129 Borderline 130-159 High 160-189 Very High >=190POCT-GLUCOSE [id number] 22:11:00 Test Item Value Reference Range Comments POC-GLUCOSE METER (BEAKER) 182 mg/dL 70-110 TESTED AT [address] (test bpww=5555) [facility] [address] POCT-GLUCOSE [id number] 18:10:00 Test Item Value Reference Range Comments POC-GLUCOSE METER (BEAKER) 157 mg/dL 70-110 TESTED AT [facility] [address] [facility] (test ktwr=9932) [facility] [address] POCT-GLUCOSE [id number] 17:58:00 Test Item Value Reference Range Comments POC-GLUCOSE METER (BEAKER) 173 mg/dL 70-110 TESTED AT [facility] [address] [facility] (test nsbf=2184) [facility] [address] TROPONIN [id number] 17:19:00 Test Item Value Reference Range Comments TROPONIN I (BEAKER) (test khad=854) < ng/mL 0.00-0.15 Troponin I (TnI) levels [...] and persistent tachyarrhythmia.CREATINE KINASE (CK), TOTAL AND [id number] 17:15:00 Test Item Value Reference Range Comments CREATINE KINASE TOTAL (BEAKER) (test agua=325) 27 U/L 25-235 CREATINE KINASE-MB (BEAKER) (test wrfj=024) 1.5 ng/mL 0.0-4.9 CREATINE KINASE-MB INDEX (BEAKER) (test jisx=181) 5.6 % CK-MB Reference Range:<5 Normal5-10 Borderline>10 AbnormalALBUMIN, BODY [id number] 16:41:00 Test Item Value Reference Range Comments ALBUMIN FLUID (BEAKER) (test mvfv=227) 0.8 gm/dL Reference Range: No Normals Assay performance has not been validated for this type of specimen.LACTATE DEHYDROGENASE (LDH), BODY [id number] 16:37:00 Test Item Value Reference Range Comments LACTATE DEHYDROGENASE FLUID (BEAKER) 93 U/L Light's criteria identifies (test wevt=876) effusions if one or more are pre Absence of reference range indicates that normals have not been defined.Assay performance has not been validated for this type of specimen.PROTEIN, BODY [id number] 16:37:00 Test Item Value Reference Range Comments PROTEIN FLUID (BEAKER) (test 1.4 g/dL Light's criteria identifies vefz=936) effusions if one or more are pre Absence of reference range indicates that normals have not been defined.Assay performance has not been validated for this type of specimen.GLUCOSE, BODY [id number] 16:37:00 Test Item Value Reference Range Comments GLUCOSE, BODY FLUID (BEAKER) (test savl=7521) 203 mg/dL 70-110 Absence of reference range indicates that normals have not been defined.Assay performance has not been validated for this type of specimen.PH, BODY [id number] 14:49:00 Test Item Value Reference Range Comments PH, BODY FLUID (BEAKER) (test htfs=8867) 7.72 U/S, [id number] 14:41:00Laterality?->RightReason for exam:-> Resp failureFINAL REPORT Thoracentesis: Performing M.D. : Sabina Michel M.D. Fish Fryer: nonePreprocedure diagnosis: pleural effusionPostprocedure Diagnosis: sameSpecimen removed: [...] MDReport Verified Date/Time: 11/29/2017 14:41:36 Reading Location: [facility] Radiology Reading Room Electronically signed by: SABINA MICHEL M.D. on 02:41 PMRAD, CHEST, 1 VIEW, NON [id number] 13:52:00Reason for exam:- >s/p thoraShould this be performed at the bedside?->YesFINAL REPORT Chest one view compared to November 29 Discussion: Pulmonary infiltrates are improved. Left-sided small residual effusion is noted with no pneumothorax after thoracentesis. Signed: Gopi Noble Verified Date/Time: 11/29/2017 13:52:23 Reading Location: [facility] [id number] Consult Reading Room 01 :52 [id number]/[id number] 11:20:00 Test Item Value Reference Range Comments PROTIME (BEAKER) (test rqsw=531) 11.0 seconds 9.3-12.0 INR (BEAKER) (test ksjv=509) 1.0 <=5.9 PARTIAL THROMBOPLASTIN TIME (BEAKER) (test 27.2 seconds 23.0-35.0 dsnc=790) RECOMMENDED COUMADIN/WARFARIN INR THERAPY RANGESSTANDARD DOSE: 2.0 - 3.0 Includes: PROPHYLAXIS forvenous thrombosis, systemic embolization; TREATMENT for venous thrombosis and/or pulmonary embolus.HIGH RISK: Target INR is 2.5-3.5 for patients with mechanical heart valves.RAD, CHEST, 1 VIEW, NON [id number] 09:36:00Reason for exam:->SOBShould this be performed at the bedside?-> YesFINAL REPORT Chest one view compared to November 28 Discussion: Bilateral semiconfluent airspace opacities are worse since the previous study. Effusions seen well on recent CT are not well seen on plain film. No pneumothorax. Bilateral lines in place unchanged. Signed: Gopi Noble Verified Date/Time: 11/29/2017 09:36:30 Reading Location: [facility] Radiology Reading Room BLOOD GAS, [id number] 09:00:00 Test Item Value Reference Range Comments PH ARTERIAL (BEAKER) (test aglp=249) 7.40 7.35-7.45 PCO2 ARTERIAL (BEAKER) (test yvjl=034) 42 mmHg 35-45 PO2 ARTERIAL (BEAKER) (test zmwf=666) 164 mmHg 80-90 O2 SATURATION ARTERIAL (BEAKER) (test npqn=348) 99.1 % 96.0-97.0 HCO3 ARTERIAL (BEAKER) (test jbuw=421) 25 mmol/L 21-29 BASE EXCESS ARTERIAL (BEAKER) (test odpv=278) 0.1 mmol/L -2.0-3.0 PATIENT TEMPERATURE (BEAKER) (test ifpp=8871) 36.0 C FIO2 (BEAKER) (test iicu=1694) 80.0 % TROPONIN [id number] 07:11:00 Test Item Value Reference Range Comments TROPONIN I (BEAKER) (test qija=636) 0.03 ng/mL 0.00-0.15 Troponin I (TnI) levels [...] and persistent tachyarrhythmia.CREATINE KINASE (CK), TOTAL AND [id number] 07:09:00 Test Item Value Reference Range Comments CREATINE KINASE TOTAL (BEAKER) (test qgfx=003) 24 U/L 25-235 CREATINE KINASE-MB (BEAKER) (test hpbv=414) 1.7 ng/mL 0.0-4.9 CREATINE KINASE-MB INDEX (BEAKER) (test qoni=887) 7.1 % CK-MB Reference Range:<5 Normal5-10 Borderline>10 AbnormalCT, CHEST WITH IV CONTRAST- PE TEST [id number] 00:49:00Reason for exam:->sob and hypoxiaWhat is the [...] or bone scan, if indicated. Signed: Prince Michael MDReport Verified Date/Time: 00:49:46 Reading Location: [address] [address] Reading [facility] TROPONIN [id number] 00:22:00 Test Item Value Reference Range Comments TROPONIN I (BEAKER) (test bxri=208) < ng/mL 0.00-0.15 Troponin I (TnI) levels [...] and persistent tachyarrhythmia.CREATINE KINASE (CK), TOTAL AND [id number] 23:35:00 Test Item Value Reference Range Comments CREATINE KINASE TOTAL (BEAKER) (test ddiu=429) 25 U/L 25-235 CREATINE KINASE-MB (BEAKER) (test xbtf=158) 1.8 ng/mL 0.0-4.9 CREATINE KINASE-MB INDEX (BEAKER) (test uaex=461) 7.2 % CK-MB Reference Range:<5 Normal5-10 Borderline>10 AbnormalBASIC METABOLIC [id number] 23:28:00 Test Item Value Reference Range Comments SODIUM (BEAKER) (test 139 meq/L 135-148 efqe=675) POTASSIUM (BEAKER) (test 3.9 meq/L 3.6-5.5 kmhu=039) CHLORIDE (BEAKER) (test 105 meq/L 98-106 lmhb=420) CO2 (BEAKER) (test 24 meq/L 20-29 pvaw=909) BLOOD UREA NITROGEN 9 mg/dL 10-26 (BEAKER) (test tsau=936) CREATININE (BEAKER) (test 0.50 mg/dL 0.50-1.20 losa=616) GLUCOSE RANDOM (BEAKER) 144 mg/dL 70-110 (test vnom=390) CALCIUM (BEAKER) (test 8.0 mg/dL 8.5-10.5 dtty=097) EGFR (BEAKER) (test 125 mL/min/1.73 sq m ESTIMATED GFR IS NOT jysb=5353) ACCURATE CREATININE CLEARANCE IN PREDICTING GLOMERULAR FILTRATION RATE. ESTIMATED GFR IS NOT APPLICABLE FOR DIALYSIS PATIENTS. B-TYPE NATRIURETIC FACTOR (BNP)2017-11-28 23:17:00 Test Item Value Reference Range Comments B-TYPE NATRIURETIC PEPTIDE (BEAKER) (test 929 pg/mL 0-100 cnfn=641) BLOOD GAS, [id number] 23:16:00 Test Item Value Reference Range Comments PH ARTERIAL (BEAKER) (test cjsy=076) 7.40 7.35-7.45 PCO2 ARTERIAL (BEAKER) (test skik=071) 46 mmHg 35-45 PO2 ARTERIAL (BEAKER) (test jiqw=575) 80 mmHg 80-90 O2 SATURATION ARTERIAL (BEAKER) (test gnsc=044) 95.7 % 96.0-97.0 HCO3 ARTERIAL (BEAKER) (test rpvs=192) 28 mmol/L 21-29 BASE EXCESS ARTERIAL (BEAKER) (test eqkw=854) 2.4 mmol/L -2.0-3.0 PATIENT TEMPERATURE (BEAKER) (test tylj=3254) 37.0 C FIO2 (BEAKER) (test asix=1083) 21.0 % CBC W/PLT COUNT & AUTO [id number] 22:59:00 Test Item Value Reference Range Comments WHITE BLOOD CELL COUNT (BEAKER) (test vodm=434) 8.9 K/ L 4.0-10.0 RED BLOOD CELL COUNT (BEAKER) (test sohm=818) 4.36 M/ L 4.00-5.00 HEMOGLOBIN (BEAKER) (test bqsp=241) 9.5 GM/DL 12.0-15.0 HEMATOCRIT (BEAKER) (test xhgb=562) 31.9 % 36.0-45.0 MEAN CORPUSCULAR VOLUME (BEAKER) (test kryr=267) 73.2 fL 82.0-99.0 MEAN CORPUSCULAR HEMOGLOBIN (BEAKER) (test 21.8 pg 27.0-33.0 tyaf=845) MEAN CORPUSCULAR HEMOGLOBIN CONC (BEAKER) (test 29.8 GM/DL 32.0-36.0 bdsl=301) RED CELL DISTRIBUTION WIDTH (BEAKER) (test 30.3 % 10.3-14.2 feqc=127) PLATELET COUNT (BEAKER) (test svia=689) 188 K/CU MM 150-430 MEAN PLATELET VOLUME (BEAKER) (test zbel=637) 10.4 fL 6.5-10.5 NEUTROPHILS RELATIVE PERCENT (BEAKER) (test 69 % wwwo=021) LYMPHOCYTES RELATIVE PERCENT (BEAKER) (test 9 % jmrf=672) MONOCYTES RELATIVE PERCENT (BEAKER) (test 18 % plff=540) EOSINOPHILS RELATIVE PERCENT (BEAKER) (test 3 % hwpx=021) BASOPHILS RELATIVE PERCENT (BEAKER) (test 1 % lrlm=121) NEUTROPHILS ABSOLUTE COUNT (BEAKER) (test 6.20 K/ L 1.80-8.00 agtk=645) LYMPHOCYTES ABSOLUTE COUNT (BEAKER) (test 0.80 K/ L 1.48-4.50 lrvf=385) MONOCYTES ABSOLUTE COUNT (BEAKER) (test 1.60 K/ L 0.00-1.30 lqbl=406) EOSINOPHILS ABSOLUTE COUNT (BEAKER) (test 0.20 K/ L 0.00-0.50 qtqw=226) BASOPHILS ABSOLUTE COUNT (BEAKER) (test 0.10 K/ L 0.00-0.20 jhut=988) (MANUAL DIFFERENTIAL)2017-11-28 22:59:00 Test Item Value Reference Range Comments NEUTROPHILS - REL (DIFF) (BEAKER) (test 76 % cqge=7898) LYMPHOCYTES - REL (DIFF) (BEAKER) (test 11 % sdxl=0450) MONOCYTES - REL (DIFF) (BEAKER) (test veny=8396) 11 % EOSINOPHILS - REL (DIFF) (BEAKER) (test 2 % tgmh=4053) NEUTROPHILS - ABS (DIFF) (BEAKER) (test 6.76 K/ L 1.80-8.00 veqv=3486) LYMPHOCYTES - ABS (DIFF) (BEAKER) (test 0.98 K/ L 1.48-4.50 yjte=0447) MONOCYTES - ABS (DIFF) (BEAKER) (test mbpf=9835) 0.98 K/ L 0.00-1.30 EOSINOPHILS - ABS (DIFF) (BEAKER) (test 0.18 K/ L 0.00-0.50 tumz=6957) TOTAL COUNTED (BEAKER) (test lszj=8936) 100 WBC MORPHOLOGY (BEAKER) (test jfgv=026) Normal LARGE PLT(BEAKER) (test pflo=9954) Present GIANT PLATELETS (BEAKER) (test shhf=803) Present ANISOCYTOSIS (BEAKER) (test ohhy=103) 3+ many HYPOCHROMIA (BEAKER) (test qqox=338) 2+ moderate MICROCYTES (BEAKER) (test pnqx=469) 1+ few POLYCHROMATOPHILLIC RBCS(BEAKER) (test gcbe=528) 1+ few KETONE, [id number] 22:22:00 Test Item Value Reference Range Comments KETONES, BLOOD (BEAKER) (test poes=3221) 0.3 mmol/L <0.4 PH, [id number] 22:22:00 Test Item Value Reference Range Comments PH VENOUS (BEAKER) (test jolz=939) 7.36 7.32-7.42 RAD, CHEST, 1 VIEW, NON [id number] 22:20:00Reason for exam:->sobShould this be performed at [...] is no acute bony abnormality. Signed: Prince Michael MDReport Verified Date/Time: 11/28/2017 22:20:20 Reading Location: [address] Reading Room Electronically signed by: PRINCE MICHAEL M.D. on 10:20 PM
[2018-05-25 13:43] VITALS: BMI 21.4
[2018-05-25 14:16] LABS: Absolute Lymphocytes (CBC) 2.5 K/uL (0.7-4.9); Absolute Monocytes 3.6 K/uL (0.1-1.3); Absolute Neutrophil 6.5 K/uL (1.8-8.0); Basophils % 0.4 % (0-1.3); Eosinophils % 3.4 % (0-4.4); Hematocrit 28.5 % (36.0-45.0); Lymphocytes % 19.3 % (15.3-44.8); MPV 10.2 fL (7.6-11.3); Monocytes % 27.4 % (3.3-12.3); RBC Red Blood Cell Count 4.13 M/uL (3.86-4.86)
[2018-05-25 14:25] LABS: BUN Blood Urea Nitrogen 30 mg/dL (7-18); Bicarbonate 25 mmol/L (21-32); Glucose Level 147 mg/dL (74-106); Potassium 3.9 mmol/L (3.5-5.1); Sodium Level 135 mmol/L (136-145)
[2018-05-25] MEDS ORDERED: TRAMADOL HCL 50 MG TAB PO PRN (15:07)
[2018-05-25] MEDS: hydrOXYzine HCl 25 MG TAB PO SCH ×2 (17:02→23:25)
[2018-05-25] MEDS: Meropenem 500 MG in NA CHLORIDE 0.9% 100 ML IV SCH (17:02)
[2018-05-25] MEDS: ACETAMINOPHEN 325 MG TABLET PO SCH ×2 (17:03→21:00)
[2018-05-25 19:41] LABS: Urine Appearance CLOUDY; Urine Bilirubin NEGATIVE (NEG); Urine Blood NEGATIVE (NEG); Urine Color YELLOW; Urine Glucose NEGATIVE (NEG); Urine Protein 2+ (NEG); Urine Urobilinogen 0.2 mg/dL (0.2-1.0)
[2018-05-25 20:25] LABS: Urine Bacteria <20 /HPF (<20); Urine Culture Reflex Order REFLEXED
[2018-05-25] MEDS: ZOLPIDEM TARTRATE 10 MG TABLET PO SCH (23:25)
[2018-05-25] MEDS: BACLOFEN 10 MG TAB PO SCH (23:26)
[2018-05-25] MEDS: DOXEPIN HCL 10 MG CAP PO SCH (23:26)
[2018-05-26] MEDS: Meropenem 500 MG in NA CHLORIDE 0.9% 100 ML IV SCH ×3 (00:33→18:11)
[2018-05-26] MEDS: LEVOTHYROXINE SOD 0.125 MG TAB PO SCH (05:01)
[2018-05-26 05:27] LABS: Absolute Lymphocytes (CBC) 2.4 K/uL (0.7-4.9); Absolute Monocytes 3.6 K/uL (0.1-1.3); Absolute Neutrophil 6.3 K/uL (1.8-8.0); Basophils % 0.4 % (0-1.3); Eosinophils % 4.3 % (0-4.4); Hematocrit 27.2 % (36.0-45.0); Lymphocytes % 18.5 % (15.3-44.8); MCH 22.4 pg (27.0-35.0); MCV 69.9 fL (80-100); MPV 9.3 fL (7.6-11.3); Monocytes % 27.8 % (3.3-12.3); RBC Red Blood Cell Count 3.89 M/uL (3.86-4.86)
[2018-05-26 05:57] LABS: Magnesium 1.9 mg/dL (1.8-2.4); Prealbumin 17.2 mg/dL (20-40)
[2018-05-26 05:58] LABS: Thyroid Stimulating Hormone 5.01 uIU/mL (0.36-3.74)
[2018-05-26 06:05] LABS: Anisocytosis 2+; Blood Morphology Comment NOTED (NOT SEEN); Platelet Estimate ADEQ; Poikilocytosis 1+; Urine White Blood Cell Casts OK
[2018-05-26] MEDS ORDERED: COLLAGENASE 30 GM OINTMENT TOP SCH (09:00)
[2018-05-26] MEDS: ACETAMINOPHEN 325 MG TABLET PO SCH ×5 (09:00→21:48)
--- NOTE | 2018-05-26 09:38 | P.PN ---
Subjective Date of Service: 05/26/18 Primary Care Provider: sri Chief Complaint: infected pressure ulcer Subjective: No new changes (Patient is complaining of pain and refusing blood draws. she has not been keeping her lantus in the fridge at home.) Review of Systems 10-point ROS is otherwise unremarkable Integumentary: Other (Pressure ulcer on the sacrum) Physical Examination - Vital Signs Temperature: 97.3 F Blood Pressure: 105/56 Pulse: 95 Respirations: 17 Pulse Ox (%): 97 - Physical Exam General: Alert, In no apparent distress HEENT: Atraumatic, PERRLA, EOMI Neck: Supple, JVD not distended Respiratory: Clear to auscultation bilaterally, Normal air movement Cardiovascular: Regular rate/rhythm, Normal S1 S2 Gastrointestinal: Normal bowel sounds, No tenderness Musculoskeletal: No tenderness Integumentary: No rashes, Pressure ulcer (on sacrum and lower legs) Neurological: Normal speech, Normal tone, Normal affect Lymphatics: No axilla or inguinal lymphadenopathy - Studies Laboratory Data (last 24 hrs) 05/26/18 05:02: Magnesium 1.9, Triglycerides 123, Cholesterol 155, HDL Cholesterol 63 H, Cholesterol/HDL Ratio 2.46 05/26/18 05:02: WBC 12.8 H, Hgb 8.7 L, Hct 27.2 L, Plt Count 306 05/25/18 13:50: Sodium 135 L, Potassium 3.9, BUN 30 H, Creatinine 0.50 L, Glucose 147 H 05/25/18 13:50: WBC 13.1 H, Hgb 9.1 L, Hct 28.5 L, Plt Count 329 Microbiology Data (last 24 hrs): 05/25/18 13:50 Blood - Blood Anaerobic Blood Culture - Final Assessment & Plan - Problems (Diagnosis) (1) Wound infection Current Visit: No Status: Chronic Plan: continue meropenem. plans for LTAC (2) Stage III pressure ulcer of sacral region Current Visit: No Status: Acute Plan: will continue her on meropenem. Will try to get her to ltac. Based on the extent of the wound. Will get the wound cultures from the wound care center (3) Diabetes mellitus Onset Date: 02/18/15 Current Visit: No Status: Chronic Plan: Have discussed the proper storage of lantus. Despite that the patient a1c is well controlled. (4) Multiple sclerosis Onset Date: 02/18/15 Current Visit: No Status: Chronic Plan: Bed bound, has suprapubic cath. Sees Dr. Tellez Discharge Plan: LTAC Plan to discharge in: Greater than 2 days - Code Status/Comfort Care Code Status Assessed: Yes Code Status: Full Code Physician Review: Patient Assessed, Agree with Above Assessment and Plan Critical Care: No Time Spent Managing Pts Care (In Minutes): 25
[2018-05-26] MEDS: FERROUS SULFATE 325 MG TAB PO SCH (10:10)
[2018-05-26] MEDS: ZINC SULFATE 220 MG CAP PO SCH (10:10)
[2018-05-26] MEDS: INSULIN GLARGINE 100 UNITS/ML SQ SCH (10:11)
[2018-05-26] MEDS: hydrOXYzine HCl 25 MG TAB PO SCH ×4 (10:11→21:48)
[2018-05-26] MEDS: BACLOFEN 10 MG TAB PO SCH ×2 (10:12→21:48)
[2018-05-26 16:28] VITALS: O2SAT 97
[2018-05-26] MEDS: JUVEN PACKET PO SCH (21:00)
[2018-05-26] MEDS: DOXEPIN HCL 10 MG CAP PO SCH (21:48)
[2018-05-26] MEDS: CARBAMAZEPINE 200 MG TAB PO SCH (22:45)
[2018-05-26] MEDS: ZOLPIDEM TARTRATE 10 MG TABLET PO SCH (23:54)
[2018-05-27] MEDS: Meropenem 500 MG in NA CHLORIDE 0.9% 100 ML IV SCH ×2 (00:19→09:22)
[2018-05-27] MEDS: LEVOTHYROXINE SOD 0.125 MG TAB PO SCH (06:19)
[2018-05-27 06:48] LABS: Absolute Lymphocytes (CBC) 2.4 K/uL (0.7-4.9); Absolute Monocytes 2.8 K/uL (0.1-1.3); Absolute Neutrophil 5.1 K/uL (1.8-8.0); Basophils % 0.6 % (0-1.3); Eosinophils % 4.9 % (0-4.4); Hematocrit 24.7 % (36.0-45.0); Lymphocytes % 21.7 % (15.3-44.8); MCH 22.7 pg (27.0-35.0); MCV 69.1 fL (80-100); MPV 9.7 fL (7.6-11.3); Monocytes % 25.7 % (3.3-12.3); RBC Red Blood Cell Count 3.58 M/uL (3.86-4.86)
[2018-05-27] MEDS: JUVEN PACKET PO SCH (09:00)
[2018-05-27] MEDS: ACETAMINOPHEN 325 MG TABLET PO SCH ×3 (09:00→15:47)
[2018-05-27] MEDS: FERROUS SULFATE 325 MG TAB PO SCH (09:19)
[2018-05-27] MEDS: ZINC SULFATE 220 MG CAP PO SCH (09:19)
[2018-05-27] MEDS: CARBAMAZEPINE 200 MG TAB PO SCH (09:20)
[2018-05-27] MEDS: BACLOFEN 10 MG TAB PO SCH (09:20)
[2018-05-27] MEDS: hydrOXYzine HCl 25 MG TAB PO SCH ×2 (09:21→13:19)
[2018-05-27] MEDS: INSULIN GLARGINE 100 UNITS/ML SQ SCH (09:22)
--- NOTE | 2018-05-27 09:50 | CON ---
History Of Present Illness: She is a pleasant lady with neurogenic bladder secondary to multiple sclerosis, she is bedbound, has history of wounds, MRSA in wounds, she came in for positive cultures. She also has chronic UTI and suprapubic tube was changed recently by me when she was in a hospital and was also changed at home by her nurse. She was complaining of some leakage around the suprapubic tube, was irrigated last night by the nurse, also irrigated in the room. Allergies: MORPHINE, AUGMENTIN, GABAPENTIN, LEVAQUIN, PENICILLIN, ____, CODEINE , AND TAPE. Home Medications: Levothyroxine, metformin, Pravachol, vitamin D, zinc, baclofen, carbamazepine,___. Past Medical History: Multiple sclerosis, insulin-dependent diabetes mellitus, MRSA _. Family History: Significant for mother had heart disease, CHF. Father had lung disease. Social History: No alcohol use. No drug use. No caffeine use. Review of Systems: Ten point review of systems significant for skin breakdown, pressure ulcer in the sacrum and on the left axilla. Physical Examination: VITAL SIGNS: Afebrile, pale. GENERAL: Lying in bed, alert, awake, pleasant lady. HEENT: Atraumatic, normocephalic. Neck: Supple. Respiratory: Clear. Cardiovascular: S1-S2. Gastrointestinal: Normal bowel sounds. Musculoskeletal: No tenderness. Skin: No rashes. Neurologic: Alert and oriented. Lymphatics: Negative. Assessment And Plan: 1. Wound infection. 2. Suprapubic catheter. She had just passed a pus clot into catheter tubing and I went ahead and irrigated the catheter with normal saline, pretty clear return. This clot could have been obstructing the Crane catheter and causing her to leak urine around the catheter, which seems to be draining well now. Plan for her that she is going to a tertiary care in [place] for wound care. ANTHONY/MIKE Voice ID: [id number] Report ID: [id number] REMA
--- NOTE | 2018-05-27 14:20 | P.PN ---
Subjective Date of Service: 05/27/18 Primary Care Provider: sri Chief Complaint: infected pressure ulcer Subjective: No new changes Review of Systems 10-point ROS is otherwise unremarkable Integumentary: Other (decubitus ulcers) Physical Examination - Vital Signs Temperature: 97.2 F Blood Pressure: 105/55 Pulse: 86 Respirations: 18 Pulse Ox (%): 96 - Physical Exam General: Alert, In no apparent distress HEENT: Atraumatic, PERRLA, EOMI Neck: Supple, JVD not distended Respiratory: Clear to auscultation bilaterally, Normal air movement Cardiovascular: Regular rate/rhythm, Normal S1 S2 Gastrointestinal: Normal bowel sounds, No tenderness Musculoskeletal: No tenderness Integumentary: No rashes Neurological: Normal speech, Normal tone, Normal affect Lymphatics: No axilla or inguinal lymphadenopathy - Studies Laboratory Data (last 24 hrs) 05/27/18 06:25: WBC 10.9 D, Hgb 8.1 L, Hct 24.7 L, Plt Count 309 Microbiology Data (last 24 hrs): 05/25/18 13:50 Blood - Blood Anaerobic Blood Culture - Final Assessment & Plan - Problems (Diagnosis) (1) Wound infection Current Visit: No Status: Chronic Plan: continue meropenem. plans for LTAC cultures from outside facility show ecoli and pseudmonas. Both sensitive to Meropenem. (2) Stage III pressure ulcer of sacral region Current Visit: No Status: Acute Plan: will continue her on meropenem. Will try to get her to ltac. Based on the extent of the wound. Will get the wound cultures from the wound care center (3) Diabetes mellitus Onset Date: 02/18/15 Current Visit: No Status: Chronic Plan: Have discussed the proper storage of lantus. Despite that the patient a1c is well controlled. (4) Multiple sclerosis Onset Date: 02/18/15 Current Visit: No Status: Chronic Plan: Bed bound, has suprapubic cath. Indira Tellez Discharge Plan: LTAC Plan to discharge in: Greater than 2 days - Code Status/Comfort Care Code Status Assessed: No Code Status: Full Code Physician Review: Patient Assessed, Agree with Above Assessment and Plan Critical Care: No Time Spent Managing Pts Care (In Minutes): 25
[2018-05-27 17:23] VITALS: BP 110/60; TEMP 97
[2018-05-27] MEDS ORDERED: CARBAMAZEPINE 200 MG TAB PO SCH (21:00)
--- NOTE | 2018-05-28 11:29 | P.DS ---
Admission Date: 05/25/18 Discharge Date: 05/28/18 Primary Care Provider: sri Disposition: ALF ACUTE CARE FACILITY Discharge Condition: FAIR Reason for Admission: infected pressure ulcer - Problems (1) Wound infection Status: Chronic (2) Stage III pressure ulcer of sacral region Status: Acute (3) Diabetes mellitus Onset Date: 02/18/15 Status: Chronic (4) Multiple sclerosis Onset Date: 02/18/15 Status: Chronic Brief History of Present Illness: Patient was in the wound care center for her regular visit. She had wound cultures from her home health showing E coli and Pseudomonas. The pseudomonas was resistant to several drugs. She had also been fired by her home health company, due to the extensive nature of her wounds. She has no other home health companies willing to accept her. She was deemed a high risk of sepsis secondary to her wounds. Plans was made for hospital admission and to get her to an LTAC center. Hospital Course: Patient was admitted from the wound care center. She was started on meropenem. Seen by Dr. Toth for care of her superpubic cath. Due to the extensive nature of her wounds, her lack of home care and the infections the patient was deemed a good candidate for ltac. 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 She was accepted to [facility]. We will transfer her there. We wish the patient the best of luck. Vital Signs/Physical Exam: Temp Pulse Resp BP Pulse Ox 97.0 F 86 20 110/60 96 05/27/18 16:00 05/27/18 16:00 05/27/18 16:00 05/27/18 16:00 05/27/18 16:00 General: Alert, In no apparent distress HEENT: Atraumatic, PERRLA, EOMI Neck: Supple, JVD not distended Respiratory: Clear to auscultation bilaterally, Normal air movement Cardiovascular: Regular rate/rhythm, Normal S1 S2 Gastrointestinal: Normal bowel sounds, No tenderness Musculoskeletal: No tenderness Integumentary: No rashes Neurological: Normal speech, Normal tone, Normal affect Lymphatics: No axilla or inguinal lymphadenopathy Laboratory Data at Discharge: WBC 10.9 K/uL (4.3-10.9) D 05/27/18 06:25 Hgb 8.1 g/dL (12.0-15.0) L 05/27/18 06:25 Hct 24.7 % (36.0-45.0) L 05/27/18 06:25 Plt Count 309 K/uL (152-406) 05/27/18 06:25 Sodium 135 mmol/L (136-145) L 05/25/18 13:50 Potassium 3.9 mmol/L (3.5-5.1) 05/25/18 13:50 BUN 30 mg/dL (7-18) H 05/25/18 13:50 Creatinine 0.50 mg/dL (0.55-1.3) L 05/25/18 13:50 Glucose 147 mg/dL (74-106) H 05/25/18 13:50 Magnesium 1.9 mg/dL (1.8-2.4) 05/26/18 05:02 Triglycerides 123 mg/dL (<150) 05/26/18 05:02 Cholesterol 155 mg/dL (<200) 05/26/18 05:02 HDL Cholesterol 63 mg/dL (40-60) H 05/26/18 05:02 Cholesterol/HDL Ratio 2.46 05/26/18 05:02 Home Medications: Ascorbic Acid [Vitamin C*] 1,000 mg PO DAILY 05/25/18 Carbamazepine [Carbamazepine ER] 300 mg PO BID 05/25/18 Cranberry Conc/Ascorbic Acid [Cranberry Plus Vitamin C Sftgl] 1 tab PO DAILY Doxepin HCl [Sinequan] 10 mg PO BEDTIME 05/25/18 Ferrous Sulfate [Ferrous Sulfate*] 325 mg PO BID 05/25/18 Insulin Glargine Human [Lantus*] 60 units SQ DAILY 05/25/18 Lactobacillus Acidophilus [Acidophilus] 1 each PO DAILYPRN PRN 05/25/18 RX: Baclofen 20 mg PO TID 05/25/18 RX: Levothyroxine [Synthroid*] 0.125 mcg PO AC 05/25/18 RX: Metformin HCl [Glucophage*] 500 mg PO BID 05/25/18 RX: Potassium 99 mg PO DAILY 05/25/18 RX: Pravastatin Sodium 40 mg PO BEDTIME 05/25/18 RX: Zinc 50 mg PO DAILY 05/25/18 RX: hydrOXYzine HCl [Atarax] 100 mg PO QID 05/25/18 Ranitidine [Zantac*] 150 mg PO DAILY 05/25/18 Vitamin E (Dl,Tocopheryl Acet) [Vitamin E] 1,000 iu PO DAILY 05/25/18 RX: Meropenem [Merrem 1 GM/100 ML NS IVPB] 1 gm IV Q12H 10 Days #20 bag New Medications: RX: Meropenem [Merrem 1 GM/100 ML NS IVPB] 1 gm IV Q12H 10 Days #20 bag Diet: AHA Activity: Fall precautions Physician Review: Patient Assessed, Agree with Above Assessment and Plan Time spent managing pt's care (in minutes): 45
== END 2018-05-27 18:07 | DRG 592 ==
LOC: 4TH 12:20 → UNDOADMIN 12:20 → 4TH 12:38
PROVIDERS: ADMIT Internal Medicine; ATTEND Internal Medicine
DX: L89.153 Pressure ulcer of sacral region, stage 3 (principal); G35 Multiple sclerosis; E11.9 Type 2 diabetes mellitus without complications; F32.9 Major depressive disorder, single episode, unspecified; F41.9 Anxiety disorder, unspecified; E03.9 Hypothyroidism, unspecified; L89.323 Pressure ulcer of left buttock, stage 3; N31.9 Neuromuscular dysfunction of bladder, unspecified; L89.313 Pressure ulcer of right buttock, stage 3; E78.5 Hyperlipidemia, unspecified; B96.5 Pseudomonas (aeruginosa) (mallei) (pseudomallei) as the cause of diseases classified elsewhere; B96.20 Unspecified Escherichia coli [E. coli] as the cause of diseases classified elsewhere; Z16.24 Resistance to multiple antibiotics; Z79.4 Long term (current) use of insulin; Z74.01 Bed confinement status; Z88.1 Allergy status to other antibiotic agents; Z88.5 Allergy status to narcotic agent; Z88.0 Allergy status to penicillin; Z88.8 Allergy status to other drugs, medicaments and biological substances; Z91.048 Other nonmedicinal substance allergy status; Z86.14 Personal history of Methicillin resistant Staphylococcus aureus infection
CPT/HCPCS: 36415; 80048; 80061; 81001; 82962; 83036; 83605; 83735; 84134; 84439; 84443; 85025; 87040; 87077; 87086; 87088; 87186; 99215; A6010; J3590

== ENCOUNTER 2019-01-09 13:03 | Inpatient (IN) | payer OTHER ==
--- OUTSIDE RECORDS SUMMARY | 2019-01-09 13:47 | XMS REPORT | Clinical Summary ---
:1955 [facility] Address [address], [place] [address] Care Team Providers Name Role Phone Sharpjennifer Primary Care Provider Allergies Active Allergy Reactions Severity Noted Date Comments Amoxicillin-Pot Clavulanate Other (See Comments) 11/28/2017 Cant remember Codeine Other (See Comments) 11/28/2017 hallucination Levofloxacin Nausea And Vomiting 11/28/2017 Morphine Other (See Comments) 11/28/2017 Other 11/28/2017 Adhesive tape Penicillins 11/29/2017 Medications Medication Sig Dispensed Refills Start Date End Date Status DULoxetine (CYMBALTA) Take 30 mg by mouth 0 Active 30 MG capsule daily. lactulose (CHRONULAC) Take 20 g by mouth 0 Active 20 gram/30 mL daily as needed . solution pantoprazole Take 40 mg by mouth 0 Active (PROTONIX) 40 MG daily. tablet traMADol (ULTRAM-ER) Take 100 mg by 0 Active 100 MG 24 hr tablet mouth daily. baclofen (LIORESAL) Take 20 mg by mouth 0 Active 20 MG tablet 3 (three) times daily. atorvastatin Take 10 mg by mouth 0 Active (LIPITOR) 10 MG daily. tablet ferrous sulfate 325 Take 325 mg by 0 Active (65 FE) MG tablet mouth daily with breakfast. zinc sulfate Take 220 mg by 0 Active (ZINCATE) 220 (50) mg mouth daily. capsule vitamin E 600 UNIT Take 800 Units by 0 Active capsule mouth every 12 (twelve) hours . aspirin 81 MG Take 81 mg by mouth 0 Active chewable tablet daily. ascorbic acid, Take 500 mg by 0 Active vitamin C, (VITAMIN mouth daily. C) 500 MG tablet levothyroxine Take 125 mcg by 0 Active (SYNTHROID, mouth Every morning LEVOTHROID) 125 MCG on an empty tablet stomach. zolpidem (AMBIEN) 10 Take 10 mg by mouth 0 Active mg tablet every night as needed for Insomnia. acetaminophen Take 500 mg by 0 Active (TYLENOL) 500 MG mouth every 6 (six) tablet hours as needed for Pain. albuterol (PROVENTIL) Take 2.5 mg by 0 Active 2.5 mg/0.5 mL Nebu nebulization every nebulizer solution 6 (six) hours. carBAMazepine Take 600 mg by 0 Active (CARBATROL) 300 MG 12 mouth every 12 hr capsule (twelve) hours. lidocaine 4 % Apply topically as 0 Active dressing needed (spray). Lactobacillus Take 1 tablet by 0 Active acidoph-L.bulgar mouth daily. (FLORANEX) 1 million cell Tab per tablet Missing or Take 290 mcg by 0 Active Non-Formulary mouth daily Medication linactotide . Active Problems Problem Noted Date Acute pulmonary edema 11/29/2017 Social History Tobacco Use Types Packs/Day Years Used Date Never Smoker Smokeless Tobacco: Never Used Tobacco Cessation: Counseling Given: No Alcohol Use Drinks/Week oz/Week Comments No Sex Assigned at Date Recorded Not on file Job Start Date Occupation Industry Not on file Not on file Not on file Travel History Travel Start Travel End No recent travel history available. Last Filed Vital Signs Not on file Plan of Treatment Not on file Results Not on fileafter 01/08/2018 Insurance Payer Benefit Plan / Group Subscriber ID Type Phone Address CARE IMPROVEMENT MEDICARE [employer] CARE IMPROVEMENT PLUS xxxxxxxxx CARE Advance Directives Patient has advance care planning documents, and code status on file. For more information, please contact:[address] [phone] Code Status Date Activated Date Inactivated Comments Full Code 11/29/2017 8:00 PM 12/08/2017 11:24 PM This code status was determined by: Patient
--- OUTSIDE RECORDS SUMMARY | 2019-01-09 13:49 | XMS REPORT ---
:1955 [facility] Address [address] [place] [address] Dr. Gold [address] [place] [address] Care Team Providers Name Role Phone CAPRICE, [...] (BEAKER) (test 190 mg/dL 70-110 TESTED AT [address] qpdb=2620) [facility] [address] POCT-GLUCOSE [id number] 16:35:00 Test Item Value Reference Range Comments POC-GLUCOSE METER (BEAKER) 114 mg/dL 70-110 TESTED AT [address] (test godt=8756) [facility] [address] RAD, CHEST, 1 VIEW, NON [id number] 14:54:00Reason for exam:->follow upFINAL REPORT Chest, 1 [...] Dunne Verified Date/Time: 12/08/2017 14:54:31 Reading Location: [facility] Radiology Reading Room Electronically signedby: TARIQ DUNNE MD on 12/08/2017 02:54 PMPOCT-GLUCOSE [id number] 12:33:00 Test Item Value Reference Range Comments POC-GLUCOSE METER (BEAKER) 212 mg/dL 70-110 TESTED AT [facility] [address] (test edhz=9854) [address] [facility] [address] CBC W/PLT COUNT & AUTO [id number] 08:28:00 Test Item Value Reference Range Comments WHITE BLOOD CELL COUNT (BEAKER) (test almd=781) 9.7 K/ L 4.0-10.0 RED BLOOD CELL COUNT (BEAKER) (test wyok=933) 4.38 M/ L 4.00-5.00 HEMOGLOBIN (BEAKER) (test hhsv=843) 10.6 GM/DL 12.0-15.0 HEMATOCRIT (BEAKER) (test tfwv=515) 33.5 % 36.0-45.0 MEAN CORPUSCULAR VOLUME (BEAKER) (test ljmf=101) 76.6 fL 82.0-99.0 MEAN CORPUSCULAR HEMOGLOBIN (BEAKER) (test 24.1 pg 27.0-33.0 tdcv=418) MEAN CORPUSCULAR HEMOGLOBIN CONC (BEAKER) (test 31.5 GM/DL 32.0-36.0 tqnd=899) RED CELL DISTRIBUTION WIDTH (BEAKER) (test 34.0 % 10.3-14.2 aksp=476) PLATELET COUNT (BEAKER) (test titf=215) 224 K/CU MM 150-430 MEAN PLATELET VOLUME (BEAKER) (test qllc=084) 12.0 fL 6.5-10.5 (MANUAL DIFFERENTIAL)2017-12-08 08:28:00 Test Item Value Reference Range Comments NEUTROPHILS - REL (DIFF) (BEAKER) (test 50 % cqir=6143) LYMPHOCYTES - REL (DIFF) (BEAKER) (test 19 % edqz=2417) MONOCYTES - REL (DIFF) (BEAKER) (test asrt=5324) 18 % EOSINOPHILS - REL (DIFF) (BEAKER) (test 5 % nvqe=7223) BANDS - REL (DIFF) (BEAKER) (test cvlu=6726) 2 % 0-10 ATYPICAL LYMPHOCYTE - REL (DIFF) (BEAKER) (test 6 % 0-0 npdv=192) NEUTROPHILS - ABS (DIFF) (BEAKER) (test 4.85 K/ L 1.80-8.00 kqee=6510) LYMPHOCYTES - ABS (DIFF) (BEAKER) (test 1.84 K/ L 1.48-4.50 fhkh=4923) MONOCYTES - ABS (DIFF) (BEAKER) (test bdgr=3666) 1.75 K/ L 0.00-1.30 EOSINOPHILS - ABS (DIFF) (BEAKER) (test 0.49 K/ L 0.00-0.50 vyiz=2904) BANDS-ABS (DIFF) (BEAKER) (test mqhs=6379) 0.2 K/ L 0.0-0.8 ATYPICAL LYMPHOCYTES - ABS (DIFF) (BEAKER) (test 0.58 K/ L 0.00-0.00 aych=603) TOTAL COUNTED (BEAKER) (test rlpc=4512) 100 BANDS + SEGMENTED NEUTROPHILS (BEAKER) (test 5.04 klme=6885) WBC MORPHOLOGY (BEAKER) (test mhtp=148) Normal LARGE PLT(BEAKER) (test kfta=6203) Present GIANT PLATELETS (BEAKER) (test vnxz=794) Present SCHISTOCYTES (BEAKER) (test lanq=276) 1+ few ANISOCYTOSIS (BEAKER) (test suns=908) 2+ moderate HYPOCHROMIA (BEAKER) (test vmmv=780) 1+ few MICROCYTES (BEAKER) (test lezd=055) 1+ few OVALOCYTES (BEAKER) (test wiep=542) 1+ few POIKILOCYTES (BEAKER) (test xprd=691) 1+ few TARGET CELLS (BEAKER) (test qxst=103) 1+ few B-TYPE NATRIURETIC FACTOR (BNP)2017-12-08 07:14:00 Test Item Value Reference Range Comments B-TYPE NATRIURETIC PEPTIDE (BEAKER) (test 234 pg/mL 0-100 zxdm=192) BASIC METABOLIC [id number] 07:09:00 Test Item Value Reference Range Comments SODIUM (BEAKER) (test 139 meq/L 135-148 bcol=900) POTASSIUM (BEAKER) (test 4.0 meq/L 3.6-5.5 foie=655) CHLORIDE (BEAKER) (test 99 meq/L 98-106 kzqj=437) CO2 (BEAKER) (test 31 meq/L 20-29 pizn=550) BLOOD UREA NITROGEN 30 mg/dL 10-26 (BEAKER) (test xuoo=448) CREATININE (BEAKER) (test 0.60 mg/dL 0.50-1.20 zpvm=149) GLUCOSE RANDOM (BEAKER) 138 mg/dL 70-110 (test kzrv=623) CALCIUM (BEAKER) (test 8.8 mg/dL 8.5-10.5 jzap=200) EGFR (BEAKER) (test 102 mL/min/1.73 sq m ESTIMATED GFR IS NOT nwde=9304) ACCURATE CREATININE CLEARANCE IN PREDICTING GLOMERULAR FILTRATION RATE. ESTIMATED GFR IS NOT APPLICABLE FOR DIALYSIS PATIENTS. POCT-GLUCOSE [id number] 21:24:00 Test Item Value Reference Range Comments POC-GLUCOSE METER ([facility]) 261 mg/dL 70-110 TESTED AT [address] (test qtqk=4047) [facility] [address] POCT-GLUCOSE [id number] 17:41:00 Test Item Value Reference Range Comments POC-GLUCOSE METER ([facility]) 166 mg/dL 70-110 TESTED AT [address] (test tqlz=1685) [facility] [address] POCT-GLUCOSE [id number] 12:01:00 Test Item Value Reference Range Comments POC-GLUCOSE METER ([facility]) 211 mg/dL 70-110 TESTED AT [address] (test zmfw=3908) [facility] [address] VANCOMYCIN LEVEL, [id number] 09:35:00 Test Item Value Reference Range Comments VANCOMYCIN TROUGH (AKER) (test tidq=543) 17.3 ug/mL 10.0-20.0 CBC W/PLT COUNT & AUTO [id number] 06:57:00 Test Item Value Reference Range Comments WHITE BLOOD CELL COUNT (BEAKER) (test hehp=184) 8.1 K/ L 4.0-10.0 RED BLOOD CELL COUNT (BEAKER) (test incj=045) 4.04 M/ L 4.00-5.00 HEMOGLOBIN (BEAKER) (test gwcr=140) 9.7 GM/DL 12.0-15.0 HEMATOCRIT (BEAKER) (test vtvc=737) 30.7 % 36.0-45.0 MEAN CORPUSCULAR VOLUME (BEAKER) (test edaw=040) 76.0 fL 82.0-99.0 MEAN CORPUSCULAR HEMOGLOBIN (BEAKER) (test 24.1 pg 27.0-33.0 mpih=668) MEAN CORPUSCULAR HEMOGLOBIN CONC (BEAKER) (test 31.7 GM/DL 32.0-36.0 okij=444) RED CELL DISTRIBUTION WIDTH (BEAKER) (test 33.7 % 10.3-14.2 ndhc=258) PLATELET COUNT (BEAKER) (test xlad=774) 229 K/CU MM 150-430 MEAN PLATELET VOLUME (BEAKER) (test msei=428) 11.6 fL 6.5-10.5 (MANUAL DIFFERENTIAL)2017-12-07 06:57:00 Test Item Value Reference Range Comments NEUTROPHILS - REL (DIFF) (BEAKER) (test 71 % bikb=7275) LYMPHOCYTES - REL (DIFF) (BEAKER) (test 14 % yopa=0940) MONOCYTES - REL (DIFF) (BEAKER) (test faoy=4095) 10 % EOSINOPHILS - REL (DIFF) (BEAKER) (test 1 % sgna=6870) BASOPHILS - REL (DIFF) (BEAKER) (test stlc=1192) 2 % ATYPICAL LYMPHOCYTE - REL (DIFF) (BEAKER) (test 2 % 0-0 zokr=434) NEUTROPHILS - ABS (DIFF) (BEAKER) (test 5.75 K/ L 1.80-8.00 cnve=2406) LYMPHOCYTES - ABS (DIFF) (BEAKER) (test 1.13 K/ L 1.48-4.50 yumr=9030) MONOCYTES - ABS (DIFF) (BEAKER) (test bosn=7103) 0.81 K/ L 0.00-1.30 EOSINOPHILS - ABS (DIFF) (BEAKER) (test 0.08 K/ L 0.00-0.50 mdbf=8023) BASOPHILS - ABS (DIFF) (BEAKER) (test waol=5942) 0.16 K/ L 0.00-0.20 ATYPICAL LYMPHOCYTES - ABS (DIFF) (BEAKER) (test 0.16 K/ L 0.00-0.00 xtkw=681) TOTAL COUNTED (BEAKER) (test zsjd=0098) 100 WBC MORPHOLOGY (BEAKER) (test fgvc=737) Normal LARGE PLT(BEAKER) (test vmxl=0333) Present ANISOCYTOSIS (BEAKER) (test elgz=585) 2+ moderate HYPOCHROMIA (BEAKER) (test cvlz=415) 1+ few MICROCYTES (BEAKER) (test lbpi=076) 1+ few POIKILOCYTES (BEAKER) (test ybxn=004) 1+ few POLYCHROMATOPHILLIC RBCS(BEAKER) (test rltn=428) 1+ few TARGET CELLS (BEAKER) (test sfxk=676) 1+ few B-TYPE NATRIURETIC FACTOR (BNP)2017-12-07 06:30:00 Test Item Value Reference Range Comments B-TYPE NATRIURETIC PEPTIDE (BEAKER) (test 614 pg/mL 0-100 stgq=142) BASIC METABOLIC [id number] 06:29:00 Test Item Value Reference Range Comments SODIUM (BEAKER) (test 141 meq/L 135-148 ucpt=929) POTASSIUM (BEAKER) (test 3.6 meq/L 3.6-5.5 hprb=631) CHLORIDE (BEAKER) (test 95 meq/L 98-106 blle=933) CO2 (BEAKER) (test 37 meq/L 20-29 uyuy=042) BLOOD UREA NITROGEN 31 mg/dL 10-26 (BEAKER) (test fqji=037) CREATININE (BEAKER) (test 0.60 mg/dL 0.50-1.20 nxar=177) GLUCOSE RANDOM (BEAKER) 144 mg/dL 70-110 (test dmmj=164) CALCIUM (BEAKER) (test 8.6 mg/dL 8.5-10.5 zqfc=783) EGFR (BEAKER) (test 102 mL/min/1.73 sq m ESTIMATED GFR IS NOT tgcp=6076) ACCURATE CREATININE CLEARANCE IN PREDICTING GLOMERULAR FILTRATION RATE. ESTIMATED GFR IS NOT APPLICABLE FOR DIALYSIS PATIENTS. POCT-GLUCOSE [id number] 06:23:00 Test Item Value Reference Range Comments POC-GLUCOSE METER (BEAKER) 156 mg/dL 70-110 TESTED AT [facility] [address] [place] [address] (test bnms=2615) [facility] [address] POCT-GLUCOSE [id number] 21:36:00 Test Item Value Reference Range Comments POC-GLUCOSE METER (BEAKER) 220 mg/dL 70-110 TESTED AT [facility] [address] [place] [address] (test leos=6549) [facility] [address] POCT-GLUCOSE [id number] 17:12:00 Test Item Value Reference Range Comments POC-GLUCOSE METER (BEAKER) 177 mg/dL 70-110 TESTED AT [address] (test gwjc=9014) [facility] [address] POCT-GLUCOSE [id number] 17:12:00 Test Item Value Reference Range Comments POC-GLUCOSE METER (BEAKER) 203 mg/dL 70-110 TESTED AT [address] (test rphg=4848) [facility] [address] POCT-GLUCOSE [id number] 12:29:00 Test Item Value Reference Range Comments POC-GLUCOSE METER (BEAKER) 151 mg/dL 70-110 TESTED AT [address] (test lvnq=7755) [facility] [address] CBC W/PLT COUNT & AUTO [id number] 08:57:00 Test Item Value Reference Range Comments WHITE BLOOD CELL COUNT (BEAKER) (test pzzc=062) 9.2 K/ L 4.0-10.0 RED BLOOD CELL COUNT (BEAKER) (test fedj=301) 4.16 M/ L 4.00-5.00 HEMOGLOBIN (BEAKER) (test eotx=147) 9.9 GM/DL 12.0-15.0 HEMATOCRIT (BEAKER) (test glkm=616) 31.9 % 36.0-45.0 MEAN CORPUSCULAR VOLUME (BEAKER) (test qspc=815) 76.7 fL 82.0-99.0 MEAN CORPUSCULAR HEMOGLOBIN (BEAKER) (test 23.8 pg 27.0-33.0 ppwx=381) MEAN CORPUSCULAR HEMOGLOBIN CONC (BEAKER) (test 31.1 GM/DL 32.0-36.0 olsp=522) RED CELL DISTRIBUTION WIDTH (BEAKER) (test 34.5 % 10.3-14.2 tkdj=364) PLATELET COUNT (BEAKER) (test adtz=364) 256 K/CU MM 150-430 MEAN PLATELET VOLUME (BEAKER) (test fugb=405) 10.5 fL 6.5-10.5 (MANUAL DIFFERENTIAL)2017-12-06 08:57:00 Test Item Value Reference Range Comments NEUTROPHILS - REL (DIFF) (BEAKER) (test 78 % iywj=9521) LYMPHOCYTES - REL (DIFF) (BEAKER) (test 10 % uhnj=9788) MONOCYTES - REL (DIFF) (BEAKER) (test afdw=8798) 5 % BANDS - REL (DIFF) (BEAKER) (test atmz=6086) 2 % 0-10 ATYPICAL LYMPHOCYTE - REL (DIFF) (BEAKER) (test 5 % 0-0 gqub=396) NEUTROPHILS - ABS (DIFF) (BEAKER) (test 7.18 K/ L 1.80-8.00 cezv=9852) LYMPHOCYTES - ABS (DIFF) (BEAKER) (test 0.92 K/ L 1.48-4.50 aryc=4238) MONOCYTES - ABS (DIFF) (BEAKER) (test ybjx=4924) 0.46 K/ L 0.00-1.30 BANDS-ABS (DIFF) (BEAKER) (test voap=2131) 0.2 K/ L 0.0-0.8 ATYPICAL LYMPHOCYTES - ABS (DIFF) (BEAKER) (test 0.46 K/ L 0.00-0.00 ewit=213) TOTAL COUNTED (BEAKER) (test uivv=7296) 100 BANDS + SEGMENTED NEUTROPHILS (BEAKER) (test 7.36 ghae=2726) ATYPICAL LYMPHS(BEAKER) (test ikia=3093) Present LARGE PLT(BEAKER) (test cvqt=9259) Present GIANT PLATELETS (BEAKER) (test jkvk=806) Present SCHISTOCYTES (BEAKER) (test ctcw=495) 1+ few ANISOCYTOSIS (BEAKER) (test pqnp=070) 2+ moderate HYPOCHROMIA (BEAKER) (test lqto=776) 1+ few OVALOCYTES (BEAKER) (test fshs=264) 1+ few POIKILOCYTES (BEAKER) (test viue=986) 1+ few POLYCHROMATOPHILLIC RBCS(BEAKER) (test qejl=825) 1+ few TARGET CELLS (BEAKER) (test fbae=862) 1+ few PERIPHERAL BLOOD SMEAR - PATH REVIEW LAB [id number] 08:39:00 Test Item Value Reference Range Comments RBC MORPHOLOGY (BEAKER) Microcytosis (test jtsp=3057) RBC MORPHOLOGY (BEAKER) Target Cells (test kauo=63371) RBC MORPHOLOGY (BEAKER) Hypochromasia (test aups=90363) RBC MORPHOLOGY (BEAKER) Anisocytosis (test cadi=53157) WBC MORPHOLOGY (BEAKER) Left Shift (test ijui=5346) WBC MORPHOLOGY (BEAKER) Atypical Lymphs (test ucup=692313) WBC MORPHOLOGY (BEAKER) Hypersegmented Neutrophils (test wfwj=681631) PLT MORPHOLOGY (BEAKER) Large Platelets (test rmxd=4532) PERIPHERAL SMR REVIEW Microcytic hypochromic anemia (BEAKER) (test giyl=3035) with anisocytosis and target cells. Few hypersegmented neutrophils. Findings are suggestive of iron deficiency anemia. Recommend correlation with iron levels. [id number] Janet Cespedes M.D. (electronic (BEAKER) (test byep=4999) signature) VANCOMYCIN LEVEL, [id number] 07:05:00 Test Item Value Reference Range Comments VANCOMYCIN RANDOM (BEAKER) (test bhts=270) 18.1 ug/mL Reference Range: No NormalsBASIC METABOLIC [id number] 07:05:00 Test Item Value Reference Range Comments SODIUM (BEAKER) (test 139 meq/L 135-148 bnmo=068) POTASSIUM (BEAKER) (test 4.2 meq/L 3.6-5.5 clsd=699) CHLORIDE (BEAKER) (test 96 meq/L 98-106 xrti=363) CO2 (BEAKER) (test 34 meq/L 20-29 didy=859) BLOOD UREA NITROGEN 37 mg/dL 10-26 (BEAKER) (test kmhz=906) CREATININE (BEAKER) (test 0.70 mg/dL 0.50-1.20 fzfu=124) GLUCOSE RANDOM (BEAKER) 177 mg/dL 70-110 (test silk=574) CALCIUM (BEAKER) (test 8.8 mg/dL 8.5-10.5 ywpd=344) EGFR (BEAKER) (test 85 mL/min/1.73 sq m ESTIMATED GFR IS NOT viwb=1208) ACCURATE CREATININE CLEARANCE IN PREDICTING GLOMERULAR FILTRATION RATE. ESTIMATED GFR IS NOT APPLICABLE FOR DIALYSIS PATIENTS. POCT-GLUCOSE [id number] 06:40:00 Test Item Value Reference Range Comments POC-GLUCOSE METER (BEAKER) 196 mg/dL 70-110 TESTED AT [address] (test ytfq=2256) [facility] [address] POCT-GLUCOSE [id number] 00:57:00 Test Item Value Reference Range Comments POC-GLUCOSE METER (BEAKER) 252 mg/dL 70-110 TESTED AT [address] (test qmpn=8781) [facility] [address] VANCOMYCIN LEVEL, [id number] 21:36:00 Test Item Value Reference Range Comments VANCOMYCIN TROUGH (BEAKER) (test kifj=815) 24.7 ug/mL 10.0-20.0 POCT-GLUCOSE [id number] 21:21:00 Test Item Value Reference Range Comments POC-GLUCOSE METER (BEAKER) 345 mg/dL 70-110 Notified RN MD/TESTED AT [facility] (test kwps=3064) [address] [place] [address] POCT-GLUCOSE [id number] 16:29:00 Test Item Value Reference Range Comments POC-GLUCOSE METER (BEAKER) 416 mg/dL 70-110 Notified RN MD/TESTED AT [facility] (test ehzn=2580) [address] [place] [address] POCT-GLUCOSE [id number] 11:19:00 Test Item Value Reference Range Comments POC-GLUCOSE METER (BEAKER) 430 mg/dL 70-110 Notified RN MD/TESTED AT [facility] (test afdx=8731) [address] [place] [address] RAD, CHEST, 1 VIEW, NON [id number] 10:38:00Reason for exam:->History of Pleural effusionShould this be performed at the bedside?->YesFINAL REPORT Chest one view compared to December Discussion: Bilateral hazy airspace opacities are similar with small right-sided effusion. No pneumothorax. Lines in place unchanged. Signed: Gopi Noble Verified Date/Time: 12/05/2017 10:38:49 Reading Location: [address] Reading Room 10 :38 AMPOCT-GLUCOSE [id number] 08:06:00 Test Item Value Reference Range Comments POC-GLUCOSE METER (BEAKER) 396 mg/dL 70-110 TESTED AT [facility] [address] [place] (test yaht=4246) [address] [facility] [address] CBC W/PLT COUNT & AUTO [id number] 06:31:00 Test Item Value Reference Range Comments WHITE BLOOD CELL COUNT (BEAKER) (test wqvn=368) 5.5 K/ L 4.0-10.0 RED BLOOD CELL COUNT (BEAKER) (test kcry=544) 4.29 M/ L 4.00-5.00 HEMOGLOBIN (BEAKER) (test jtbe=139) 10.3 GM/DL 12.0-15.0 HEMATOCRIT (BEAKER) (test rrfc=107) 32.4 % 36.0-45.0 MEAN CORPUSCULAR VOLUME (BEAKER) (test bdpg=050) 75.4 fL 82.0-99.0 MEAN CORPUSCULAR HEMOGLOBIN (BEAKER) (test 23.9 pg 27.0-33.0 wndo=144) MEAN CORPUSCULAR HEMOGLOBIN CONC (BEAKER) (test 31.7 GM/DL 32.0-36.0 eulm=218) RED CELL DISTRIBUTION WIDTH (BEAKER) (test 34.8 % 10.3-14.2 tboz=303) PLATELET COUNT (BEAKER) (test skit=014) 317 K/CU MM 150-430 MEAN PLATELET VOLUME (BEAKER) (test bnfh=430) 10.5 fL 6.5-10.5 NUCLEATED RED BLOOD CELLS (BEAKER) (test 2 /100 WBC 0-0 hhqq=205) (MANUAL DIFFERENTIAL)2017-12-05 06:31:00 Test Item Value Reference Range Comments NEUTROPHILS - REL (DIFF) (BEAKER) (test enij=2673) 65 % LYMPHOCYTES - REL (DIFF) (BEAKER) (test pjym=8945) 25 % MONOCYTES - REL (DIFF) (BEAKER) (test drzp=0990) 10 % NEUTROPHILS - ABS (DIFF) (BEAKER) (test xomv=8135) 3.58 K/ L 1.80-8.00 LYMPHOCYTES - ABS (DIFF) (BEAKER) (test gysl=3641) 1.38 K/ L 1.48-4.50 MONOCYTES - ABS (DIFF) (BEAKER) (test mwke=5111) 0.55 K/ L 0.00-1.30 TOTAL COUNTED (BEAKER) (test kwtb=0191) 100 WBC MORPHOLOGY (BEAKER) (test fhzw=980) Normal RBC MORPHOLOGY (BEAKER) (test isnq=055) Normal LARGE PLT(BEAKER) (test vufa=7072) Present BASIC METABOLIC [id number] 05:33:00 Test Item Value Reference Range Comments SODIUM (BEAKER) (test 139 meq/L 135-148 tlse=315) POTASSIUM (BEAKER) (test 4.5 meq/L 3.6-5.5 qqsi=077) CHLORIDE (BEAKER) (test 94 meq/L 98-106 ffaa=140) CO2 (BEAKER) (test 34 meq/L 20-29 qcxz=594) BLOOD UREA NITROGEN 31 mg/dL 10-26 (BEAKER) (test eqvu=001) CREATININE (BEAKER) (test 0.70 mg/dL 0.50-1.20 rpsw=809) GLUCOSE RANDOM (BEAKER) 301 mg/dL 70-110 (test teut=326) CALCIUM (BEAKER) (test 9.2 mg/dL 8.5-10.5 cnjz=239) EGFR (BEAKER) (test 85 mL/min/1.73 sq m ESTIMATED GFR IS NOT drxu=7154) ACCURATE CREATININE CLEARANCE IN PREDICTING GLOMERULAR FILTRATION RATE. ESTIMATED GFR IS NOT APPLICABLE FOR DIALYSIS PATIENTS. POCT-GLUCOSE [id number] 00:04:00 Test Item Value Reference Range Comments POC-GLUCOSE METER (BEAKER) 274 mg/dL 70-110 TESTED AT [address] (test yjpk=7536) [address] [facility] [address] MR, SPINE, CERVICAL, [id number] 23:48:00FINAL REPORT EXAM: MRI cervical spine with and without contrast . CLINICAL HISTORY: Abnormal xray, cervical spine, DJD TECHNIQUE: Multiplanar multi sequential MRI of the cervicalspine was performed with and without contrast.. COMPARISON: None available. FINDINGS: Cervical vertebral body heights and alignment are maintained. There is a mild compression fracture deformity of L7vbska appears chronic. The bone marrow signal is [...] MDReport Verified Date/Time: 12/04/2017 23:48:58 Reading Location: [address] Reading Room MR, SPINE, LUMBAR, [id number] 23:32:00FINAL REPORT EXAM: MRI lumbar spine with [...] Verified Date/Time: 12/04/2017 23:32:02 Reading Location : [address] Reading Room MR, BRAIN, [id number] 22:01:00FINAL REPORT Exam: MRI brain with and [...] Rosa Verified Date/Time: 2017 22:01:42 Reading Location: [address] Transitional Reading Room POCT- GLUCOSE [id number] 20:51:00 Test Item Value Reference Range Comments POC-GLUCOSE METER (BEAKER) 221 mg/dL 70-110 TESTED AT [address] (test vqzo=4058) [place] [address] MR, SPINE, THORACIC, [id number] 18:04:00FINAL REPORT MRI of the thoracic spine [...] Noble Verified Date/Time: 12/04/2017 18:04:28 Reading Location: [place] [id number] Neuro Reading Room POCT-GLUCOSE [id number] 12:00:00 Test Item Value Reference Range Comments POC-GLUCOSE METER (BEAKER) 196 mg/dL 70-110 TESTED AT [address] (test smaa=5711) [facility] [address] CBC W/PLT COUNT & AUTO [id number] 06:17:00 Test Item Value Reference Range Comments WHITE BLOOD CELL COUNT (BEAKER) (test 5.4 K/ L 4.0-10.0 nyvp=505) RED BLOOD CELL COUNT (BEAKER) (test 4.43 M/ L 4.00-5.00 hdus=626) HEMOGLOBIN (BEAKER) (test oblo=776) 10.4 GM/DL 12.0-15.0 HEMATOCRIT (BEAKER) (test vweg=344) 33.4 % 36.0-45.0 MEAN CORPUSCULAR VOLUME (BEAKER) (test 75.5 fL 82.0-99.0 skuz=270) MEAN CORPUSCULAR HEMOGLOBIN (BEAKER) 23.5 pg 27.0-33.0 (test lfel=822) MEAN CORPUSCULAR HEMOGLOBIN CONC 31.2 GM/DL 32.0-36.0 (BEAKER) (test mwld=498) RED CELL DISTRIBUTION WIDTH (BEAKER) 34.5 % 10.3-14.2 (test unaj=298) PLATELET COUNT (BEAKER) (test 411 K/CU MM 150-430 dnrn=441) MEAN PLATELET VOLUME (BEAKER) (test 9.8 fL 6.5-10.5 kipu=635) NEUTROPHILS RELATIVE PERCENT (BEAKER) % Manual diff needed (test yora=335) LYMPHOCYTES RELATIVE PERCENT (BEAKER) % Manual diff needed (test ozxo=595) MONOCYTES RELATIVE PERCENT (BEAKER) % Manual diff needed (test pvjj=655) EOSINOPHILS RELATIVE PERCENT (BEAKER) % Manual diff needed (test njua=315) BASOPHILS RELATIVE PERCENT (BEAKER) % Manual diff needed (test xqpa=168) NEUTROPHILS ABSOLUTE COUNT (BEAKER) K/ L 1.80-8.00 (test ioro=353) LYMPHOCYTES ABSOLUTE COUNT (BEAKER) K/ L 1.48-4.50 (test dqga=729) MONOCYTES ABSOLUTE COUNT (BEAKER) K/ L 0.00-1.30 (test uihb=056) EOSINOPHILS ABSOLUTE COUNT (BEAKER) K/ L 0.00-0.50 (test jjee=690) BASOPHILS ABSOLUTE COUNT (BEAKER) K/ L 0.00-0.20 (test npum=144) (MANUAL DIFFERENTIAL)2017-12-04 06:17:00 Test Item Value Reference Range Comments NEUTROPHILS - REL (DIFF) (BEAKER) (test spts=7225) 81 % LYMPHOCYTES - REL (DIFF) (BEAKER) (test hzyq=9702) 10 % MONOCYTES - REL (DIFF) (BEAKER) (test pdbf=7036) 9 % NEUTROPHILS - ABS (DIFF) (BEAKER) (test ovqa=1267) 4.37 K/ L 1.80-8.00 LYMPHOCYTES - ABS (DIFF) (BEAKER) (test iwsk=6457) 0.54 K/ L 1.48-4.50 MONOCYTES - ABS (DIFF) (BEAKER) (test tpug=6365) 0.49 K/ L 0.00-1.30 TOTAL COUNTED (BEAKER) (test hkrv=5118) 100 WBC MORPHOLOGY (BEAKER) (test kqnp=588) Normal LARGE PLT(BEAKER) (test yhqv=8131) Present GIANT PLATELETS (BEAKER) (test vvqd=948) Present ANISOCYTOSIS (BEAKER) (test sbkk=243) 3+ many HYPOCHROMIA (BEAKER) (test zrdm=064) 3+ many MICROCYTES (BEAKER) (test jepf=821) 1+ few VANCOMYCIN LEVEL, [id number] 05:45:00 Test Item Value Reference Range Comments VANCOMYCIN RANDOM (BEAKER) (test qtgv=487) 16.0 ug/mL Reference Range: No NormalsBASIC METABOLIC [id number] 05:42:00 Test Item Value Reference Range Comments SODIUM (BEAKER) (test 139 meq/L 135-148 pcoj=745) POTASSIUM (BEAKER) (test 4.8 meq/L 3.6-5.5 rnoa=544) CHLORIDE (BEAKER) (test 96 meq/L 98-106 jzna=298) CO2 (BEAKER) (test 32 meq/L 20-29 eaoq=794) BLOOD UREA NITROGEN 27 mg/dL 10-26 (BEAKER) (test mhhr=480) CREATININE (BEAKER) (test 0.70 mg/dL 0.50-1.20 lgnt=025) GLUCOSE RANDOM (BEAKER) 237 mg/dL 70-110 (test ttsb=979) CALCIUM (BEAKER) (test 9.4 mg/dL 8.5-10.5 hxvl=292) EGFR (BEAKER) (test 85 mL/min/1.73 sq m ESTIMATED GFR IS NOT bhsv=6987) ACCURATE CREATININE CLEARANCE IN PREDICTING GLOMERULAR FILTRATION RATE. ESTIMATED GFR IS NOT APPLICABLE FOR DIALYSIS PATIENTS. [id number] 05:36:00 Test Item Value Reference Range Comments MAGNESIUM (BEAKER) (test phrb=821) 2.1 mg/dL 1.5-3.0 BLOOD [id number] 01:00:00 Test Item Value Reference Range Comments CULTURE (BEAKER) (test enst=1409) No growth in 5 days BLOOD [id number] 01:00:00 Test Item Value Reference Range Comments CULTURE (BEAKER) (test ecay=4254) No growth in 5 days POCT-GLUCOSE [id number] 00:22:00 Test Item Value Reference Range Comments POC-GLUCOSE METER (BEAKER) 286 mg/dL 70-110 TESTED AT [address] (test gdyh=3885) [facility] [address] POCT-GLUCOSE [id number] 16:44:00 Test Item Value Reference Range Comments POC-GLUCOSE METER (BEAKER) 229 mg/dL 70-110 TESTED AT [address] (test jtxo=5397) [facility] [address] POCT-GLUCOSE [id number] 12:00:00 Test Item Value Reference Range Comments POC-GLUCOSE METER (BEAKER) 322 mg/dL 70-110 TESTED AT [address] (test kcyb=4705) [facility] [address] BODY FLUID CULTURE + GRAM [id number] 10:33:00 Test Item Value Reference Range Comments CULTURE (BEAKER) (test puog=1493) No growth GRAM STAIN RESULT (BEAKER) (test 1+ WBCs ljmg=4459) GRAM STAIN RESULT (BEAKER) (test No organisms seen pdtj=14704) RAD, CHEST, 1 VIEW, NON [id number] 10:23:00Reason for exam:->f/u pulmonary edemaFINAL REPORT Follow [...] Michel Verified Date/Time: 12/03/2017 10:23:59 Reading Location: [facility] Radiology Reading Room CBC W/PLT COUNT & AUTO [id number] 10:15:00 Test Item Value Reference Range Comments WHITE BLOOD CELL COUNT (BEAKER) (test dlwj=757) 4.4 K/ L 4.0-10.0 RED BLOOD CELL COUNT (BEAKER) (test mqzm=506) 4.27 M/ L 4.00-5.00 HEMOGLOBIN (BEAKER) (test nttz=158) 10.1 GM/DL 12.0-15.0 HEMATOCRIT (BEAKER) (test cdzf=727) 32.1 % 36.0-45.0 MEAN CORPUSCULAR VOLUME (BEAKER) (test johc=856) 75.3 fL 82.0-99.0 MEAN CORPUSCULAR HEMOGLOBIN (BEAKER) (test 23.6 pg 27.0-33.0 mnmn=669) MEAN CORPUSCULAR HEMOGLOBIN CONC (BEAKER) (test 31.3 GM/DL 32.0-36.0 phnj=120) RED CELL DISTRIBUTION WIDTH (BEAKER) (test 35.0 % 10.3-14.2 qach=691) PLATELET COUNT (BEAKER) (test masw=259) 404 K/CU MM 150-430 MEAN PLATELET VOLUME (BEAKER) (test opqe=948) 10.4 fL 6.5-10.5 (MANUAL DIFFERENTIAL)2017-12-03 10:15:00 Test Item Value Reference Range Comments NEUTROPHILS - REL (DIFF) (BEAKER) (test 78 % ttmg=3612) LYMPHOCYTES - REL (DIFF) (BEAKER) (test 21 % zchp=7213) MONOCYTES - REL (DIFF) (BEAKER) (test crad=0550) 1 % NEUTROPHILS - ABS (DIFF) (BEAKER) (test 3.43 K/ L 1.80-8.00 imsb=4831) LYMPHOCYTES - ABS (DIFF) (BEAKER) (test 0.92 K/ L 1.48-4.50 fdkh=6548) MONOCYTES - ABS (DIFF) (BEAKER) (test zpuf=7027) 0.04 K/ L 0.00-1.30 TOTAL COUNTED (BEAKER) (test pjfy=4794) 100 WBC MORPHOLOGY (BEAKER) (test huit=275) Normal GIANT PLATELETS (BEAKER) (test wofx=699) Present ANISOCYTOSIS (BEAKER) (test dqep=939) 2+ moderate HYPOCHROMIA (BEAKER) (test khqx=167) 2+ moderate BLOOD GAS, [id number] 10:03:00 Test Item Value Reference Range Comments PH ARTERIAL (BEAKER) (test aulz=132) 7.43 7.35-7.45 PCO2 ARTERIAL (BEAKER) (test ohyq=133) 49 mmHg 35-45 PO2 ARTERIAL (BEAKER) (test rkxf=720) 112 mmHg 80-90 O2 SATURATION ARTERIAL (BEAKER) (test vzal=960) 98.1 % 96.0-97.0 HCO3 ARTERIAL (BEAKER) (test lnqy=800) 32 mmol/L 21-29 BASE EXCESS ARTERIAL (BEAKER) (test eslg=512) 6.3 mmol/L -2.0-3.0 PATIENT TEMPERATURE (BEAKER) (test tghq=1202) 37.0 C FIO2 (BEAKER) (test rocg=9152) 32.0 % VANCOMYCIN LEVEL, [id number] 08:51:00 Test Item Value Reference Range Comments VANCOMYCIN TROUGH (BEAKER) (test dsst=903) 37.1 ug/mL 10.0-20.0 Vancomycin trough on 12/03/17 at 08:30BASIC METABOLIC [id number] 08:35:00 Test Item Value Reference Range Comments SODIUM (BEAKER) (test 137 meq/L 135-148 qfko=515) POTASSIUM (BEAKER) (test 4.7 meq/L 3.6-5.5 vxhi=661) CHLORIDE (BEAKER) (test 98 meq/L 98-106 nmix=321) CO2 (BEAKER) (test 30 meq/L 20-29 boit=492) BLOOD UREA NITROGEN 24 mg/dL 10-26 (BEAKER) (test qbcv=912) CREATININE (BEAKER) (test 0.70 mg/dL 0.50-1.20 dmno=253) GLUCOSE RANDOM (BEAKER) 273 mg/dL 70-110 (test nkwo=873) CALCIUM (BEAKER) (test 8.8 mg/dL 8.5-10.5 zsxv=156) EGFR (BEAKER) (test 85 mL/min/1.73 sq m ESTIMATED GFR IS NOT pglt=4046) ACCURATE CREATININE CLEARANCE IN PREDICTING GLOMERULAR FILTRATION RATE. ESTIMATED GFR IS NOT APPLICABLE FOR DIALYSIS PATIENTS. [id number] 08:29:00 Test Item Value Reference Range Comments MAGNESIUM (BEAKER) (test hdgg=209) 2.0 mg/dL 1.5-3.0 POCT-GLUCOSE [id number] 08:16:00 Test Item Value Reference Range Comments POC-GLUCOSE METER (BEAKER) 283 mg/dL 70-110 TESTED AT [address] (test jucx=5080) [facility] [address] POCT-GLUCOSE [id number] 00:34:00 Test Item Value Reference Range Comments POC-GLUCOSE METER (BEAKER) 333 mg/dL 70-110 TESTED AT [address] (test aecw=8246) [facility] [address] POCT-GLUCOSE [id number] 21:32:00 Test Item Value Reference Range Comments POC-GLUCOSE METER (BEAKER) 316 mg/dL 70-110 Notified OMAIRA BELLA/TESTED AT [facility] (test tfmd=1842) [address] [place] [address] POCT-GLUCOSE [id number] 16:50:00 Test Item Value Reference Range Comments POC-GLUCOSE METER (BEAKER) 230 mg/dL 70-110 TESTED AT [address] (test fhdj=5942) [facility] [address] RESPIRATORY PANEL [id number] 15:22:00 Test Item Value Reference Range Comments HUMAN METAPNEUMOVIRUS (BEAKER) (test Not detected Not detected, Inconclusive nadv=9167) RHINOVIRUS (BEAKER) (test xiva=3075) Not detected Not detected, Inconclusive INFLUENZA A (BEAKER) (test Not detected Not detected, Inconclusive lyaa=1081) INFLUENZA A SUBTYPE H1 (BEAKER) Not detected Not detected, Inconclusive (test qjvh=1410) INFLUENZA A SUBTYPE H3 (BEAKER) Not detected Not detected, Inconclusive (test cvod=5282) INFLUENZA A SUBTYPE H1-2009 (BEAKER) Not detected Not detected, Inconclusive (test joti=1814) INFLUENZA B (BEAKER) (test Not detected Not detected, Inconclusive yupx=5883) RESPIRATORY SYNCYTIAL VIRUS (BEAKER) Not detected Not detected, Inconclusive (test hhmk=2557) PARAINFLUENZA VIRUS 1 (BEAKER) (test Not detected Not detected, Inconclusive rsic=5773) PARAINFLUENZA VIRUS 2 (BEAKER) (test Not detected Not detected, Inconclusive bkjt=1085) PARAINFLUENZA VIRUS 3 (BEAKER) (test Not detected Not detected, Inconclusive xdxm=9088) PARAINFLUENZA VIRUS 4 (BEAKER) (test Not detected Not detected, Inconclusive lmye=9972) ADENOVIRUS (BEAKER) (test gmjx=9533) Not detected Not detected, Inconclusive CORONAVIRUS 229E (BEAKER) (test Not detected Not detected, Inconclusive tkpy=5486) CORONAVIRUS HKU1 (BEAKER) (test Not detected Not detected, Inconclusive yygd=9418) CORONAVIRUS NL63 (BEAKER) (test Not detected Not detected, Inconclusive tjde=6897) CORONAVIRUS OC43 (BEAKER) (test Not detected Not detected, Inconclusive rljc=1828) BORDETELLA PERTUSSIS (BEAKER) (test Not detected Not detected, Inconclusive yrsf=6824) CHLAMYDOPHILA PNEUMONIAE (BEAKER) Not detected Not detected, Inconclusive (test uumo=9120) MYCOPLASMA PNEUMONIAE (BEAKER) (test Not detected Not detected, Inconclusive ycbb=3162) POCT-GLUCOSE [id number] 12:04:00 Test Item Value Reference Range Comments POC-GLUCOSE METER (BEAKER) 247 mg/dL 70-110 TESTED AT [facility] [address] [place] [address] (test kyah=3817) [address] [facility] [address] [id number] 10:56:00Medical Cytology Report Case: [id number] Authorizing Provider: Sari Church MD Collected: 11/30/2017 1515 Ordering Location: [address] Med/Surg Received: 12/01/2017 3936 Pathologist: Janet Cespedes MD Specimen: Pleural, Left LEFT PLEURAL FLUID (CYTOSPINS): - REACTIVE MESOTHELIAL CELLS IN A BACKGROUND OF PREDOMINANTLY CHRONIC INFLAMMATION- NO MALIGNANT CELLS IDENTIFIED 86539Taki pleural effusion, shortness of breath; history of multiple sclerosis LEFT PLEURAL FLUIDPrepared 4 cytospins from 250 ml light brown fluidCollected: [id number]: [id number]. [facility], Department of Pathology, [address] [place] [address] , [facility], [address] [place] [address], GBEZ FLUID CULTURE + GRAM [id number] 09:58:00 Test Item Value Reference Range Comments CULTURE (BEAKER) (test ydbd=1059) No growth GRAM STAIN RESULT (BEAKER) (test 1+ WBCs yytu=0373) GRAM STAIN RESULT (BEAKER) (test No organisms seen jejo=47890) POCT-GLUCOSE [id number] 07:30:00 Test Item Value Reference Range Comments POC-GLUCOSE METER (BEAKER) 202 mg/dL 70-110 TESTED AT [facility] [address] [facility] (test aeda=9507) [address] [facility] [address] CBC W/PLT COUNT & AUTO [id number] 06:49:00 Test Item Value Reference Range Comments WHITE BLOOD CELL COUNT (BEAKER) (test 4.4 K/ L 4.0-10.0 qina=292) RED BLOOD CELL COUNT (BEAKER) (test 4.11 M/ L 4.00-5.00 fiek=939) HEMOGLOBIN (BEAKER) (test eugl=236) 9.6 GM/DL 12.0-15.0 HEMATOCRIT (BEAKER) (test nrlx=254) 30.8 % 36.0-45.0 MEAN CORPUSCULAR VOLUME (BEAKER) (test 74.9 fL 82.0-99.0 ltce=794) MEAN CORPUSCULAR HEMOGLOBIN (BEAKER) 23.4 pg 27.0-33.0 (test qnmv=938) MEAN CORPUSCULAR HEMOGLOBIN CONC (BEAKER) 31.2 GM/DL 32.0-36.0 (test yscn=225) RED CELL DISTRIBUTION WIDTH (BEAKER) 34.4 % 10.3-14.2 (test fril=396) PLATELET COUNT (BEAKER) (test xuft=161) 323 K/CU MM 150-430 MEAN PLATELET VOLUME (BEAKER) (test 9.5 fL 6.5-10.5 kpav=952) NEUTROPHILS RELATIVE PERCENT (BEAKER) % See manual diff (test brbt=545) LYMPHOCYTES RELATIVE PERCENT (BEAKER) % See manual diff (test jomi=748) MONOCYTES RELATIVE PERCENT (BEAKER) (test % See manual diff vlag=666) EOSINOPHILS RELATIVE PERCENT (BEAKER) % See manual diff (test kpbj=424) BASOPHILS RELATIVE PERCENT (BEAKER) (test % See manual diff bylw=233) NEUTROPHILS ABSOLUTE COUNT (BEAKER) (test K/ L 1.80-8.00 yacl=463) LYMPHOCYTES ABSOLUTE COUNT (BEAKER) (test K/ L 1.48-4.50 aopp=887) MONOCYTES ABSOLUTE COUNT (BEAKER) (test K/ L 0.00-1.30 ikbu=983) EOSINOPHILS ABSOLUTE COUNT (BEAKER) (test K/ L 0.00-0.50 fixf=963) BASOPHILS ABSOLUTE COUNT (BEAKER) (test K/ L 0.00-0.20 eshw=909) B-TYPE NATRIURETIC FACTOR (BNP)2017-12-02 06:02:00 Test Item Value Reference Range Comments B-TYPE NATRIURETIC PEPTIDE (BEAKER) (test 840 pg/mL 0-100 btje=590) BASIC METABOLIC [id number] 05:58:00 Test Item Value Reference Range Comments SODIUM (BEAKER) (test 140 meq/L 135-148 eqdg=660) POTASSIUM (BEAKER) (test 4.2 meq/L 3.6-5.5 ohvx=707) CHLORIDE (BEAKER) (test 102 meq/L 98-106 tmpy=158) CO2 (BEAKER) (test 28 meq/L 20-29 lstw=510) BLOOD UREA NITROGEN 21 mg/dL 10-26 (BEAKER) (test lftm=330) CREATININE (BEAKER) (test 0.60 mg/dL 0.50-1.20 sfxf=383) GLUCOSE RANDOM (BEAKER) 209 mg/dL 70-110 (test lzlc=227) CALCIUM (BEAKER) (test 8.4 mg/dL 8.5-10.5 lrcn=734) EGFR (BEAKER) (test 102 mL/min/1.73 sq m ESTIMATED GFR IS NOT chrs=5001) ACCURATE CREATININE CLEARANCE IN PREDICTING GLOMERULAR FILTRATION RATE. ESTIMATED GFR IS NOT APPLICABLE FOR DIALYSIS PATIENTS. [id number] 05:52:00 Test Item Value Reference Range Comments MAGNESIUM (BEAKER) (test xkcs=283) 2.0 mg/dL 1.5-3.0 RAD, CHEST, 1 VIEW, NON [id number] 05:48:00Reason for exam:->respiratory failure, bipapFINAL REPORT Chest [...] Rosaeport Verified Date/Time: 2017 05:48:39 Reading Location: [address] Transitional Reading Room BLOOD GAS, [id number] 04:24:00 Test Item Value Reference Range Comments PH ARTERIAL (BEAKER) (test bujo=818) 7.43 7.35-7.45 PCO2 ARTERIAL (BEAKER) (test kymq=632) 48 mmHg 35-45 PO2 ARTERIAL (BEAKER) (test tjcc=356) 165 mmHg 80-90 O2 SATURATION ARTERIAL (BEAKER) (test srpq=755) 99.1 % 96.0-97.0 HCO3 ARTERIAL (BEAKER) (test clkv=460) 31 mmol/L 21-29 BASE EXCESS ARTERIAL (BEAKER) (test nwlw=598) 5.6 mmol/L -2.0-3.0 PATIENT TEMPERATURE (BEAKER) (test ospi=7782) 37.0 C FIO2 (BEAKER) (test fhdg=4120) 40.0 % RAPID INFLUENZA A&B [id number] 22:10:00 Test Item Value Reference Range Comments RAPID INFLUENZA A AG (BEAKER) (test Negative Negative, Inconclusive zdvn=0251) RAPID INFLUENZA B AG (BEAKER) (test Negative Negative, Inconclusive uifl=2253) POCT-GLUCOSE [id number] 21:18:00 Test Item Value Reference Range Comments POC-GLUCOSE METER (BEAKER) 185 mg/dL 70-110 TESTED AT [address] (test xnik=4012) [facility] [address] POCT-GLUCOSE [id number] 16:52:00 Test Item Value Reference Range Comments POC-GLUCOSE METER (BEAKER) 262 mg/dL 70-110 TESTED AT [address] (test lcqe=7263) [facility] [address] ALBUMIN, BODY [id number] 15:03:00 Test Item Value Reference Range Comments ALBUMIN FLUID (BEAKER) (test jcns=377) 0.9 gm/dL Reference Range: No Normals Assay performance has not been validated for this type of specimen.LACTATE DEHYDROGENASE (LDH), BODY [id number] 14:46:00 Test Item Value Reference Range Comments LACTATE DEHYDROGENASE FLUID (BEAKER) 123 U/L Light's criteria identifies (test iheu=748) effusions if one or more are pre Absence of reference range indicates that normals have not been defined.Assay performance has not been validated for this type of specimen.PROTEIN, BODY [id number] 14:46:00 Test Item Value Reference Range Comments PROTEIN FLUID (BEAKER) (test 1.7 g/dL Light's criteria identifies jyzr=350) effusions if one or more are pre Absence of reference range indicates that normals have not been defined.Assay performance has not been validated for this type of specimen.GLUCOSE, BODY [id number] 14:46:00 Test Item Value Reference Range Comments GLUCOSE, BODY FLUID (BEAKER) (test tiwk=2579) 256 mg/dL 70-110 Absence of reference range indicates that normals have not been defined.Assay performance has not been validated for this type of specimen.POCT-GLUCOSE [id number] 13:22:00 Test Item Value Reference Range Comments POC-GLUCOSE METER (BEAKER) 359 mg/dL 70-110 TESTED AT [facility] [address] [place] [address] (test ayzd=3904) [address] [facility] [address] RAD, CHEST, 1 VIEW, NON [id number] 12:54:00Reason for exam:->SOBShould this be performed at the bedside?->YesFINAL REPORT Comparison: 11/30/2017 TECHNIQUE: Single view of the chest FINDINGS: There are bilateral interstitial and airspace opacities. Overall these have decreased from before. No large effusion at this time. No gross pneumothorax. Support lines and tubes are stable. Signed: Suma Avilez MDReport Verified Date/Time: 12:54:49 Reading Location: [facility] Radiology Reading Room CBC W/PLT COUNT & AUTO [id number] 12:39:00 Test Item Value Reference Range Comments WHITE BLOOD CELL COUNT (BEAKER) (test tsav=969) 4.8 K/ L 4.0-10.0 RED BLOOD CELL COUNT (BEAKER) (test thwb=377) 4.16 M/ L 4.00-5.00 HEMOGLOBIN (BEAKER) (test ctsj=348) 9.7 GM/DL 12.0-15.0 HEMATOCRIT (BEAKER) (test yjwj=841) 30.7 % 36.0-45.0 MEAN CORPUSCULAR VOLUME (BEAKER) (test atfa=807) 73.9 fL 82.0-99.0 MEAN CORPUSCULAR HEMOGLOBIN (BEAKER) (test 23.3 pg 27.0-33.0 lmrx=151) MEAN CORPUSCULAR HEMOGLOBIN CONC (BEAKER) (test 31.5 GM/DL 32.0-36.0 kpcw=762) RED CELL DISTRIBUTION WIDTH (BEAKER) (test 34.4 % 10.3-14.2 jxuz=517) PLATELET COUNT (BEAKER) (test lxww=243) 380 K/CU MM 150-430 MEAN PLATELET VOLUME (BEAKER) (test wwth=635) 9.3 fL 6.5-10.5 (MANUAL DIFFERENTIAL)2017-12-01 12:39:00 Test Item Value Reference Range Comments NEUTROPHILS - REL (DIFF) (BEAKER) (test 84 % wgzq=1928) LYMPHOCYTES - REL (DIFF) (BEAKER) (test 4 % pskh=3947) MONOCYTES - REL (DIFF) (BEAKER) (test zzac=4288) 11 % BANDS - REL (DIFF) (BEAKER) (test fupx=8338) 1 % 0-10 NEUTROPHILS - ABS (DIFF) (BEAKER) (test 4.03 K/ L 1.80-8.00 psnm=7294) LYMPHOCYTES - ABS (DIFF) (BEAKER) (test 0.19 K/ L 1.48-4.50 uobt=7709) MONOCYTES - ABS (DIFF) (BEAKER) (test anxb=5560) 0.53 K/ L 0.00-1.30 BANDS-ABS (DIFF) (BEAKER) (test aoqt=7577) 0.0 K/ L 0.0-0.8 TOTAL COUNTED (BEAKER) (test czqb=5404) 100 BANDS + SEGMENTED NEUTROPHILS (BEAKER) (test 4.08 ywck=6935) WBC MORPHOLOGY (BEAKER) (test qmfs=145) Normal GIANT PLATELETS (BEAKER) (test vdov=417) Present ANISOCYTOSIS (BEAKER) (test qnpi=701) 3+ many HYPOCHROMIA (BEAKER) (test qdmw=842) 3+ many MICROCYTES (BEAKER) (test fqdm=237) 2+ moderate TARGET CELLS (BEAKER) (test rsga=474) 1+ few COMPREHENSIVE METABOLIC [id number] 12:26:00 Test Item Value Reference Range Comments TOTAL PROTEIN (BEAKER) 6.1 gm/dL 6.0-8.5 (test vycj=900) ALBUMIN (BEAKER) (test 2.7 g/dL 3.5-5.0 ekat=2464) ALKALINE PHOSPHATASE 118 U/L 30-115 (BEAKER) (test vfdo=852) BILIRUBIN TOTAL (BEAKER) 0.3 mg/dL 0.1-1.2 (test hmaq=677) SODIUM (BEAKER) (test 139 meq/L 135-148 qxkz=246) POTASSIUM (BEAKER) (test 3.5 meq/L 3.6-5.5 jzyi=014) CHLORIDE (BEAKER) (test 105 meq/L 98-106 iptm=261) CO2 (BEAKER) (test 25 meq/L 20-29 gqub=816) BLOOD UREA NITROGEN 21 mg/dL 10-26 (BEAKER) (test buom=169) CREATININE (BEAKER) (test 0.70 mg/dL 0.50-1.20 gysm=816) GLUCOSE RANDOM (BEAKER) 387 mg/dL 70-110 (test dqsr=475) CALCIUM (BEAKER) (test 8.2 mg/dL 8.5-10.5 gnqc=500) AST (SGOT) (BEAKER) (test 16 U/L 5-40 wkia=414) ALT (SGPT) (BEAKER) (test 8 U/L 5-50 qyoa=385) EGFR (BEAKER) (test 85 mL/min/1.73 sq m ESTIMATED GFR IS NOT bitz=6522) ACCURATE CREATININE CLEARANCE IN PREDICTING GLOMERULAR FILTRATION RATE. ESTIMATED GFR IS NOT APPLICABLE FOR DIALYSIS PATIENTS. [id number] 12:17:00 Test Item Value Reference Range Comments MAGNESIUM (BEAKER) (test bpat=424) 1.8 mg/dL 1.5-3.0 BLOOD GAS, [id number] 10:40:00 Test Item Value Reference Range Comments PH ARTERIAL (BEAKER) (test rbff=115) 7.37 7.35-7.45 PCO2 ARTERIAL (BEAKER) (test qzlw=944) 44 mmHg 35-45 PO2 ARTERIAL (BEAKER) (test esdl=157) 223 mmHg 80-90 O2 SATURATION ARTERIAL (BEAKER) (test vnjj=513) 99.4 % 96.0-97.0 HCO3 ARTERIAL (BEAKER) (test uvfl=535) 25 mmol/L 21-29 BASE EXCESS ARTERIAL (BEAKER) (test xess=321) -0.8 mmol/L -2.0-3.0 PATIENT TEMPERATURE (BEAKER) (test umjk=5286) 37.0 C FIO2 (BEAKER) (test gcai=3460) 100.0 % POCT-GLUCOSE [id number] 06:33:00 Test Item Value Reference Range Comments POC-GLUCOSE METER (BEAKER) 287 mg/dL 70-110 TESTED AT [facility] [address] [place] [address] (test jqvh=7192) [address] [facility] [address] POCT-GLUCOSE [id number] 21:41:00 Test Item Value Reference Range Comments POC-GLUCOSE METER (BEAKER) 349 mg/dL 70-110 Notified OMAIRA BELLA/TESTED AT [facility] (test iimr=4385) [address] [place] [address] POCT-GLUCOSE [id number] 18:39:00 Test Item Value Reference Range Comments POC-GLUCOSE METER (BEAKER) 234 mg/dL 70-110 TESTED AT [facility] [address] [place] [address] (test jxua=5534) [facility] [address] PH, BODY [id number] 17:51:00 Test Item Value Reference Range Comments PH, BODY FLUID (BEAKER) (test dngr=5174) 8.00 POCT-GLUCOSE [id number] 17:31:00 Test Item Value Reference Range Comments POC-GLUCOSE METER (BEAKER) 266 mg/dL 70-110 TESTED AT [address] (test pcwq=4012) [facility] [address] POCT-GLUCOSE [id number] 17:31:00 Test Item Value Reference Range Comments POC-GLUCOSE METER (BEAKER) 194 mg/dL 70-110 TESTED AT [address] (test qfay=6720) [facility] [address] U/S, [id number] 16:47:00Laterality?->LeftReason for exam:-> sobFINAL REPORT Ultrasound Guided [...] Avilez Verified Date/Time: 11/30/2017 16:47:10 Reading Location: [facility] Radiology Reading Room Electronically signed by: SUMA AVILEZ M.D. on 04:47 PMRAD, CHEST, 1 VIEW, NON [id number] 15:51:00Reason for exam:- >post thoracentesisShould this be performed at the bedside?->YesFINAL REPORT Comparison: 11/29/2017 TECHNIQUE: Single view of the chest FINDINGS: Status post recent left thoracentesis. Left pleural effusion has decreased. No pneumothorax postprocedure. No other significant change. Signed: Suma Avilez MDReport Verified Date/Time: 11/30/2017 15:51:09 Reading Location: [facility] Radiology Reading Room TSH/FREE T4 IF [id number] 06: 41:00 Test Item Value Reference Range Comments THYROID STIMULATING HORMONE (BEAKER) (test 2.23 uIU/mL 0.35-5.50 tidf=672) HEMOGLOBIN [id number] 06:28:00 Test Item Value Reference Range Comments HEMOGLOBIN A1C (BEAKER) (test ljwb=060) 5.1 % 4.3-6.1 LIPID [id number] 06:22:00 Test Item Value Reference Range Comments TRIGLYCERIDES (BEAKER) (test dntj=141) 85 mg/dL CHOLESTEROL (BEAKER) (test nvze=797) 158 mg/dL HDL CHOLESTEROL (BEAKER) (test cwiu=347) 63 mg/dL LDL CHOLESTEROL CALCULATED (BEAKER) (test 78 mg/dL tzvr=035) Triglyceride Reference Range: Low Risk <150 Borderline 150- 199 High Risk 200-499 Very High Risk >=500Cholesterol Reference Range: Low Risk <200 Borderline 200-239 High Risk > 240HDL Cholesterol Reference Range: Low Risk >=60 High Risk <40LDL Cholesterol Reference Range: Optimal <100 Near Optimal 100-129 Borderline 130-159 High 160-189 Very High >=190POCT-GLUCOSE [id number] 22:11:00 Test Item Value Reference Range Comments POC-GLUCOSE METER (BEAKER) 182 mg/dL 70-110 TESTED AT [address] (test okbd=7176) [address] [facility] [address] POCT-GLUCOSE [id number] 18:10:00 Test Item Value Reference Range Comments POC-GLUCOSE METER (BEAKER) 157 mg/dL 70-110 TESTED AT [facility] [address] [facility] (test ckuj=7763) [facility] [address] POCT-GLUCOSE [id number] 17:58:00 Test Item Value Reference Range Comments POC-GLUCOSE METER (BEAKER) 173 mg/dL 70-110 TESTED AT [facility] [address] [facility] (test atzo=5501) [facility] [address] TROPONIN [id number] 17:19:00 Test Item Value Reference Range Comments TROPONIN I (BEAKER) (test rupx=220) < ng/mL 0.00-0.15 Troponin I (TnI) levels [...] and persistent tachyarrhythmia.CREATINE KINASE (CK), TOTAL AND [id number] 17:15:00 Test Item Value Reference Range Comments CREATINE KINASE TOTAL (BEAKER) (test jsrm=808) 27 U/L 25-235 CREATINE KINASE-MB (BEAKER) (test mqnz=624) 1.5 ng/mL 0.0-4.9 CREATINE KINASE-MB INDEX (BEAKER) (test zbzq=801) 5.6 % CK-MB Reference Range:<5 Normal5-10 Borderline>10 AbnormalALBUMIN, BODY [id number] 16:41:00 Test Item Value Reference Range Comments ALBUMIN FLUID (BEAKER) (test jtib=244) 0.8 gm/dL Reference Range: No Normals Assay performance has not been validated for this type of specimen.LACTATE DEHYDROGENASE (LDH), BODY [id number] 16:37:00 Test Item Value Reference Range Comments LACTATE DEHYDROGENASE FLUID (BEAKER) 93 U/L Light's criteria identifies (test niyn=980) effusions if one or more are pre Absence of reference range indicates that normals have not been defined.Assay performance has not been validated for this type of specimen.PROTEIN, BODY [id number] 16:37:00 Test Item Value Reference Range Comments PROTEIN FLUID (BEAKER) (test 1.4 g/dL Light's criteria identifies uhwb=916) effusions if one or more are pre Absence of reference range indicates that normals have not been defined.Assay performance has not been validated for this type of specimen.GLUCOSE, BODY [id number] 16:37:00 Test Item Value Reference Range Comments GLUCOSE, BODY FLUID (BEAKER) (test nbta=0705) 203 mg/dL 70-110 Absence of reference range indicates that normals have not been defined.Assay performance has not been validated for this type of specimen.PH, BODY [id number] 14:49:00 Test Item Value Reference Range Comments PH, BODY FLUID (BEAKER) (test zavc=6960) 7.72 U/S, [id number] 14:41:00Laterality?->RightReason for exam:-> Resp failureFINAL REPORT Thoracentesis: Performing M.D. : Sabina Michel M.D. [facility] Social Worker: nonePreprocedure diagnosis: pleural effusionPostprocedure Diagnosis: sameSpecimen removed: [...] MDReport Verified Date/Time: 11/29/2017 14:41:36 Reading Location: [facility] Radiology Reading Room Electronically signed by: SABINA MICHEL M.D. on 02:41 PMRAD, CHEST, 1 VIEW, NON [id number] 13:52:00Reason for exam:- >s/p thoraShould this be performed at the bedside?->YesFINAL REPORT Chest one view compared to November 29 Discussion: Pulmonary infiltrates are improved. Left-sided small residual effusion is noted with no pneumothorax after thoracentesis. Signed: Gopi Noble Verified Date/Time: 11/29/2017 13:52:23 Reading Location: [facility] [id number] Consult Reading Room 01 :52 [id number]/[id number] 11:20:00 Test Item Value Reference Range Comments PROTIME (BEAKER) (test swkn=177) 11.0 seconds 9.3-12.0 INR (BEAKER) (test nvpe=208) 1.0 <=5.9 PARTIAL THROMBOPLASTIN TIME (BEAKER) (test 27.2 seconds 23.0-35.0 wjsl=785) RECOMMENDED COUMADIN/WARFARIN INR THERAPY RANGESSTANDARD DOSE: 2.0 - 3.0 Includes: PROPHYLAXIS forvenous thrombosis, systemic embolization; TREATMENT for venous thrombosis and/or pulmonary embolus.HIGH RISK: Target INR is 2.5-3.5 for patients with mechanical heart valves.RAD, CHEST, 1 VIEW, NON [id number] 09:36:00Reason for exam:->SOBShould this be performed at the bedside?-> YesFINAL REPORT Chest one view compared to November 28 Discussion: Bilateral semiconfluent airspace opacities are worse since the previous study. Effusions seen well on recent CT are not well seen on plain film. No pneumothorax. Bilateral lines in place unchanged. Signed: oGpi Noble Verified Date/Time: 11/29/2017 09:36:30 Reading Location: [facility] Radiology Reading Room BLOOD GAS, [id number] 09:00:00 Test Item Value Reference Range Comments PH ARTERIAL (BEAKER) (test czyc=916) 7.40 7.35-7.45 PCO2 ARTERIAL (BEAKER) (test ypxt=433) 42 mmHg 35-45 PO2 ARTERIAL (BEAKER) (test gyct=287) 164 mmHg 80-90 O2 SATURATION ARTERIAL (BEAKER) (test fpzk=678) 99.1 % 96.0-97.0 HCO3 ARTERIAL (BEAKER) (test ghjg=101) 25 mmol/L 21-29 BASE EXCESS ARTERIAL (BEAKER) (test qmgp=587) 0.1 mmol/L -2.0-3.0 PATIENT TEMPERATURE (BEAKER) (test mafx=5923) 36.0 C FIO2 (BEAKER) (test arcv=5075) 80.0 % TROPONIN [id number] 07:11:00 Test Item Value Reference Range Comments TROPONIN I (BEAKER) (test rkxi=226) 0.03 ng/mL 0.00-0.15 Troponin I (TnI) levels [...] and persistent tachyarrhythmia.CREATINE KINASE (CK), TOTAL AND [id number] 07:09:00 Test Item Value Reference Range Comments CREATINE KINASE TOTAL (BEAKER) (test cxxj=976) 24 U/L 25-235 CREATINE KINASE-MB (BEAKER) (test zlow=541) 1.7 ng/mL 0.0-4.9 CREATINE KINASE-MB INDEX (BEAKER) (test fnda=963) 7.1 % CK-MB Reference Range:<5 Normal5-10 Borderline>10 AbnormalCT, CHEST WITH IV CONTRAST- PE TEST [id number] 00:49:00Reason for exam:->sob and hypoxiaWhat is the [...] Michael MDReport Verified Date/Time: 00:49:46 Reading Location: [address] Reading Room TROPONIN [id number] 00:22:00 Test Item Value Reference Range Comments TROPONIN I (BEAKER) (test uypn=877) < ng/mL 0.00-0.15 Troponin I (TnI) levels [...] and persistent tachyarrhythmia.CREATINE KINASE (CK), TOTAL AND [id number] 23:35:00 Test Item Value Reference Range Comments CREATINE KINASE TOTAL (BEAKER) (test tcih=299) 25 U/L 25-235 CREATINE KINASE-MB (BEAKER) (test iaas=493) 1.8 ng/mL 0.0-4.9 CREATINE KINASE-MB INDEX (BEAKER) (test wocw=681) 7.2 % CK-MB Reference Range:<5 Normal5-10 Borderline>10 AbnormalBASIC METABOLIC [id number] 23:28:00 Test Item Value Reference Range Comments SODIUM (BEAKER) (test 139 meq/L 135-148 oeqy=832) POTASSIUM (BEAKER) (test 3.9 meq/L 3.6-5.5 ycoj=359) CHLORIDE (BEAKER) (test 105 meq/L 98-106 pkrg=843) CO2 (BEAKER) (test 24 meq/L 20-29 vgpo=959) BLOOD UREA NITROGEN 9 mg/dL 10-26 (BEAKER) (test gngr=883) CREATININE (BEAKER) (test 0.50 mg/dL 0.50-1.20 rypl=047) GLUCOSE RANDOM (BEAKER) 144 mg/dL 70-110 (test uqgv=477) CALCIUM (BEAKER) (test 8.0 mg/dL 8.5-10.5 nmuw=729) EGFR (BEAKER) (test 125 mL/min/1.73 sq m ESTIMATED GFR IS NOT hpmf=5517) ACCURATE CREATININE CLEARANCE IN PREDICTING GLOMERULAR FILTRATION RATE. ESTIMATED GFR IS NOT APPLICABLE FOR DIALYSIS PATIENTS. B-TYPE NATRIURETIC FACTOR (BNP)2017-11-28 23:17:00 Test Item Value Reference Range Comments B-TYPE NATRIURETIC PEPTIDE (BEAKER) (test 929 pg/mL 0-100 sgrw=456) BLOOD GAS, [id number] 23:16:00 Test Item Value Reference Range Comments PH ARTERIAL (BEAKER) (test owai=683) 7.40 7.35-7.45 PCO2 ARTERIAL (BEAKER) (test ekow=860) 46 mmHg 35-45 PO2 ARTERIAL (BEAKER) (test oyfz=647) 80 mmHg 80-90 O2 SATURATION ARTERIAL (BEAKER) (test ankk=296) 95.7 % 96.0-97.0 HCO3 ARTERIAL (BEAKER) (test gqom=124) 28 mmol/L 21-29 BASE EXCESS ARTERIAL (BEAKER) (test qmap=407) 2.4 mmol/L -2.0-3.0 PATIENT TEMPERATURE (BEAKER) (test hgtu=1559) 37.0 C FIO2 (BEAKER) (test ihtp=8961) 21.0 % CBC W/PLT COUNT & AUTO [id number] 22:59:00 Test Item Value Reference Range Comments WHITE BLOOD CELL COUNT (BEAKER) (test dwoy=271) 8.9 K/ L 4.0-10.0 RED BLOOD CELL COUNT (BEAKER) (test eora=455) 4.36 M/ L 4.00-5.00 HEMOGLOBIN (BEAKER) (test mkxg=878) 9.5 GM/DL 12.0-15.0 HEMATOCRIT (BEAKER) (test isqn=056) 31.9 % 36.0-45.0 MEAN CORPUSCULAR VOLUME (BEAKER) (test ykvi=499) 73.2 fL 82.0-99.0 MEAN CORPUSCULAR HEMOGLOBIN (BEAKER) (test 21.8 pg 27.0-33.0 vbuq=307) MEAN CORPUSCULAR HEMOGLOBIN CONC (BEAKER) (test 29.8 GM/DL 32.0-36.0 plvr=348) RED CELL DISTRIBUTION WIDTH (BEAKER) (test 30.3 % 10.3-14.2 bylj=792) PLATELET COUNT (BEAKER) (test rexj=034) 188 K/CU MM 150-430 MEAN PLATELET VOLUME (BEAKER) (test egpo=940) 10.4 fL 6.5-10.5 NEUTROPHILS RELATIVE PERCENT (BEAKER) (test 69 % uakl=660) LYMPHOCYTES RELATIVE PERCENT (BEAKER) (test 9 % wefs=563) MONOCYTES RELATIVE PERCENT (BEAKER) (test 18 % bbyq=818) EOSINOPHILS RELATIVE PERCENT (BEAKER) (test 3 % fxfw=326) BASOPHILS RELATIVE PERCENT (BEAKER) (test 1 % iaus=305) NEUTROPHILS ABSOLUTE COUNT (BEAKER) (test 6.20 K/ L 1.80-8.00 omch=134) LYMPHOCYTES ABSOLUTE COUNT (BEAKER) (test 0.80 K/ L 1.48-4.50 bllx=299) MONOCYTES ABSOLUTE COUNT (BEAKER) (test 1.60 K/ L 0.00-1.30 vtlx=916) EOSINOPHILS ABSOLUTE COUNT (BEAKER) (test 0.20 K/ L 0.00-0.50 nyfv=317) BASOPHILS ABSOLUTE COUNT (BEAKER) (test 0.10 K/ L 0.00-0.20 pnih=967) (MANUAL DIFFERENTIAL)2017-11-28 22:59:00 Test Item Value Reference Range Comments NEUTROPHILS - REL (DIFF) (BEAKER) (test 76 % czqy=0684) LYMPHOCYTES - REL (DIFF) (BEAKER) (test 11 % kuhb=6632) MONOCYTES - REL (DIFF) (BEAKER) (test wjvx=8420) 11 % EOSINOPHILS - REL (DIFF) (BEAKER) (test 2 % nsro=8784) NEUTROPHILS - ABS (DIFF) (BEAKER) (test 6.76 K/ L 1.80-8.00 wlod=2953) LYMPHOCYTES - ABS (DIFF) (BEAKER) (test 0.98 K/ L 1.48-4.50 vwou=2417) MONOCYTES - ABS (DIFF) (BEAKER) (test pbgo=6938) 0.98 K/ L 0.00-1.30 EOSINOPHILS - ABS (DIFF) (BEAKER) (test 0.18 K/ L 0.00-0.50 zekz=0070) TOTAL COUNTED (BEAKER) (test oegk=6241) 100 WBC MORPHOLOGY (BEAKER) (test danm=699) Normal LARGE PLT(BEAKER) (test aqup=5208) Present GIANT PLATELETS (BEAKER) (test pjfs=314) Present ANISOCYTOSIS (BEAKER) (test jleu=153) 3+ many HYPOCHROMIA (BEAKER) (test ptzx=859) 2+ moderate MICROCYTES (BEAKER) (test ncht=429) 1+ few POLYCHROMATOPHILLIC RBCS(BEAKER) (test jdry=405) 1+ few KETONE, [id number] 22:22:00 Test Item Value Reference Range Comments KETONES, BLOOD (BEAKER) (test owxn=5444) 0.3 mmol/L <0.4 PH, [id number] 22:22:00 Test Item Value Reference Range Comments PH VENOUS (BEAKER) (test ywdw=932) 7.36 7.32-7.42 RAD, CHEST, 1 VIEW, NON [id number] 22:20:00Reason for exam:->sobShould this be performed at [...] MDReport Verified Date/Time: 11/28/2017 22:20:20 Reading Location: [address] Reading Room Electronically signed by: PRINCE MICHAEL M.D. on 10:20 PM
[2019-01-09] MEDS ORDERED: INSULIN -REGULAR HUMAN 50 UNIT/0.5 ML ML ONE (14:16)
[2019-01-09 14:17] LABS: Absolute Lymphocytes (CBC) 0.6 K/uL (0.7-4.9); Absolute Monocytes 2.2 K/uL (0.1-1.3); Absolute Neutrophil 10.2 K/uL (1.8-8.0); Basophils % 0.4 % (0-1.3); Eosinophils % 0.8 % (0-4.4); Hematocrit 18.9 % (36.0-45.0); Lymphocytes % 4.4 % (15.3-44.8); MPV 10.1 fL (7.6-11.3); Monocytes % 16.8 % (3.3-12.3); RBC Red Blood Cell Count 2.96 M/uL (3.86-4.86)
[2019-01-09] MEDS ORDERED: Meropenem 1 GM/100 ML BAG ONE ×2 (14:17→20:55)
[2019-01-09] MEDS ORDERED: NA CHLORIDE 0.9% 2,000 ML ONE (14:17)
[2019-01-09] MEDS ORDERED: FENTANYL CITR 100 MCG/2 ML ONE (14:17)
--- NOTE | 2019-01-09 14:26 | EDPHYS ---
Physician Documentation [facility] Name: Christopher Chamberlain Age: 63 yrs Sex: Female : 1955 Arrival Date: 01/09/2019 Time: 13:11 Bed 14 Private MD: ED Physician Guy Taveras HPI: 01/09 14:13 This 63 yrs old Female presents to ER via EMS with complaints of sepsis. velia 14:13 The patient presents with pain that is acute. The symptoms are located in the low back, velia coccyx area. Onset: The symptoms/episode began/occurred 3 day(s) ago. The pain does not radiate. Associated signs and symptoms: The patient has no apparent associated signs or symptoms. The problem was sustained bedridden. Modifying factors: The patient symptoms are alleviated by. Severity of symptoms: At their worst the symptoms were moderate, in the emergency department the symptoms are unchanged. The patient presents with pain, swelling, tenderness. The complaints affect the left foot, lateral side of left heel, medial aspect of left heel and heel of left foot. Historical: - Allergies: 13:19 Adhesives; jl7 13:19 Augmentin; jl7 13:19 Codeine; jl7 13:19 PENICILLINS; jl7 13:19 Morphine; jl7 - PMHx: 13:19 Diabetes - NIDDM; Multiple Sclerosis; jl7 - Immunization history:: Adult Immunizations unknown. - Social history:: Smoking status: unknown. - Ebola Screening: : No symptoms or risks identified at this time. - Family history:: not pertinent. ROS: 14:13 Constitutional: Negative for fever, chills, and weight loss, Eyes: Negative for injury, velia pain, redness, and discharge, ENT: Negative for injury, pain, and discharge, Neck: Negative for injury, pain, and swelling, Respiratory: Negative for shortness of breath, cough, wheezing, and pleuritic chest pain, Abdomen/GI: Negative for abdominal pain, nausea, vomiting, diarrhea, and constipation, Back: Negative for injury and pain, : Negative for injury, bleeding, discharge, and swelling, Neuro: Negative for headache, weakness, numbness, tingling, and seizure, Psych: Negative for depression, anxiety, suicide ideation, homicidal ideation, and hallucinations, Allergy/Immunology: Negative for hives, rash, and allergies, Endocrine: Negative for neck swelling, polydipsia, polyuria, polyphagia, and marked weight changes. 14:13 Cardiovascular: Positive for palpitations. 14:13 MS/extremity: Positive for pain, swelling, tenderness, of the lumbar area, left low back, right low back and left foot. 14:13 Skin: Positive for erythema, swelling, of the coccyx, left lower back, right lower back, left gluteus maryann and right gluteus maryann. Exam: 14:13 Constitutional: This is a well developed, well nourished patient who is awake, alert, velia and in no acute distress. Head/Face: Normocephalic, atraumatic. Eyes: Pupils equal round and reactive to light, extra-ocular motions intact. Lids and lashes normal. Conjunctiva and sclera are non-icteric and not injected. Cornea within normal limits. Periorbital areas with no swelling, redness, or edema. ENT: Nares patent. No nasal discharge, no septal abnormalities noted. Tympanic membranes are normal and external auditory canals are clear. Oropharynx with no redness, swelling, or masses, exudates, or evidence of obstruction, uvula midline. Mucous membranes moist. Neck: Trachea midline, no thyromegaly or masses palpated, and no cervical lymphadenopathy. Supple, full range of motion without nuchal rigidity, or vertebral point tenderness. No Meningismus. Chest/axilla: Normal chest wall appearance and motion. Nontender with no deformity. No lesions are appreciated. Respiratory: Lungs have equal breath sounds bilaterally, clear to auscultation and percussion. No rales, rhonchi or wheezes noted. No increased work of breathing, no retractions or nasal flaring. Back: No spinal tenderness. No costovertebral tenderness. Full range of motion. Female : Normal external genitalia. Skin: Warm, dry with normal turgor. Normal color with no rashes, no lesions, and no evidence of cellulitis. 14:13 Cardiovascular: Rate: tachycardic, Rhythm: regular, Heart sounds: normal, JVD: is not appreciated. 14:13 Skin: induration, that is mild is noted, that is moderate is noted, injury, lesion(s), noted, and can be described as bleeding, erythematous, tender, ulcerated. Vital Signs: 13:19 BP 96 / 51; Pulse 115; Resp 19 S; Temp 98.3(O); Pulse Ox 100% on R/A; Weight 58.97 kg jl7 (R); Pain 9/10; 17:15 BP 96 / 48; Pulse 112; Resp 14; Pulse Ox 100% on R/A; iw 17:33 BP 82 / 49; Pulse 110; Resp 16 S; Pulse Ox 100% on R/A; iw 18:10 BP 96 / 56; Pulse 88; Resp 16 S; Pulse Ox 99% on R/A; jl7 Procedures: 17:54 Central Line: the site was prepped with Betadine, in sterile fashion, a triple lumen velia catheter was inserted, in 1 attempts. placement was verified, by blood return, the site was dressed with using sterile technique, the patient tolerated the procedure, well. MDM: 13:12 Patient medically screened. [facility] 14:19 Data reviewed: vital signs, nurses notes, lab test result(s), EKG, radiologic studies, [facility] CT scan, plain films. 01/09 13:30 Order name: Basic Metabolic Panel; Complete Time: 16:13 01/09 13:30 Order name: Blood Culture Adult (2) 01/09 13:30 Order name: CBC with Diff; Complete Time: 16:13 01/09 13:30 Order name: Ckmb; Complete Time: 16:13 01/09 13:30 Order name: CPK; Complete Time: 16:13 01/09 13:30 Order name: Lactate; Complete Time: 16:13 01/09 13:30 Order name: LFT's; Complete Time: 16:13 01/09 13:30 Order name: Lipase; Complete Time: 16:13 01/09 13:30 Order name: Procalcitonin; Complete Time: 16:13 01/09 13:30 Order name: Protime (+inr); Complete Time: 16:13 01/09 13:30 Order name: Ptt, Activated; Complete Time: 16:13 01/09 13:30 Order name: Troponin (emerg Dept Use Only); Complete Time: 16:13 01/09 13:30 Order name: Urine Microscopic Only 01/09 13:52 Order name: Glucose [facility] 01/09 13:30 Order name: Chest Single View XRAY; Complete Time: 16:13 [facility] 01/09 14:08 Order name: Magnesium [facility] 01/09 14:08 Order name: NT PRO-BNP [facility] 01/09 14:08 Order name: Type And Screen [facility] 01/09 14:26 Order name: Manual Differential; Complete Time: 16:13 [facility] 01/09 14:31 Order name: Bb Add On bd 01/09 14:33 Order name: Packed RBC Leukored -1 [facility] 01/09 16:43 Order name: Glucose, Ancillary Testing [facility] 01/09 13:30 Order name: Accucheck; Complete Time: 13:30 [facility] 01/09 13:30 Order name: Cardiac monitoring; Complete Time: 14:15 [facility] 01/09 13:30 Order name: EKG - Nurse/Tech; Complete Time: 14:14 [facility] 01/09 13:30 Order name: IV Saline Lock - Large Bore; Complete Time: 14:14 [facility] 01/09 13:30 Order name: Labs collected and sent; Complete Time: 14:14 [facility] 01/09 13:30 Order name: O2 Per Protocol; Complete Time: 14:14 [facility] 01/09 13:30 Order name: O2 Sat Monitoring; Complete Time: 14:14 [facility] 01/09 14:08 Order name: EKG; Complete Time: 14:08 [facility] 01/09 14:08 Order name: IV Saline Lock; Complete Time: 14:14 [facility] 01/09 14:11 Order name: Wound Care; Complete Time: 17:32 [facility] 01/09 14:25 Order name: Transfuse; Complete Time: 17:32 [facility] Administered Medications: 13:40 Drug: NS 0.9% (30 ml/kg) 30 ml/kg Route: IV; Rate: bolus; Site: right upper arm; jl7 15:30 Follow up: Response: No adverse reaction; IV Status: Completed infusion; IV Intake: jl7 1770ml 14:14 Drug: Zofran 4 mg Route: IVP; Site: right upper arm; jl7 14:45 Follow up: Response: No adverse reaction jl7 14:15 Drug: Meropenem 1 grams Route: IV; Rate: per protocol; Site: right upper arm; jl7 14:45 Follow up: IV Status: Completed infusion jl7 14:16 Drug: Dilaudid 1 mg Route: IVP; Site: right upper arm; jl7 14:45 Follow up: Response: No adverse reaction; Pain is decreased jl7 14:20 Drug: Insulin Regular Human 10 units {Co-Signature: angie (Yue Morrell RN).} Route: jl7 IVP; Site: left forearm; 17:00 Follow up: Response: Blood sugar is lowered jl7 14:50 Drug: Pepcid 20 mg Route: IVP; Site: right upper arm; jl7 15:15 Follow up: Response: No adverse reaction jl7 15:15 Drug: vancoMYCIN 1 grams Route: IVPB; Infused Over: 2 hrs; Site: right upper arm; jl7 17:15 Follow up: Response: No adverse reaction; IV Status: Completed infusion jl7 17:17 Drug: Insulin Regular Human 8 units {Co-Signature: angie Morrell RN).} Route: IVP; jl7 Site: left forearm; 18:15 Follow up: Response: No adverse reaction jl7 18:10 Drug: Levophed (4 mg/250 mL D5W 4 mcg/min Route: IV; Rate: calculated rate; Site: right jl7 femoral; 19:21 Follow up: IV Status: Infusion continued upon admission jl7 Point of Care Testing: Blood Glucose: 13:19 Blood Glucose: High (>450 mg/dL); jl7 Ranges: Critical Glucose Levels:Adult <50 mg/dl or >400 mg/dl <40 mg/dl or >180 mg/dl Disposition: 01/09/19 14:25 Hospitalization ordered by Tremayne Gallo for Inpatient Admission. Preliminary diagnosis are Weakness, Cellulitis and acute lymphangitis of other parts of limb - left foot/calcaneus, Cellulitis and acute lymphangitis of other sites - back, sacrum, Pressure ulcer of buttock, Pressure ulcer - left heel, Anemia, unspecified, Type 2 diabetes mellitus - uncontrolled, Elevated white blood cell count, Multiple sclerosis, Hypotension. - Bed requested for Intensive Care Unit. - Status is Inpatient Admission. jl7 - Condition is Serious. - Problem is new. - Symptoms have improved. UTI on Admission? No Signatures: Dispatcher [employer] Guy Padgett MD MD cha Leal, Jahala, RN RN jl7 Rico, Rolanda, RN RN df Yue Petros RN iw Corrections: (The following items were deleted from the chart) 14 14:25 Hospitalization Ordered by Tremayne Gallo MD for Inpatient Admission. Preliminary [facility] diagnosis is Weakness; Cellulitis and acute lymphangitis of other parts of limb - left foot/calcaneus; Cellulitis and acute lymphangitis of other sites - back, sacrum; Pressure ulcer of buttock; Pressure ulcer - left heel; Anemia, unspecified. Bed requested for Telemetry/MedSurg (Inpatient). Status is Inpatient Admission. Condition is Serious. Problem is new. Symptoms have improved. UTI on Admission? No. velia 16:07 14:27 01/09/2019 14:25 Hospitalization Ordered by Tremayne Gallo MD for Inpatient df Admission. Preliminary diagnosis is Weakness; Cellulitis and acute lymphangitis of other parts of limb - left foot/calcaneus; Cellulitis and acute lymphangitis of other sites - back, sacrum; Pressure ulcer of buttock; Pressure ulcer - left heel; Anemia, unspecified; Type 2 diabetes mellitus - uncontrolled. Bed requested for Telemetry/MedSurg (Inpatient). Status is Inpatient Admission. Condition is Serious. Problem is new. Symptoms have improved. UTI on Admission? No. velia 16:14 16:07 01/09/2019 14:25 Hospitalization Ordered by Tremayne Gallo MD for Inpatient velia Admission. Preliminary diagnosis is Weakness; Cellulitis and acute lymphangitis of other parts of limb - left foot/calcaneus; Cellulitis and acute lymphangitis of other sites - back, sacrum; Pressure ulcer of buttock; Pressure ulcer - left heel; Anemia, unspecified; Type 2 diabetes mellitus - uncontrolled. Bed requested for Intensive Care Unit. Status is Inpatient Admission. Condition is Serious. Problem is new. Symptoms have improved. UTI on Admission? No. df 16:14 16:14 01/09/2019 14:25 Hospitalization Ordered by Tremayne Gallo MD for Inpatient velia Admission. Preliminary diagnosis is Weakness; Cellulitis and acute lymphangitis of other parts of limb - left foot/calcaneus; Cellulitis and acute lymphangitis of other sites - back, sacrum; Pressure ulcer of buttock; Pressure ulcer - left heel; Anemia, unspecified; Type 2 diabetes mellitus - uncontrolled; Elevated white blood cell count; Multiple sclerosis. Bed requested for Intensive Care Unit. Status is Inpatient Admission. Condition is Serious. Problem is new. Symptoms have improved. UTI on Admission? No. velia 19:24 16:14 01/09/2019 14:25 Hospitalization Ordered by Tremayne Gallo MD for Inpatient jl7 Admission. Preliminary diagnosis is Weakness; Cellulitis and acute lymphangitis of other parts of limb - left foot/calcaneus; Cellulitis and acute lymphangitis of other sites - back, sacrum; Pressure ulcer of buttock; Pressure ulcer - left heel; Anemia, unspecified; Type 2 diabetes mellitus - uncontrolled; Elevated white blood cell count; Multiple sclerosis; Hypotension. Bed requested for Intensive Care Unit. Status is Inpatient Admission. Condition is Serious. Problem is new. Symptoms have improved. UTI on Admission? No. velia
--- NOTE | 2019-01-09 14:26 | ER ---
Nurse's Notes [facility] Name: Christopher Chamberlain Age: 63 yrs Sex: Female : 1955 Arrival Date: 01/09/2019 Time: 13:11 Bed 14 Private MD: Diagnosis: Weakness;Cellulitis and acute lymphangitis of other parts of limb-left foot/calcaneus;Cellulitis and acute lymphangitis of other sites-back, sacrum;Pressure ulcer of buttock;Pressure ulcer-left heel;Anemia, unspecified;Type 2 diabetes mellitus-uncontrolled;Elevated white blood cell count;Multiple sclerosis;Hypotension Presentation: 01/09 13:12 Presenting complaint: EMS states: Home Health Nurse called due to BP of 74/46, EMS jl7 got BP 72 systolic, gave her 100 mL bolus, BP now 112/72, BGL 453, pt c/o pain to the sacral area and general fatigue. Transition of care: patient was not received from another setting of care. Onset of symptoms was January 09, 2019. Risk Assessment: Do you want to hurt yourself or someone else? Patient reports no desire to harm self or others. Initial Sepsis Screen: Does the patient meet any 2 criteria? Mean Arterial Pressure (MAP) < 65. HR > 90 bpm. Yes Does the patient have a suspected source of infection? Yes: Skin breakdown/wound If YES to both, name of provider notified: Guy Taveras MD Care prior to arrival: Medication(s) given: Normal saline infusion, 100 mL IV initiated. 20 GA, in the left forearm, Glucose check: 453. 13:12 Method Of Arrival: EMS: [facility] jl 13:12 Acuity: FERNANDO 3 jl7 13:15 Acuity: FERNANDO 2 iw Historical: - Allergies: 13:19 Adhesives; jl7 13:19 Augmentin; jl7 13:19 Codeine; jl7 13:19 PENICILLINS; jl7 13:19 Morphine; jl7 - PMHx: 13:19 Diabetes - NIDDM; Multiple Sclerosis; jl7 - Immunization history:: Adult Immunizations unknown. - Social history:: Smoking status: unknown. - Ebola Screening: : No symptoms or risks identified at this time. - Family history:: not pertinent. Screenin:35 Abuse screen: Denies threats or abuse. Denies injuries from another. Nutritional iw screening: No deficits noted. Tuberculosis screening: No symptoms or risk factors identified. Fall Risk IV access (20 points). Assessment: 13:20 General: Appears in no apparent distress. comfortable, slender, Behavior is calm, jl7 cooperative, appropriate for age. Pain: Complains of pain in coccyx, left lower back and right lower back Pain currently is 9 out of 10 on a pain scale. Neuro: Level of Consciousness is awake, alert, obeys commands, Oriented to person, place, time, situation. Cardiovascular: Heart tones present Patient's skin is warm and dry. Rhythm is sinus tachycardia Chest pain is denied. Respiratory: Airway is patent Respiratory effort is even, unlabored, Respiratory pattern is regular, symmetrical, Breath sounds are clear bilaterally. Denies shortness of breath. GI: No signs and/or symptoms were reported involving the gastrointestinal system. : suprapubic catheter in place to gravity drainage Urine is cloudy. EENT: No signs and/or symptoms were reported regarding the EENT system. Derm: Skin is fragile, is thin, Skin is dry, Skin is pale, Skin temperature is cool Wound noted wounds noted to right heel, bilateral shins, right calf, bilateral buttocks, sacrum, and lower back. Musculoskeletal: Range of motion: limited in all extremities. 14:30 Reassessment: Patient appears in no apparent distress at this time. No changes from jl7 previously documented assessment. Patient and/or family updated on plan of care and expected duration. Pain level reassessed. Patient is alert, oriented x 3, equal unlabored respirations, skin warm/dry/pink. 15:30 Reassessment: Patient appears in no apparent distress at this time. Patient and/or jl7 family updated on plan of care and expected duration. Pain level reassessed. Patient is alert, oriented x 3, equal unlabored respirations, skin warm/dry/pink. 16:40 Reassessment: pt has been consented for blood transfusion, checked by OMAIRA Portillo. iw 17:00 Reassessment: covered bilateral leg wounds with non-stick gauze and Kerlix, pt jl7 tolerated poorly. 17:15 Reassessment: 1st unit PRBC started to right upper arm PICC at 1645, started at 50 iw mL/hr, no adverse reaction noted during 1st 15 minutes, infusion increased to 125 mL/hr, no adverse reaction, BP=96/48, ME=099, RR=16, 100% on RA. 17:20 Reassessment: VO received from Dr. Gallo to start Levophed after central line placement.jl7 17:34 Reassessment: Pt agrees to central line placement, but wants to speak about Hospice iw care. Dr. Gallo notified. 18:00 Reassessment: Central placed by Dr. Taveras, pt tolerated well, Levophed started to jl7 right femoral central line at 8 mcg/min at this time. Vital Signs: 13:19 BP 96 / 51; Pulse 115; Resp 19 S; Temp 98.3(O); Pulse Ox 100% on R/A; Weight 58.97 kg jl7 (R); Pain 9/10; 17:15 BP 96 / 48; Pulse 112; Resp 14; Pulse Ox 100% on R/A; iw 17:33 BP 82 / 49; Pulse 110; Resp 16 S; Pulse Ox 100% on R/A; iw 18:10 BP 96 / 56; Pulse 88; Resp 16 S; Pulse Ox 99% on R/A; jl7 ED Course: 13:11 Patient arrived in ED. iw 13:12 Guy Taveras MD is Attending Physician. velia 13:12 Lindsey Alatorre RN is Primary Nurse. jl7 13:18 Triage completed. jl7 13:19 Arm band placed on right wrist. jl7 13:20 Patient has correct armband on for positive identification. monitoring manager on. Pulse iw ox on. NIBP on. 13:52 EKG done, by weatherseal technician. reviewed by Guy Taveras MD. at1 13:52 Maintain EMS IV. Dressing intact. Site clean \T\ dry. Gauge \T\ site: 20 LFA. iw 14:23 Tremayne Gallo MD is Hospitalizing Provider. velia 14:28 Chest Single View XRAY In Process Unspecified. EDMS 16:40 Consent for blood and/or blood product transfusion explained by staff, explained by iw physician, signed by patient. 17:55 Assisted provider with central line placement. Set up central line tray. Triple lumen jl7 line placed in right femoral. Line placed by Guy Taveras MD Placement verified by blood return, Dressed with Tape, Tegaderm, Patient tolerated well. Before procedure, did Practitioner(s) obtain informed consent? Yes. Patient \T\ family education about procedure, CLABSI prevention and S/S of infection? Yes. Time-out/Briefing performed prior to start of procedure? Yes. Was handwashing/sanitizing done immediately prior to procedure? Yes. Was patient positioned to in a way to prevent air embolism? Yes. Was procedure site sterilized? Yes, with chlorhexidine. Was the site allowed to dry? Yes. Was local anesthetic and/or sedation utilized? Yes. During the procedure, did the Practitioner(s) maintain a sterile field? Yes. Were unused ports clamped during insertion? Yes. Was a 2nd qualified MD obtained after 3 unsuccessful insertion attempts? No. Was blood aspirated from each lumen? Yes. After the procedure, did the Practitioner(s) clean the site and apply a sterile dressing? Yes. 17:55 IV discontinued, intact, bleeding controlled, No redness/swelling at site. Pressure jl7 dressing applied. 19:00 Report given to OMAIRA Pickering. [facility] Administered Medications: 13:40 Drug: NS 0.9% (30 ml/kg) 30 ml/kg Route: IV; Rate: bolus; Site: right upper arm; [facility] 15:30 Follow up: Response: No adverse reaction; IV Status: Completed infusion; IV Intake: [facility] 1770ml 14:14 Drug: Zofran 4 mg Route: IVP; Site: right upper arm; 7 14:45 Follow up: Response: No adverse reaction 7 14:15 Drug: Meropenem 1 grams Route: IV; Rate: per protocol; Site: right upper arm; [facility] 14:45 Follow up: IV Status: Completed infusion [facility] 14:16 Drug: Dilaudid 1 mg Route: IVP; Site: right upper arm; 7 14:45 Follow up: Response: No adverse reaction; Pain is decreased jl7 14:20 Drug: Insulin Regular Human 10 units {Co-Signature: iw (Yue Morrell RN).} Route: jl7 IVP; Site: left forearm; 17:00 Follow up: Response: Blood sugar is lowered jl7 14:50 Drug: Pepcid 20 mg Route: IVP; Site: right upper arm; jl7 15:15 Follow up: Response: No adverse reaction [facility] 15:15 Drug: vancoMYCIN 1 grams Route: IVPB; Infused Over: 2 hrs; Site: right upper arm; jl7 17:15 Follow up: Response: No adverse reaction; IV Status: Completed infusion jl7 17:17 Drug: Insulin Regular Human 8 units {Co-Signature: angie (Yue Morrell RN).} Route: IVP; jl7 Site: left forearm; 18:15 Follow up: Response: No adverse reaction jl7 18:10 Drug: Levophed (4 mg/250 mL D5W 4 mcg/min Route: IV; Rate: calculated rate; Site: right jl7 femoral; 19:21 Follow up: IV Status: Infusion continued upon admission jl7 Medication: 18:35 Blood products: PRBCs X 1 unit given. See transfusion record Unit 2 started at 1850. jl7 Point of Care Testing: Blood Glucose: 13:19 Blood Glucose: High (>450 mg/dL); jl7 Ranges: Intake: 15:30 IV: 1770ml; Total: 1770ml. jl7 Outcome: 14:25 Decision to Hospitalize by Provider. velia 19:23 Admitted to ICU accompanied by nurse, accompanied by thomas, via stretcher, room 1, on jl7 monitor, with chart, Report called to OMAIRA Mcgovern 19:23 Condition: stable 19:23 Discharge instructions given to patient, Instructed on the need for admit, Demonstrated understanding of instructions. 19:24 Patient left the ED. jl7 Signatures: Dispatcher [employer] Guy Padgett MD MD cha Williams, Irene, RN RN iw Leidy Gongora, derrick man EKG Tat1 Lindsey Alatorre RN RN jl7 Irene Williams RN iw Corrections: (The following items were deleted from the chart) 18:11 18:10 Levophed (4 mg/250 mL D5W 4 mcg/min IV at calculated rate in left femoral jl7 jl7 19:17 19:16 Report given to OMAIRA Pickering jl7 jl7
[2019-01-09 14:29] LABS: Protime INR 1.31
[2019-01-09] MEDS ORDERED: VANCOMYCIN/NS 1 gm 1 GM/250 ML BAG IV ONE (14:30)
[2019-01-09 14:33] LABS: ALT/SGPT 14 U/L (12-78); AST/SGOT 13 U/L (15-37); Albumin 2.1 g/dL (3.4-5.0); Alkaline Phosphatase 180 U/L (45-117); BUN Blood Urea Nitrogen 30 mg/dL (7-18); Bicarbonate 23 mmol/L (21-32); Bilirubin Direct 0.2 mg/dL (0-0.2); Bilirubin Total 0.4 mg/dL (0.2-1.0); CKMB Creatine Kinase MB < 1.0 ng/mL (0.3-3.6); Creatine Phosphokinase 25 U/L (26-192); Lipase 289 U/L (73-393); Potassium 4.4 mmol/L (3.5-5.1); Protein, Total 6.6 g/dL (6.4-8.2); Sodium Level 131 mmol/L (136-145); Troponin (Emerg Dept Use Only) < 0.02 ng/mL (0.0-0.045)
--- NOTE | 2019-01-09 14:38 | RAD REPORT ---
EXAM DESCRIPTION: RAD - Chest Single View - 01/09/2019 2:27 pm CLINICAL HISTORY: Sepsis, shortness of breath COMPARISON: April 2018 TECHNIQUE: AP portable chest image was obtained 1416 hours . FINDINGS: Lungs are clear. Heart and vasculature are normal. No measurable pleural effusion and no p neumothorax. No acute bony abnormality seen. No acute aortic finding. Left-sided Port-A-Cath and righ t-sided PICC line remain in place. IMPRESSION: No acute cardiopulmonary process.
[2019-01-09 14:39] LABS: Glucose Level 464 mg/dL (74-106)
[2019-01-09] MEDS ORDERED: ONDANSETRON 4 MG/2 ML VIAL ONE (14:46)
[2019-01-09] MEDS ORDERED: FAMOTIDINE 20 MG/2 ML VIAL IV ONE (14:46)
[2019-01-09] MEDS ORDERED: HYDROMORPHONE HCL 1 MG/ML INJ ONE (14:46)
[2019-01-09 16:11] LABS: Anisocytosis 1+; Blood Morphology Comment NOTED (NOT SEEN); Hypochromasia 2+; Macrocytosis 1+; Platelet Estimate ADEQ; Poikilocytosis 1+; Teardrop Cell 1+
[2019-01-09] MEDS ORDERED: D50W 25 GM/50 ML SYRINGE IV PRN (16:43)
[2019-01-09] MEDS ORDERED: GLUCAGON 1 MG/VIAL IM PRN (16:43)
[2019-01-09] MEDS ORDERED: NA CHLORIDE 0.9% 250 ML ONE (16:45)
[2019-01-09 17:41] LABS: Magnesium 1.7 mg/dL (1.8-2.4)
[2019-01-09] MEDS ORDERED: NOREPINEPHRINE 4mg/D5W 250mL 4 MG/250 ML BAG IV ONE (18:07)
[2019-01-09] MEDS ORDERED: Meropenem 500 MG VIAL IV SCH (20:04)
[2019-01-09] MEDS ORDERED: VANCOMYCIN/NS 1 gm 1 GM/250 ML BAG IVPB SCH (20:04)
[2019-01-09] MEDS: INSULIN -REGULAR HUMAN 50 UNIT/0.5 ML ML SQ SCH (21:00)
[2019-01-09] MEDS: NA CHLORIDE 0.9% 1,000 ML IV SCH (21:00)
[2019-01-09] MEDS ORDERED: Meropenem 500 MG in NA CHLORIDE 0.9% 100 ML IV SCH (23:00)
[2019-01-09 23:37] LABS: Hematocrit 24.6 % (36.0-45.0)
[2019-01-09 23:59] LABS: Ferritin 129.3 ng/mL (8-388)
[2019-01-10] MEDS ORDERED: NA CHLORIDE 0.9% 100 ML ONE (01:04)
[2019-01-10] MEDS ORDERED: NOREPINEPHRINE 4 MG in D5W 250 ML IV PRN ×2 (01:16→01:19)
[2019-01-10] MEDS: Meropenem 500 MG in NA CHLORIDE 0.9% 100 ML IV SCH ×3 (01:35→17:30)
[2019-01-10] MEDS ORDERED: Meropenem 500 MG/100 ML BAG ONE (01:36)
[2019-01-10] MEDS: VANCOMYCIN 1.25 GM in NA CHLORIDE 0.9% 250 ML IVPB SCH ×2 (03:00→15:08)
--- NOTE | 2019-01-10 03:04 | HP ---
Date of Admission: 01/09/2019 Chief Complaint: Hypotension, sent from wound healing clinic, also right heel wound. Code Status: Do not resuscitate. is the medical power of clinical fellow. The patient states she does not want to be resuscitated or be on a ventilator. History Of Present Illness: The patient is a 63-year-old female with past medical history of multipl e sclerosis, history of multiple wounds, who has been seeing Dr. Baumann in wound care clinic, has sign ificant wounds including the sacrum, bilateral lower extremities, is bed-bound, also has hypothyroidi sm, hyperlipidemia, anxiety, depression, and chronic pain. The patient states that she has developed a new ulcer on the right heel, which has been worsening over the past 3 or 4 days. has been taking care of her wounds, tried some Epsom salts and soaking, however, worsened with erythema, pain , and ulceration. The patient went to the wound healing center today, was found to be hypotensive an d was sent to the ER. In the ER, her vital signs showed blood pressure in the 90s. She was tachycar dic at rate of 115. The patient was given 1.7 L of normal saline according to the bolus of 30 mL/kg. The patient did not respond to fluids. Her blood pressure remained in the 80s/50s. When I saw the patient, she was awake, alert, oriented x3, in moderate amount of pain. Her symptoms are constant, moderate, progressively worsening. Levophed was ordered. The patient's other lab abnormalities also included glucose of 464, elevated procalcitonin level at 0.64. Her lactate was normal. White count was 13,000. Her hemoglobin was 5.6. No apparent source of bleeding. The patient was then referred for admission. She had received meropenem and was starting on vancomycin. Past Medical History: Multiple sclerosis, diabetes, hypothyroidism, hypercholesterolemia, major depr essive disorder, anxiety disorder, chronic pain syndrome. Surgical History: Suprapubic catheter placement and surgery on her right foot with screws and pins, multiple debridements for her wounds. Allergies: AMOXICILLIN, MORPHINE, POTASSIUM CLAVULANATE FROM AUGMENTIN, LEVAQUIN, PENICILLIN, CODEIN E, TAPE. Medications: List reviewed. Social History: The patient denies tobacco use, alcohol use, or illicit drug use. The patient is ma rried, is bed-bound, dependent on her activities of daily living and helps for complete those tasks. Family History: Multiple sclerosis runs in the family. Review of Systems: An 11-point system reviewed, negative except as per HPI. Physical Examination: Vital Signs: Blood pressure 96/51, pulse 115, respirations 19, temperature 98.3, O2 100% on room air . General: Awake, alert, oriented x3, ill-appearing female, frail, cachectic, appears older than state d age. HEENT: Normocephalic, atraumatic. PERRLA. EOMI. Moist mucous membranes. Oropharynx is clear. Co njunctivae are anicteric. Neck: Supple. No JVD. Trachea midline. CV: S1, S2. Sinus tachycardia. Peripheral pulses weak. No murmurs. Respiratory: Moving air well bilaterally. No wheezing or stridor. No use of accessory muscles. Gastrointestinal: Abdomen is soft, nontender, nondistended. Positive bowel sounds. Extremities: No clubbing, cyanosis, or edema. Neuro: Weakness in her lower extremities. Cranial nerves 2-12 are intact grossly. Normal strength in upper extremities bilaterally. Speech is normal. Skin: The patient has multiple ulcerations on the bilateral lower extremities. The patient also has large heel wound on the right heel with surrounding erythema consistent with cellulitis. The patien t also has unstageable sacral ulcer as well as ulceration on her lower back. Psych: Mood is depressed. Affect is congruent with mood. Insight and judgment are good. Laboratory Data: UA is pending. Sodium 131, potassium 4.4, chloride 97, CO2 23, BUN 30, creatinine 0.65, glucose 464, lactate 1.4, calcium 9. Troponin less than 0.02, albumin 2.1. Procalcitonin 0.64 . Lactate is 1.4. INR 1.32. WBC 13.2, H and H 5.6 and 18.9, platelets 224, neutrophils 77%. Imaging Studies: Chest x-ray shows no acute cardiopulmonary process. Assessment And Plan: A 63-year-old female with: 1.Septic shock, likely due to acute on chronic wounds and a new right heel wound. The patient also has suprapubic catheter and will follow up on the urine. We will start on broad spectrum IV antibiot ics due to her immune status as well as allergies to penicillin. Blood cultures and wound cultures h ave been ordered. Antibiotics had already been started at time of drawing. 2.Right heel wound with surrounding cellulitis. Continue broad-spectrum antibiotics. Dr. Ibis toussaint h Surgery has been consulted. The patient is not a candidate for surgery at this time due to her sep sis and hypotension with septic shock. The patient has been started on pressors. 3.Hypertensive shock secondary to sepsis. Start on Levophed. The patient received 30 mL/kg bolus, did not respond. 4.Sacral ulcer, unstageable. Continue offloading with air mattress. 5.Anemia. Hemoglobin is 5.6. No clear source of bleeding. We will transfuse 2 units of PRBCs and check for Hemoccult blood. 6.Multiple sclerosis. The patient is bed ridden. Used to follow up with Dr. Hurd as outpatient. 7.Diabetes mellitus type 2, [id number] with hyperglycemia. The patient's blood glucose w as close to 500. The patient received 17 units of IV insulin. We will start her on sliding scale in sulin and monitor blood glucose levels closely. 8.Severe protein-calorie malnutrition. Albumin is 2.1. 9.Hyponatremia. 10.Multiple ulcerations on the legs, healing. 11.Status post suprapubic catheter, last changed last week. 12.Hypothyroidism. We will continue Synthroid. 13.Hyperlipidemia, statin. 14.Major depressive disorder. 15.Steroids. Anxiety disorder. 16.Chronic pain syndrome. We will keep on IV pain medications. The patient has very low tolerance for pain. We will need to balance with her hypotension at this point. Admit the patient to ICU, place as inpatient. Length of stay, greater than 2 midnights. Overall, e patient has a very poor prognosis. Her code status is DNR. She does not wish to be resuscitated. is at the bedside. SA/MODL Voice ID: [id number]
[2019-01-10] MEDS ORDERED: VANCOMYCIN 1 GM/VIAL ONE (03:07)
[2019-01-10] MEDS ORDERED: NA CHLORIDE 0.9% 250 ML ONE (03:08)
[2019-01-10 05:34] LABS: Absolute Lymphocytes (CBC) 0.8 K/uL (0.7-4.9); Absolute Monocytes 2.6 K/uL (0.1-1.3); Absolute Neutrophil 12.1 K/uL (1.8-8.0); Basophils % 0.2 % (0-1.3); Eosinophils % 1.2 % (0-4.4); Hematocrit 27.8 % (36.0-45.0); Monocytes % 16.6 % (3.3-12.3); RBC Red Blood Cell Count 3.86 M/uL (3.86-4.86)
[2019-01-10 05:47] LABS: BUN Blood Urea Nitrogen 18 mg/dL (7-18); Bicarbonate 20 mmol/L (21-32); Glucose Level 328 mg/dL (74-106); Phosphorus 1.6 mg/dL (2.5-4.9); Potassium 3.9 mmol/L (3.5-5.1); Sodium Level 135 mmol/L (136-145)
[2019-01-10 05:50] LABS: Magnesium 1.4 mg/dL (1.8-2.4)
[2019-01-10] MEDS ORDERED: Magnesium Sulfate 2gm IVPB 2 G/50 ML BAG IV ONE (06:02)
[2019-01-10 06:42] LABS: Urine White Blood Cell Casts OK
[2019-01-10 06:43] LABS: Anisocytosis 2+; Blood Morphology Comment NOTED (NOT SEEN); Platelet Estimate ADEQ
[2019-01-10] MEDS: LEVOTHYROXINE SOD 0.125 MG TAB PO SCH (07:07)
[2019-01-10] MEDS ORDERED: LEVOTHYROXINE SOD 0.125 MG TAB PO SCH (07:30)
[2019-01-10] MEDS: MEGESTROL 400 MG/10 ML UCUP PO SCH (09:00)
[2019-01-10] MEDS: CARBAMAZEPINE 300 MG PO SCH ×2 (09:00→20:55)
[2019-01-10] MEDS: INSULIN -REGULAR HUMAN 50 UNIT/0.5 ML ML SQ SCH ×4 (09:29→20:56)
[2019-01-10] MEDS: ZINC SULFATE 220 MG CAP PO SCH ×2 (09:31→20:57)
[2019-01-10] MEDS: OXYBUTYNIN CHLORIDE 5 MG TAB PO SCH ×2 (09:32→20:56)
--- NOTE | 2019-01-10 11:41 | EKG ---
Test Date: 2019-01-09 Test Time: 13:47:25 Trip Motor Operator: GALILEA MEASUREMENT RESULTS: Intervals: Rate: 116 CO: QRSD: 148 QT: 414 QTc: 575 [place]: P: CO: QRS: 74 T: 52 INTERPRETIVE STATEMENTS: Sinus tachycardia Left bundle branch block Abnormal ECG Compared to ECG 04/20/2018 12:12:18 Left bundle-branch block now present Electronically Signed On 01-09-19 16:07:27 CDT by Thiago David
[2019-01-10] MEDS: TRAMADOL HCL 50 MG TAB PO PRN (12:02)
--- NOTE | 2019-01-10 12:54 | RAD REPORT ---
EXAM DESCRIPTION: RAD - Os Calcis (Calcaneus) Heel - 01/10/2019 12:40 pm CLINICAL HISTORY: Right foot cellulitis, suspected osteomyelitis COMPARISON: None. FINDINGS: Axial and lateral views of the calcaneus were obtained. History indicates soft tissue woun d posterior inferior calcaneus. No air or foreign body seen in the soft tissues. No rosalee bone destruction identifiable. Osteomyelit is can exist prior to radiographic bone destruction. The distal tibia and fibula have hardware in ana ce. No fracture of the hardware. Bone screws are bent but intact. Degenerative changes are present elsewhere in the foot along with osteopenic change. Findings are onl y partially imaged outside of the calcaneus. IMPRESSION: No rosalee bone destruction seen. Osteomyelitis can exist prior to radiographic bone destr uction. No air or foreign body at the site of soft tissue wound. MR imaging could be performed for further evaluation. There will be artifact from the distal tib-fib hardware but the posterior calcaneus should be amenable to evaluation.
[2019-01-10] MEDS: NA CHLORIDE 0.9% 1,000 ML IV SCH ×2 (13:50→16:04)
[2019-01-10] MEDS ORDERED: ACETIC ACID 0.25% IRRIG IRR ONE (14:23)
[2019-01-10] MEDS ORDERED: LIDOCAINE VISCOUS 2% SOLN 15 ML UDC ONE (14:43)
[2019-01-10] MEDS: COLLAGENASE 30 GM OINTMENT TOP SCH (15:30)
--- NOTE | 2019-01-10 17:01 | CON ---
Date of Consultation: 01/09/2019 Reason For Consultation: Infected wound, right heel, multiple wounds elsewhere and sepsis. History Of Present Illness: The patient is a 63-year-old female with multiple medical problems and m ultiple wounds, and have been following the wound clinic for a significant amount of time. She has k nown wounds to her both legs, sacrum, and left axilla. However, she came to the ER because her blood pressure was low and the home health nurse stated that she had a new wound on her right heel. She h ad contacted me and advise her immediately take the patient to the ER where she was determined to be in hypotensive. She was given 2 L of fluid. Her blood pressure was still low, therefore she was sta rted on Levophed and was admitted to the ICU and I was consulted regarding the wound. She is awake a nd alert. She is considering hospice at this point, as she has significant amount of pain. She is e ating very poorly. Her prealbumin was very low and she is complaining of pain everywhere. She is be d bound. She is unable to care for herself. She denies any fever or chills and no purulent discharg e from the wounds. Review of Systems: Otherwise unremarkable. Past Medical History: Significant for multiple sclerosis, diabetes, hypothyroidism, hypercholesterol emia, depression, chronic pain syndrome, and anxiety. Past Surgical History: Suprapubic catheter, right foot surgery with screws and pins, multiple debrid ements of the wounds. Allergies: REVIEWED. Social History: She does not smoke or drink. Family History: Significant for multiple sclerosis. Physical Examination: Vital Signs: Currently her heart rate is 101, blood pressure 93/54, she is afebrile. General: She is awake and alert. Head and Neck: No masses. Chest: Clear. Heart: S1 and S2. Abdomen: Soft. Extremities: Contracted. At this time, the patient does not want the wound to be opened up except t he right heel because of pain issues, but the measurements of the wounds were in my progress note sabina de leon [facility]. She has a large sacral decubitus. She has multiple wounds on both legs between the knees and the ankle. She has a left axilla wound as well. On the right samira l, I was able to see today which she has redness, swelling, erythema, warmth with central necrosis ap proximately 4 x 4 cm. Laboratory Data: Her H and H yesterday were 5.6 and 18.9, she was transfused, today is 9 and 27.8. White count was 13.2 yesterday, today is 15.7. Platelets are normal. She does have a left shift. I NR is 1.31. Magnesium was low, it is being replaced. Her lactic acid was 1.4. Glucose is elevated. Procalcitonin on admission was 0.64. Assessment: A 63-year-old female with multiple medical problems, infected wound right heel, sepsis. Recommendations: Continue IV antibiotics as ordered, resuscitation per the medical team. We will in stitute the wound care. Once she is medically stabilized, we will take her down for debridement of t he right heel wound. We will go and get an x-ray of the right heel as well. The patient is also con sidering hospice at this point and we will have manager social services discussed with her the options of hospi ce. We will follow this patient while in the hospital. ALEXUS/MIKE Voice ID: [id number] Report ID: [id number]
[2019-01-10] MEDS: NOREPINEPHRINE 8 MG in Dextrose 5%-Water 500 ML IV PRN (19:12)
[2019-01-10] MEDS: ATORVASTATIN 10 MG TAB PO SCH (20:56)
--- NOTE | 2019-01-10 23:33 | P.PN ---
Subjective Date of Service: 01/10/19 Physical Examination - Vital Signs Temperature: 99.7 F Blood Pressure: 127/52 Pulse: 100 Respirations: 17 Pulse Ox (%): 99 Assessment And Plan - Plan A 63-year-old female with: 1. Septic shock, likely due to acute on chronic wounds and a new right heel wound. The patient also has suprapubic catheter. We will continue broad spectrum IV antibiotics due to her immune status as well as allergies to penicillin. Blood cultures and wound cultures have been ordered. Antibiotics had already been started at time of drawing. 2. Right heel wound with surrounding cellulitis. Continue broad-spectrum antibiotics. Dr. Baumann with Surgery has been consulted, recommendations appreciated. The patient is not a candidate for surgery at this time due to her sepsis and hypotension with septic shock. The patient still requiring pressors. 3. Hypertensive shock secondary to sepsis. Start on Levophed. The patient received 30 mL/kg bolus, did not respond. 4. Sacral ulcer, unstageable. Continue offloading with air mattress. 5. Anemia. Hemoglobin is 5.6. No clear source of bleeding. We will transfuse 2 units of PRBCs and check for Hemoccult blood. 6. Multiple sclerosis. The patient is bed ridden. Used to follow up with Dr. Hurd as outpatient. 7. Diabetes mellitus type 2, exj-jkylvbj-yddccyorn with hyperglycemia. Continue sliding scale insulin and monitor blood glucose levels closely. 8. Severe protein-calorie malnutrition. Albumin is 2.1. 9. Hyponatremia. 10. Multiple ulcerations on the legs, healing. 11. Status post suprapubic catheter, last changed last week. 12. Hypothyroidism. We will continue Synthroid. 13. Hyperlipidemia, statin. 14. Major depressive disorder. 15. Steroids. Anxiety disorder. 16. Chronic pain syndrome. We will keep on IV pain medications. The patient has very low tolerance for pain. We will need to balance with her hypotension at this point. Continue to monitor in ICU. Overall, the patient has a very poor prognosis. Her code status is DNR. She does not wish to be resuscitated. is at the bedside.
[2019-01-11] MEDS: Meropenem 500 MG in NA CHLORIDE 0.9% 100 ML IV SCH ×3 (02:05→16:43)
[2019-01-11] MEDS: VANCOMYCIN 1.25 GM in NA CHLORIDE 0.9% 250 ML IVPB SCH ×2 (02:57→10:05)
[2019-01-11 05:35] LABS: Absolute Lymphocytes (CBC) 0.9 K/uL (0.7-4.9); Absolute Neutrophil 10.7 K/uL (1.8-8.0); Basophils % 0.2 % (0-1.3); Eosinophils % 1.4 % (0-4.4); Hematocrit 26.1 % (36.0-45.0); Lymphocytes % 5.5 % (15.3-44.8); MPV 9.7 fL (7.6-11.3); Monocytes % 25.2 % (3.3-12.3); RBC Red Blood Cell Count 3.63 M/uL (3.86-4.86)
[2019-01-11 05:51] LABS: BUN Blood Urea Nitrogen 13 mg/dL (7-18); Bicarbonate 18 mmol/L (21-32); Glucose Level 357 mg/dL (74-106); Magnesium 1.7 mg/dL (1.8-2.4); Phosphorus 1.1 mg/dL (2.5-4.9); Potassium 3.7 mmol/L (3.5-5.1); Sodium Level 134 mmol/L (136-145)
[2019-01-11] MEDS: NA CHLORIDE 0.9% 1,000 ML IV SCH ×2 (06:17→13:53)
[2019-01-11] MEDS: LEVOTHYROXINE SOD 0.125 MG TAB PO SCH (06:26)
[2019-01-11 06:32] LABS: Anisocytosis 2+; Blood Morphology Comment NOTED (NOT SEEN); Platelet Estimate ADEQ
[2019-01-11 06:33] LABS: Ovalocytes 1+
[2019-01-11 06:34] LABS: Hypochromasia 1+
[2019-01-11] MEDS: INSULIN -REGULAR HUMAN 50 UNIT/0.5 ML ML SQ SCH ×4 (08:43→21:40)
[2019-01-11] MEDS: CARBAMAZEPINE 300 MG PO SCH ×2 (08:46→19:48)
[2019-01-11] MEDS: OXYBUTYNIN CHLORIDE 5 MG TAB PO SCH ×2 (08:46→19:48)
[2019-01-11] MEDS: MEGESTROL 400 MG/10 ML UCUP PO SCH (08:47)
[2019-01-11] MEDS: ZINC SULFATE 220 MG CAP PO SCH ×2 (08:48→19:50)
[2019-01-11] MEDS ORDERED: MAGNESIUM SULFATE 1 gm IVPB 1 GM/100 ML BAG IV ONE (08:51)
[2019-01-11] MEDS ORDERED: POTASSIUM PHOS IN 0.9 % NACL 15 MMOL/250 ML BAG IV ONE (08:51)
[2019-01-11] MEDS ORDERED: LIDOCAINE JELLY 2%- 5 ML TUBE TOP SCH (09:00)
[2019-01-11] MEDS: COLLAGENASE 30 GM OINTMENT TOP SCH (09:00)
[2019-01-11] MEDS ORDERED: FENTANYL CITR 100 MCG/2 ML ONE (10:33)
[2019-01-11] MEDS ORDERED: LIDOCAINE 2% MPF 5 ML VIAL ONE (10:34)
[2019-01-11] MEDS ORDERED: ONDANSETRON 4 MG/2 ML VIAL ONE (10:35)
[2019-01-11] MEDS ORDERED: ETOMIDATE 20 MG/10 ML VIAL IV ONE (10:35)
[2019-01-11] MEDS ORDERED: KETAMINE HCL 500 MG/5 ML VIAL ONE (10:53)
[2019-01-11] MEDS ORDERED: MIDAZOLAM HCL 2 MG/2 ML INJ ONE (10:54)
[2019-01-11] MEDS ORDERED: BUPIVACAINE 0.5% PF 10 ML VIAL ONE (11:02)
[2019-01-11] MEDS ORDERED: LIDOCAINE 1% MPF 30 ML VIAL ONE (11:02)
--- NOTE | 2019-01-11 11:29 | P.OP ---
Preoperative diagnosis: Infected wound right heel Postoperative diagnosis: same Primary procedure: Debridement Right Heel Infecteded Wound to sq 4x4 cm Anesthesia: gen Estimated blood loss: min Specimen: infected tissue Findings: as above Complications: None Transferred to: Recovery Room Condition: Fair
[2019-01-11] MEDS ORDERED: COLLAGENASE 30 GM OINTMENT TOP ONE (11:34)
[2019-01-11] MEDS: ASCORBIC ACID 500 MG TABLET PO SCH (13:58)
[2019-01-11] MEDS: TRAMADOL HCL 50 MG TAB PO PRN (13:58)
[2019-01-11] MEDS ORDERED: hydrOXYzine HCl 25 MG TAB PO SCH (15:50)
[2019-01-11] MEDS ORDERED: hydrOXYzine HCl 25 MG TAB PO ONE (16:00)
[2019-01-11] MEDS: DIAZEPAM 2 MG TABLET PO SCH (16:24)
[2019-01-11] MEDS ORDERED: HYDROCODONE/APAP 5/325 MG TAB PO ONE (18:19)
--- NOTE | 2019-01-11 18:38 | P.PN ---
Subjective Date of Service: 01/11/19 Patient seen and examined at bedside. at bedside. Pt complaining of pain , She will not let us touch, turn her due to pain. Unable to examine all wounds. Physical Examination - Vital Signs Temperature: 96.8 F Blood Pressure: 94/53 Pulse: 100 Respirations: 14 Pulse Ox (%): 100 - Physical Exam General: Alert, Oriented x3, Mild distress, Moderate distress Integumentary: Rash(es), Skin lesion, Pressure ulcer Assessment And Plan - Plan A 63-year-old female with: 1. Septic shock, likely due to acute on chronic wounds and a new right heel wound. The patient also has suprapubic catheter. We will continue broad spectrum IV antibiotics due to her immune status as well as allergies to penicillin. Blood cultures and wound cultures pending Antibiotics had already been started at time of drawing. 2. Right heel wound with surrounding cellulitis. Continue broad-spectrum antibiotics. Dr. Baumann with Surgery has been consulted, recommendations appreciated. The patient underwent a I&D with Dr. Baumann. The patient still requiring pressors. 3. Hypertensive shock secondary to sepsis. Start on Levophed. The patient received 30 mL/kg bolus, did not respond. 4. Sacral ulcer, unstageable. Continue offloading with air mattress. 5. Anemia. Hemoglobin is 5.6. No clear source of bleeding. We will transfuse 2 units of PRBCs and check for Hemoccult blood. 6. Multiple sclerosis. The patient is bed ridden. Used to follow up with Dr. Hurd as outpatient. 7. Diabetes mellitus type 2, [id number] with hyperglycemia. Continue sliding scale insulin and monitor blood glucose levels closely. 8. Severe protein-calorie malnutrition. Albumin is 2.1. 9. Hyponatremia. 10. Multiple ulcerations on the legs, healing. 11. Status post suprapubic catheter, last changed last week. 12. Hypothyroidism. We will continue Synthroid. 13. Hyperlipidemia, statin. 14. Major depressive disorder. 15. Steroids. Anxiety disorder. 16. Chronic pain syndrome. We will keep on IV pain medications. The patient has very low tolerance for pain. We will need to balance with her hypotension at this point. Continue to monitor in ICU. Overall, the patient has a very poor prognosis. Her code status is DNR. She does not wish to be resuscitated. is at the bedside.
[2019-01-11] MEDS: ATORVASTATIN 10 MG TAB PO SCH (19:49)
[2019-01-11] MEDS: HYDROXYZINE PAM PO SCH (19:49)
[2019-01-11] MEDS: JUVEN PACKET PO SCH (21:40)
--- NOTE | 2019-01-11 23:04 | OP ---
Date of Procedure: 01/11/2019 Surgeon: Micheal Baumann MD Preoperative Diagnosis: Infected wound, right heel. Postoperative Diagnosis: Infected wound, right heel. Procedure: Debridement of right heel infected wound to subcutaneous tissue 4 x 4 cm. Estimated Blood Loss: Minimal. Specimen: Necrotic tissue and infected tissue. Findings: As above. Anesthesia: General. Complications: None. Disposition: The patient tolerated the procedure in stable condition and taken to the Recovery in go od general condition. Procedure In Detail: The patient was brought to the OR and placed in supine position. General anest hesia was begun. The patient was prepped and draped in usual sterile fashion. Marcaine 0.5% was inf iltrated locally. A 15-blade was used to debride 4 x 4 cm area of necrotic infected tissue within th e right heel down to subcutaneous tissue. Tissue sent for culture as well as for pathology. Wound i rrigated. Bleeding controlled with cautery and then collagenase dressing was applied. The patient was awakened and taken to Recovery in good general condition. /MODL Voice ID: [id number] Report ID: [id number]
[2019-01-12] MEDS: ONDANSETRON 4 MG/2 ML VIAL IV PRN ×2 (00:13→13:37)
[2019-01-12] MEDS: NA CHLORIDE 0.9% 1,000 ML IV SCH ×3 (01:14→17:10)
[2019-01-12] MEDS: Meropenem 500 MG in NA CHLORIDE 0.9% 100 ML IV SCH ×3 (01:15→16:54)
[2019-01-12 05:25] LABS: Absolute Lymphocytes (CBC) 0.4 K/uL (0.7-4.9); Absolute Monocytes 3.5 K/uL (0.1-1.3); Absolute Neutrophil 10.9 K/uL (1.8-8.0); Basophils % 0.1 % (0-1.3); Eosinophils % 0.6 % (0-4.4); Monocytes % 23.3 % (3.3-12.3); RBC Red Blood Cell Count 3.48 M/uL (3.86-4.86)
[2019-01-12 05:44] LABS: BUN Blood Urea Nitrogen 12 mg/dL (7-18); Bicarbonate 20 mmol/L (21-32); Glucose Level 207 mg/dL (74-106); Magnesium 1.7 mg/dL (1.8-2.4); Phosphorus 1.5 mg/dL (2.5-4.9); Potassium 3.3 mmol/L (3.5-5.1); Sodium Level 138 mmol/L (136-145)
[2019-01-12] MEDS: VANCOMYCIN 1.25 GM in NA CHLORIDE 0.9% 250 ML IVPB SCH ×2 (06:35→21:31)
[2019-01-12] MEDS: LEVOTHYROXINE SOD 0.125 MG TAB PO SCH (06:35)
[2019-01-12] MEDS ORDERED: CALCIUM GLUC 10% INJ 4.65 MEQ in NA CHLORIDE 0.9% 100 ML IV ONE (07:12)
[2019-01-12] MEDS ORDERED: POTASSIUM PHOS IN 0.9 % NACL 15 MMOL/250 ML BAG IV ONE (07:31)
[2019-01-12] MEDS ORDERED: MAGNESIUM SULFATE 1 gm IVPB 1 GM/100 ML BAG IV ONE (07:33)
[2019-01-12] MEDS ORDERED: KCL 20 MEQ/100 mL IVPB 20 MEQ/100 ML BAG IV SCH (08:00)
[2019-01-12] MEDS: ASCORBIC ACID 500 MG TABLET PO SCH (08:27)
[2019-01-12] MEDS: INSULIN -REGULAR HUMAN 50 UNIT/0.5 ML ML SQ SCH ×4 (08:27→21:39)
[2019-01-12] MEDS: DIAZEPAM 2 MG TABLET PO SCH (08:27)
[2019-01-12] MEDS: MEGESTROL 400 MG/10 ML UCUP PO SCH (08:28)
[2019-01-12] MEDS: HYDROXYZINE PAM PO SCH ×2 (08:28→21:34)
[2019-01-12] MEDS: ZINC SULFATE 220 MG CAP PO SCH ×2 (08:28→21:32)
[2019-01-12] MEDS: CARBAMAZEPINE 300 MG PO SCH ×2 (08:28→21:35)
[2019-01-12] MEDS: OXYBUTYNIN CHLORIDE 5 MG TAB PO SCH ×2 (08:28→21:33)
[2019-01-12] MEDS: ACETAMINOPHEN 325 MG TABLET PO PRN (08:55)
[2019-01-12] MEDS ORDERED: hydrOXYzine HCl 25 MG TAB PO SCH (09:00)
[2019-01-12] MEDS ORDERED: LIDOCAINE JELLY 2%- 5 ML TUBE TOP SCH (09:00)
[2019-01-12] MEDS ORDERED: NA CHLORIDE 0.9% 0 ML ONE (10:58)
[2019-01-12] MEDS ORDERED: HYDROMORPHONE HCL 1 MG/ML INJ IV ONE (11:49)
[2019-01-12] MEDS: FLUCONAZOLE 100 MG TAB PO SCH ×2 (12:30→21:32)
[2019-01-12] MEDS: JUVEN PACKET PO SCH ×3 (12:31→21:00)
--- NOTE | 2019-01-12 13:33 | PN ---
Date of Progress Note: 01/12/2019 Subjective: The patient is awake, alert, complaining of pain. She decided not to do hospice. Her v ital signs are currently okay but she had restarted Levophed, her blood pressure went down to a systo lic of 80 earlier. Levophed had just been started. She remained off Levophed for about approximatel y 5 hours, otherwise her vital signs are stable. She is afebrile. Laboratory Data: Shows a white count of 14.9, H and H was 7.8 and 25. She is being transfused curre ntly. Her left shift has improved. This has normalized. Chemistry reviewed. Glucose is elevated. Her cultures show Pseudomonas and E. coli, ESBL. She is on meropenem sacral wound. Gram stain on the right heel shows 4+ gram-negative rods. Sensitivity is pending. Occult blood is positi ve on her stool however. Dressing that is clean, dry, and intact right now. Assessment: A 63-year-old female with multiple medical problems with multiple wounds with extended-s pectrum beta-lactamases Escherichia coli. Recommendations: Continue meropenem. Wound care is ordered. We will add acetic acid to clean the w ounds with, prior to the dressing changes. Support the patient with Levophed for the time being. Wh en she is stabilized, she can be transferred to the floor and then discharge planning for wound care and IV antibiotics. /MODL Voice ID: [id number] Report ID: [id number]
[2019-01-12] MEDS: LIDOCAINE JELLY 2%- 5 ML TUBE TOP SCH (14:23)
[2019-01-12] MEDS: ACETIC ACID 0.25% IRRIG IRR SCH (14:23)
[2019-01-12] MEDS: COLLAGENASE 30 GM OINTMENT TOP SCH (16:44)
[2019-01-12] MEDS: NOREPINEPHRINE 8 MG in Dextrose 5%-Water 500 ML IV PRN (16:48)
[2019-01-12] MEDS: CODEINE 30MG/APAP 300MG TAB PO PRN (16:55)
[2019-01-12] MEDS: ATORVASTATIN 10 MG TAB PO SCH (21:32)
[2019-01-12] MEDS: TRAMADOL HCL 50 MG TAB PO PRN (21:40)
--- NOTE | 2019-01-12 22:33 | P.PN ---
Subjective Date of Service: 01/13/19 Patient seen and examined at bedside. at bedside. Pt complaining of pain , She will not let us touch, turn her due to pain. Unable to examine all wounds. Review of Systems 10-point ROS is otherwise unremarkable Physical Examination - Vital Signs Temperature: 98.2 F Blood Pressure: 98/48 Pulse: 91 Respirations: 14 Pulse Ox (%): 99 - Physical Exam General: Alert, Mild distress, Moderate distress Respiratory: Normal air movement Cardiovascular: Regular rate/rhythm Integumentary: Skin lesion, Pressure ulcer Assessment And Plan - Plan A 63-year-old female with: 1. Septic shock, likely due to acute on chronic wounds and a new right heel wound. The patient also has suprapubic catheter. We will continue broad spectrum IV antibiotics due to her immune status as well as allergies to penicillin. Blood cultures Negative wound cultures with ESBL E.coli and pseudomonas. Antibiotics adjusted. Antibiotics had already been started at time of drawing. 2. Right heel wound with surrounding cellulitis. Continue broad-spectrum antibiotics. Dr. Baumann with Surgery has been consulted, recommendations appreciated. The patient underwent a I&D with Dr. Baumann. The patient still requiring pressors. 3. Hypertensive shock secondary to sepsis. Start on Levophed. The patient received 30 mL/kg bolus, did not respond. 4. Sacral ulcer, unstageable. Continue offloading with air mattress. 5. Anemia. Hemoglobin is 5.6. No clear source of bleeding. We will transfuse 2 units of PRBCs and check for Hemoccult blood. 6. Multiple sclerosis. The patient is bed ridden. Used to follow up with Dr. Hurd as outpatient. 7. Diabetes mellitus type 2, [id number]-[id number] with hyperglycemia. Continue sliding scale insulin and monitor blood glucose levels closely. 8. Severe protein-calorie malnutrition. Albumin is 2.1. 9. Hyponatremia. 10. Multiple ulcerations on the legs, healing. 11. Status post suprapubic catheter, last changed last week. 12. Hypothyroidism. We will continue Synthroid. 13. Hyperlipidemia, statin. 14. Major depressive disorder. 15. Steroids. Anxiety disorder. 16. Chronic pain syndrome. We will keep on IV pain medications. The patient has very low tolerance for pain. We will need to balance with her hypotension at this point. Continue to monitor in ICU. Overall, the patient has a very poor prognosis. Her code status is DNR. She does not wish to be resuscitated. is at the bedside.
[2019-01-13] MEDS: Meropenem 500 MG in NA CHLORIDE 0.9% 100 ML IV SCH ×3 (01:30→17:29)
[2019-01-13] MEDS: NA CHLORIDE 0.9% 1,000 ML IV SCH ×2 (05:18→15:39)
[2019-01-13 05:56] LABS: BUN Blood Urea Nitrogen 18 mg/dL (7-18); Bicarbonate 19 mmol/L (21-32); Glucose Level 221 mg/dL (74-106); Magnesium 1.7 mg/dL (1.8-2.4); Phosphorus 1.9 mg/dL (2.5-4.9); Sodium Level 140 mmol/L (136-145)
[2019-01-13 06:01] LABS: Absolute Lymphocytes (CBC) 1.1 K/uL (0.7-4.9); Absolute Monocytes 1.8 K/uL (0.1-1.3); Absolute Neutrophil 5.8 K/uL (1.8-8.0); Basophils % 0.1 % (0-1.3); Eosinophils % 2.2 % (0-4.4); Hematocrit 26.3 % (36.0-45.0); Lymphocytes % 12.2 % (15.3-44.8); MPV 9.4 fL (7.6-11.3); Monocytes % 19.9 % (3.3-12.3); RBC Red Blood Cell Count 3.52 M/uL (3.86-4.86)
[2019-01-13] MEDS: LEVOTHYROXINE SOD 0.125 MG TAB PO SCH (06:01)
[2019-01-13 06:48] LABS: Platelet Estimate ADEQ
[2019-01-13 06:49] LABS: Anisocytosis 2+; Blood Morphology Comment NOTED (NOT SEEN); Elliptocytes 1+; Poikilocytosis 1+
[2019-01-13] MEDS: INSULIN -REGULAR HUMAN 50 UNIT/0.5 ML ML SQ SCH ×4 (08:53→20:52)
[2019-01-13] MEDS ORDERED: MAGNESIUM SULFATE 1 gm IVPB 1 GM/100 ML BAG IV ONE (09:00)
[2019-01-13] MEDS: MEGESTROL 400 MG/10 ML UCUP PO SCH (09:00)
[2019-01-13] MEDS: CARBAMAZEPINE 300 MG PO SCH ×2 (10:20→20:58)
[2019-01-13] MEDS: HYDROXYZINE PAM PO SCH ×2 (10:20→20:57)
[2019-01-13] MEDS: OXYBUTYNIN CHLORIDE 5 MG TAB PO SCH ×2 (10:21→20:56)
[2019-01-13] MEDS: ZINC SULFATE 220 MG CAP PO SCH ×2 (10:21→20:57)
[2019-01-13] MEDS: ASCORBIC ACID 500 MG TABLET PO SCH (10:21)
[2019-01-13] MEDS: FLUCONAZOLE 100 MG TAB PO SCH ×2 (10:21→20:53)
[2019-01-13] MEDS: DIAZEPAM 2 MG TABLET PO SCH (10:22)
[2019-01-13] MEDS: TRAMADOL HCL 50 MG TAB PO PRN (10:23)
[2019-01-13] MEDS: JUVEN PACKET PO SCH ×2 (10:34→20:59)
[2019-01-13] MEDS: VANCOMYCIN 1.25 GM in NA CHLORIDE 0.9% 250 ML IVPB SCH (15:39)
--- NOTE | 2019-01-13 18:12 | P.PN ---
Subjective Date of Service: 01/13/19 Patient seen and examined at bedside. at bedside. Pt complaining of pain , She will not let us touch, turn her due to pain. Unable to examine all wounds. She is s/p I&D of wound on heel. Review of Systems 10-point ROS is otherwise unremarkable Physical Examination - Vital Signs Temperature: 98.2 F Blood Pressure: 98/48 Pulse: 91 Respirations: 14 Pulse Ox (%): 99 - Physical Exam General: Alert, Oriented x3, Mild distress Assessment And Plan - Plan A 63-year-old female with: 1. Septic shock, likely due to acute on chronic wounds and a new right heel wound. The patient also has suprapubic catheter. We will continue broad spectrum IV antibiotics due to her immune status as well as allergies to penicillin. Blood cultures Negative wound cultures with ESBL E.coli and pseudomonas. Antibiotics adjusted. Antibiotics had already been started at time of drawing. 2. Right heel wound with surrounding cellulitis. Continue broad-spectrum antibiotics. Dr. Baumann with Surgery has been consulted, recommendations appreciated. The patient underwent a I&D with Dr. Baumann. The patient still requiring pressors. 3. Hypertensive shock secondary to sepsis. She continues to require levaphed intermittently. We will continue working on weaning her off. 4. Sacral ulcer, unstageable. Continue offloading with air mattress. 5. Anemia. Hemoglobin is 5.6. No clear source of bleeding. We will transfuse 2 units of PRBCs and check for Hemoccult blood. 6. Multiple sclerosis. The patient is bed ridden. Used to follow up with Dr. Hurd as outpatient. 7. Diabetes mellitus type 2, [id number]-uwxeiky-hpplqqrvn with hyperglycemia. Continue sliding scale insulin and monitor blood glucose levels closely. 8. Severe protein-calorie malnutrition. Albumin is 2.1. 9. Hyponatremia. 10. Multiple ulcerations on the legs, healing. 11. Status post suprapubic catheter, last changed last week.levaop 12. Hypothyroidism. We will continue Synthroid. 13. Hyperlipidemia, statin. 14. Major depressive disorder. 15. Steroids. Anxiety disorder. 16. Chronic pain syndrome. We will keep on IV pain medications. The patient has very low tolerance for pain. Pain better controlled today. We will need to balance with her hypotension at this point. Continue to monitor in ICU. Overall, the patient has a very poor prognosis. Her code status is DNR. She does not wish to be resuscitated. is at the bedside.
[2019-01-13] MEDS: ATORVASTATIN 10 MG TAB PO SCH (20:53)
[2019-01-14] MEDS: Meropenem 500 MG in NA CHLORIDE 0.9% 100 ML IV SCH ×3 (00:29→16:46)
[2019-01-14] MEDS: NOREPINEPHRINE 8 MG in Dextrose 5%-Water 500 ML IV PRN (00:29)
[2019-01-14] MEDS: NA CHLORIDE 0.9% 1,000 ML IV SCH ×3 (00:31→23:03)
[2019-01-14 06:34] LABS: BUN Blood Urea Nitrogen 23 mg/dL (7-18); Bicarbonate 21 mmol/L (21-32); Glucose Level 179 mg/dL (74-106); Magnesium 1.6 mg/dL (1.8-2.4); Sodium Level 142 mmol/L (136-145)
[2019-01-14] MEDS: LEVOTHYROXINE SOD 0.125 MG TAB PO SCH (07:39)
[2019-01-14] MEDS ORDERED: MAGNESIUM SULFATE 1 gm IVPB 1 GM/100 ML BAG IV ONE (07:47)
[2019-01-14] MEDS: INSULIN -REGULAR HUMAN 50 UNIT/0.5 ML ML SQ SCH ×4 (08:17→20:41)
[2019-01-14] MEDS: CARBAMAZEPINE 300 MG PO SCH ×2 (08:39→20:29)
[2019-01-14] MEDS: HYDROXYZINE PAM PO SCH ×2 (08:39→20:28)
[2019-01-14] MEDS: OXYBUTYNIN CHLORIDE 5 MG TAB PO SCH ×2 (08:40→20:26)
[2019-01-14] MEDS: MEGESTROL 400 MG/10 ML UCUP PO SCH (08:40)
[2019-01-14] MEDS: DIAZEPAM 2 MG TABLET PO SCH (08:40)
[2019-01-14] MEDS: ZINC SULFATE 220 MG CAP PO SCH ×2 (08:40→20:25)
[2019-01-14] MEDS: ASCORBIC ACID 500 MG TABLET PO SCH (08:40)
[2019-01-14] MEDS: FLUCONAZOLE 100 MG TAB PO SCH ×2 (08:40→20:27)
[2019-01-14] MEDS: JUVEN PACKET PO SCH ×2 (08:50→20:39)
[2019-01-14] MEDS: VANCOMYCIN 1.25 GM in NA CHLORIDE 0.9% 250 ML IVPB SCH (10:00)
[2019-01-14] MEDS: COLLAGENASE 30 GM OINTMENT TOP SCH (10:46)
[2019-01-14] MEDS: LIDOCAINE JELLY 2%- 5 ML TUBE TOP SCH (10:47)
[2019-01-14] MEDS ORDERED: BACLOFEN 10 MG TAB PO ONE (12:31)
[2019-01-14] MEDS: CODEINE 30MG/APAP 300MG TAB PO PRN (13:16)
[2019-01-14] MEDS: ACETIC ACID 0.25% IRRIG IRR SCH (14:00)
[2019-01-14] MEDS: TRAMADOL HCL 50 MG TAB PO PRN (16:47)
[2019-01-14] MEDS: BACLOFEN 10 MG TAB PO SCH (20:25)
[2019-01-14] MEDS: ATORVASTATIN 10 MG TAB PO SCH (20:28)
--- NOTE | 2019-01-14 22:29 | P.PN ---
Subjective Date of Service: 01/14/19 Subjective: No new changes Patient seen and examined at bedside. at bedside. Pt complaining of pain , She will not let us touch, turn her due to pain. Unable to examine all wounds. She is s/p I&D of wound on heel. Review of Systems 10-point ROS is otherwise unremarkable Physical Examination - Vital Signs Temperature: 97.8 F Blood Pressure: 107/53 Pulse: 88 Respirations: 14 Pulse Ox (%): 99 - Physical Exam General: Alert, Mild distress, Moderate distress HEENT: Atraumatic, PERRLA, EOMI Neck: Supple, JVD not distended Respiratory: Clear to auscultation bilaterally, Normal air movement Cardiovascular: Regular rate/rhythm, Normal S1 S2 Gastrointestinal: Normal bowel sounds, No tenderness Musculoskeletal: No tenderness Integumentary: Skin breakdown, Skin lesion, Other (Multiple ulcers) Neurological: Normal speech, Normal tone, Normal affect Lymphatics: No axilla or inguinal lymphadenopathy - Studies Microbiology Data (last 24 hrs): 01/09/19 13:56 Blood - Blood Aerobic Blood Culture - Final No growth in 5 days. 01/09/19 13:56 Blood - Blood Anaerobic Blood Culture - Final No growth in 5 days. Assessment And Plan - Plan A 63-year-old female with: 1. Septic shock, likely due to acute on chronic wounds and a new right heel wound. The patient also has suprapubic catheter. We will continue broad spectrum IV antibiotics due to her immune status as well as allergies to penicillin. Blood cultures Negative, wound cultures with ESBL E.coli and pseudomonas. Antibiotics adjusted. Antibiotics had already been started at time of drawing. Blood pressure is now stable off of Levophed. 2. Right heel wound with surrounding cellulitis. Continue broad-spectrum antibiotics. Dr. Baumann with Surgery has been consulted, recommendations appreciated. The patient underwent a I&D with Dr. Baumann. 3. Hypertensive shock secondary to sepsis. Blood pressure is now stable off of Levophed 4. Sacral ulcer, unstageable. Continue offloading with air mattress. 5. Anemia. No clear source of bleeding. Status post 2 units of PRBCs; hemoglobin remains stable. 6. Multiple sclerosis. The patient is bed ridden. Used to follow up with Dr. Hurd as outpatient. 7. Diabetes mellitus type 2, [id number]-tieryzv-daejbvprk with hyperglycemia. Continue sliding scale insulin and monitor blood glucose levels closely. 8. Severe protein-calorie malnutrition. Albumin is 2.1. 9. Hyponatremia. 10. Multiple ulcerations on the legs, healing. 11. Status post suprapubic catheter, last changed last week. 12. Hypothyroidism. We will continue Synthroid. 13. Hyperlipidemia, statin. 14. Major depressive disorder. 15. Steroids. Anxiety disorder. 16. Chronic pain syndrome. We will keep on IV pain medications. The patient has very low tolerance for pain. Pain better controlled today. We will need to balance with her hypotension at this point. Transfer patient to the floor. Overall, the patient has a very poor prognosis. Her code status is DNR. She does not wish to be resuscitated. is at the bedside.
[2019-01-15] MEDS: Meropenem 500 MG in NA CHLORIDE 0.9% 100 ML IV SCH ×3 (00:44→16:26)
[2019-01-15] MEDS: VANCOMYCIN 1.25 GM in NA CHLORIDE 0.9% 250 ML IVPB SCH (03:24)
[2019-01-15] MEDS: CODEINE 30MG/APAP 300MG TAB PO PRN (03:51)
[2019-01-15] MEDS: LEVOTHYROXINE SOD 0.125 MG TAB PO SCH (05:29)
[2019-01-15 05:34] LABS: Absolute Lymphocytes (CBC) 0.8 K/uL (0.7-4.9); Absolute Neutrophil 4.4 K/uL (1.8-8.0); Basophils % 0.3 % (0-1.3); Hematocrit 23.8 % (36.0-45.0); Lymphocytes % 12.2 % (15.3-44.8); MPV 8.8 fL (7.6-11.3); Monocytes % 15.2 % (3.3-12.3); RBC Red Blood Cell Count 3.22 M/uL (3.86-4.86)
[2019-01-15 05:42] LABS: BUN Blood Urea Nitrogen 14 mg/dL (7-18); Bicarbonate 20 mmol/L (21-32); Glucose Level 105 mg/dL (74-106); Magnesium 1.6 mg/dL (1.8-2.4); Potassium 3.5 mmol/L (3.5-5.1); Sodium Level 145 mmol/L (136-145)
[2019-01-15] MEDS: INSULIN -REGULAR HUMAN 50 UNIT/0.5 ML ML SQ SCH ×4 (07:30→21:00)
[2019-01-15] MEDS ORDERED: MAGNESIUM SULFATE 1 gm IVPB 1 GM/100 ML BAG IV ONE (08:43)
[2019-01-15] MEDS: MEGESTROL 400 MG/10 ML UCUP PO SCH (09:00)
[2019-01-15] MEDS ORDERED: KCL 20 MEQ/100 mL IVPB 20 MEQ/100 ML BAG IV SCH (09:00)
[2019-01-15] MEDS: ASCORBIC ACID 500 MG TABLET PO SCH (09:33)
[2019-01-15] MEDS: HYDROXYZINE PAM PO SCH ×2 (09:33→20:23)
[2019-01-15] MEDS: FLUCONAZOLE 100 MG TAB PO SCH ×2 (09:33→20:28)
[2019-01-15] MEDS: CARBAMAZEPINE 300 MG PO SCH ×2 (09:33→20:24)
[2019-01-15] MEDS: BACLOFEN 10 MG TAB PO SCH ×3 (09:34→20:27)
[2019-01-15] MEDS: OXYBUTYNIN CHLORIDE 5 MG TAB PO SCH ×2 (09:34→20:26)
[2019-01-15] MEDS: JUVEN PACKET PO SCH ×2 (09:34→20:32)
[2019-01-15] MEDS: DIAZEPAM 2 MG TABLET PO SCH (09:34)
[2019-01-15] MEDS: ZINC SULFATE 220 MG CAP PO SCH ×2 (09:34→20:26)
[2019-01-15] MEDS: NA CHLORIDE 0.9% 1,000 ML IV SCH ×2 (12:41→16:04)
--- NOTE | 2019-01-15 16:11 | P.PN ---
Subjective Date of Service: 01/15/19 Subjective: No new changes Patient seen and examined at bedside. at bedside. Pt complaining of pain , She will not let us touch, turn her due to pain. Unable to examine all wounds. She is s/p I&D of wound on heel. It seems that patient not really wanting to do anything for herself anymore. She refuses to let us touch her to move her, she refuses any of her other medications, refuses baths. Review of Systems 10-point ROS is otherwise unremarkable Physical Examination - Vital Signs Temperature: 97.8 F Blood Pressure: 107/53 Pulse: 88 Respirations: 14 Pulse Ox (%): 99 - Physical Exam General: Alert, Mild distress Cardiovascular: Normal pulses, Regular rate/rhythm Integumentary: Pressure ulcer, Other - Studies Microbiology Data (last 24 hrs): 01/09/19 13:56 Blood - Blood Aerobic Blood Culture - Final No growth in 5 days. 01/09/19 13:56 Blood - Blood Anaerobic Blood Culture - Final No growth in 5 days. Assessment And Plan - Plan A 63-year-old female with: 1. Septic shock, likely due to acute on chronic wounds and a new right heel wound. The patient also has suprapubic catheter. We will continue broad spectrum IV antibiotics due to her immune status as well as allergies to penicillin. Blood cultures Negative, wound cultures with ESBL E.coli and pseudomonas. Antibiotics adjusted (vancomycin discontinued, gentamicin started) . Antibiotics had already been started at time of drawing. Blood pressure is now stable off of Levophed. 2. Right heel wound with surrounding cellulitis. Continue broad-spectrum antibiotics. Dr. Baumann with Surgery has been consulted, recommendations appreciated. The patient underwent a I&D with Dr. Baumann. 3. Hypertensive shock secondary to sepsis. Blood pressure is now stable off of Levophed 4. Sacral ulcer, unstageable. Continue offloading with air mattress. 5. Anemia. No clear source of bleeding. Status post 2 units of PRBCs; hemoglobin remains stable. 6. Multiple sclerosis. The patient is bed ridden. Used to follow up with Dr. Hurd as outpatient. 7. Diabetes mellitus type 2, dpe-eviqinv-odsyavuef with hyperglycemia. Continue sliding scale insulin and monitor blood glucose levels closely. 8. Severe protein-calorie malnutrition. Albumin is 2.1. 9. Hyponatremia. Resolved 10. Multiple ulcerations on the legs, healing. 11. Status post suprapubic catheter, last changed last week. 12. Hypothyroidism. We will continue Synthroid. 13. Hyperlipidemia, statin. 14. Major depressive disorder. 15. Steroids. Anxiety disorder. 16. Chronic pain syndrome. We will keep on IV pain medications. The patient has very low tolerance for pain. Pain better controlled today. We will need to balance with her hypotension at this point. Transfer patient to the floor. Overall, the patient has a very poor prognosis. Her code status is DNR. She does not wish to be resuscitated. is at the bedside.
[2019-01-15] MEDS: Gentamicin Inj 80 MG in NA CHLORIDE 0.9% 100 ML IVPB SCH (17:32)
[2019-01-15] MEDS: ATORVASTATIN 10 MG TAB PO SCH (20:28)
[2019-01-16] MEDS: Meropenem 500 MG in NA CHLORIDE 0.9% 100 ML IV SCH ×3 (00:32→17:38)
[2019-01-16] MEDS: NA CHLORIDE 0.9% 1,000 ML IV SCH (00:32)
[2019-01-16] MEDS: Gentamicin Inj 80 MG in NA CHLORIDE 0.9% 100 ML IVPB SCH ×2 (01:43→11:07)
[2019-01-16 05:21] VITALS: BMI 30.7
[2019-01-16] MEDS: LEVOTHYROXINE SOD 0.125 MG TAB PO SCH (05:35)
[2019-01-16 05:57] LABS: BUN Blood Urea Nitrogen 15 mg/dL (7-18); Bicarbonate 21 mmol/L (21-32); Glucose Level 124 mg/dL (74-106); Magnesium 1.6 mg/dL (1.8-2.4); Potassium 3.7 mmol/L (3.5-5.1); Sodium Level 144 mmol/L (136-145)
[2019-01-16] MEDS ORDERED: KCL 20 MEQ/100 mL IVPB 20 MEQ/100 ML BAG IV SCH (08:00)
[2019-01-16] MEDS ORDERED: MAGNESIUM SULFATE 1 gm IVPB 1 GM/100 ML BAG IV ONE (08:00)
[2019-01-16] MEDS: INSULIN -REGULAR HUMAN 50 UNIT/0.5 ML ML SQ SCH ×4 (08:13→21:21)
[2019-01-16] MEDS: ASCORBIC ACID 500 MG TABLET PO SCH (08:15)
[2019-01-16] MEDS: DIAZEPAM 2 MG TABLET PO SCH (08:16)
[2019-01-16] MEDS: JUVEN PACKET PO SCH ×2 (08:16→21:15)
[2019-01-16] MEDS: FLUCONAZOLE 100 MG TAB PO SCH ×2 (08:16→21:21)
[2019-01-16] MEDS: HYDROXYZINE PAM PO SCH ×2 (08:17→21:12)
[2019-01-16] MEDS: OXYBUTYNIN CHLORIDE 5 MG TAB PO SCH ×2 (08:17→21:12)
[2019-01-16] MEDS: CARBAMAZEPINE 300 MG PO SCH ×2 (08:17→21:00)
[2019-01-16] MEDS: BACLOFEN 10 MG TAB PO SCH ×3 (08:18→21:11)
[2019-01-16] MEDS: ZINC SULFATE 220 MG CAP PO SCH ×2 (08:18→21:13)
[2019-01-16] MEDS: MEGESTROL 400 MG/10 ML UCUP PO SCH (08:19)
[2019-01-16] MEDS: LIDOCAINE JELLY 2%- 5 ML TUBE TOP SCH (09:00)
[2019-01-16] MEDS: COLLAGENASE 30 GM OINTMENT TOP SCH (09:00)
[2019-01-16] MEDS: ACETIC ACID 0.25% IRRIG IRR SCH (14:00)
[2019-01-16] MEDS: CODEINE 30MG/APAP 300MG TAB PO PRN (17:49)
[2019-01-16] MEDS ORDERED: GENTAMICIN 80 MG/100 ML BAG 80 MG/100 ML BAG IV SCH (18:00)
--- NOTE | 2019-01-16 19:51 | P.PN ---
Subjective Date of Service: 01/16/19 Patient seen and examined at bedside. at bedside. Pt complaining of pain , She will not let us touch, turn her due to pain. Unable to examine all wounds. She is s/p I&D of wound on heel. It seems that patient not really wanting to do anything for herself anymore. She refuses to let us touch her to move her, she refuses any of her other medications, refuses baths. Review of Systems 10-point ROS is otherwise unremarkable Physical Examination - Vital Signs Temperature: 97.4 F Blood Pressure: 95/51 Pulse: 89 Respirations: 18 Pulse Ox (%): 99 - Physical Exam General: Alert, Oriented x3, Mild distress, Moderate distress Respiratory: Clear to auscultation bilaterally Cardiovascular: Regular rate/rhythm, Normal S1 S2 Gastrointestinal: Normal bowel sounds, Soft and benign Integumentary: Skin lesion, Other Assessment And Plan - Plan A 63-year-old female with: 1. Septic shock, likely due to acute on chronic wounds and a new right heel wound. The patient also has suprapubic catheter. We will continue broad spectrum IV antibiotics due to her immune status as well as allergies to penicillin. Blood cultures Negative, wound cultures with ESBL E.coli and pseudomonas. Antibiotics adjusted (vancomycin discontinued, gentamicin started) . Antibiotics had already been started at time of drawing. Blood pressure is now stable off of Levophed. 2. Right heel wound with surrounding cellulitis. Continue broad-spectrum antibiotics. Dr. Baumann with Surgery has been consulted, recommendations appreciated. The patient underwent a I&D with Dr. Baumann. 3. Hypertensive shock secondary to sepsis. Blood pressure is now stable off of Levophed 4. Sacral ulcer, unstageable. Continue offloading with air mattress. 5. Anemia. No clear source of bleeding. Status post 2 units of PRBCs; hemoglobin remains stable. 6. Multiple sclerosis. The patient is bed ridden. Used to follow up with Dr. Hurd as outpatient. 7. Diabetes mellitus type 2, [id number]-[id number] with hyperglycemia. Continue sliding scale insulin and monitor blood glucose levels closely. 8. Severe protein-calorie malnutrition. Albumin is 2.1. 9. Hyponatremia. Resolved 10. Multiple ulcerations on the legs, healing. 11. Status post suprapubic catheter, last changed last week. 12. Hypothyroidism. We will continue Synthroid. 13. Hyperlipidemia, statin. 14. Major depressive disorder. 15. Steroids. Anxiety disorder. 16. Chronic pain syndrome. We will keep on IV pain medications. The patient has very low tolerance for pain. Pain better controlled today. We will need to balance with her hypotension at this point. Transfer patient to the floor. Overall, the patient has a very poor prognosis. 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 Patient possibly looking to go home with palliative care. Social work involved. Her code status is DNR. She does not wish to be resuscitated. is at the bedside.
[2019-01-16] MEDS: ATORVASTATIN 10 MG TAB PO SCH (21:11)
[2019-01-16] MEDS ORDERED: GENTAMICIN 80 MG/100 ML BAG 80 MG/100 ML BAG IV ONE (23:43)
[2019-01-16] MEDS: GENTAMICIN 80 MG/100 ML BAG 80 MG/100 ML BAG IV SCH (23:52)
[2019-01-17] MEDS: Meropenem 500 MG in NA CHLORIDE 0.9% 100 ML IV SCH ×3 (00:16→16:54)
[2019-01-17] MEDS: LEVOTHYROXINE SOD 0.125 MG TAB PO SCH (05:57)
[2019-01-17] MEDS: NA CHLORIDE 0.9% 1,000 ML IV SCH ×4 (06:03→18:04)
[2019-01-17 06:41] LABS: BUN Blood Urea Nitrogen 18 mg/dL (7-18); Bicarbonate 23 mmol/L (21-32); Glucose Level 157 mg/dL (74-106); Magnesium 1.7 mg/dL (1.8-2.4); Potassium 3.6 mmol/L (3.5-5.1); Sodium Level 147 mmol/L (136-145)
[2019-01-17] MEDS ORDERED: MAGNESIUM SULFATE 1 gm IVPB 1 GM/100 ML BAG IV ONE (06:46)
[2019-01-17 07:02] LABS: Phosphorus 1.4 mg/dL (2.5-4.9)
[2019-01-17] MEDS: CARBAMAZEPINE 300 MG PO SCH ×3 (09:00→20:55)
[2019-01-17] MEDS ORDERED: POTASSIUM CL SA 10 MEQ TAB PO ONE (09:00)
[2019-01-17] MEDS: INSULIN -REGULAR HUMAN 50 UNIT/0.5 ML ML SQ SCH ×4 (09:35→20:35)
[2019-01-17] MEDS: ASCORBIC ACID 500 MG TABLET PO SCH (09:36)
[2019-01-17] MEDS: DIAZEPAM 2 MG TABLET PO SCH (09:36)
[2019-01-17] MEDS: FLUCONAZOLE 100 MG TAB PO SCH ×2 (09:36→20:55)
[2019-01-17] MEDS: MEGESTROL 400 MG/10 ML UCUP PO SCH (09:36)
[2019-01-17] MEDS: BACLOFEN 10 MG TAB PO SCH ×3 (09:36→20:56)
[2019-01-17] MEDS: OXYBUTYNIN CHLORIDE 5 MG TAB PO SCH ×2 (09:36→20:56)
[2019-01-17] MEDS: ZINC SULFATE 220 MG CAP PO SCH ×2 (09:36→20:56)
[2019-01-17] MEDS: HYDROXYZINE PAM PO SCH ×2 (09:38→20:56)
[2019-01-17] MEDS: JUVEN PACKET PO SCH ×2 (09:54→20:57)
[2019-01-17] MEDS: GENTAMICIN 80 MG/100 ML BAG 80 MG/100 ML BAG IV SCH ×2 (12:16→23:38)
[2019-01-17] MEDS: HYDROCODONE/APAP 5/325 MG TAB PO PRN ×2 (12:30→18:44)
[2019-01-17] MEDS: LIDOCAINE JELLY 2%- 5 ML TUBE TOP SCH ×2 (13:15→13:16)
--- NOTE | 2019-01-17 17:41 | PN ---
Date of Progress Note: 01/17/2019 Subjective: The patient seen and examined, chart reviewed, and case discussed with RN. The patient apparently has been asking for more pain meds. Appears to be confused. Does not know where she is, was discussing hospice with attending yesterday, Dr. Vazquez along with her . The patient is refusing to be examined, does not want to be turned, asking for more pain medications. Code Status: Do not resuscitate. Medications: List reviewed. Physical Examination: Vital Signs: Temperature 97.1, heart rate 87, blood pressure 118/68, respirations 16, O2 100% on room air. General: Awake, alert oriented to self, appears to be in some mild distress, appears older than stated age, obese female. BMI 30. CV: S1, S2. Regular rate and rhythm. Peripheral pulses present. Respiratory: Unable to examine as the patient refused; however, her breath sounds grossly sound clear from anterior auscultation Gastrointestinal: Abdomen is soft, nontender, nondistended. Positive bowel sounds. Extremities: No clubbing, cyanosis, or edema. Skin: The patient has multiple wounds including the right heel, sacrum; however , the patient refuses to be turn. Did not allow me to examine her sacrum. Neurologic: Nonfocal. The patient has weakness of her lower extremities due to her MS. Laboratory Data: Sodium 147, potassium 3.6, chloride 115, CO2 23, BUN 18, creatinine 0.37, glucose 157, calcium 8, phosphorus 1.4, magnesium 1.7. WBCs pending. Cultures, sacral wound growing out Pseudomonas and ESBL E coli. Blood cultures are negative final. Right tissue heel growing out Pseudomonas aeruginosa. Assessment: 1. Septic shock secondary to acute on chronic wounds and new right heel wound , improving. The patient now off pressors. Continue IV antibiotics. Cultures growing out extended-spectrum beta-lactamase, Escherichia coli and Pseudomonas. The patient is now on gentamicin. Vancomycin has been discontinued. Blood cultures are negative. 2. Right heel wound with surrounding cellulitis status post incision and drainage by Dr. Baumann. Wound cultures growing out Pseudomonas. Continue antibiotics. 3. Hypotensive shock secondary to sepsis. The patient now off pressors. Blood pressure is stable. 4. Sacral ulcer, unstageable. Continue offloading with air mattress. 5. Anemia, microcytic, hypochromic. No apparent source of bleeding. Hemoccult blood is positive status post 2 units of PRBCs. We will continue to monitor hemoglobin and hematocrit and transfuse as needed. 6. Multiple sclerosis. The patient is bed ridden. Has not followed up with neuro. 7. Diabetes mellitus type 2, non-insulin requiring with hyperglycemia. We will continue sliding scale insulin and monitor Accu-Cheks. 8. Severe protein-calorie malnutrition. Albumin is 2.1. 9. Hyponatremia, corrected. 10. Status post suprapubic catheter changed out a week prior to admission. 11. Hypothyroidism. Continue Synthroid. 12. Hyperlipidemia. Continue statin. 13. Major depressive disorder. 14. Generalized anxiety disorder. 15. Chronic pain syndrome. The patient has pain medication seeking behavior. She will need to follow up with and establish care with management of it. The patient now claiming that she is allergic to codeine, requesting something stronger than Tylenol No.3. 16. Functional quadriplegia Plan: Apparently, hospice was being discussed. The patient is refusing LTAC. The patient either needs to have aggressive wound care and long-term IV antibiotics, however, she refuses and hospice would be a different option as the patient seems to be requesting pain control. We will discuss further with . The patient at this time is not oriented. /MIKE Voice ID: [id number] Report ID: [id number] REMA
[2019-01-17] MEDS: POTASS/SODIUM PHOSPHATE 1 PKT POWD.PACK PO SCH ×3 (18:44→20:58)
[2019-01-17] MEDS: ATORVASTATIN 10 MG TAB PO SCH (20:56)
[2019-01-18] MEDS: Meropenem 500 MG in NA CHLORIDE 0.9% 100 ML IV SCH ×3 (01:37→16:55)
[2019-01-18] MEDS: NA CHLORIDE 0.9% 1,000 ML IV SCH ×3 (04:04→14:04)
[2019-01-18 05:18] LABS: BUN Blood Urea Nitrogen 11 mg/dL (7-18); Bicarbonate 22 mmol/L (21-32); Glucose Level 105 mg/dL (74-106); Magnesium 1.7 mg/dL (1.8-2.4); Phosphorus 2.3 mg/dL (2.5-4.9); Potassium 3.7 mmol/L (3.5-5.1); Sodium Level 147 mmol/L (136-145)
[2019-01-18] MEDS: LEVOTHYROXINE SOD 0.125 MG TAB PO SCH (05:27)
[2019-01-18] MEDS ORDERED: MAGNESIUM SULFATE 1 gm IVPB 1 GM/100 ML BAG IV ONE (06:14)
[2019-01-18] MEDS: INSULIN -REGULAR HUMAN 50 UNIT/0.5 ML ML SQ SCH ×4 (08:23→21:57)
[2019-01-18] MEDS: JUVEN PACKET PO SCH ×2 (09:00→21:00)
[2019-01-18] MEDS: COLLAGENASE 30 GM OINTMENT TOP SCH (09:00)
[2019-01-18] MEDS ORDERED: POTASSIUM PHOS IN 0.9 % NACL 15 MMOL/250 ML BAG IV ONE (09:00)
[2019-01-18] MEDS: MEGESTROL 400 MG/10 ML UCUP PO SCH (09:02)
[2019-01-18] MEDS: DIAZEPAM 2 MG TABLET PO SCH (09:02)
[2019-01-18] MEDS: ZINC SULFATE 220 MG CAP PO SCH ×2 (09:02→21:56)
[2019-01-18] MEDS: BACLOFEN 10 MG TAB PO SCH ×3 (09:03→21:56)
[2019-01-18] MEDS: HYDROCODONE/APAP 5/325 MG TAB PO PRN (09:03)
[2019-01-18] MEDS: OXYBUTYNIN CHLORIDE 5 MG TAB PO SCH ×2 (09:03→21:56)
[2019-01-18] MEDS: FLUCONAZOLE 100 MG TAB PO SCH ×2 (09:03→21:56)
[2019-01-18] MEDS: ASCORBIC ACID 500 MG TABLET PO SCH (09:03)
[2019-01-18] MEDS: HYDROXYZINE PAM PO SCH ×2 (09:04→22:01)
[2019-01-18] MEDS: CARBAMAZEPINE 300 MG PO SCH ×2 (09:04→22:01)
[2019-01-18] MEDS ORDERED: FENTANYL 50 MCG/PATCH TD SCH (10:30)
[2019-01-18] MEDS: GENTAMICIN 80 MG/100 ML BAG 80 MG/100 ML BAG IV SCH ×2 (12:02→23:00)
[2019-01-18] MEDS: ACETIC ACID 0.25% IRRIG IRR SCH (13:11)
--- NOTE | 2019-01-18 21:45 | PN ---
Date of Progress Note: 01/18/2019 History: The patient is seen and examined. Chart reviewed and case discussed with RN. The patient still having significant amount of pain. at the bedside. Treatment plan explained. All que stions answered. Medications: List reviewed. Physical Examination: Vital Signs: Temperature 97.4, heart rate 87, blood pressure 90/49, respirations 16, O2 98% on room air. General: Awake, alert, oriented x3, ill-appearing female in moderate distress due to pain. Obese. CV: S1, S2. Regular rate and rhythm. Peripheral pulses weak. Respiratory: Diminished breath sounds. No wheezing or stridor. Gastrointestinal: Abdomen is soft, nontender, nondistended. Positive bowel sounds. Extremities: No clubbing, cyanosis, or edema. Neuro: The patient has weakness of bilateral lower extremities due to her MS. Skin: Multiple wounds including large sacral ulcer, also on the right heel. Laboratory Data: Sodium 147, potassium 3.7, chloride 116, CO2 22, BUN 11, creatinine 0.25, glucose 1 05, calcium 8, phosphorus 2.3, magnesium 1.7. WBC 6.4, H and H 8 and 23.8, platelets 214. Wound cul tures from the sacrum growing out Pseudomonas and ESBL producing E. coli. Right tissue heel growing out Pseudomonas aeruginosa. Assessment And Plan: A 63-year-old female with: 1.Septic shock secondary to acute on chronic wounds including a new right heel wound, improving. e patient is status post debridement on the right heel, now off pressors, antibiotics with meropenem and gentamicin. Cultures growing out extended-spectrum beta-lactamase Escherichia coli and Pseudomon as from the wound cultures. 2.Right heel wound with surrounding cellulitis, status post incision and drainage by Dr. Baumann. Wou nd cultures positive for Pseudomonas. ID consultation. Continue antibiotics. 3.Hypertensive shock secondary to sepsis, now off pressors. 4.Sacral ulcer, unstageable. Continue offloading with air mattress. Positive for Pseudomonas and e xtended-spectrum beta-lactamase Escherichia coli. 5.Microcytic hypochromic anemia. Hemoccult positive. The patient has already received 2 units of P RBCs. Continue to monitor and transfuse as needed. Currently not a candidate for any sort of scope. 6.Multiple sclerosis. The patient is currently bedbound. 7.Diabetes mellitus type 2, non-insulin requiring with hyperglycemia. Continue sliding scale insuli n. Monitor blood glucose levels. 8.Severe protein-calorie malnutrition. 9.Hyponatremia, corrected. 10.Status post suprapubic catheter. 11.Hypothyroidism. Continue Synthroid. 12.Mixed hyperlipidemia. Continue statin. 13.Major depressive disorder. 14.Generalized anxiety disorder. 15.Chronic pain syndrome with pain medication seeking behavior. The patient's main goals seem to be palliative and she wants to have pain control. She will need IV antibiotics for minimum of 2 weeks. ID has been consulted. The patient already has PICC line. [facility] working on setting up IV antibiotics at home. has adamantly refused LTAC, states that they have been to LTACs bef ore with worsening condition. I explained to him that she came in with very advanced infected wounds from home. However, he is not convinced and adamantly refuses LTAC. He understands that this may l ead to worsening of her condition. They are not ready for hospice. She is still DNR, however, they are amenable to palliative care, which will kick in after the IV antibiotics have been completed at [facility]. Plan: Pain control. We will add fentanyl patch. Encourage p.o. intake. Wound dressings per Dr. Serenity calle. We will monitor kidney function as the patient is on gentamicin, which is notorious for kidney dysfunction. Unfortunately, her cultures necessitate use of gentamicin due to her multiple allergies . Overall, very poor prognosis. Plan is to discharge home once IV antibiotics have been set up. /MIKE Voice ID: [id number] Report ID: [id number]
[2019-01-18] MEDS: ATORVASTATIN 10 MG TAB PO SCH (21:57)
[2019-01-19] MEDS: Meropenem 500 MG in NA CHLORIDE 0.9% 100 ML IV SCH ×3 (01:31→16:26)
[2019-01-19] MEDS: NA CHLORIDE 0.9% 1,000 ML IV SCH ×3 (01:33→13:32)
--- NOTE | 2019-01-19 03:16 | CON ---
History Of Present Illness: This is a 63-year-old female, I was consulted for Pseudomonas aeruginosa in her right heel wound and Pseudomonas aeruginosa and E coli ESBL in the sacral wound. The patient has been having challenges with multiple wounds to her sacral area, hips, and lower extremity and le ft axillary area for several years, which has been treated off and on either in hospital, nursing joselyn e, or home and long-term acute care facility. The patient has been on antibiotics and wou nd care, which is quite challenging in her case as she has multiple wounds and quite large wound. He r Pseudomonas from right heel is sensitive to gentamicin, Levaquin, tobramycin, Cipro, and amikacin a nd Pseudomonas and E coli from the sacral area is sensitive to meropenem. The patient is currently b eing treated with gentamicin and meropenem. Continue to have discomfort in her wound site in the radha k especially. Past Medical History: The patient has significant past medical history of multiple sclerosis with fu nctional quadriplegia, diabetes mellitus, hypothyroidism, hypercholesteremia, major depressive disord er, anxiety disorder, chronic pain syndrome. Social History: Nonsmoker, nondrinker. Surgical History: Suprapubic catheter placement, right foot with screws and pins, multiple debrideme nts to the wound. Allergies: INCLUDE AMOXIL, MORPHINE, POTASSIUM, CLAVULANIC ACID, AUGMENTIN, LEVAQUIN, PENICILLIN, CO DEINE, AND TAPE. EVEN THOUGH THE PATIENT HAS BEEN TREATED WITH MEROPENEM IN THE PAST WITHOUT ANY PRO BLEMS. Family History: Noncontributory except multiple sclerosis runs in the family. Review of Systems: A 10-point review was performed. Physical Examination: General: This is a 63-year-old female, lying in bed, not in any acute distress. Vital Signs: Temperature 97, pulse 84, respirations 12, blood pressure 100/59. HEENT: Unremarkable. Neck: Supple. Lungs: Basal crackles. Heart: S1, S2. Regular. Abdomen: Soft, nontender. Bowel sounds present. Extremities: Muscle wasting noted. Multiple wounds to the hip, sacrum, lower extremity, and left ax illary area noted. Laboratory Data: Shows WBC 6.4, down from 14.9, hemoglobin 8, platelets are 214. Chemistry shows so dium 147, potassium 3.7, chloride 116, bicarb 22, BUN 11, creatinine 0.25, glucose 105. Assessment And Plan: This is a 63-year-old female with longstanding history of multiple wounds espec ially to the hips and sacral area and lower extremity and left axillary area infected with Pseudomona s and Escherichia coli extended-spectrum beta-lactamases, currently being treated with meropenem and gentamicin. Monitor kidney function closely. Continue antibiotic for 2 weeks then can be switched t o local wound care as the patient gets very often. Continue supportive care and wound car e. Consider using lidocaine spray before changing dressing. NF/MODL Voice ID: [id number] Report ID: [id number]
[2019-01-19 05:14] LABS: BUN Blood Urea Nitrogen 14 mg/dL (7-18); Bicarbonate 23 mmol/L (21-32); Glucose Level 99 mg/dL (74-106); Magnesium 1.8 mg/dL (1.8-2.4); Phosphorus 2.9 mg/dL (2.5-4.9); Sodium Level 147 mmol/L (136-145)
[2019-01-19] MEDS: LEVOTHYROXINE SOD 0.125 MG TAB PO SCH (06:19)
[2019-01-19] MEDS: INSULIN -REGULAR HUMAN 50 UNIT/0.5 ML ML SQ SCH ×5 (07:30→22:42)
[2019-01-19] MEDS ORDERED: MAGNESIUM SULFATE 1 gm IVPB 1 GM/100 ML BAG IV ONE (08:00)
[2019-01-19] MEDS: MEGESTROL 400 MG/10 ML UCUP PO SCH (08:42)
[2019-01-19] MEDS: FLUCONAZOLE 100 MG TAB PO SCH ×2 (08:42→21:16)
[2019-01-19] MEDS: ASCORBIC ACID 500 MG TABLET PO SCH (08:42)
[2019-01-19] MEDS: ZINC SULFATE 220 MG CAP PO SCH ×2 (08:43→21:16)
[2019-01-19] MEDS: OXYBUTYNIN CHLORIDE 5 MG TAB PO SCH ×2 (08:43→21:17)
[2019-01-19] MEDS: BACLOFEN 10 MG TAB PO SCH ×3 (08:44→21:15)
[2019-01-19] MEDS: DIAZEPAM 2 MG TABLET PO SCH (08:44)
[2019-01-19] MEDS: HYDROXYZINE PAM PO SCH ×2 (08:45→21:02)
[2019-01-19] MEDS: CARBAMAZEPINE 300 MG PO SCH ×2 (08:46→21:04)
[2019-01-19] MEDS: JUVEN PACKET PO SCH ×2 (08:47→21:00)
[2019-01-19] MEDS: HYDROCODONE/APAP 5/325 MG TAB PO PRN (10:50)
[2019-01-19] MEDS: ONDANSETRON 4 MG/2 ML VIAL IV PRN (10:50)
[2019-01-19] MEDS: GENTAMICIN 80 MG/100 ML BAG 80 MG/100 ML BAG IV SCH (11:00)
[2019-01-19] MEDS: ACETAMINOPHEN 325 MG TABLET PO PRN (17:20)
--- NOTE | 2019-01-19 18:43 | PN ---
Date of Progress Note: 01/19/2019 Subjective: Patient seen and examined, chart reviewed, and case discussed with RN and , yesterday he was at the bedside. He is adamantly refusing LTAC placement. He also states that he is willing to do the antibiotics at home, however, unfortunately [facility] has declined the patient as have multiple other home health agencies in the area due to her noncompliance. The patient also refuses to go to SNF or LTAC. Case discussed with Dr. Roper. Medications: List reviewed. Physical Examination: Vital Signs: Temperature 97, heart rate 95, blood pressure 89/53, respirations 18, O2 97% on room air. General: Awake, alert, oriented x3, ill-appearing female, in some mild distress , obese. CV: S1, S2. Regular rate and rhythm. Peripheral pulses present. Respiratory: Moving air well bilaterally. No wheezing. Gastrointestinal: Abdomen is soft, nontender, nondistended. Positive bowel sounds. Extremities: No clubbing, cyanosis. The patient has trace pedal edema. Neuro: The patient has bilateral lower extremity weakness, 3/5. Skin: Multiple wounds including the unstageable ulcer on the sacrum, right heel ulcer, and multiple small ulcers on the lower extremities. Laboratory Data: Sodium 147, potassium 4, chloride 117, CO2 23, BUN 14, creatinine 0.29, glucose 99, calcium 8, phosphorus 2.9, magnesium 1.8. WBC pending. Assessment And Plan: A 63-year-old female with septic shock. 1. Septic shock secondary to trqby-cj-jnoqdkm wounds, improving. The patient' s blood pressure still on the low side with systolic in 80s; however, she has improved and off pressors. Sepsis is secondary to extended-spectrum beta- lactamase Escherichia coli and Pseudomonas growing from wound cultures. 2. Right heel wound with surrounding cellulitis, status post incision and drainage by Dr. Baumann's wound cultures positive for Pseudomonas. Appreciate ID consultation. Dr. Roper agrees with meropenem and gentamicin for 2 weeks. The patient currently on day 9 of meropenem and day 4 of gentamicin. 3. Hypotensive shock secondary to sepsis, now off pressors. 4. Sacral ulcer, unstageable. We will continue offloading with air mattress. Cultures positive for Pseudomonas and ESBL Escherichia coli. Continue meropenem and gentamicin. 5. Microcytic hyperchromic anemia. Hemoccult positive, status post 2 units of PRBCs. We will continue to monitor and transfuse as needed. The patient unfortunately is not a candidate for any type of intervention at this time including scopes. 6. Multiple sclerosis, currently bed-bound. 7. Diabetes mellitus, type 2 non-insulin requiring, with hyperglycemia. We will continue sliding scale insulin and monitor blood glucose levels. 8. Severe protein-calorie malnutrition. Continue supplementation. 9. Hypernatremia. We will continue to monitor and adjust fluids. 10. Status post suprapubic catheter. 11. Hypothyroidism. Continue Synthroid. 12. Mixed hyperlipidemia, statin. 13. Major depressive disorder, stable. 14. Generalized anxiety disorder. 15. Chronic pain syndrome with pain seeking behavior. 16. Noncompliance, intentional. Plan: The patient refuses to go to LTAC, has been declined by multiple home health agencies for IV antibiotics. The patient needs 2 weeks total; currently on day 9 of meropenem and day 4 of gentamicin. We will continue to monitor kidney function. Gentamicin trough was elevated. Dose has been adjusted as well as frequency. ANDREA Voice ID: [id number] Report ID: [id number] REMA
[2019-01-19] MEDS: ATORVASTATIN 10 MG TAB PO SCH (21:17)
[2019-01-20] MEDS: NA CHLORIDE 0.9% 1,000 ML IV SCH (00:17)
[2019-01-20] MEDS: Meropenem 500 MG in NA CHLORIDE 0.9% 100 ML IV SCH ×3 (00:17→16:15)
[2019-01-20] MEDS: LEVOTHYROXINE SOD 0.125 MG TAB PO SCH (05:33)
[2019-01-20 05:51] LABS: Absolute Lymphocytes (CBC) 1.4 K/uL (0.7-4.9); Absolute Monocytes 1.3 K/uL (0.1-1.3); Basophils % 0.4 % (0-1.3); Eosinophils % 2.3 % (0-4.4); Hematocrit 24.6 % (36.0-45.0); Lymphocytes % 17.7 % (15.3-44.8); MPV 9.4 fL (7.6-11.3); Monocytes % 16.3 % (3.3-12.3); RBC Red Blood Cell Count 3.37 M/uL (3.86-4.86)
[2019-01-20 06:15] LABS: Anisocytosis 2+; Blood Morphology Comment NOTED (NOT SEEN); Hypochromasia 1+; Platelet Estimate ADEQ; Poikilocytosis 1+
[2019-01-20 06:16] LABS: Elliptocytes 1+; Ovalocytes 1+
[2019-01-20 06:59] LABS: ALT/SGPT 14 U/L (12-78); AST/SGOT 17 U/L (15-37); Albumin 1.6 g/dL (3.4-5.0); Alkaline Phosphatase 142 U/L (45-117); BUN Blood Urea Nitrogen 18 mg/dL (7-18); Bicarbonate 23 mmol/L (21-32); Bilirubin Total 0.4 mg/dL (0.2-1.0); Glucose Level 86 mg/dL (74-106); Potassium 4.4 mmol/L (3.5-5.1); Protein, Total 5.3 g/dL (6.4-8.2); Sodium Level 147 mmol/L (136-145)
[2019-01-20] MEDS: INSULIN -REGULAR HUMAN 50 UNIT/0.5 ML ML SQ SCH ×4 (07:30→20:50)
[2019-01-20] MEDS: JUVEN PACKET PO SCH ×2 (09:00→20:53)
[2019-01-20] MEDS: BACLOFEN 10 MG TAB PO SCH ×3 (09:00→20:51)
[2019-01-20] MEDS: LIDOCAINE JELLY 2%- 5 ML TUBE TOP SCH (09:00)
[2019-01-20] MEDS: COLLAGENASE 30 GM OINTMENT TOP SCH (09:00)
[2019-01-20] MEDS: OXYBUTYNIN CHLORIDE 5 MG TAB PO SCH ×2 (09:00→20:52)
[2019-01-20] MEDS: ASCORBIC ACID 500 MG TABLET PO SCH (09:01)
[2019-01-20] MEDS: FLUCONAZOLE 100 MG TAB PO SCH ×2 (09:01→20:51)
[2019-01-20] MEDS: DIAZEPAM 2 MG TABLET PO SCH (09:01)
[2019-01-20] MEDS: ZINC SULFATE 220 MG CAP PO SCH ×2 (09:01→20:51)
[2019-01-20] MEDS: MEGESTROL 400 MG/10 ML UCUP PO SCH (09:02)
[2019-01-20] MEDS: HYDROXYZINE PAM PO SCH ×3 (09:03→21:00)
[2019-01-20] MEDS: CARBAMAZEPINE 300 MG PO SCH ×2 (09:04→20:48)
[2019-01-20] MEDS: Gentamicin Inj 120 MG in NA CHLORIDE 0.9% 100 ML IV SCH (09:26)
[2019-01-20] MEDS: ONDANSETRON 4 MG/2 ML VIAL IV PRN (09:37)
[2019-01-20 12:49] LABS: Hematocrit 23.4 % (36.0-45.0)
[2019-01-20] MEDS: D5 0.45 NS 1,000 ML IV SCH (12:56)
[2019-01-20] MEDS ORDERED: FENTANYL 25 MCG/PATCH TD SCH (13:00)
[2019-01-20] MEDS: ACETIC ACID 0.25% IRRIG IRR SCH ×2 (13:02→14:00)
--- NOTE | 2019-01-20 16:25 | PN ---
Subjective: The patient is lying in bed. Complains of tightness in her abdomen, otherwise no new co mplaints. Objective: Vital signs: Temperature 98.2, pulse 69, respirations 16, blood pressure 103/60. Lungs: Basilar crackles. Heart: S1, S2. Regular. Abdomen: Soft. Bowel sounds present. Extremities: No edema. Muscle wasting noted. Laboratory Data: Shows WBC 7.9, hemoglobin 7.8, platelets are 245. Micro data growing Pseudomonas a eruginosa and E coli from the sacral wound and Pseudomonas aeruginosa from the right heel wound. The patient is currently being treated with gentamicin and meropenem. Assessment And Plan: Multiple wounds to the back and lower extremity, left axillary wound with multi drug resistant infection versus colonization. Continue antibiotic and local wound care. We will fol low the patient as needed. Total course should be 2 weeks'. MINAL/MIKE Voice ID: [id number] Report ID: [id number]
--- NOTE | 2019-01-20 17:25 | PN ---
Date of Progress Note: 01/20/2019 History: The patient is seen and examined. Chart reviewed and case discussed with RN. No family at the bedside. The patient seems very drowsy and somnolent , however, still asking for another Valium. The patient has already received her dose this morning. Medications: List reviewed. Physical Examination: Vital Signs: Temperature 98.2, heart rate 89, blood pressure 103/60, respirations 16, O2 98% on room air. General: Drowsy, but arousable, not in any acute distress. Ill-appearing female, appears older than stated age. Obese. CV: S1, S2. Regular rate and rhythm. Peripheral pulses present. Respiratory: Moving air well bilaterally. Gastrointestinal: Abdomen is soft, nontender, nondistended. Positive bowel sounds. Extremities: No clubbing, cyanosis. Trace pedal edema. Neuro: Generalized weakness, lower extremity weakness 3/5 bilaterally. Skin: Right heel ulcer, unstageable sacral ulcer. Laboratory Data: Sodium 147, potassium 4.4, chloride 116, CO2 23, BUN 18, creatinine 0.32, glucose 86, calcium 8.3, albumin is 1.6. WBC 7.9, H and H 7.8 and 24.6, platelets 245, neutrophils 63%. Sacral wound growing out Pseudomonas and ESBL E. coli. Right heel also growing out Pseudomonas. Assessment And Plan: A 63-year-old female with: 1. Septic shock secondary to acute on chronic wounds, improved, no longer on pressors. Blood pressure has improved. 2. Right heel wound with surrounding cellulitis, status post incision and drainage. Surgery on board. Wound cultures positive for Pseudomonas. ID recommends meropenem and gentamicin for 2 weeks, currently on day 10 of meropenem and day 5 of gentamicin. 3. Hypotensive shock secondary to sepsis, now off pressors. 4. Sacral ulcer, unstageable. Continue offloading with air mattress. Cultures positive for Pseudomonas and extended-spectrum beta-lactamase Escherichia coli, on meropenem and gentamicin. 5. Microcytic hypochromic anemia. The patient dropped her hemoglobin today. We will repeat this afternoon, transfuse for hemoglobin less than 7. The patient has received 2 units of packed red blood cells total. 6. Multiple sclerosis, currently bed-bound. 7. Diabetes mellitus type 2, jmg-vrttiqo-sijgnqhxu with hyperglycemia. Continue sliding scale insulin and monitor blood glucose levels. 8. Severe protein-calorie malnutrition. Albumin is 1.6. Continue protein supplementation. 9. Hypernatremia. We will continue to monitor. 10. Status post suprapubic catheter. 11. Hypothyroidism, on Synthroid, stable. 12. Mixed hyperlipidemia, continue statin, stable. 13. Major depressive disorder, stable. 14. Generalized anxiety disorder, on Valium. 15. Chronic pain syndrome with pain seeking behavior. The patient currently on [place]. 16. Noncompliance, intentional. Plan: The patient is refusing hospice and LTAC and alf facility, only wants to go home. No home health agency wants to provide care for this patient due to her noncompliance and their previous experiences with the patient unfortunately. Therefore, the patient will need to continue IV antibiotics at this time until treatment course has been completed. Overall, her prognosis is very poor. /MIKE Voice ID: [id number] Report ID: [id number] REMA
[2019-01-20] MEDS: ATORVASTATIN 10 MG TAB PO SCH (20:51)
[2019-01-21] MEDS: ACETAMINOPHEN 325 MG TABLET PO PRN ×3 (00:09→20:26)
[2019-01-21] MEDS ORDERED: FLUMAZENIL 0.1 MG/ML (5 mL VIAL) IV ONE ×3 (00:10→01:46)
[2019-01-21] MEDS: Meropenem 500 MG in NA CHLORIDE 0.9% 100 ML IV SCH ×3 (00:10→16:47)
[2019-01-21] MEDS: D5 0.45 NS 1,000 ML IV SCH ×2 (02:21→15:40)
[2019-01-21 04:42] LABS: Absolute Lymphocytes (CBC) 1.4 K/uL (0.7-4.9); Absolute Monocytes 2.1 K/uL (0.1-1.3); Absolute Neutrophil 5.8 K/uL (1.8-8.0); Basophils % 0.4 % (0-1.3); Eosinophils % 1.5 % (0-4.4); Hematocrit 23.4 % (36.0-45.0); Lymphocytes % 14.4 % (15.3-44.8); Monocytes % 22.5 % (3.3-12.3); RBC Red Blood Cell Count 3.25 M/uL (3.86-4.86)
[2019-01-21 04:56] LABS: ALT/SGPT 10 U/L (12-78); AST/SGOT 15 U/L (15-37); Albumin 1.5 g/dL (3.4-5.0); Alkaline Phosphatase 149 U/L (45-117); BUN Blood Urea Nitrogen 17 mg/dL (7-18); Bicarbonate 26 mmol/L (21-32); Bilirubin Total 0.3 mg/dL (0.2-1.0); Glucose Level 134 mg/dL (74-106); Magnesium 1.6 mg/dL (1.8-2.4); Protein, Total 5.1 g/dL (6.4-8.2); Sodium Level 143 mmol/L (136-145)
[2019-01-21] MEDS ORDERED: MAGNESIUM SULFATE 1 gm IVPB 1 GM/100 ML BAG IV ONE (05:30)
[2019-01-21] MEDS: LEVOTHYROXINE SOD 0.125 MG TAB PO SCH (06:02)
[2019-01-21] MEDS: INSULIN -REGULAR HUMAN 50 UNIT/0.5 ML ML SQ SCH ×4 (07:30→20:21)
[2019-01-21] MEDS: HYDROXYZINE PAM PO SCH ×2 (09:00→20:20)
[2019-01-21] MEDS: DIAZEPAM 2 MG TABLET PO SCH (09:00)
[2019-01-21] MEDS: JUVEN PACKET PO SCH ×2 (09:00→20:22)
[2019-01-21] MEDS: CARBAMAZEPINE 300 MG PO SCH ×2 (09:00→20:20)
[2019-01-21] MEDS: BACLOFEN 10 MG TAB PO SCH ×3 (09:00→20:21)
[2019-01-21] MEDS ORDERED: NALOXONE 0.4 MG/ML VIAL IV ONE (09:19)
[2019-01-21] MEDS: MEGESTROL 400 MG/10 ML UCUP PO SCH (10:08)
[2019-01-21] MEDS: Gentamicin Inj 120 MG in NA CHLORIDE 0.9% 100 ML IV SCH (10:08)
[2019-01-21] MEDS: OXYBUTYNIN CHLORIDE 5 MG TAB PO SCH ×2 (10:09→20:21)
[2019-01-21] MEDS: FLUCONAZOLE 100 MG TAB PO SCH ×2 (10:09→20:22)
[2019-01-21] MEDS: ZINC SULFATE 220 MG CAP PO SCH ×2 (10:09→20:24)
[2019-01-21] MEDS: ASCORBIC ACID 500 MG TABLET PO SCH (10:09)
[2019-01-21] MEDS: ONDANSETRON 4 MG/2 ML VIAL IV PRN ×2 (12:05→20:33)
--- NOTE | 2019-01-21 18:24 | PN ---
Date of Progress Note: 01/21/2019 Subjective: The patient is seen and examined. Chart reviewed, and case discussed with RN. The patient apparently has been very lethargic. Her fentanyl patch was taken off. She was given flumazenil as she was on diazepam and woke up a little bit. The patient was also given Narcan this morning after I rounded with some improvement in her mental status. Medications: List reviewed. Physical Examination: Vital Signs: Temperature 96.7, heart rate 84, blood pressure 104/61, respirations 16, O2 of 100% on room air. General: Drowsy, but arousable. An ill-appearing female, older than stated age , obese. CV: S1 and S2. Regular rate and rhythm. Peripheral pulses present. Respiratory: Diminished breath sounds overall. No wheezing or stridor. Gastrointestinal: Abdomen is soft, nontender, nondistended. Positive bowel sounds. No guarding or rigidity. Extremities: No clubbing or cyanosis. Trace pedal edema. Neuro: Lower extremity weakness, 3/5 bilaterally. Skin: Un-stageable sacral ulcer and right heel ulcer bandaged. Laboratory Data: Sodium 143, potassium 4, chloride 111, CO2 of 26, BUN 17, creatinine 0.34, glucose 134, lactate 0.7, calcium 8.1, magnesium 1.6. WBC 9.4 , H and H 7.8 and 23.4, platelets 267, neutrophils 61%. Wound cultures growing out Pseudomonas and ESBL E coli. Assessment And Plan: A 63-year-old female with: 1. Septic shock secondary to kkaja-ze-feafqoc wounds, improved. Not on pressors. Resolving. 2. Right heel wound with surrounding cellulitis, status post incision and drainage. Dr. Baumann on board. Wound cultures positive for Pseudomonas. We will continue IV antibiotics for a total of 2 weeks. Currently on day 11 of meropenem and day 6 of gentamicin. 3. Hypotensive shock secondary to sepsis, now off pressors. 4. Sacral ulcer, un-stageable. Continue offloading. The patient is on meropenem and gentamicin as cultures from the wound are growing out Pseudomonas and extended-spectrum beta-lactamase Escherichia coli. We will continue wound care. Total duration of antibiotics is 2 weeks. 5. Acute on chronic microcytic hypochromic anemia. Hemoglobin has stabilized around 7.8. We will transfuse if less than 7. 6. Acute metabolic encephalopathy, likely due to sedative medications. Fentanyl patch has been removed, and muscle relaxants and benzodiazepines have been held for her anxiety. The patient was given flumazenil and Narcan, which showed some improvement. We will continue to monitor closely. We will place on continuous pulse ox. 7. Multiple sclerosis with lower extremity weakness and bed-bound. 8. Diabetes mellitus type 2, non-insulin requiring, with hyperglycemia. We will continue sliding scale insulin and monitor Accu-Cheks. 9. Severe protein-calorie malnutrition. Albumin is 1.5. We will continue with protein supplementation. The patient may need to be started on TPN. 10. Hypernatremia. Continue to monitor. Now corrected. We will adjust IV fluids. 11. Status post suprapubic catheter. 12. Hypothyroidism, on Synthroid, stable. 13. Mixed hyperlipidemia. Continue statin. 14. Major depressive disorder, stable. 15. Generalized anxiety disorder. Hold Valium. 16. Chronic pain syndrome with pain-seeking behavior. [place] and muscle relaxants have been held. Fentanyl patch discontinued. The patient has been given Narcan, much more awake now. 17. Noncompliance, intentional. Plan: We will continue IV antibiotics. We will discuss with Case Management and Social Work regarding finding home health agency in [place] that may be able to provide IV antibiotics for the patient. She is refusing LTAC and SNF, not interested in hospice at this time. ANDREA Voice ID: [id number] Report ID: [id number] REMA
[2019-01-21] MEDS: ATORVASTATIN 10 MG TAB PO SCH (20:21)
[2019-01-22] MEDS: Meropenem 500 MG in NA CHLORIDE 0.9% 100 ML IV SCH ×3 (00:04→17:02)
[2019-01-22 04:19] LABS: Absolute Neutrophil 5.1 K/uL (1.8-8.0); Basophils % 0.5 % (0-1.3); Eosinophils % 2.3 % (0-4.4); Lymphocytes % 12.2 % (15.3-44.8); MPV 8.8 fL (7.6-11.3); Monocytes % 23.7 % (3.3-12.3); RBC Red Blood Cell Count 3.21 M/uL (3.86-4.86)
[2019-01-22] MEDS: D5 0.45 NS 1,000 ML IV SCH ×2 (05:00→06:23)
[2019-01-22 05:15] LABS: ALT/SGPT 9 U/L (12-78); AST/SGOT 10 U/L (15-37); Albumin 1.5 g/dL (3.4-5.0); Alkaline Phosphatase 148 U/L (45-117); BUN Blood Urea Nitrogen 16 mg/dL (7-18); Bicarbonate 27 mmol/L (21-32); Bilirubin Total 0.3 mg/dL (0.2-1.0); Glucose Level 123 mg/dL (74-106); Magnesium 1.6 mg/dL (1.8-2.4); Potassium 3.8 mmol/L (3.5-5.1); Protein, Total 4.8 g/dL (6.4-8.2); Sodium Level 142 mmol/L (136-145)
[2019-01-22] MEDS: LEVOTHYROXINE SOD 0.125 MG TAB PO SCH (05:44)
[2019-01-22] MEDS ORDERED: POTASSIUM CL SA 10 MEQ TAB PO ONE (06:05)
[2019-01-22] MEDS ORDERED: MAGNESIUM SULFATE 1 gm IVPB 1 GM/100 ML BAG IV ONE (06:06)
[2019-01-22] MEDS: CARBAMAZEPINE 300 MG PO SCH ×2 (09:00→21:00)
[2019-01-22] MEDS: LIDOCAINE JELLY 2%- 5 ML TUBE TOP SCH (09:00)
[2019-01-22] MEDS: COLLAGENASE 30 GM OINTMENT TOP SCH (09:00)
[2019-01-22] MEDS: JUVEN PACKET PO SCH ×2 (09:00→21:00)
[2019-01-22] MEDS: DIAZEPAM 2 MG TABLET PO SCH (09:00)
[2019-01-22] MEDS: Gentamicin Inj 120 MG in NA CHLORIDE 0.9% 100 ML IV SCH (09:24)
[2019-01-22] MEDS: HYDROXYZINE PAM PO SCH ×2 (09:25→20:57)
[2019-01-22] MEDS: FLUCONAZOLE 100 MG TAB PO SCH ×2 (09:25→21:00)
[2019-01-22] MEDS: ASCORBIC ACID 500 MG TABLET PO SCH (09:26)
[2019-01-22] MEDS: BACLOFEN 10 MG TAB PO SCH ×3 (09:36→21:00)
[2019-01-22] MEDS: INSULIN -REGULAR HUMAN 50 UNIT/0.5 ML ML SQ SCH ×4 (09:37→20:57)
[2019-01-22] MEDS: OXYBUTYNIN CHLORIDE 5 MG TAB PO SCH ×2 (09:37→21:00)
[2019-01-22] MEDS: MEGESTROL 400 MG/10 ML UCUP PO SCH (09:38)
[2019-01-22] MEDS: ZINC SULFATE 220 MG CAP PO SCH ×2 (09:55→20:59)
[2019-01-22 12:01] LABS: Hematocrit 23.5 % (36.0-45.0)
[2019-01-22] MEDS: ACETIC ACID 0.25% IRRIG IRR SCH (13:38)
--- NOTE | 2019-01-22 17:07 | PN ---
Date of Progress Note: 01/22/2019 Subjective: The patient was seen and examined. Chart reviewed and case discussed with RN. at the bedside. The patient is much more awake after narcotics and Valium have been held. Medications: List reviewed. Physical Examination: Vital Signs: Temperature 97.4, heart rate 87, blood pressure 91/51, respirations 16, O2 100% on room air. General: Awake, alert, oriented x3, ill-appearing female, obese, BMI 30. CV: S1, S2. Regular rate and rhythm. Peripheral pulses present. Respiratory: Moving air well bilaterally. No wheezing. Gastrointestinal: Abdomen is soft, nontender, nondistended. Positive bowel sounds. Extremities: No clubbing or cyanosis. Trace pedal edema. Neuro: The patient has lower extremity weakness, 3/5. Speech is normal. Skin: Right heel ulcer and unstageable sacral ulcer. Laboratory Data: Sodium 142, potassium 3.8, chloride 108, CO2 of 27, BUN 16, creatinine 0.26, glucose 123, calcium 8.3, magnesium 1.6, albumin 1.5. WBC 8.3 ; H and H are 7.5 and 23; platelets 264; repeat H and H are 7.4 and 23.5. Wound cultures growing out Pseudomonas, ESBL Escherichia coli. Assessment And Plan: A 63-year-old female with: 1. Septic shock secondary to wound infection, improved. We will continue IV antibiotics. 2. Right heel wound with cellulitis, status post I and D. Wound cultures positive for Pseudomonas. We will continue IV antibiotics for a total of 2 weeks. Currently, on day 12 of meropenem and day 7 of gentamicin. 3. Sacral ulcer, unstageable. Continue IV antibiotics for a total of 2 weeks. Cultures growing out ESBL Escherichia coli and Pseudomonas. 4. Hypotensive shock secondary to sepsis, resolved, off pressors. 5. Zsswb-gr-mtzawaz microcytic hypochromic anemia. H and H have dropped to 7.4. Transfuse if less than 7. We will continue to monitor. No active bleeding at this time. 6. Acute metabolic encephalopathy resolved with Narcan and flumazenil. Sedative medications have been held. 7. Multiple sclerosis with lower extremity weakness. The patient is not on any IVIG. 8. Diabetes mellitus type 2, mlm-cbgvmuc-geznypnue with hyperglycemia. Continue sliding scale insulin and monitor Accu-Cheks. 9. Severe protein-calorie malnutrition. Albumin is 1.4. We need to continue with protein supplementation. 10. Hypomagnesemia. We will replace and monitor. 11. Hypernatremia, corrected. 12. Status post suprapubic catheter. 13. Hypothyroidism. Continue Synthroid. 14. Mixed hyperlipidemia. Continue statin. 15. Major depressive disorder, stable. 16. Generalized anxiety disorder. Benzodiazepines on hold due to respiratory depression and altered sensorium. 17. Noncompliance, intentional. 18. Chronic pain syndrome. We will hold narcotics for now. DVT prophylaxis SA/MODL Voice ID: [id number] Report ID: [id number] REMA
[2019-01-22 20:30] LABS: Hematocrit 23.8 % (36.0-45.0)
[2019-01-22] MEDS: ATORVASTATIN 10 MG TAB PO SCH (20:58)
[2019-01-23] MEDS: Meropenem 500 MG in NA CHLORIDE 0.9% 100 ML IV SCH ×3 (00:38→15:50)
[2019-01-23] MEDS: D5 0.45 NS 1,000 ML IV SCH (00:38)
[2019-01-23 04:18] LABS: Absolute Lymphocytes (CBC) 1.7 K/uL (0.7-4.9); Absolute Monocytes 1.9 K/uL (0.1-1.3); Absolute Neutrophil 4.6 K/uL (1.8-8.0); Eosinophils % 1.9 % (0-4.4); Hematocrit 22.3 % (36.0-45.0); Lymphocytes % 20.5 % (15.3-44.8); Monocytes % 22.1 % (3.3-12.3); RBC Red Blood Cell Count 3.12 M/uL (3.86-4.86)
[2019-01-23 05:22] LABS: BUN Blood Urea Nitrogen 27 mg/dL (7-18); Bicarbonate 28 mmol/L (21-32); Glucose Level 168 mg/dL (74-106); Magnesium 1.8 mg/dL (1.8-2.4); Potassium 4.1 mmol/L (3.5-5.1); Sodium Level 143 mmol/L (136-145)
[2019-01-23] MEDS ORDERED: MAGNESIUM SULFATE 1 gm IVPB 1 GM/100 ML BAG IV ONE (05:52)
[2019-01-23] MEDS: LEVOTHYROXINE SOD 0.125 MG TAB PO SCH (06:15)
[2019-01-23] MEDS: INSULIN -REGULAR HUMAN 50 UNIT/0.5 ML ML SQ SCH ×4 (08:09→21:59)
[2019-01-23] MEDS: DIAZEPAM 2 MG TABLET PO SCH (09:00)
[2019-01-23] MEDS ORDERED: FUROSEMIDE 20 MG/ 2ML VIAL IV SCH (09:22)
[2019-01-23] MEDS: MEGESTROL 400 MG/10 ML UCUP PO SCH (09:24)
[2019-01-23] MEDS: ZINC SULFATE 220 MG CAP PO SCH ×2 (09:24→22:02)
[2019-01-23] MEDS: ASCORBIC ACID 500 MG TABLET PO SCH (09:24)
[2019-01-23] MEDS: OXYBUTYNIN CHLORIDE 5 MG TAB PO SCH ×2 (09:25→22:02)
[2019-01-23] MEDS: CARBAMAZEPINE 300 MG PO SCH ×2 (09:25→21:00)
[2019-01-23] MEDS: FLUCONAZOLE 100 MG TAB PO SCH ×2 (09:25→21:55)
[2019-01-23] MEDS: HYDROXYZINE PAM PO SCH ×2 (09:25→21:00)
[2019-01-23] MEDS: BACLOFEN 10 MG TAB PO SCH ×3 (09:25→21:55)
[2019-01-23] MEDS: Gentamicin Inj 120 MG in NA CHLORIDE 0.9% 100 ML IV SCH (09:25)
[2019-01-23] MEDS: JUVEN PACKET PO SCH ×2 (09:26→21:58)
[2019-01-23] MEDS: HYDROCODONE/APAP 5/325 MG TAB PO PRN (13:11)
--- NOTE | 2019-01-23 14:59 | PN ---
Date of Progress Note: 01/23/2019 Subjective: The patient is seen and examined, chart reviewed and case discussed with RN. The patient asking for pain medications with dressing changes. Medications: List reviewed. Physical Examination: Vital Signs: Temperature 98.1, heart rate 87, blood pressure 106/55, respirations 16, O2 97% on room air. General: Awake, alert, oriented x3. Some mild distress due to pain. Appears older than stated age, ill-appearing female, obese, BMI 30.7. CV: S1, S2. Regular rate and rhythm. Peripheral pulses present. Respiratory: Diminished breath sounds at the bases. Gastrointestinal: Abdomen is soft, nontender, nondistended. Positive bowel sounds. Extremities: No clubbing, cyanosis, or edema. Neurologic: Lower extremity weakness 3/5 bilaterally. Skin: Unstageable sacral ulcer. Right heel ulcer. Laboratory Data: WBC 8.5, H and H 7.2 and 22.3, MCV 71.2, MCH 23.1, platelets 273. Sodium 143, potassium 4.1, chloride 110, CO2 28, BUN 27, creatinine 0.47, glucose 168, calcium 8.4. Wound cultures growing out Pseudomonas and ESBL E coli. Blood cultures are negative. Assessment: A 63-year-old female with: 1. Septic shock secondary to wound infection, resolved. The patient still has low blood pressure however, asymptomatic. We will continue IV antibiotics secondary to Pseudomonas and ESBL Escherichia coli. 2. Right heel wound with cellulitis, status post incision and drainage. Continue IV antibiotics for total of 2 weeks. The patient is on day 13 of meropenem and day 8 of gentamicin. 3. Sacral ulcer, unstageable. Continue offloading IV antibiotics for total of 2 weeks. Culture results show ESBL Escherichia coli and Pseudomonas. 4. Acute on chronic microcytic hypochromic anemia. H and H at 7.2. We will transfuse given patient's drop in hemoglobin. as well as chronic illnesses 1 unit PRBCs with 20 of Lasix IV post transfusion. We will monitor H and H. 5. Acute metabolic encephalopathy, secondary to benzodiazepine, resolved. Valium has been discontinued. We will use [place] sparingly with dressing changes due to severe pain. 6. Multiple sclerosis with lower extremity weakness. 7. Diabetes mellitus type 2 [id number] with hyperglycemia, continue sliding scale insulin. Monitor blood glucose levels. 8. Severe protein-calorie malnutrition. Albumin is less than 2. Protein supplementation has been increased. 9. Hypomagnesemia, corrected. 10. Hypernatremia, corrected, we will discontinue IV fluids. 11. Status post suprapubic catheter. 12. Hypothyroidism. We will continue Synthroid. 13. Mixed hyperlipidemia, stable. Continue statin. 14. Major depressive disorder, stable. 15. Generalized anxiety disorder. Benzodiazepine discontinued due to respiratory depression and altered mental status. 16. Noncompliance, intentional. 17. Chronic pain syndrome. [place] with dressing changes only. Plan: Continue DVT prophylaxis with Lovenox. We will need to complete 2 weeks of IV antibiotics. We will re-address if she is willing to go to LTAC or if Home Health agency able to set up IV antibiotics at home. The patient was interested in palliative care. She is DNR and [facility] is agreeable to initiating palliative care after IV antibiotics have been completed. Overall poor prognosis SA/MODL Voice ID: [id number] Report ID: [id number] MTDElise
[2019-01-23] MEDS ORDERED: NA CHLORIDE 0.9% 250 ML ONE (16:26)
[2019-01-23] MEDS ORDERED: BISACODYL E.C. 5 MG TAB PO ONE (20:46)
--- NOTE | 2019-01-23 21:51 | PN ---
Subjective: The patient is lying in bed, more alert and awake. No other complaints from infection point of few, has no fever. The patient complains of bleeding from her wound site. Objective: Vital Signs: Temperature 98, pulse 93, respirations 16, and blood pressure 117/55. Lungs: Basilar crackles. Heart: S1 and S2, regular. Abdomen: Soft, nontender. Bowel sounds present. Extremities: No edema. Laboratory Data: Shows WBC 8.5, hemoglobin 7.2, and platelets are 273. Chemistry shows sodium 143, potassium 4.1, chloride 110, bicarb 28, BUN 27, creatinine 0.48, and glucose 168. Micro data showing Pseudomonas aeruginosa from right heel and Pseudomonas aeruginosa and ESBL E coli from the sacral wound. The patient is currently on gentamicin and meropenem. Assessment And Plan: Multiple wounds and recurrent urinary tract infection. Continue antibiotic and wound care. Consider using continue current antibiotic. We will follow the patient as needed. MINAL/MIKE Voice ID: [id number] Report ID: [id number] REMA
[2019-01-23] MEDS: ATORVASTATIN 10 MG TAB PO SCH (21:55)
[2019-01-23] MEDS: GLUCERNA SHAKE 237 ML CAN PO SCH (21:58)
[2019-01-23] MEDS ORDERED: FLUCONAZOLE 100 MG TAB ONE (22:04)
[2019-01-24] MEDS: Meropenem 500 MG in NA CHLORIDE 0.9% 100 ML IV SCH ×3 (01:57→17:17)
[2019-01-24 05:14] LABS: Hematocrit 26.2 % (36.0-45.0)
[2019-01-24 05:27] LABS: BUN Blood Urea Nitrogen 27 mg/dL (7-18); Bicarbonate 28 mmol/L (21-32); Glucose Level 183 mg/dL (74-106); Magnesium 1.6 mg/dL (1.8-2.4); Potassium 3.1 mmol/L (3.5-5.1); Sodium Level 142 mmol/L (136-145)
[2019-01-24] MEDS ORDERED: MAGNESIUM SULFATE 1 gm IVPB 1 GM/100 ML BAG IV ONE (05:51)
[2019-01-24] MEDS: LEVOTHYROXINE SOD 0.125 MG TAB PO SCH (06:27)
[2019-01-24] MEDS: INSULIN -REGULAR HUMAN 50 UNIT/0.5 ML ML SQ SCH ×4 (07:30→20:57)
[2019-01-24] MEDS: KCL 20 MEQ/100 mL IVPB 20 MEQ/100 ML BAG IV SCH ×2 (08:39→12:14)
[2019-01-24] MEDS: CARBAMAZEPINE 300 MG PO SCH ×2 (08:39→20:56)
[2019-01-24] MEDS: ZINC SULFATE 220 MG CAP PO SCH ×2 (08:40→20:57)
[2019-01-24] MEDS: ASCORBIC ACID 500 MG TABLET PO SCH (08:40)
[2019-01-24] MEDS: MEGESTROL 400 MG/10 ML UCUP PO SCH (08:40)
[2019-01-24] MEDS: BACLOFEN 10 MG TAB PO SCH ×3 (08:40→20:57)
[2019-01-24] MEDS: OXYBUTYNIN CHLORIDE 5 MG TAB PO SCH ×2 (08:40→20:57)
[2019-01-24] MEDS: HYDROXYZINE PAM PO SCH ×2 (08:41→20:56)
[2019-01-24] MEDS: LIDOCAINE JELLY 2%- 5 ML TUBE TOP SCH (09:00)
[2019-01-24] MEDS: COLLAGENASE 30 GM OINTMENT TOP SCH (09:00)
[2019-01-24] MEDS: JUVEN PACKET PO SCH ×2 (10:33→21:00)
[2019-01-24] MEDS: GLUCERNA SHAKE 237 ML CAN PO SCH ×2 (10:33→21:01)
[2019-01-24] MEDS: Gentamicin Inj 120 MG in NA CHLORIDE 0.9% 100 ML IV SCH (10:34)
[2019-01-24] MEDS: ACETIC ACID 0.25% IRRIG IRR SCH (14:00)
--- NOTE | 2019-01-24 17:05 | P.PN ---
Subjective Date of Service: 01/24/19 Patient seen and examined at bedside. at bedside. Patient denies any complaints at this time. States that she would like to go home. Review of Systems 10-point ROS is otherwise unremarkable Physical Examination - Vital Signs Temperature: 99.8 F Blood Pressure: 100/55 Pulse: 80 Respirations: 16 Pulse Ox (%): 99 - Physical Exam General: Alert, In no apparent distress, Oriented x3 Respiratory: Clear to auscultation bilaterally, Normal air movement Cardiovascular: Regular rate/rhythm, Normal S1 S2 Integumentary: Pressure ulcer Assessment And Plan - Plan A 63-year-old female with: 1. Septic shock secondary to wound infection, resolved. The patient still has low blood pressure however, asymptomatic. We will continue IV antibiotics secondary to Pseudomonas and ESBL Escherichia coli. 2. Right heel wound with cellulitis, status post incision and drainage. Continue IV antibiotics for total of 2 weeks. The patient is on day 14 of meropenem and day 9 of gentamicin. 3. Sacral ulcer, unstageable. Continue offloading IV antibiotics for total of 2 weeks. Culture results show ESBL Escherichia coli and Pseudomonas. 4. Acute on chronic microcytic hypochromic anemia. H and H stable posttransfusion. We will transfuse given patient's drop in hemoglobin. as well as chronic illnesses. we will continue monitor H and H. 5. Acute metabolic encephalopathy, secondary to benzodiazepine, resolved. Valium has been discontinued. We will use [place] sparingly with dressing changes due to severe pain. 6. Multiple sclerosis with lower extremity weakness. 7. Diabetes mellitus type 2 [id number] with hyperglycemia, continue sliding scale insulin. Monitor blood glucose levels. 8. Severe protein-calorie malnutrition. Albumin is less than 2. Protein supplementation has been increased. 9. Hypomagnesemia, corrected. 10. Hypernatremia, corrected, we will discontinue IV fluids. 11. Status post suprapubic catheter. 12. Hypothyroidism. We will continue Synthroid. 13. Mixed hyperlipidemia, stable. Continue statin. 14. Major depressive disorder, stable. 15. Generalized anxiety disorder. Benzodiazepine discontinued due to respiratory depression and altered mental status. 16. Noncompliance, intentional. 17. Chronic pain syndrome. [place] with dressing changes only. Plan: Continue DVT prophylaxis with Lovenox. We will need to complete 2 weeks of IV antibiotics. We will re-address if she is willing to go to LTAC or if Home Health agency able to set up IV antibiotics at home. The patient was interested in palliative care. She is DNR and [facility] is agreeable to initiating palliative care after IV antibiotics have been completed. Overall poor prognosis - Code Status/Comfort Care Code Status: Do Not Resuscitate
[2019-01-24] MEDS: ATORVASTATIN 10 MG TAB PO SCH (20:57)
[2019-01-25] MEDS: Meropenem 500 MG in NA CHLORIDE 0.9% 100 ML IV SCH ×3 (02:11→17:15)
[2019-01-25 05:03] LABS: BUN Blood Urea Nitrogen 34 mg/dL (7-18); Bicarbonate 27 mmol/L (21-32); Glucose Level 190 mg/dL (74-106); Magnesium 1.7 mg/dL (1.8-2.4); Potassium 3.6 mmol/L (3.5-5.1); Sodium Level 140 mmol/L (136-145)
[2019-01-25] MEDS: LEVOTHYROXINE SOD 0.125 MG TAB PO SCH (05:49)
[2019-01-25] MEDS ORDERED: POTASSIUM CL SA 10 MEQ TAB PO ONE (06:12)
[2019-01-25] MEDS ORDERED: MAGNESIUM SULFATE 1 gm IVPB 1 GM/100 ML BAG IV ONE (06:12)
[2019-01-25] MEDS: INSULIN -REGULAR HUMAN 50 UNIT/0.5 ML ML SQ SCH ×4 (08:42→21:00)
[2019-01-25] MEDS: ZINC SULFATE 220 MG CAP PO SCH ×2 (08:44→21:50)
[2019-01-25] MEDS: ASCORBIC ACID 500 MG TABLET PO SCH (08:44)
[2019-01-25] MEDS: BACLOFEN 10 MG TAB PO SCH ×3 (08:44→21:51)
[2019-01-25] MEDS: MEGESTROL 400 MG/10 ML UCUP PO SCH (08:44)
[2019-01-25] MEDS: OXYBUTYNIN CHLORIDE 5 MG TAB PO SCH ×2 (08:44→21:50)
[2019-01-25] MEDS: CARBAMAZEPINE 300 MG PO SCH ×2 (08:45→21:48)
[2019-01-25] MEDS: HYDROXYZINE PAM PO SCH ×2 (08:46→21:47)
[2019-01-25] MEDS: JUVEN PACKET PO SCH ×3 (08:47→21:52)
[2019-01-25] MEDS: GLUCERNA SHAKE 237 ML CAN PO SCH ×2 (08:47→21:52)
[2019-01-25] MEDS: Gentamicin Inj 120 MG in NA CHLORIDE 0.9% 100 ML IV SCH (10:16)
--- NOTE | 2019-01-25 11:16 | P.PN ---
Subjective Date of Service: 01/25/19 Subjective: No new changes Patient seen and examined at bedside. at bedside. Patient denies any complaints at this time. States that she would like to go home. Review of Systems 10-point ROS is otherwise unremarkable Physical Examination - Vital Signs Temperature: 97.7 F Blood Pressure: 96/52 Pulse: 85 Respirations: 12 Pulse Ox (%): 99 - Physical Exam General: Alert, In no apparent distress Respiratory: Clear to auscultation bilaterally, Normal air movement Cardiovascular: Regular rate/rhythm, Normal S1 S2 Integumentary: Skin lesion, Pressure ulcer Assessment And Plan - Plan A 63-year-old female with: 1. Septic shock secondary to wound infection, resolved. The patient still has low blood pressure however, asymptomatic. We will continue IV antibiotics secondary to Pseudomonas and ESBL Escherichia coli. 2. Right heel wound with cellulitis, status post incision and drainage. Continue IV antibiotics for total of 2 weeks. The patient is on day 14 of meropenem and day 9 of gentamicin. 3. Sacral ulcer, unstageable. Continue offloading IV antibiotics for total of 2 weeks. Culture results show ESBL Escherichia coli and Pseudomonas. 4. Acute on chronic microcytic hypochromic anemia. H and H stable posttransfusion. We will transfuse given patient's drop in hemoglobin. as well as chronic illnesses. we will continue monitor H and H. 5. Acute metabolic encephalopathy, secondary to benzodiazepine, resolved. Valium has been discontinued. We will use [place] sparingly with dressing changes due to severe pain. 6. Multiple sclerosis with lower extremity weakness. 7. Diabetes mellitus type 2 [id number]-emqnbof-jmptejwvt with hyperglycemia, continue sliding scale insulin. Monitor blood glucose levels. 8. Severe protein-calorie malnutrition. Albumin is less than 2. Protein supplementation has been increased. 9. Hypomagnesemia, corrected. 10. Hypernatremia, corrected, we will discontinue IV fluids. 11. Status post suprapubic catheter. 12. Hypothyroidism. We will continue Synthroid. 13. Mixed hyperlipidemia, stable. Continue statin. 14. Major depressive disorder, stable. 15. Generalized anxiety disorder. Benzodiazepine discontinued due to respiratory depression and altered mental status. 16. Noncompliance, intentional. 17. Chronic pain syndrome. [place] with dressing changes only. Plan: Continue DVT prophylaxis with Lovenox. We will need to complete 2 weeks of IV antibiotics. We will re-address if she is willing to go to LTAC or if Home Health agency able to set up IV antibiotics at home. The patient was interested in palliative care. She is DNR and [facility] is agreeable to initiating palliative care after IV antibiotics have been completed. Overall poor prognosis
[2019-01-25] MEDS: ONDANSETRON 4 MG/2 ML VIAL IV PRN (17:50)
[2019-01-25] MEDS: ATORVASTATIN 10 MG TAB PO SCH (21:50)
[2019-01-26] MEDS: INSULIN -REGULAR HUMAN 50 UNIT/0.5 ML ML SQ SCH ×4 (07:30→21:49)
[2019-01-26] MEDS: LEVOTHYROXINE SOD 0.125 MG TAB PO SCH (07:39)
[2019-01-26] MEDS: Meropenem 500 MG in NA CHLORIDE 0.9% 100 ML IV SCH ×3 (07:39→16:38)
[2019-01-26 07:59] LABS: BUN Blood Urea Nitrogen 23 mg/dL (7-18); Bicarbonate 26 mmol/L (21-32); Glucose Level 131 mg/dL (74-106); Potassium 4.1 mmol/L (3.5-5.1); Sodium Level 140 mmol/L (136-145)
[2019-01-26] MEDS: LIDOCAINE JELLY 2%- 5 ML TUBE TOP SCH (09:00)
[2019-01-26] MEDS: COLLAGENASE 30 GM OINTMENT TOP SCH (09:00)
[2019-01-26] MEDS: MEGESTROL 400 MG/10 ML UCUP PO SCH ×2 (09:00→09:59)
[2019-01-26] MEDS: JUVEN PACKET PO SCH ×2 (09:00→21:00)
[2019-01-26] MEDS: GLUCERNA SHAKE 237 ML CAN PO SCH ×2 (09:00→21:00)
[2019-01-26] MEDS: ONDANSETRON 4 MG/2 ML VIAL IV PRN (09:23)
[2019-01-26] MEDS: CARBAMAZEPINE 300 MG PO SCH ×2 (09:57→21:00)
[2019-01-26] MEDS: HYDROXYZINE PAM PO SCH ×2 (09:58→21:47)
[2019-01-26] MEDS: HYDROCODONE/APAP 5/325 MG TAB PO PRN (09:59)
[2019-01-26] MEDS: ASCORBIC ACID 500 MG TABLET PO SCH (09:59)
[2019-01-26] MEDS: OXYBUTYNIN CHLORIDE 5 MG TAB PO SCH ×2 (09:59→21:48)
[2019-01-26] MEDS: ZINC SULFATE 220 MG CAP PO SCH ×2 (09:59→21:48)
[2019-01-26] MEDS: BACLOFEN 10 MG TAB PO SCH ×3 (09:59→21:48)
[2019-01-26] MEDS: Gentamicin Inj 120 MG in NA CHLORIDE 0.9% 100 ML IV SCH (10:06)
--- NOTE | 2019-01-26 13:29 | P.PN ---
Subjective Date of Service: 01/26/19 Subjective: No C/O voiced Patient seen and examined at bedside. at bedside. Patient denies any complaints at this time. States that she would like to go home. Review of Systems 10-point ROS is otherwise unremarkable Physical Examination - Vital Signs Temperature: 97.9 F Blood Pressure: 98/50 Pulse: 90 Respirations: 16 Pulse Ox (%): 99 - Physical Exam General: Alert, Oriented x3, Mild distress HEENT: Atraumatic, PERRLA, EOMI Neck: Supple, JVD not distended Respiratory: Clear to auscultation bilaterally, Normal air movement Integumentary: Skin lesion, Pressure ulcer Assessment And Plan - Plan A 63-year-old female with: 1. Septic shock secondary to wound infection, resolved. The patient still has low blood pressure however, asymptomatic. We will continue IV antibiotics secondary to Pseudomonas and ESBL Escherichia coli. 2. Right heel wound with cellulitis, status post incision and drainage. Continue IV antibiotics for total of 2 weeks. The patient is on day 14 of meropenem and day 10 of gentamicin. 3. Sacral ulcer, unstageable. Continue offloading IV antibiotics for total of 2 weeks. Culture results show ESBL Escherichia coli and Pseudomonas. 4. Acute on chronic microcytic hypochromic anemia. H and H stable posttransfusion. We will transfuse given patient's drop in hemoglobin. as well as chronic illnesses. we will continue monitor H and H. 5. Acute metabolic encephalopathy, secondary to benzodiazepine, resolved. Valium has been discontinued. We will use [place] sparingly with dressing changes due to severe pain. 6. Multiple sclerosis with lower extremity weakness. 7. Diabetes mellitus type 2 atw-miqnamw-tmozhpzlg with hyperglycemia, continue sliding scale insulin. Monitor blood glucose levels. 8. Severe protein-calorie malnutrition. Albumin is less than 2. Protein supplementation has been increased. 9. Hypomagnesemia, corrected. 10. Hypernatremia, corrected, we will discontinue IV fluids. 11. Status post suprapubic catheter. 12. Hypothyroidism. We will continue Synthroid. 13. Mixed hyperlipidemia, stable. Continue statin. 14. Major depressive disorder, stable. 15. Generalized anxiety disorder. Benzodiazepine discontinued due to respiratory depression and altered mental status. 16. Noncompliance, intentional. 17. Chronic pain syndrome. [place] with dressing changes only. Plan: Continue DVT prophylaxis with Lovenox. We will need to complete 2 weeks of IV antibiotics. We will re-address if she is willing to go to LTAC or if Home Health agency able to set up IV antibiotics at home. The patient was interested in palliative care. She is DNR and [facility] is agreeable to initiating palliative care after IV antibiotics have been completed. Overall poor prognosis
[2019-01-26] MEDS: ACETIC ACID 0.25% IRRIG IRR SCH (14:00)
[2019-01-26] MEDS: ATORVASTATIN 10 MG TAB PO SCH (21:49)
[2019-01-27] MEDS: Meropenem 500 MG in NA CHLORIDE 0.9% 100 ML IV SCH ×3 (01:29→16:57)
[2019-01-27] MEDS: LEVOTHYROXINE SOD 0.125 MG TAB PO SCH (06:40)
[2019-01-27] MEDS: BACLOFEN 10 MG TAB PO SCH ×3 (09:37→21:39)
[2019-01-27] MEDS: ASCORBIC ACID 500 MG TABLET PO SCH (09:37)
[2019-01-27] MEDS: CARBAMAZEPINE 300 MG PO SCH ×2 (09:38→21:40)
[2019-01-27] MEDS: INSULIN -REGULAR HUMAN 50 UNIT/0.5 ML ML SQ SCH ×4 (09:38→21:00)
[2019-01-27] MEDS: HYDROXYZINE PAM PO SCH ×2 (09:38→21:40)
[2019-01-27] MEDS: MEGESTROL 400 MG/10 ML UCUP PO SCH (09:39)
[2019-01-27] MEDS: JUVEN PACKET PO SCH ×2 (09:40→21:00)
[2019-01-27] MEDS: GLUCERNA SHAKE 237 ML CAN PO SCH (09:40)
[2019-01-27] MEDS: OXYBUTYNIN CHLORIDE 5 MG TAB PO SCH ×2 (09:42→21:45)
[2019-01-27] MEDS: Gentamicin Inj 120 MG in NA CHLORIDE 0.9% 100 ML IV SCH (09:42)
[2019-01-27] MEDS: ZINC SULFATE 220 MG CAP PO SCH ×2 (09:58→21:44)
[2019-01-27] MEDS: LIDOCAINE JELLY 2%- 5 ML TUBE TOP SCH (10:03)
[2019-01-27] MEDS: HYDROCODONE/APAP 5/325 MG TAB PO PRN ×2 (10:03→21:40)
[2019-01-27] MEDS: COLLAGENASE 30 GM OINTMENT TOP SCH (10:03)
[2019-01-27] MEDS: ACETIC ACID 0.25% IRRIG IRR SCH (10:04)
[2019-01-27] MEDS: ONDANSETRON 4 MG/2 ML VIAL IV PRN (11:10)
[2019-01-27] MEDS ORDERED: GLUCERNA SHAKE 237 ML CAN PO PRN (13:48)
--- NOTE | 2019-01-27 14:43 | P.PN ---
Subjective Date of Service: 01/27/19 Subjective: No new changes Patient seen and examined at bedside. at bedside. Patient denies any complaints at this time. States that she would like to go home. States she wants her valium and her muscle relaxers Review of Systems 10-point ROS is otherwise unremarkable Physical Examination - Vital Signs Temperature: 97.1 F Blood Pressure: 122/58 Pulse: 81 Respirations: 16 Pulse Ox (%): 99 - Physical Exam General: Alert, In no apparent distress Respiratory: Clear to auscultation bilaterally, Normal air movement Cardiovascular: Regular rate/rhythm, Normal S1 S2 Gastrointestinal: Normal bowel sounds, No tenderness Musculoskeletal: No clubbing Integumentary: Skin lesion, Arterial ulcer Assessment And Plan - Plan A 63-year-old female with: 1. Septic shock secondary to wound infection, resolved. The patient still has low blood pressure however, asymptomatic. We will continue IV antibiotics secondary to Pseudomonas and ESBL Escherichia coli. 2. Right heel wound with cellulitis, status post incision and drainage. Continue IV antibiotics for total of 2 weeks. The patient is on day 14 of meropenem and day 11 of gentamicin. 3. Sacral ulcer, unstageable. Continue offloading IV antibiotics for total of 2 weeks. Culture results show ESBL Escherichia coli and Pseudomonas. 4. Acute on chronic microcytic hypochromic anemia. H and H stable posttransfusion. We will transfuse given patient's drop in hemoglobin. as well as chronic illnesses. we will continue monitor H and H. 5. Acute metabolic encephalopathy, secondary to benzodiazepine, resolved. Valium has been discontinued. We will use [place] sparingly with dressing changes due to severe pain. 6. Multiple sclerosis with lower extremity weakness. 7. Diabetes mellitus type 2 rkn-fdeiaui-rzpbtvzrj with hyperglycemia, continue sliding scale insulin. Monitor blood glucose levels. 8. Severe protein-calorie malnutrition. Albumin is less than 2. Protein supplementation has been increased. 9. Hypomagnesemia, corrected. 10. Hypernatremia, corrected, we will discontinue IV fluids. 11. Status post suprapubic catheter. 12. Hypothyroidism. We will continue Synthroid. 13. Mixed hyperlipidemia, stable. Continue statin. 14. Major depressive disorder, stable. 15. Generalized anxiety disorder. Benzodiazepine discontinued due to respiratory depression and altered mental status. 16. Noncompliance, intentional. 17. Chronic pain syndrome. [place] with dressing changes only. Plan: Continue DVT prophylaxis with Lovenox. We will need to complete 2 weeks of IV antibiotics. We will re-address if she is willing to go to LTAC or if Home Health agency able to set up IV antibiotics at home. The patient was interested in palliative care. She is DNR and [facility] is agreeable to initiating palliative care after IV antibiotics have been completed. Overall poor prognosis
--- NOTE | 2019-01-27 16:31 | PN ---
Subjective: The patient is lying in bed, somnolent. Dressing has changed. The patient has extensiv e wounds. As per staff, they are improving. Objective: Vital Signs: Temperature 97.9, pulse 84, respirations 16, blood pressure 119/59. Lungs: Basal crackles. Heart: S1, S2. Regular. Abdomen: Soft, nontender. Bowel sounds present. Extremities: No edema. Muscle wasting noted. Laboratory Data: WBC 8.5, hemoglobin 9.2, platelets are 273. Chemistry shows sodium 140, potassium 4.1, chloride 106, bicarb 26, BUN 23, creatinine 0.43, glucose is 131. Microdata is growing Pseudomo mayi from the right heel, and ESBL E. coli and Pseudomonas from the sacral wound. The patient is curr ently being treated with meropenem and gentamicin. Total course should be 2 weeks. Assessment And Plan: Sacral wound and lower extremity wound. Left axillary wound with multidrug res istant bacteria, Escherichia coli, extended-spectrum beta-lactamase, Pseudomonas aeruginosa. We will let wound care team handle the wounds. Continue supportive care. NF/MODL Voice ID: [id number] Report ID: [id number]
[2019-01-27] MEDS: ATORVASTATIN 10 MG TAB PO SCH (21:39)
[2019-01-28] MEDS: Meropenem 500 MG in NA CHLORIDE 0.9% 100 ML IV SCH ×3 (02:27→16:05)
[2019-01-28] MEDS: LEVOTHYROXINE SOD 0.125 MG TAB PO SCH (06:24)
[2019-01-28] MEDS: INSULIN -REGULAR HUMAN 50 UNIT/0.5 ML ML SQ SCH ×4 (09:16→21:58)
[2019-01-28] MEDS: OXYBUTYNIN CHLORIDE 5 MG TAB PO SCH ×2 (09:16→22:00)
[2019-01-28] MEDS: BACLOFEN 10 MG TAB PO SCH ×3 (09:16→21:58)
[2019-01-28] MEDS: MEGESTROL 400 MG/10 ML UCUP PO SCH (09:16)
[2019-01-28] MEDS: CARBAMAZEPINE 300 MG PO SCH ×2 (09:17→21:00)
[2019-01-28] MEDS: ZINC SULFATE 220 MG CAP PO SCH ×2 (09:17→22:00)
[2019-01-28] MEDS: ASCORBIC ACID 500 MG TABLET PO SCH (09:17)
[2019-01-28] MEDS: HYDROXYZINE PAM PO SCH ×2 (09:17→21:58)
[2019-01-28] MEDS: JUVEN PACKET PO SCH ×2 (09:18→22:01)
[2019-01-28] MEDS: Gentamicin Inj 120 MG in NA CHLORIDE 0.9% 100 ML IV SCH (10:40)
--- NOTE | 2019-01-28 13:07 | P.PN ---
Subjective Date of Service: 01/28/19 Subjective: No new changes Patient seen and examined at bedside. at bedside. Patient denies any complaints at this time. States that she would like to go home. States she wants her valium and her muscle relaxers Review of Systems 10-point ROS is otherwise unremarkable Physical Examination - Vital Signs Temperature: 96.4 F Blood Pressure: 109/51 Pulse: 77 Respirations: 19 Pulse Ox (%): 98 - Physical Exam General: Alert, In no apparent distress Integumentary: Skin lesion, Pressure ulcer Assessment And Plan - Plan A 63-year-old female with: 1. Septic shock secondary to wound infection, resolved. The patient still has low blood pressure however, asymptomatic. We will continue IV antibiotics secondary to Pseudomonas and ESBL Escherichia coli. 2. Right heel wound with cellulitis, status post incision and drainage. Continue IV antibiotics for total of 2 weeks. The patient is on day 14 of meropenem (discontinued) and day 12 of gentamicin. 3. Sacral ulcer, unstageable. Continue offloading IV antibiotics for total of 2 weeks. Culture results show ESBL Escherichia coli and Pseudomonas. 4. Acute on chronic microcytic hypochromic anemia. H and H stable posttransfusion. We will transfuse given patient's drop in hemoglobin. as well as chronic illnesses. we will continue monitor H and H. 5. Acute metabolic encephalopathy, secondary to benzodiazepine, resolved. Valium has been discontinued. We will use [place] sparingly with dressing changes due to severe pain. 6. Multiple sclerosis with lower extremity weakness. 7. Diabetes mellitus type 2 zyb-ohlnieh-owengnuxo with hyperglycemia, continue sliding scale insulin. Monitor blood glucose levels. 8. Severe protein-calorie malnutrition. Albumin is less than 2. Protein supplementation has been increased. 9. Hypomagnesemia, corrected. 10. Hypernatremia, corrected, we will discontinue IV fluids. 11. Status post suprapubic catheter. 12. Hypothyroidism. We will continue Synthroid. 13. Mixed hyperlipidemia, stable. Continue statin. 14. Major depressive disorder, stable. 15. Generalized anxiety disorder. Benzodiazepine discontinued due to respiratory depression and altered mental status. 16. Noncompliance, intentional. 17. Chronic pain syndrome. [place] with dressing changes only. Plan: Continue DVT prophylaxis with Lovenox. We will need to complete 2 weeks of IV antibiotics in the hospital as patient unable to be set up with home health. The patient was interested in palliative care. She is DNR and [facility] is agreeable to initiating palliative care after IV antibiotics have been completed. Overall poor prognosis
[2019-01-28] MEDS: ACETIC ACID 0.25% IRRIG IRR SCH (13:55)
[2019-01-28] MEDS: HYDROCODONE/APAP 5/325 MG TAB PO PRN (14:28)
[2019-01-28] MEDS: ATORVASTATIN 10 MG TAB PO SCH (21:58)
[2019-01-29] MEDS: LEVOTHYROXINE SOD 0.125 MG TAB PO SCH (06:39)
[2019-01-29] MEDS: LIDOCAINE JELLY 2%- 5 ML TUBE TOP SCH (09:00)
[2019-01-29] MEDS: COLLAGENASE 30 GM OINTMENT TOP SCH (09:00)
[2019-01-29] MEDS: INSULIN -REGULAR HUMAN 50 UNIT/0.5 ML ML SQ SCH ×4 (09:33→21:00)
[2019-01-29] MEDS: ZINC SULFATE 220 MG CAP PO SCH ×2 (09:34→22:40)
[2019-01-29] MEDS: ASCORBIC ACID 500 MG TABLET PO SCH (09:34)
[2019-01-29] MEDS: OXYBUTYNIN CHLORIDE 5 MG TAB PO SCH ×2 (09:34→22:40)
[2019-01-29] MEDS: MEGESTROL 400 MG/10 ML UCUP PO SCH (09:34)
[2019-01-29] MEDS: CARBAMAZEPINE 300 MG PO SCH ×2 (09:35→22:41)
[2019-01-29] MEDS: BACLOFEN 10 MG TAB PO SCH ×3 (09:35→22:40)
[2019-01-29] MEDS: JUVEN PACKET PO SCH ×2 (09:36→21:00)
[2019-01-29] MEDS: HYDROXYZINE PAM PO SCH ×2 (09:36→21:00)
[2019-01-29] MEDS: Gentamicin Inj 120 MG in NA CHLORIDE 0.9% 100 ML IV SCH (09:39)
--- NOTE | 2019-01-29 15:52 | P.PN ---
Subjective Date of Service: 01/29/19 Subjective: No new changes Patient seen and examined at bedside. at bedside. Patient denies any complaints at this time. States that she would like to go home. States she wants her valium and her muscle relaxers Review of Systems 10-point ROS is otherwise unremarkable Physical Examination - Vital Signs Temperature: 98.5 F Blood Pressure: 115/60 Pulse: 92 Respirations: 16 Pulse Ox (%): 98 - Physical Exam General: Alert, In no apparent distress, Oriented x3, Other (Ill-appearing) Respiratory: Clear to auscultation bilaterally, Normal air movement Cardiovascular: Regular rate/rhythm, Normal S1 S2 Integumentary: Skin lesion, Other (Multiple skin lesions, wounds) Assessment And Plan - Plan A 63-year-old female with: 1. Septic shock secondary to wound infection, resolved. The patient still has low blood pressure however, asymptomatic. We will continue IV antibiotics secondary to Pseudomonas and ESBL Escherichia coli. 2. Right heel wound with cellulitis, status post incision and drainage. Continue IV antibiotics for total of 2 weeks. The patient is on day 14 of meropenem (discontinued) and day 14 of gentamicin. Her antibiotic courses now complete 3. Sacral ulcer, unstageable. Continue offloading IV antibiotics for total of 2 weeks. Culture results show ESBL Escherichia coli and Pseudomonas. 4. Acute on chronic microcytic hypochromic anemia. H and H stable posttransfusion. We will transfuse given patient's drop in hemoglobin. as well as chronic illnesses. we will continue monitor H and H. 5. Acute metabolic encephalopathy, secondary to benzodiazepine, resolved. Valium has been discontinued. We will use [place] sparingly with dressing changes due to severe pain. 6. Multiple sclerosis with lower extremity weakness. 7. Diabetes mellitus type 2 lqg-mwewwla-tietlfhuu with hyperglycemia, continue sliding scale insulin. Monitor blood glucose levels. 8. Severe protein-calorie malnutrition. Albumin is less than 2. Protein supplementation has been increased. 9. Hypomagnesemia, corrected. 10. Hypernatremia, corrected, we will discontinue IV fluids. 11. Status post suprapubic catheter. 12. Hypothyroidism. We will continue Synthroid. 13. Mixed hyperlipidemia, stable. Continue statin. 14. Major depressive disorder, stable. 15. Generalized anxiety disorder. Benzodiazepine discontinued due to respiratory depression and altered mental status. 16. Noncompliance, intentional. 17. Chronic pain syndrome. [place] with dressing changes only. Plan: Continue DVT prophylaxis with Lovenox. She has completed 2 weeks of IV antibiotics in the hospital. Will confer with social work regarding home health with palliative care set up. The patient was interested in palliative care. She is DNR and [facility] is agreeable to initiating palliative care after IV antibiotics have been completed. Overall poor prognosis
[2019-01-29] MEDS: ATORVASTATIN 10 MG TAB PO SCH (22:40)
[2019-01-30] MEDS: LEVOTHYROXINE SOD 0.125 MG TAB PO SCH (06:35)
[2019-01-30] MEDS: INSULIN -REGULAR HUMAN 50 UNIT/0.5 ML ML SQ SCH ×4 (07:30→21:00)
--- NOTE | 2019-01-30 08:40 | CON ---
History Of Present Illness: A 63-year-old female, who came in for Pseudomonas aeruginosa, right heel wound, and Pseudomonas and E coli ESBL in sacral wound. She normally has a suprapubic catheter for multiple sclerosis. She normally has an 18-Salvadorean 30 cc balloon. It has not been changed over a month, so she wants me to go ahead and change it and the nurses were hesitant about doing a suprapubic catheter changes. I am not sure why since this is a large lesion and placing a regular Crane catheter, I was requested to change this for her. Past Medical History: Multiple sclerosis, functional quadriplegia, diabetes mellitus, hypothyroidism, hypercholesterolemia, depressive disorder, anxiety disorder, chronic pain syndrome. Social History: Nonsmoker, nondrinker. Past Surgical History: Suprapubic catheter, right foot with screws and pins, multiple debridements of the wound. Allergies: AMOXIL, MORPHINE, POTASSIUM, CLAVULANIC ACID, AUGMENTIN, LEVAQUIN, PENICILLIN, CODEINE, TAPE. Medications: She has been treated with meropenem in the past. Family History: Noncontributory except for multiple sclerosis runs in the family. Review of Systems: A 10-point review of systems, otherwise, noncontributory. Physical Examination: Vital Signs: She is afebrile, stable. HEENT: Unremarkable. Neck: Supple. Lungs: Clear. Heart: S1, S2. Abdomen: Soft, nontender. Suprapubic tube in place. Laboratory Data: Reviewed. Assessment And Plan: Multiple sclerosis, history of neurogenic bladder, multiple healing sacral decubitus ulcers that she was admitted for. Chronic spt usage. The area was prepped and draped. The previous suprapubic catheter was then removed and we took note of the length of the catheter that was inside the bladder, and replace catheter into the bladder with no resistance and inflated with 25 cc of sterile water without any pain whatsoever and this was then hooked up to a bag and the nurse placed a new dressing on the patient. ANTHONY/MIKE Voice ID: [id number] Report ID: [id number] REMA
[2019-01-30] MEDS: JUVEN PACKET PO SCH ×2 (09:00→21:00)
[2019-01-30] MEDS: MEGESTROL 400 MG/10 ML UCUP PO SCH (09:00)
[2019-01-30] MEDS: ASCORBIC ACID 500 MG TABLET PO SCH (09:00)
[2019-01-30] MEDS: CARBAMAZEPINE 300 MG PO SCH ×2 (09:00→21:55)
[2019-01-30] MEDS: ZINC SULFATE 220 MG CAP PO SCH ×2 (09:00→21:56)
[2019-01-30] MEDS: BACLOFEN 10 MG TAB PO SCH ×3 (09:37→21:57)
[2019-01-30] MEDS: OXYBUTYNIN CHLORIDE 5 MG TAB PO SCH ×2 (09:37→21:57)
[2019-01-30] MEDS: HYDROXYZINE PAM PO SCH ×2 (09:57→21:54)
[2019-01-30] MEDS: DIAZEPAM 2 MG TABLET PO SCH ×2 (12:14→21:56)
[2019-01-30] MEDS: ACETIC ACID 0.25% IRRIG IRR SCH (14:00)
[2019-01-30] MEDS ORDERED: HYDROCODONE/APAP 5/325 MG TAB PO PRN (15:41)
--- NOTE | 2019-01-30 16:09 | P.PN ---
Subjective Date of Service: 01/30/19 Subjective: No new changes Patient seen and examined at bedside. at bedside. Patient complaining that we are not giving her pain medications. States that she would like to go home. Review of Systems 10-point ROS is otherwise unremarkable Physical Examination - Vital Signs Temperature: 98.0 F Blood Pressure: 100/53 Pulse: 86 Respirations: 18 Pulse Ox (%): 100 - Physical Exam General: Alert, In no apparent distress, Oriented x3 Respiratory: Clear to auscultation bilaterally, Normal air movement Cardiovascular: Regular rate/rhythm, Normal S1 S2 Gastrointestinal: Normal bowel sounds, No tenderness Integumentary: Skin lesion (multiple lesions) Assessment And Plan - Plan A 63-year-old female with: 1. Septic shock secondary to wound infection, resolved. The patient still has low blood pressure however, asymptomatic. She has complated her course of IV antibiotics. 2. Right heel wound with cellulitis, status post incision and drainage. Finished IV antibiotics course for total of 2 weeks. 3. Sacral ulcer, unstageable. Continue offloading, completed IV antibiotics for total of 2 weeks. Culture results show ESBL Escherichia coli and Pseudomonas. 4. Acute on chronic microcytic hypochromic anemia. H and H stable posttransfusion. We will transfuse given patient's drop in hemoglobin. as well as chronic illnesses. we will continue monitor H and H. 5. Acute metabolic encephalopathy, secondary to benzodiazepine, resolved. Valium had been discontinued. We will use Boyd sparingly with dressing changes due to severe pain. 6. Multiple sclerosis with lower extremity weakness. Patient is bed bound, she requires assisstance with IDL's and her AIDL's. 7. Diabetes mellitus type 2 ris-vywrebh-iyfexddyi with hyperglycemia, continue sliding scale insulin. Monitor blood glucose levels. 8. Severe protein-calorie malnutrition. Albumin is less than 2. Protein supplementation has been increased. 9. Hypomagnesemia, corrected. 10. Hypernatremia, corrected, we will discontinue IV fluids. 11. Status post suprapubic catheter. Changed in hospital by Dr. Toth on 01/19. 12. Hypothyroidism. We will continue Synthroid. 13. Mixed hyperlipidemia, stable. Continue statin. 14. Major depressive disorder, stable. 15. Generalized anxiety disorder. Benzodiazepine discontinued due to respiratory depression and altered mental status. 16. Noncompliance, intentional. 17. Chronic pain syndrome. Boyd with dressing changes only. Plan: Continue DVT prophylaxis with Lovenox. She has completed 2 weeks of IV antibiotics in the hospital. Initially, it was thought that HH declined patient due to her IV antibiotics requirement. HH still denied patient after completing IV antibiotics. Had a family meeting with patient, , SW, CN, and patient's nurse in [facility] to goals of care. Patient very ugly with staff and I in regards to her pain medications. Discussed with family that home with home health is not a possibility with this patient as no home health agency agreeable to accepting patient. VERONICA spoke with [facility] company and at this time, are working on getting home wi hospice set up with [facility]. It seems that patient and [facility] may have cometo an agreement. She is DNR. Overall, very poor prognosis. Discharge Plan: Home (w/ Hospice (IP))
[2019-01-30] MEDS: ATORVASTATIN 10 MG TAB PO SCH (21:57)
[2019-01-31] MEDS: LEVOTHYROXINE SOD 0.125 MG TAB PO SCH (05:36)
[2019-01-31] MEDS: INSULIN -REGULAR HUMAN 50 UNIT/0.5 ML ML SQ SCH ×2 (07:30→11:03)
[2019-01-31 08:55] VITALS: O2SAT 97
[2019-01-31] MEDS: JUVEN PACKET PO SCH (09:00)
[2019-01-31] MEDS: COLLAGENASE 30 GM OINTMENT TOP SCH (09:00)
[2019-01-31] MEDS: LIDOCAINE JELLY 2%- 5 ML TUBE TOP SCH (09:00)
[2019-01-31] MEDS: DIAZEPAM 2 MG TABLET PO SCH (10:00)
[2019-01-31] MEDS: ASCORBIC ACID 500 MG TABLET PO SCH (10:00)
[2019-01-31] MEDS: HYDROXYZINE PAM PO SCH (10:00)
[2019-01-31] MEDS: MEGESTROL 400 MG/10 ML UCUP PO SCH (10:00)
[2019-01-31] MEDS: ZINC SULFATE 220 MG CAP PO SCH (10:00)
[2019-01-31] MEDS: BACLOFEN 10 MG TAB PO SCH ×2 (10:00→13:33)
[2019-01-31] MEDS: CARBAMAZEPINE 300 MG PO SCH (10:00)
[2019-01-31] MEDS: OXYBUTYNIN CHLORIDE 5 MG TAB PO SCH (10:46)
[2019-01-31 11:30] VITALS: BP 118/55; TEMP 96.8
--- NOTE | 2019-01-31 18:29 | PN ---
Subjective: Ms. Chamberlain has been leaking around the catheter. Had normal flows today since yesterday actually, so I came by to reposition the catheter, loss of urine and fair amount of urine came out o f the bladder. With her getting the catheter tight to her legs somehow it is not flowing as it shoul d, did have loosening the band. The catheter has fallen on her legs. It is loose. Pulled the balloo n up to the top of the bladder. Also irrigated freely, in and out freely. No problem and Renal got the catheter of the bag that is draining well. PB/MODL Voice ID: [id number] Report ID: [id number]
--- NOTE | 2019-02-01 02:21 | DS ---
Date of Discharge: 01/31/2019 Consultants: Dr. Baumann with General Surgery, Dr. Toth with Urology, Dr. Roper with Infectious Dise ase. Procedures: By Dr. Baumann on 01/11/2019, debridement of right heel infected wound, subcutaneous tissu e, 4 x [address] Toth on 01/29/2019, replacement of suprapubic urinary catheter. Admitting Diagnoses: 1.Septic shock due to wounds on the right heel and sacrum. 2.Right heel wound with surrounding cellulitis. 3.Hypotensive shock secondary to sepsis. 4.Sacral ulcer, unstageable. 5.Acute anemia. 6.Multiple sclerosis. 7.Diabetes mellitus, type 2, [id number]-ifoksmlbn, with hyperglycemia. 8.Severe protein-calorie malnutrition. 9.Hyponatremia. 10.Multiple ulcerations on the legs. 11.Status post suprapubic catheter. 12.Hypothyroidism. 13.Hyperlipidemia. 14.Major depressive disorder. 15.Generalized anxiety disorder. 16.Chronic pain syndrome. Discharge Diagnoses: 1.Septic shock secondary to wound infection, resolved. 2.Right heel wound with cellulitis, status post I and D, completed antibiotic course for a total of 2 weeks. 3.Sacral ulcer, unstageable, acutely infected, now resolved with IV antibiotic treatment of 2 weeks, growing out ESBL E. coli and Pseudomonas. 4.Hypotension, asymptomatic. 5.Acute on chronic microcytic hypochromic anemia, status post transfusion. 6.Acute metabolic encephalopathy, resolved. 7.Multiple sclerosis with lower extremity weakness, bed-bound, requiring assistance with activities of daily living. 8.Diabetes mellitus, type 2, xlu-mviumso-aevrqtblt, with hyperglycemia, on sliding scale insulin. 9.Severe protein-calorie malnutrition, albumin less than 2. 10.Hypomagnesemia, corrected. 11.Hypernatremia. 12.Status post suprapubic catheter changed in hospital by Dr. Toth on 01/19/2019. 13.Hypothyroidism, on Synthroid. 14.Mixed hyperlipidemia, on statin. 15.Major depressive disorder. 16.Generalized anxiety disorder. 17.Noncompliance, intentional. 18.Chronic pain syndrome. Hospital Course: The patient's hospital course was complicated and protracted due to her multiple co morbid conditions as well as her sepsis, multiple wounds, and the lack of LTAC or nursing home fac ilities and even home health agencies that will accept the patient. The patient is a 63-year-old fem dse with past medical history of multiple sclerosis, who has history of multiple wounds, comes in to see Dr. Baumann in the wound care clinic, comes in septic with hypotensive shock with hemoglobin of 5.6 , elevated procalcitonin level, glucose of 464, and a white blood cell count of 13,000. The patient was placed in the ICU. She was started on Levophed. She was started on broad-spectrum IV antibiotic s. Cultures were also obtained and cultures grew out Pseudomonas and ESBL E. coli. Dr. Baumann was co nsulted and the patient went for debridement of her right heel ulceration. The patient, should be no kvng, is on chronic narcotics and benzodiazepines, was very rude and noxious to the staff with verbal abuse and noncompliance with treatment as well as with physical examination and overall during the ho spital course. The patient was also seen by Infectious Disease, Dr. Roper, who recommended 2 weeks of IV antibiotic s with meropenem and gentamicin. The patient was initially attempted to be transferred to LTAC. How ever, the patient refused to go to LTAC. stated that the patient always comes out worse with LTAC; however, clearly home health has not been working for the patient as she is noncompliant and h as multiple wounds with acute infections and sepsis with shock. The patient was attempted to be johnathan tablished with home health care to have IV infusions done at home. However, no home health agency wa s willing to accept the patient as she has been noncompliant in the past and the agencies were not wi lling to accept the patient due to high risk of complications. The patient's code status was addressed and she was made DNR. She did not wish to be resuscitated gi rosy her comorbid conditions and her quality of life. She is basically bed bound due to her multiple sclerosis. She has not seen her neurologist. She is not on any steroids or IVIG for her multiple sc lerosis. The patient did have an episode, where she became acutely confused and delirious, had to be given flumazenil and Narcan, which improved her condition. The patient's narcotics were adjusted. Her benzodiazepines had to be stopped, however, had to be restarted due to her severe anxiety and the patient was monitored closely. The patient was then also seen by Dr. Toth due to her suprapubic ca theter, which was replaced by Dr. Toth. Please see his note for further details. The patient also had a leak subsequently, which was corrected by Dr. Toth on the day of discharge. The patient overa ll did well. She was able to be stepped down from the ICU. She got off the pressors. Her blood pre ssure remained on the low side, however, she was asymptomatic, did improve from her initial blood pre ssure, which was 80 systolic. The patient completed her course of IV antibiotics. Her hemoglobin co ntinued to trend down despite IV antibiotics being completed. There was no apparent source of bleedi ng, likely acute on chronic anemia of chronic disease. She is not a good candidate for scope. No GI was available either. Further discussions with the patient led to acceptance for hospice and pallia tive care. IP was consulted and the patient was accepted by [facility]. The patient already has a [facility] bed and other equipment. She was then discharged home with care and comfort measures with hospice. Medications: As per medication reconciliation list. Followup: Follow up with primary care physician as needed. Diet: Diabetic. Activity: Fall precautions. Goals are for care and comfort and pain control with palliation. Prognosis: The patient's overall prognosis is very poor. She is noncompliant. She has chronic woun ds, which she does not address and is at high risk for repeat wound infections and sepsis. The patie nt, however, at this point is DNR and wishes to be comfortable and agrees with palliation and hospice care rather than invasive measurements. Physical Examination: General: Awake, alert, oriented, no acute distress. CV: S1, S2. Respiratory: Moving air well bilaterally. Abdomen: Soft, nontender, nondistended. Positive bowel sounds. Extremities: No clubbing, cyanosis, edema. Neuro: Nonfocal. Skin: Right heel wound bandage clean, dry, intact. Sacral wound unable to be assessed. The patient refused to be turned over. Total time spent discharging the patient was 45 minutes. /MIKE Voice ID: [id number] Report ID: [id number]
== END 2019-01-31 16:46 | disposition hospice, home (50) | DRG 853 ==
LOC: ER 13:03 → ERHOLD 15:41 → 3RD-ICU 19:14 → 4TH 01-16 14:06
PROVIDERS: ADMIT Family Medicine; ATTEND Family Medicine
PROC: 30243N1 Transfusion of Nonautologous Red Blood Cells into Central Vein, Percutaneous Approach (ICD-10-PCS; 2019-01-09)
PROC: 05HY33Z Insertion of Infusion Device into Upper Vein, Percutaneous Approach (ICD-10-PCS; 2019-01-09)
PROC: 0JDQ0ZZ Extraction of Right Foot Subcutaneous Tissue and Fascia, Open Approach (ICD-10-PCS; principal; 2019-01-11 10:45)
DX: A41.51 Sepsis due to Escherichia coli [E. coli] (principal); R65.21 Severe sepsis with septic shock; R57.8 Other shock; E43 Unspecified severe protein-calorie malnutrition; G82.50 Quadriplegia, unspecified; G92 Toxic encephalopathy; E87.1 Hypo-osmolality and hyponatremia; L03.115 Cellulitis of right lower limb; E87.0 Hyperosmolality and hypernatremia; Z51.5 Encounter for palliative care; A41.52 Sepsis due to Pseudomonas; L89.150 Pressure ulcer of sacral region, unstageable; E11.621 Type 2 diabetes mellitus with foot ulcer; L98.429 Non-pressure chronic ulcer of back with unspecified severity; Z66 Do not resuscitate; Z16.12 Extended spectrum beta lactamase (ESBL) resistance; D50.9 Iron deficiency anemia, unspecified; D63.8 Anemia in other chronic diseases classified elsewhere; Z93.50 Unspecified cystostomy status; Z91.19 Patient's noncompliance with other medical treatment and regimen; G35 Multiple sclerosis; E11.65 Type 2 diabetes mellitus with hyperglycemia; E83.42 Hypomagnesemia; E03.9 Hypothyroidism, unspecified; E78.2 Mixed hyperlipidemia; F32.9 Major depressive disorder, single episode, unspecified; F41.9 Anxiety disorder, unspecified; G89.4 Chronic pain syndrome; T42.4X5A Adverse effect of benzodiazepines, initial encounter; Z68.27 Body mass index [BMI] 27.0-27.9, adult; Z74.01 Bed confinement status; Z88.5 Allergy status to narcotic agent; Z88.0 Allergy status to penicillin
CPT/HCPCS: 36415; 36430; 71045; 73650; 80048; 80053; 80076; 80170; 80202; 82274; 82550; 82553; 82728; 82962; 83540; 83605; 83690; 83735; 83880; 84100; 84132; 84145; 84466; 84484; 85014; 85018; 85025; 85610; 85730; 86850; 86900; 86901; 87040; 87070; 87077; 87176; 87186; 87205; 88304; 93005; 96365; 96366; 96367; 96375; 99285; J0610; J1170; J1580; J1940; J2185; J2250; J2310; J2405; J3010; J3370; J3475; J3590; J7030; J7060; P9016